=== PATIENT | female | born 1955 | race Caucasian/White ===

== ENCOUNTER 2016-09-25 10:40 | Inpatient (IN) | payer OTHER ==
[~2016-09-25] VITALS: Ht 170.2 cm; Wt 46.8 kg
[~2016-09-25 10:40] MED LIST: CNT PO; DLD2 PO; NUTR-1197 PO; OXYC5TAB PO; VTMB12100 PO; ZNT150 PO
[2016-09-25] MEDS ORDERED: ONDANSETRON INJ 2 MG/ML 2 ML VIAL IV STA (11:03)
[2016-09-25] MEDS ORDERED: SODIUM CHLORIDE 0.9% 1000ML 1,000 ML IV STA (11:08)
[2016-09-25] MEDS ORDERED: FENTANYL CITRATE INJ 50 MCG/1 ML 2 ML VIAL IV STA (11:08)
--- NOTE | 2016-09-25 11:14 | EMERGENCY ROOM VISIT NOTE ---
History Report prepared by Shila: Patti Rivera Under the Supervision of: Dr. Bob Garcia M.D. First contact with patient: 11:06 Chief Complaint: ABDOMINAL PAIN Stated Complaint: ABDOMINAL PAIN Nursing Triage Summary: Pt reports lower abdominal pain starting around 0500 this am. Also reports nausea, vomiting and diarrhea. 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 Procedure done at [facility] last Thursday and was discharged to home yesterday. Four laproscopic incisions noted on abdomen. BS X4 quadrants present. Pt had 10mg morphine IM en route. Hx chrons, abdominal lesions, abdominal pain. History of Present Illness The patient is a 60 year old female who presents to the Emergency Room with complaints of persistent lower abdominal pain that began around 0500 this morning. She currently rates her discomfort as a 10/10 in severity. The patient states that she had a Laparoscopic Strong's procedure to release the ligament of Treitz at [facility] last Thursday. She was discharged from [facility] yesterday. The patient states that she has had nausea, vomiting, and diarrhea. She states that she could not take her pain medications this morning due to the vomiting. Per EMS the patient received 10 mg of Morphine prior to arrival. The ROS is limited secondary to the patient being in significant pain and requesting pain medications. Source of History: patient Onset: 0500 this morning Position: abdomen Symptom Intensity: 10/10 Timing: other (persistent) Associated Symptoms: + diarrhea, + nausea, + vomiting Review of Systems The ROS is limited secondary to the patient being in significant pain and requesting pain medications. Past Medical & Surgical Medical Problems: (1) Abdominal pain (2) Adenomatous polyp of colon (3) Anxiety (4) B12 deficiency (5) Barretts esophagus (6) Chronic abdominal pain (7) Common bile duct (CBD) stricture (8) Dehydration (9) Depression (10) Dyslipidemia (11) Gastroparesis (12) GERD (gastroesophageal reflux disease) (13) IBS (irritable bowel syndrome) (14) Impaired fasting glucose (15) Intractable abdominal pain (16) Intractable nausea and vomiting (17) Malnutrition (18) Osteoporosis (19) Pernicious anemia (20) PUD (peptic ulcer disease) Surgical Problems: (1) H/O colonoscopy (2) H/O pyloroplasty (3) H/O vagotomy (4) History of carpal tunnel surgery (5) History of esophagogastroduodenoscopy (EGD) (6) History of Mary fundoplication (7) S/P cholecystectomy (8) S/P ERCP (9) S/p revision of esophagus and stomach (10) S/P thyroidectomy (11) Status post insertion of percutaneous endoscopic gastrostomy (PEG) tube Family History Unobtainable Social History Smoking Status: Current Every Day Smoker Marital Status: single, Occupation Status: disabled Current/Historical Medications Scheduled Acetaminophen (Tylenol Extra Strength), PO TID Cyanocobalamin (Vitamin B-12), 100 MCG PO QAM Enoxaparin (Lovenox), 40 MG SQ DAILY Multivitamins/Minerals (Certavite/Antioxidants), 1 TAB PO QAM Oxycodone/Acetaminophen 5MG/325MG (Percocet 5MG/325MG), 1 TAB PO QID Ranitidine HCl (Ranitidine HCl), 150 MG PO BID Scheduled PRN [marajaunia], 3.4 GM PO DAILY PRN for pain/nausea Allergies Coded Allergies: Benzodiazepines (Verified Allergy, Unknown, 06/10/16) Replaces CHLORDIAZEPOX Chlordiazepoxide (Verified Allergy, Unknown, 06/10/16) Replaces CHLORDIAZEPOX Clidinium (Verified Allergy, Unknown, 06/10/16) Replaces CHLORDIAZEPOX Metoclopramide (Verified Allergy, Unknown, 06/10/16) Pantoprazole (Verified Allergy, Unknown, ., 06/10/16) Prochlorperazine (Verified Allergy, Unknown, 06/10/16) Physical Exam Vital Signs Date Time Temp Pulse Resp B/P Pulse Ox O2 Delivery O2 Flow Rate FiO2 09/25/16 15:00 77 18 185/103 91 Room Air 09/25/16 14:13 73 16 132/83 95 Room Air 09/25/16 13:05 78 09/25/16 12:44 74 20 125/77 97 Room Air 09/25/16 11:40 76 14 162/105 97 Room Air 09/25/16 11:10 80 09/25/16 10:49 36.5 95 18 143/105 95 Room Air Physical Exam GENERAL: Patient is cachectic. Moderate distress. Crying. Dry heaving. Chronically unwell appearing. HEENT: No acute trauma, normocephalic atraumatic, mucous membranes moist, no nasal congestion, no scleral icterus. NECK: No stridor, no adenopathy, no meningismus, trachea is midline. LUNGS: No dyspnea. Clear to auscultation and equal bilaterally. No wheeze, no rhonchi. HEART: Regular rate and rhythm. No murmurs, rubs, gallops appreciated. ABDOMEN: Diffuse nonspecific tenderness to palpation of the abdomen. Hyperactive bowel sounds. BACK: No midline tenderness, no CVA tenderness EXTREMITIES: Normal motion all extremities, no cyanosis, no edema. NEUROLOGIC: Alert and oriented, no acute motor or sensory deficits, no focal weakness, cranial nerves grossly intact. SKIN: No rash, no jaundice, no diaphoresis. Medical Decision & Procedures ER Provider Diagnostic Interpretation: X ray results and stated below per my interpretation and radiologist interpretation. Other radiology results and stated below per my review and radiologist interpretation: CT OF THE ABDOMEN AND PELVIS WITH CONTRAST CLINICAL HISTORY: Severe abdominal pain. Status post release of the ligament of Treitz last Thursday. COMPARISON STUDY: CT of the abdomen and pelvis July 07, 2016. TECHNIQUE: Following IV administration of 93 mL of Optiray-320, axial images of the abdomen and pelvis were obtained from the lung bases to the proximal femurs. Images were reviewed in the axial, sagittal, and coronal planes. IV contrast was administered without complication. CT DOSE: 322.01 mGycm FINDINGS: Visualized portions of the lung bases are clear. There are postsurgical findings at the gastroesophageal junction. Note is made of a small amount of pneumoperitoneum. This may be postsurgical. Pneumobilia is unchanged since prior CT. The spleen, adrenal glands and kidneys are unremarkable with the exception of a few subcentimeter renal lesions which are too small to characterize. There is no hydronephrosis. There is no peripancreatic infiltration. The gallbladder is surgically absent. This exam is compromised by paucity of fat and lack of oral contrast. There is mild plaque of the abdominal aorta. Major abdominal vessels are patent. Duodenal dilatation has improved since prior CT. There is minimal infiltration within the operative bed. There is no fluid collection to suggest an abscess. There is no evidence for a bowel obstruction. Mild colonic wall thickening is probably due to underdistention. The appendix is normal. Mild pancreatic ductal dilatation is unchanged. IMPRESSION: 1. Small amount of pneumoperitoneum. While nonspecific, this is likely post surgical. No fluid collection to suggest abscess. Minimal infiltration within the operative bed is within normal limits in the early postoperative setting. 2. No bowel obstruction. Interval improvement in duodenal dilatation since prior exam. 3. Technically difficult study to interpret due to a paucity of fat and lack of oral contrast. 4. Mild colonic wall thickening. This is likely due to underdistention although a nonspecific colitis could appear similar. Normal appendix. Electronically signed by: Paddy Rodriguez M.D. 09/25/2016 12:23 PM Dictated Date/Time: 09/25/2016 12:13 PM Laboratory Results 09/25/16 10:50 Red Blood Count 4.48, Mean Corpuscular Volume 93.8, Mean Corpuscular Hemoglobin 33.9, Mean Corpuscular Hemoglobin Concent 36.2, Mean Platelet Volume 9.0, Neutrophils (%) (Auto) 79.6, Lymphocytes (%) (Auto) 10.9, Monocytes (%) (Auto) 7.6, Eosinophils (%) (Auto) 1.5, Basophils (%) (Auto) 0.2, Neutrophils # (Auto) 8.31, Lymphocytes # (Auto) 1.14, Monocytes # (Auto) 0.79, Eosinophils # (Auto) 0.16, Basophils # (Auto) 0.02 09/25/16 10:50 Test 09/25/16 10:50 09/25/16 11:14 09/25/16 11:20 White Blood Count 10.44 K/uL (4.8-10.8) Red Blood Count 4.48 M/uL (4.2-5.4) Hemoglobin 15.2 g/dL (12.0-16.0) Hematocrit 42.0 % (37-47) Mean Corpuscular Volume 93.8 fL (80-100) Mean Corpuscular Hemoglobin 33.9 pg (25-34) Mean Corpuscular Hemoglobin Concent 36.2 g/dl (32-36) Platelet Count 176 K/uL (130-400) Mean Platelet Volume 9.0 fL (7.4-10.4) Neutrophils (%) (Auto) 79.6 % Lymphocytes (%) (Auto) 10.9 % Monocytes (%) (Auto) 7.6 % Eosinophils (%) (Auto) 1.5 % Basophils (%) (Auto) 0.2 % Neutrophils # (Auto) 8.31 K/uL (1.4-6.5) Lymphocytes # (Auto) 1.14 K/uL (1.2-3.4) Monocytes # (Auto) 0.79 K/uL (0.11-0.59) Eosinophils # (Auto) 0.16 K/uL (0-0.5) Basophils # (Auto) 0.02 K/uL (0-0.2) RDW Standard Deviation 41.8 fL (36.4-46.3) RDW Coefficient of Variation 12.3 % (11.5-14.5) Immature Granulocyte % (Auto) 0.2 % Immature Granulocyte # (Auto) 0.02 K/uL (0.00-0.02) Est Creatinine Clear Calc Drug Dose 72.7 ml/min Estimated GFR () 114.0 Estimated GFR (Non- 98.4 BUN/Creatinine Ratio 13.2 (10-20) Calcium Level 10.3 mg/dl (8.5-10.1) Total Bilirubin 0.8 mg/dl (0.2-1) Aspartate Amino Transf (AST/SGOT) 16 U/L (15-37) Alanine Aminotransferase (ALT/SGPT) 21 U/L (12-78) Alkaline Phosphatase 117 U/L (45-117) Total Protein 7.1 gm/dl (6.4-8.2) Albumin 3.9 gm/dl (3.4-5.0) Globulin 3.2 gm/dl (2.5-4.0) Albumin/Globulin Ratio 1.2 (0.9-2) Lipase 93 U/L (73-393) Bedside Hemoglobin 15.3 g/dl (12.0-16.0) Bedside Hematocrit 45 % (37-47) Bedside Sodium 141 mEq/L (135-144) Bedside Potassium 3.4 mEq/L (3.3-5.0) Bedside Chloride 103 mEq/L (101-112) Bedside Total CO2 24 mEq/l (24-31) Anion Gap 18.0 mmol/L (16-25) Bedside Blood Urea Nitrogen 7 mg/dl (7-18) Bedside Creatinine 0.6 mg/dl (0.6-1.3) Bedside Glucose (other) 123 mg/dl (70-99) Bedside Ionized Calcium (Poppy) 1.26 mmol/l (1.12-1.32) Bedside Lactic Acid Venous 1.93 mmol/L (0.90-1.70) Laboratory results as reviewed by me. Medications Administered Medications (Trade) Dose Ordered Sig/Radha Route Start Time Stop Time Status Last Admin Dose Admin Ondansetron HCl (Zofran Inj) 4 mg NOW STAT IV 09/25/16 11:03 09/25/16 11:05 DC 09/25/16 11:06 4 MG Fentanyl Citrate 75 mcg 75 mcg NOW STAT IV 09/25/16 11:08 09/25/16 11:10 DC 09/25/16 11:19 75 MCG Sodium Chloride (Nss 1000ml) 1,000 ml @ 999 mls/hr Q1H1M STAT IV 09/25/16 11:08 09/25/16 12:08 DC 09/25/16 11:19 999 MLS/HR Miscellaneous Information (Nursing Verbal Med Order) 1 ea ONE ONCE N/A 09/25/16 11:45 09/25/16 11:46 DC 09/25/16 11:39 1 EA Hydromorphone HCl (Dilaudid Inj) 1 mg NOW STAT IV 09/25/16 12:36 09/25/16 12:37 DC 09/25/16 12:44 1 MG Ondansetron HCl (Zofran Inj) 4 mg STK-MED ONCE .ROUTE 09/25/16 15:02 09/25/16 15:05 DC 09/25/16 15:02 4 MG ED Course 1103: Ordered Zofran Inj 4 mg IV. 1107: The patient was evaluated in room A12B. A complete history and physical exam was performed. 1108: Ordered Sodium Chloride 1000 ml @ 999 mls/hr IV, Fentanyl Inj 75 mcg IV. 1139: Per nursing staff, the patient is experiencing increased pain. Verbally ordered 100 mcg of Fentanyl. 1236: Ordered Dilaudid Inj 1 mg IV. 1246: I reevaluated the patient and she is still experiencing pain. I discussed all the exam findings with her and I discussed the treatment plan. She verbalized complete understanding and agreement. She will be evaluated for further treatment. 1300: I discussed the patient's case with Dr. Sanders [facility] [place]. He is going to evaluate the patient for further treatment. Medical Decision Differential: Appendicitis, Diverticulitis, PUD/Gastritis, Biliary Pathology, UTI, Pyelonephritis, Renal Colic, Bowel Obstruction, Aortic Pathology, Acute Coronary Syndrome, amongst other pathologies entertained. 60 yr old female arrives for evaluation of epigastric/diffuse abdominal pain. Just had surgery to help relieve SMA syndrome and on fluids only diet. Already with Morphine [employer] though still in quite some distress. Fentanyl x 2 and dilaudid x 1 with eventual improvement in symptoms. CT consistent with her recent surgery. She really is vastly improved though with the amount of narcotics she has received, mild lactic acidosis and fact that she has gastroenteritis I feel that she will likely not do well as an outpatient. She is clearly cachectic and given inability to tolerate PO may require IV nutrition. Consults Time Called: 1255 Consulting Physician: BRAVO Davis Returned Call: 1300 I discussed the patient's case with BRAVO Davis. He is going to evaluate the patient for further treatment. Impression Primary Impression: Intractable abdominal pain Scribe Attestation The scribe's documentation has been prepared under my direction and personally reviewed by me in its entirety. I confirm that the note above accurately reflects all work, treatment, procedures, and medical decision making performed by me. Departure Information Dispostion Being Evaluated By Hospitalist Reji West PA-C (PCP)
[2016-09-25] MEDS ORDERED: OPTIRAY 320 IV PRN (11:15)
[2016-09-25 11:24] LABS: BASO % 0.2 %; BASO ABS # 0.02 K/uL (0-0.2); COMPLETE YES; EOS % 1.5 %; IG% 0.2 %; LYMPH % 10.9 %; LYMPH ABS # 1.14 K/uL (1.2-3.4); MEAN CELL VOLUME 93.8 fL (80-100); MEAN CORPUSCULAR HEMOGLOBIN 33.9 pg (25-34); MEAN CORPUSCULAR HGB CONC 36.2 g/dl (32-36); MONO % 7.6 %; NEUT % 79.6 %; PLATELET COUNT 176 K/uL (130-400); RED BLOOD COUNT 4.48 M/uL (4.2-5.4); WHITE BLOOD COUNT 10.44 K/uL (4.8-10.8)
[2016-09-25 11:31] LABS: ISTAT CREATININE 0.6 mg/dl (0.6-1.3); ISTAT HEMOGLOBIN 15.3 g/dl (12.0-16.0); ISTAT IONIZED CALCIUM 1.26 mmol/l (1.12-1.32)
[2016-09-25] MEDS ORDERED: [UNRECOGNIZED DRUG - OTHER] PO (11:34)
[2016-09-25] MEDS ORDERED: OXYC-57 PO ×2 (11:34)
[2016-09-25] MEDS ORDERED: ENOX40IN SQ ×2 (11:34)
[2016-09-25] MEDS ORDERED: ACET-1138 PO ×2 (11:34)
[2016-09-25 11:36] LABS: CREATININE 0.6 mg/dl (0.60-1.20)
[2016-09-25 11:37] LABS: BUN/CREATININE RATIO 13.2 (10-20); CALCIUM 10.3 mg/dl (8.5-10.1); POTASSIUM 3.5 mmol/L (3.5-5.1)
[2016-09-25 11:39] LABS: ALB/GLOB RATIO 1.2 (0.9-2)
[2016-09-25] MEDS ORDERED: NURSING VERBAL MED ORDER ONE (11:45)
--- NOTE | 2016-09-25 12:25 | DIAGNOSTIC IMAGING REPORT ---
CT OF THE ABDOMEN AND PELVIS WITH CONTRAST CLINICAL HISTORY: Severe abdominal pain. Status post release of the ligament of Treitz last Thursday. COMPARISON STUDY: CT of the abdomen and pelvis July 07, 2016. TECHNIQUE: Following IV administration of 93 mL of Optiray-320, axial images of the abdomen and pelvis were obtained from the lung bases to the proximal femurs. Images were reviewed in the axial, sagittal, and coronal planes. IV contrast was administered without complication. CT DOSE: 322.01 mGycm FINDINGS: Visualized portions of the lung bases are clear. There are postsurgical findings at the gastroesophageal junction. Note is made of a small amount of pneumoperitoneum. This may be postsurgical. Pneumobilia is unchanged since prior CT. The spleen, adrenal glands and kidneys are unremarkable with the exception of a few subcentimeter renal lesions which are too small to characterize. There is no hydronephrosis. There is no peripancreatic infiltration. The gallbladder is surgically absent. This exam is compromised by paucity of fat and lack of oral contrast. There is mild plaque of the abdominal aorta. Major abdominal vessels are patent. Duodenal dilatation has improved since prior CT. There is minimal infiltration within the operative bed. There is no fluid collection to suggest an abscess. There is no evidence for a bowel obstruction. Mild colonic wall thickening is probably due to underdistention. The appendix is normal. Mild pancreatic ductal dilatation is unchanged. IMPRESSION: 1. Small amount of pneumoperitoneum. While nonspecific, this is likely post surgical. No fluid collection to suggest abscess. Minimal infiltration within the operative bed is within normal limits in the early postoperative setting. 2. No bowel obstruction. Interval improvement in duodenal dilatation since prior exam. 3. Technically difficult study to interpret due to a paucity of fat and lack of oral contrast. 4. Mild colonic wall thickening. This is likely due to underdistention although a nonspecific colitis could appear similar. Normal appendix. Electronically signed by: Paddy Rodriguez M.D. 09/25/2016 12:23 PM Dictated Date/Time: 09/25/2016 12:13 PM
[2016-09-25] MEDS ORDERED: HYDROmorphone INJ 1 MG/ML SYR IV STA (12:36)
[2016-09-25] MEDS ORDERED: ACETAMINOPHEN 325 MG TAB PO PRN (13:30)
[2016-09-25] MEDS ORDERED: [UNRECOGNIZED DRUG - OTHER] PO PRN (13:30)
[2016-09-25] MEDS ORDERED: ZOLPIDEM TARTRATE 5 MG TAB PO PRN ×2 (13:30→13:45)
[2016-09-25] MEDS ORDERED: MoRPHine SULFATE 2 MG/ML CARP IV PRN (13:45)
[2016-09-25] MEDS ORDERED: BISACODYL 10 MG SUPP PR PRN (13:45)
[2016-09-25] MEDS ORDERED: DiphenhydrAMINE HCL 50 MG/ML VIAL IV PRN (13:45)
[2016-09-25] MEDS ORDERED: IV FLUIDS COMPLETED PRN (15:00)
[2016-09-25] MEDS ORDERED: ONDANSETRON INJ 2 MG/ML 2 ML VIAL ONE (15:02)
[2016-09-25] MEDS: TRIMETHOBENZAMIDE IM PRN (15:48)
[2016-09-25 16:02] VITALS: BP 181/103; PULSE 76; TEMP 37.2; O2SAT 98; Ht 170.2 cm; Wt 46.8 kg
[2016-09-25] MEDS: MoRPHine SULFATE 4 MG/ML 1 ML CARP\\VIAL IV PRN ×3 (16:22→21:44)
[2016-09-25] MEDS: ONDANSETRON INJ 2 MG/ML 2 ML VIAL IV PRN ×2 (16:23→22:46)
--- NOTE | 2016-09-25 16:42 | History and Physical ---
History & Physical Date & Time of Service: Sep 25, 2016 at 16:27 Chief Complaint: Dehydration, Intractable Nausea And Vomiting Primary Care Physician: Reji Weinstein PA-C History of Present Illness Source: patient The patient is a 60-year-old female who presents emergency department with complaint of abdominal pain, nausea and vomiting that began at 520 this morning. She was discharged from [facility] yesterday after having had a laparoscopic Strong's procedure performed to release the ligament of Treitz. She was told that she needed to stay with clear liquid diet plus Boost Breeze nutritional drink for the next 3 weeks. She was also unable to hold any meds down, including her pain meds, and thus presents for assessment. Past Medical/Surgical History Medical Problems: (1) Adenomatous polyp of colon Status: Chronic (2) Anxiety Status: Chronic (3) B12 deficiency Status: Chronic (4) Barretts esophagus Status: Chronic (5) Chronic abdominal pain Status: Chronic (6) Common bile duct (CBD) stricture Status: Chronic (7) Depression Status: Chronic (8) Dyslipidemia Status: Chronic (9) Gastroparesis Status: Chronic (10) GERD (gastroesophageal reflux disease) Status: Chronic (11) IBS (irritable bowel syndrome) Status: Chronic (12) Impaired fasting glucose Status: Chronic (13) Malnutrition Status: Chronic (14) Osteoporosis Status: Chronic (15) Pernicious anemia Status: Chronic (16) PUD (peptic ulcer disease) Status: Chronic Surgical Problems: (1) H/O colonoscopy Status: Chronic (2) H/O pyloroplasty Status: Chronic (3) H/O vagotomy Status: Chronic (4) History of carpal tunnel surgery Status: Chronic (5) History of esophagogastroduodenoscopy (EGD) Status: Chronic (6) History of Mary fundoplication Status: Chronic (7) S/P cholecystectomy Status: Chronic (8) S/P ERCP Permanent Comment: with stent insertion at [facility] in 03/2000; with CBD stones at [facility] in 07/2010; with CBD sludge at [facility] in 01/2011 Status: Chronic (9) S/p revision of esophagus and stomach Permanent Comment: Belsey-Иван IV surgery; 1991 Status: Chronic (10) S/P thyroidectomy Status: Chronic (11) Status post insertion of percutaneous endoscopic gastrostomy (PEG) tube Status: Chronic Family History Unobtainable Social History Smoking Status: Current Every Day Smoker Smokeless Tobacco Use: No Alcohol Use: none Drug Use: none, marijuana (medical marijuana) Marital Status: single, Housing status: lives with family Occupational Status: disabled Immunizations History of Influenza Vaccine: Yes Influenza Vaccine Date: Jun 27, 2010 History of Tetanus Vaccine?: Yes History of Pneumococcal: Yes Pneumococcal Date: Jul 27, 2009 History of Hepatitis B Vaccine: No Multi-Drug Resistant Organisms History of MDRO: No Allergies Coded Allergies: Benzodiazepines (Verified Allergy, Unknown, 06/10/16) Replaces CHLORDIAZEPOX Chlordiazepoxide (Verified Allergy, Unknown, 06/10/16) Replaces CHLORDIAZEPOX Clidinium (Verified Allergy, Unknown, 06/10/16) Replaces CHLORDIAZEPOX Metoclopramide (Verified Allergy, Unknown, 06/10/16) Pantoprazole (Verified Allergy, Unknown, ., 06/10/16) Prochlorperazine (Verified Allergy, Unknown, 06/10/16) Home Medications Scheduled Acetaminophen (Tylenol Extra Strength), PO TID Cyanocobalamin (Vitamin B-12), 100 MCG PO QAM Enoxaparin (Lovenox), 40 MG SQ DAILY Multivitamins/Minerals (Certavite/Antioxidants), 1 TAB PO QAM Oxycodone/Acetaminophen 5MG/325MG (Percocet 5MG/325MG), 1 TAB PO QID Ranitidine HCl (Ranitidine HCl), 150 MG PO BID Scheduled PRN [marajaunia], 3.4 GM PO DAILY PRN for pain/nausea Review of Systems The patient denies chest pain, palpitations, shortness of breath, cough, lower extremity swelling, vision change, hearing change, sore throat, fevers, chills, sweats, blood in urine or stool, dysuria, urinary frequency or urgency, rash, abnormal bruising or bleeding, imbalance, focal weakness, numbness or tingling in arms or legs, arthralgias or myalgias, back or neck pain, night sweats, or allergy symptoms. The review of systems is otherwise negative other than for that already noted above, and at least 10 systems have been reviewed. Physical Exam Vital Signs Date Time Temp Pulse Resp B/P Pulse Ox O2 Delivery O2 Flow Rate FiO2 09/25/16 16:02 37.2 76 20 181/103 98 Room Air 09/25/16 15:51 75 22 165/102 96 Room Air 09/25/16 15:00 77 18 185/103 91 Room Air 09/25/16 14:13 73 16 132/83 95 Room Air 09/25/16 13:05 78 09/25/16 12:44 74 20 125/77 97 Room Air 09/25/16 11:40 76 14 162/105 97 Room Air 09/25/16 11:10 80 09/25/16 10:49 36.5 95 18 143/105 95 Room Air The patient is awake, alert and oriented 3, normocephalic and atraumatic, lying in bed and in no acute distress. HEENT--PERRL, EOMI, mucous membranes and oropharynx dry. Neck--supple, no JVD or bruits, thyroid normal, trachea midline, no adenopathy. Heart--normal S1 and S2, no extra beats, no murmurs, rubs or gallops. Lungs--clear bilaterally with good air movement, no respiratory distress, no accessory muscle use. Abdomen--normal bowel sounds and soft, generalized tenderness, nondistended, no hernias or masses, no organomegaly. Extremities--no cyanosis, clubbing or edema. There are good distal pulses b/l. Dermatologic--normal skin turgor, normal color, warm and dry, no abnormal lymph nodes, no rash. Neurologic--cranial nerves II through XII grossly intact, motor and sensory examination normal. Rheumatologic--normal range of motion, nontender, muscles and joints. Psychiatric--normal affect. Diagnostics Laboratory Results Results Past 24 Hours Test 09/25/16 10:50 09/25/16 11:14 09/25/16 11:20 Range/Units White Blood Count 10.44 4.8-10.8 K/uL Red Blood Count 4.48 4.2-5.4 M/uL Hemoglobin 15.2 12.0-16.0 g/dL Hematocrit 42.0 37-47 % Mean Corpuscular Volume 93.8 80-100 fL Mean Corpuscular Hemoglobin 33.9 25-34 pg Mean Corpuscular Hemoglobin Concent 36.2 32-36 g/dl Platelet Count 176 130-400 K/uL Mean Platelet Volume 9.0 7.4-10.4 fL Neutrophils (%) (Auto) 79.6 % Lymphocytes (%) (Auto) 10.9 % Monocytes (%) (Auto) 7.6 % Eosinophils (%) (Auto) 1.5 % Basophils (%) (Auto) 0.2 % Neutrophils # (Auto) 8.31 1.4-6.5 K/uL Lymphocytes # (Auto) 1.14 1.2-3.4 K/uL Monocytes # (Auto) 0.79 0.11-0.59 K/uL Eosinophils # (Auto) 0.16 0-0.5 K/uL Basophils # (Auto) 0.02 0-0.2 K/uL RDW Standard Deviation 41.8 36.4-46.3 fL RDW Coefficient of Variation 12.3 11.5-14.5 % Immature Granulocyte % (Auto) 0.2 % Immature Granulocyte # (Auto) 0.02 0.00-0.02 K/uL Sodium Level 142 136-145 mmol/L Potassium Level 3.5 3.5-5.1 mmol/L Chloride Level 106 98-107 mmol/L Carbon Dioxide Level 24 21-32 mmol/L Anion Gap 12.0 18.0 16-25 mmol/L Blood Urea Nitrogen 8 7-18 mg/dl Creatinine 0.60 0.60-1.20 mg/dl Est Creatinine Clear Calc Drug Dose 72.7 ml/min Estimated GFR () 114.0 Estimated GFR (Non- 98.4 BUN/Creatinine Ratio 13.2 10-20 Random Glucose 115 70-99 mg/dl Calcium Level 10.3 8.5-10.1 mg/dl Total Bilirubin 0.8 0.2-1 mg/dl Aspartate Amino Transf (AST/SGOT) 16 15-37 U/L Alanine Aminotransferase (ALT/SGPT) 21 12-78 U/L Alkaline Phosphatase 117 45-117 U/L Total Protein 7.1 6.4-8.2 gm/dl Albumin 3.9 3.4-5.0 gm/dl Globulin 3.2 2.5-4.0 gm/dl Albumin/Globulin Ratio 1.2 0.9-2 Lipase 93 73-393 U/L Bedside Hemoglobin 15.3 12.0-16.0 g/dl Bedside Hematocrit 45 37-47 % Bedside Sodium 141 135-144 mEq/L Bedside Potassium 3.4 3.3-5.0 mEq/L Bedside Chloride 103 101-112 mEq/L Bedside Total CO2 24 24-31 mEq/l Bedside Blood Urea Nitrogen 7 7-18 mg/dl Bedside Creatinine 0.6 0.6-1.3 mg/dl Bedside Glucose (other) 123 70-99 mg/dl Bedside Ionized Calcium (Poppy) 1.26 1.12-1.32 mmol/l Bedside Lactic Acid Venous 1.93 0.90-1.70 mmol/L Diagnostic Radiology Patient Name: ROCKY JACQUES Unit Number: [id number] Dictated: 09/25/161212 Transcribed: 09/25/161212 JA Printed Date/Time: [~ rep prt dt]/[~ rep prt tm] [~ rep ct labl] - [~ rep ct ivnm] [facility] [place] [place] [address] Dictated: 09/25/161212 Transcribed: 09/25/161212 JA Printed Date/Time: [~ rep prt dt]/[~ rep prt tm] [~ rep ct labl] - [~ rep ct ivnm] CT OF THE ABDOMEN AND PELVIS WITH CONTRAST CLINICAL HISTORY: Severe abdominal pain. Status post release of the ligament of Treitz last Thursday. COMPARISON STUDY: CT of the abdomen and pelvis July 07, 2016. TECHNIQUE: Following IV administration of 93 mL of Optiray-320, axial images of the abdomen and pelvis were obtained from the lung bases to the proximal femurs. Images were reviewed in the axial, sagittal, and coronal planes. IV contrast was administered without complication. CT DOSE: 322.01 mGycm FINDINGS: Visualized portions of the lung bases are clear. There are postsurgical findings at the gastroesophageal junction. Note is made of a small amount of pneumoperitoneum. This may be postsurgical. Pneumobilia is unchanged since prior CT. The spleen, adrenal glands and kidneys are unremarkable with the exception of a few subcentimeter renal lesions which are too small to characterize. There is no hydronephrosis. There is no peripancreatic infiltration. The gallbladder is surgically absent. This exam is compromised by paucity of fat and lack of oral contrast. There is mild plaque of the abdominal aorta. Major abdominal vessels are patent. Duodenal dilatation has improved since prior CT. There is minimal infiltration within the operative bed. There is no fluid collection to suggest an abscess. There is no evidence for a bowel obstruction. Mild colonic wall thickening is probably due to underdistention. The appendix is normal. Mild pancreatic ductal dilatation is unchanged. IMPRESSION: 1. Small amount of pneumoperitoneum. While nonspecific, this is likely post surgical. No fluid collection to suggest abscess. Minimal infiltration within the operative bed is within normal limits in the early postoperative setting. 2. No bowel obstruction. Interval improvement in duodenal dilatation since prior exam. 3. Technically difficult study to interpret due to a paucity of fat and lack of oral contrast. 4. Mild colonic wall thickening. This is likely due to underdistention although a nonspecific colitis could appear similar. Normal appendix. Electronically signed by: Paddy Rodriguez M.D. 09/25/2016 12:23 PM Dictated Date/Time: 09/25/2016 12:13 PM The status of this report is Signed. Draft = Not yet reviewed or approved by Radiologist. Signed = Reviewed and approved by Radiologist. <AttendingPhy></AttendingPhy> <FamilyPhy>Reji Weinstein PA-C</FamilyPhy> < PrimaryPhy>Reji Weinstein PA-C</PrimaryPhy> <UnitNumber>[id number]</ UnitNumber> <VisitNumber>[id number]</VisitNumber> <PatientName>ROCKY JACQUES</ PatientName> <DateOfBirth>1955</DateOfBirth> <Location>[facility]</Location> < ServiceDate>09/25/16</ServiceDate> <MNE>ESIMARI</MNE> <OrderingPhy>Bob Garcia M.D.</OrderingPhy> <OrderingPhyMNE>f rep ord dr jean</OrderingPhyMNE> < DictatingPhyMNE>f rep dict dr jean</DictatingPhyMNE> <CCListMNE>f rep ct sorayae</ CCListMNE> <AdmittingPhyMNE>f pt admit dr jean</AdmittingPhyMNE> <AttendingPhyMNE >f pt attend dr jean</AttendingPhyMNE> <ConsultingPhyMNE>f pt consult dr jean</ConsultingPhyMNE> <FamilyPhyMNE>f pt fam dr jean</FamilyPhyMNE> <OtherPhyMNE>f pt other dr jean</OtherPhyMNE> < PrimaryPhyMNE>f pt prim care dr jean</PrimaryPhyMNE> <ReferringPhyMNE>f pt referring dr jean</ReferringPhyMNE> EKG EKG with too much noise at baseline for accurate interpretation. Impression Assessment and Plan Intractable abdominal pain, nausea and vomiting with dehydration/status post laparoscopic Strong's Procedure one week ago--the patient will be admitted to the medical surgical floor. We'll continue with her diet of clear liquids and boost breeze, and we will consult dietitian. My recommendation for this patient would be to have a PICC line placed and arrange for DICK in the outpatient setting until her diet is able to be advanced. She has a follow-up scheduled at [facility] in 2 weeks. She'll be continued on ranitidine 150 mg by mouth twice a day, placed on Zofran 4 mg IV every 6 hours when necessary with repeat in 30 minutes when necessary, and Tigan 200mg IM q 6 hours PRN, as she is allergic to metoclopramide, prochlorperazine and pantoprazole. Continue multivitamin with minerals daily, and vitamin B12 100 g by mouth daily. We will consult Drs. Arroyo, Clyde and Colton. DVT prophylaxis--continue Lovenox 40 mg subcutaneous daily. Pain management--continue oxycodone/acetaminophen 5/325 one by mouth 4 times a day when necessary, and morphine sulfate 2-4 mg IV every 2 hours when necessary. Tobacco use disorder--aware of need for cessation. Level of Care Med/Surg Advanced Directives Existing Advance Directive: No Existing Living Will: No Existing Power of Catering Truck Driver: No Resuscitation Status FULL RESUSCITATION VTE Prophylaxis VTE Risk Assessment Done? Y/N: Yes Risk Level: Moderate Given or contraindicated: Enoxaparin (Lovenox)SQ, SCD's
[2016-09-25 17:26] LABS: URINE APPEARANCE CLEAR (CLEAR); URINE BILIRUBIN NEG (NEG); URINE COLOR YELLOW; URINE NITRITE NEG (NEG); URINE SPECIFIC GRAVITY > 1.045 (1.000-1.030); UROBILINOGEN NEG (NEG); ZZUR CULT IF INDIC CLEAN CATCH NO
[2016-09-25 17:39] LABS: MANUAL MICROSCOPIC REQUIRED? NO; REVIEW REQ? NO
[2016-09-25] MEDS: BOOST BREEZE NUTRITION DRINK 1 BOX PO SCH ×2 (17:53→20:15)
[2016-09-25 18:14] VITALS: BP 180/91
[2016-09-25] MEDS: D5W AND 1/2NSS + 20MEQ KCL 1,000 ML IV SCH (18:58)
[2016-09-25] MEDS: RANITIDINE HCL 150 MG TAB PO SCH (20:15)
[2016-09-25] MEDS: ACETAMINOPHEN 500 MG TAB PO SCH (20:15)
[2016-09-26 00:15] VITALS: BP 111/68; PULSE 102; TEMP 36.9; O2SAT 95
[2016-09-26 00:16] VITALS: BP 117/76; PULSE 70; TEMP 36.7; O2SAT 100
[2016-09-26] MEDS: D5W AND 1/2NSS + 20MEQ KCL 1,000 ML IV SCH ×3 (01:50→16:49)
[2016-09-26] MEDS: MoRPHine SULFATE 4 MG/ML 1 ML CARP\\VIAL IV PRN ×5 (02:11→19:40)
[2016-09-26 07:44] VITALS: BP 131/80; PULSE 73; TEMP 36.9; O2SAT 99
[2016-09-26 07:59] LABS: BASO % 0.3 %; BASO ABS # 0.03 K/uL (0-0.2); COMPLETE YES; EOS % 7.3 %; HEMATOCRIT 40.9 % (37-47); IG% 0.2 %; LYMPH % 19.3 %; LYMPH ABS # 1.82 K/uL (1.2-3.4); MEAN CELL VOLUME 95.3 fL (80-100); MEAN CORPUSCULAR HEMOGLOBIN 33.8 pg (25-34); MEAN CORPUSCULAR HGB CONC 35.5 g/dl (32-36); MEAN PLATELET VOLUME 8.7 fL (7.4-10.4); MONO % 9.8 %; NEUT % 63.1 %; PLATELET COUNT 173 K/uL (130-400); RED BLOOD COUNT 4.29 M/uL (4.2-5.4); WHITE BLOOD COUNT 9.42 K/uL (4.8-10.8)
[2016-09-26 08:08] LABS: INR 1.1 (0.9-1.1); PROTHROMBIN TIME (PATIENT) 11.6 SECONDS (9.0-12.0)
[2016-09-26 08:28] LABS: CALCIUM 9.6 mg/dl (8.5-10.1); CREATININE 0.6 mg/dl (0.60-1.20); MAGNESIUM 1.8 mg/dl (1.8-2.4); POTASSIUM 3.7 mmol/L (3.5-5.1)
[2016-09-26] MEDS: ACETAMINOPHEN 500 MG TAB PO SCH ×3 (08:49→19:38)
[2016-09-26] MEDS: RANITIDINE HCL 150 MG TAB PO SCH ×2 (08:50→19:38)
[2016-09-26] MEDS: BOOST BREEZE NUTRITION DRINK 1 BOX PO SCH ×3 (08:50→19:38)
[2016-09-26] MEDS: CYANOCOBALAMIN 100 MCG TAB (VIT B-12) PO SCH (08:50)
[2016-09-26] MEDS: CEROVITE ADV FORMULA TAB PO SCH (08:51)
[2016-09-26] MEDS: ENOXAPARIN 40 MG/0.4 ML SYR SQ SCH (08:58)
[2016-09-26] MEDS: ONDANSETRON INJ 2 MG/ML 2 ML VIAL IV PRN (09:19)
--- NOTE | 2016-09-26 10:23 | Hospitalist Progress Note ---
Hospitalist Progress Note Date of Service Sep 26, 2016. (Terri Cervantes ., PA-C) Subjective Pt evaluation today including: conversation w/ patient, physical exam, chart review, lab review, review of studies, review of inpatient medication list Voiding: no voiding problems, no incontinence Patient states she is feeling better since admission. Last episode of emesis was last night. +nausea- controlled with current medications. Per patient, she has had recurrent episodes similar to this for the past 27+ years. Episodes start in the morning with a bowel movement, proceeded with "stomach acid vomiting." Patient gets epigastric pain that radiates to the chest. Episodes last for a couple of days. She denies seeking medically care, just managing on her own at home. She notes these episodes have worsened since having hiatal hernia 27 years ago, but remembers having mild episodes prior. +diarrhea- per patient, she notes having diarrhea when drinking large amounts of liquid. However, diarrhea has significantly worsened since procedure on 09/19. Patient had flavored ice this morning, which quickly resulted in an episode of diarrhea. Patient denies any fever, chills, sweats, lightheadedness, dizziness, vision changes, CP, palpitations, edema, SOB, wheezing, cough, urinary symptoms , melena, numbness/tingling, weakness, muscle/joint pain, anxiety/depression, active bleeding, or new skin discoloration/changes. (Terri Cervantes ., PA-C) Medications Current Inpatient Medications Medications (Trade) Dose Ordered Sig/Radha Route Start Time Stop Time Status Last Admin Dose Admin Ioversol (Optiray 320) 111 ml UD PRN IV 09/25/16 11:15 09/29/16 11:14 Acetaminophen (Tylenol Tab) 500 mg TID PO 09/25/16 20:00 10/25/16 19:59 09/26/16 08:49 500 MG Cyanocobalamin (Vitamin B-12 Tab) 100 mcg QAM PO 09/26/16 08:00 10/26/16 08:59 09/26/16 08:50 100 MCG Enoxaparin Sodium (Lovenox Inj) 40 mg DAILY SQ 09/26/16 08:00 10/26/16 08:59 09/26/16 08:58 40 MG Multivitamins/ Minerals (Multivitamin W/ Minerals Tab) 1 tab QAM PO 09/26/16 08:00 10/26/16 08:59 09/26/16 08:51 1 TAB Oxycodone/ Acetaminophen (Percocet 5-325mg Tab) 1 tab QID PRN PO 09/25/16 17:00 10/09/16 16:59 Ranitidine HCl (zANTac TAB) 150 mg BID PO 09/25/16 20:00 10/25/16 20:59 09/26/16 08:50 150 MG Bisacodyl (Dulcolax Supp) 10 mg DAILY PRN OK 09/25/16 13:45 10/25/16 13:44 Diphenhydramine HCl (Benadryl Inj) 25 mg Q4H PRN IV 09/25/16 13:45 10/25/16 13:44 09/25/16 16:22 25 MG Zolpidem Tartrate (Ambien Tab) 5 mg HSZ PRN PO 09/25/16 13:45 10/25/16 13:44 Ondansetron HCl (Zofran Inj) 4 mg Q6H PRN IV 09/25/16 13:45 10/25/16 13:44 09/26/16 09:19 4 MG Morphine Sulfate (MoRPHine SULFATE INJ) 2 mg Q2H PRN IV 09/25/16 13:45 10/09/16 13:44 Morphine Sulfate 4 mg 4 mg Q2H PRN IV 09/25/16 13:45 10/09/16 13:44 09/26/16 09:19 4 MG Potassium Chloride/Dextrose/ Sod Cl (D5W And 1/2nss + 20meq KCl) 1,000 ml @ 125 mls/hr Q8H IV 09/25/16 17:39 10/25/16 17:38 09/26/16 08:50 125 MLS/HR Enteral Nutritional Formula (Boost Breeze Nutritional Drink) 1 box TID PO 09/25/16 14:00 10/25/16 13:59 09/26/16 08:50 1 BOX Miscellaneous (Iv Fluids Completed) 1 ea PRN PRN N/A 09/25/16 15:00 09/25/17 14:59 Trimethobenzamide HCl (Tigan IM) 200 mg Q6H PRN IM 09/25/16 15:30 10/25/16 15:29 09/25/16 15:48 200 MG (Terri Cervantes ., PA-C) Objective Vital Signs Date Time Temp Pulse Resp B/P Pulse Ox O2 Delivery O2 Flow Rate FiO2 09/26/16 07:44 36.9 73 18 131/80 99 Room Air 09/26/16 00:16 36.7 70 16 117/76 100 Room Air 09/26/16 00:01 Room Air 09/25/16 20:00 Room Air 09/25/16 18:14 180/91 09/25/16 16:02 37.2 76 20 181/103 98 Room Air 09/25/16 15:51 75 22 165/102 96 Room Air 09/25/16 15:00 77 18 185/103 91 Room Air 09/25/16 14:13 73 16 132/83 95 Room Air 09/25/16 13:05 78 09/25/16 12:44 74 20 125/77 97 Room Air 09/25/16 11:40 76 14 162/105 97 Room Air 09/25/16 11:10 80 09/25/16 10:49 36.5 95 18 143/105 95 Room Air (Terri Cervantes ., PA-C) Physical Exam General Appearance: no apparent distress, + thin Eyes: normal inspection, PERRL ENT: hearing grossly normal Neck: supple Respiratory/Chest: lungs clear, no respiratory distress, no accessory muscle use Cardiovascular: regular rate, rhythm Abdomen: normal bowel sounds, soft, + tenderness (Mild tenderness around incision sites ), + pertinent finding (incision sites x4 without erythema or drainage ) Extremities: no pedal edema, no calf tenderness Neurologic/Psychiatric: alert, normal mood/affect, oriented x 3 Skin: normal color, warm/dry, no rash (Terri Cervantes ., PA-C) Laboratory Results Last 24 Hours Test 09/25/16 10:50 09/25/16 11:14 09/25/16 11:20 09/25/16 14:22 White Blood Count 10.44 K/uL Red Blood Count 4.48 M/uL Hemoglobin 15.2 g/dL Hematocrit 42.0 % Mean Corpuscular Volume 93.8 fL Mean Corpuscular Hemoglobin 33.9 pg Mean Corpuscular Hemoglobin Concent 36.2 g/dl Platelet Count 176 K/uL Mean Platelet Volume 9.0 fL Neutrophils (%) (Auto) 79.6 % Lymphocytes (%) (Auto) 10.9 % Monocytes (%) (Auto) 7.6 % Eosinophils (%) (Auto) 1.5 % Basophils (%) (Auto) 0.2 % Neutrophils # (Auto) 8.31 K/uL Lymphocytes # (Auto) 1.14 K/uL Monocytes # (Auto) 0.79 K/uL Eosinophils # (Auto) 0.16 K/uL Basophils # (Auto) 0.02 K/uL RDW Standard Deviation 41.8 fL RDW Coefficient of Variation 12.3 % Immature Granulocyte % (Auto) 0.2 % Immature Granulocyte # (Auto) 0.02 K/uL Sodium Level 142 mmol/L Potassium Level 3.5 mmol/L Chloride Level 106 mmol/L Carbon Dioxide Level 24 mmol/L Anion Gap 12.0 mmol/L 18.0 mmol/L Blood Urea Nitrogen 8 mg/dl Creatinine 0.60 mg/dl Est Creatinine Clear Calc Drug Dose 72.7 ml/min Estimated GFR () 114.0 Estimated GFR (Non- 98.4 BUN/Creatinine Ratio 13.2 Random Glucose 115 mg/dl Calcium Level 10.3 mg/dl Total Bilirubin 0.8 mg/dl Aspartate Amino Transf (AST/SGOT) 16 U/L Alanine Aminotransferase (ALT/SGPT) 21 U/L Alkaline Phosphatase 117 U/L Total Protein 7.1 gm/dl Albumin 3.9 gm/dl Globulin 3.2 gm/dl Albumin/Globulin Ratio 1.2 Lipase 93 U/L Bedside Hemoglobin 15.3 g/dl Bedside Hematocrit 45 % Bedside Sodium 141 mEq/L Bedside Potassium 3.4 mEq/L Bedside Chloride 103 mEq/L Bedside Total CO2 24 mEq/l Bedside Blood Urea Nitrogen 7 mg/dl Bedside Creatinine 0.6 mg/dl Bedside Glucose (other) 123 mg/dl Bedside Ionized Calcium (Poppy) 1.26 mmol/l Bedside Lactic Acid Venous 1.93 mmol/L Urine Color YELLOW Urine Appearance CLEAR Urine pH 5.0 Urine Specific [place] > 1.045 Urine Protein NEG Urine Glucose (UA) NEG Urine Ketones TRACE Urine Occult Blood NEG Urine Nitrite NEG Urine Bilirubin NEG Urine Urobilinogen NEG Urine Leukocyte Esterase NEG Test 09/25/16 17:17 09/26/16 07:32 Lactic Acid Level 2.0 mmol/L White Blood Count 9.42 K/uL Red Blood Count 4.29 M/uL Hemoglobin 14.5 g/dL Hematocrit 40.9 % Mean Corpuscular Volume 95.3 fL Mean Corpuscular Hemoglobin 33.8 pg Mean Corpuscular Hemoglobin Concent 35.5 g/dl Platelet Count 173 K/uL Mean Platelet Volume 8.7 fL Neutrophils (%) (Auto) 63.1 % Lymphocytes (%) (Auto) 19.3 % Monocytes (%) (Auto) 9.8 % Eosinophils (%) (Auto) 7.3 % Basophils (%) (Auto) 0.3 % Neutrophils # (Auto) 5.94 K/uL Lymphocytes # (Auto) 1.82 K/uL Monocytes # (Auto) 0.92 K/uL Eosinophils # (Auto) 0.69 K/uL Basophils # (Auto) 0.03 K/uL RDW Standard Deviation 43.2 fL RDW Coefficient of Variation 12.5 % Immature Granulocyte % (Auto) 0.2 % Immature Granulocyte # (Auto) 0.02 K/uL Prothrombin Time 11.6 SECONDS Prothromb Time International Ratio 1.1 Activated Partial Thromboplast Time 26.4 SECONDS Partial Thromboplastin Ratio 1.0 Sodium Level 140 mmol/L Potassium Level 3.7 mmol/L Chloride Level 106 mmol/L Carbon Dioxide Level 25 mmol/L Anion Gap 9.0 mmol/L Blood Urea Nitrogen 7 mg/dl Creatinine 0.60 mg/dl Est Creatinine Clear Calc Drug Dose 72.7 ml/min Estimated GFR () 114.0 Estimated GFR (Non- 98.4 BUN/Creatinine Ratio 12.0 Random Glucose 109 mg/dl Calcium Level 9.6 mg/dl Magnesium Level 1.8 mg/dl (Terri Cervantes, FARSHADC) Assessment and Plan The patient is a 60-year-old female who presents emergency department with complaint of abdominal pain, nausea and vomiting that began at 520 this morning. She was discharged from [facility] yesterday after having had a laparoscopic Strong's procedure performed to release the ligament of Treitz. She was told that she needed to stay with clear liquid diet plus Boost Breeze nutritional drink for the next 3 weeks. She was also unable to hold any meds down, including her pain meds, and thus presents for assessment. She has a follow-up scheduled at [place] in 2 weeks. Intractable abdominal pain, nausea and vomiting with dehydration/status post laparoscopic Strong's Procedure one week ago: - Admit to the medical surgical floor - Continue with her diet of clear liquids and boost breeze, and we will consult dietitian - Continue on Ranitidine 150 mg PO BID, placed on Zofran 4 mg IV q6 hrs PRN with repeat in 30 minutes PRN, and Tigan 200mg IM q 6 hours PRN -- Patient is allergic to metoclopramide, prochlorperazine and pantoprazole - Continue multivitamin with minerals daily, and vitamin B12 100 g by mouth daily - Consult GI, appreciate recommendations Diarrhea: - Check stool culture and c.diff Pain management: Continue oxycodone/acetaminophen 5/325 one by mouth QID PRN and morphine sulfate 2-4 mg IV q2 hrs PRN Tobacco use disorder: Smoking cessation counselling DVT prophylaxis: Continue Lovenox 40 mg subcutaneous daily (patient to continue injections until follow-up appt with [facility] in 2 weeks) Code Status: LEVEL I, FULL Dispo: Discharge to home once medically stable (Terri Cervantes, OMA) Reviewed: Pt Seen/Exam by , KHURRAM Notes, Labs, RAD (Amy Suarez MD) History Physician Skeet Operator Supervision Note: I interviewed and examined the patient. Discussed with INO Cervantes and agree with findings and plan as documented in the note. Any exceptions or clarifications are listed here: Pt with no further N/V, had 3 loose BMs today and stool +C. diff, started po Vanco. She reports she smokes marijuana daily for her chronic nausea and has gone for a few weeks at a time without it but last time she was abstinent from MJ was 4 months ago. She reports being on Elavil for 40 years for depression but not on it since she stopped all meds about 5 yrs ago. Tried Zoloft last year and caused +SI. Is willing to try anything to help with her diarrhea. 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 -advised abstinence from marijuana due to association with cyclical vomiting syndrome -willing to trial Elavil again -treat C. diff (second episode in last 3 months) with po Vanco x 14 days -appreciate GI consult -no TPN needed at this point but may need it if can't tolerate liquid diet -would need SNF if needs TPN due to insurance issues getting TPN at home Documented By: Amy Suarez (Amy Suarez MD)
[2016-09-26] MEDS: TRIMETHOBENZAMIDE IM PRN (13:12)
--- NOTE | 2016-09-26 14:17 | GASTROINTESTINAL CONSULTATION ---
DATE OF CONSULTATION: 09/26/2016 DATE OF CONSULTATION: 09/26/2016. Inpatient gastrointestinal consultation note. CHIEF COMPLAINT: Nausea, vomiting, status post Strong's procedure at and discharged Thursday. REQUESTING PROVIDER: Dr. Suarez. HISTORY OF PRESENT ILLNESS: Mrs. Freguson is a 60-year-old white female, known to me from prior hospitalizations. She recently underwent a Strong's procedure for her duodenal obstructive symptoms that had been recurrent and chronic for her. She was doing well overall. This was a laparoscopic surgery. She was doing well overall and discharged Thursday however upon discharge was unable to keep any foods from going through her quickly. She also has a history of dumping syndrome from prior surgeries 3 decades ago or so at [facility]. At home, she was unable to keep any foods down and had a quite transit which led to cramping and nausea. She denies any melena or bright red blood per rectum. She denies any fever or shaking chills while at home for the short period following discharge from [place]. PAST MEDICAL HISTORY: Extensive and includes colonic polyps, anxiety, Hardin's esophagus, chronic abdominal pain, gastroparesis, GERD, IBS, malnutrition, peptic ulcer disease and pernicious anemia. Surgically she has had pyloroplasty, vagotomy, carpal tunnel surgery, several upper endoscopies, fundoplication. She is status post cholecystectomy. SOCIAL HISTORY: The patient uses tobacco products. She denies alcohol use. She is single, was and is now . Lives with her family. ALLERGIES: INCLUDE BENZODIAZEPINES, CLIDINIUM, REGLAN, PANTOPRAZOLE, AND COMPAZINE. HOME MEDICATIONS: Include acetaminophen, Lovenox, B12 orally daily, multivitamins, Percocet and Zantac 150 mg twice daily. The patient also uses marijuana orally for pain and nausea. FAMILY HISTORY: Noncontributory. REVIEW OF SYSTEMS: Otherwise noncontributory based on 14-point exam. The patient denies any dysuria or hematuria, fevers, abdominal pain, melena, bright red blood per rectum, hematemesis or coffee ground emesis. There are no night sweats or shaking chills at home. LABORATORY STUDIES ON ADMISSION: Show white count of 10.4, hemoglobin 15.2, platelets 176,000. BUN and creatinine of 8 and 0.6, glucose 115, total bilirubin 0.8, AST 16, ALT 21, alkaline phosphatase 117, albumin 3.9, lipase 93, venous lactic acid 1.93, ionized calcium 1.26. VITAL SIGNS: The patient was afebrile on admission 36.5, pulse 95, respirations 18, 143/105. She is 95% on room air. GENERAL: The patient is currently resting in bed comfortably. She is awake, alert and oriented x3. HEAD, EYES, EARS, NOSE, AND THROAT: Sclerae are anicteric. Conjunctivae moist. Oral mucosa is moist. NECK: There is no cervical or supraclavicular adenopathy. I do not appreciate thyromegaly. LUNGS: Clear to auscultation. HEART: Normal S1, S2, without rubs, gallops or murmurs. ABDOMEN: Soft, flat, nontender, nondistended with good bowel sounds. There are several small bandages covering laparoscopic incision sites from her recent surgery. There is no draining from any of these small areas. EXTREMITIES: Without clubbing, cyanosis or edema. RECTAL EXAMINATION: Deferred at this time. CT scan on admission which was compared to June 2016 reveals a small amount of pneumoperitoneum from her recent surgery. There is no evidence of fluid collections or abscesses. The lumen of the bowel is unremarkable without dilation or transition points or stenosis. There was mild colonic wall thickening reported, but this may reflect under distention. The appendix is normal. There is no evidence of hydronephrosis, gallbladder is surgically absent. All major abdominal vessels are patent. The duodenal dilation has improved compared to prior CT scan in June. The pancreatic ductal dilation is unchanged. IMPRESSION: The patient is status post Strong's procedure for duodenal obstruction. There was no resection of bowel obtained. According to the patient, it was recommended that she maintain a liquid diet with Boost supplements, however these tend to produce cramping, nausea and loose stool pattern. This is chronic for the patient, she has a history of dumping syndrome and cannot tolerate many of these liquid materials. She does feel hungry although at the present time I would defer on advancing her diet and actually it may be best for her to have nutrition evaluation to see if there are some nonsugar-based approach that may minimize her dumping features but still provide adequate calories. If this is not achievable or does not meet her nutritional requirements she may need parenteral nutrition for a limited time until her diet can be advanced. I will contact Dr. Terrazas to see if we can move her oral intake up if possible. Would watch her electrolytes serially and antiemetics as needed. We will follow with you. If you have any questions, please contact the service. Thank you for allowing me to participate in this patient's care. NADEEM
[2016-09-26 15:37] VITALS: BP 125/79; PULSE 64; TEMP 36.9; O2SAT 98
[2016-09-26 16:00] VITALS: O2SAT 98
[2016-09-26] MEDS ORDERED: NURSING VERBAL MED ORDER ONE (16:00)
[2016-09-26] MEDS: RASPBERRY SYRUP 5 ML UDP PO SCH ×2 (16:36→22:34)
[2016-09-26] MEDS: VANCOMYCIN HCL 125 MG/2.5ML SOLN PO SCH ×2 (16:36→22:34)
[2016-09-26] MEDS: AMITRIPTYLINE HCL 25 MG TAB PO SCH (22:34)
[2016-09-27 00:17] VITALS: BP 138/77; PULSE 62; TEMP 36.7; O2SAT 98
[2016-09-27] MEDS: D5W AND 1/2NSS + 20MEQ KCL 1,000 ML IV SCH ×3 (01:27→17:13)
[2016-09-27] MEDS: MoRPHine SULFATE 4 MG/ML 1 ML CARP\\VIAL IV PRN ×5 (03:29→17:09)
[2016-09-27] MEDS: RASPBERRY SYRUP 5 ML UDP PO SCH ×4 (06:07→23:53)
[2016-09-27] MEDS: VANCOMYCIN HCL 125 MG/2.5ML SOLN PO SCH ×4 (06:07→23:53)
[2016-09-27] MEDS: ONDANSETRON INJ 2 MG/ML 2 ML VIAL IV PRN (06:10)
[2016-09-27 07:13] LABS: BASO % 0.7 %; BASO ABS # 0.05 K/uL (0-0.2); COMPLETE YES; EOS % 8.4 %; HEMATOCRIT 40.7 % (37-47); IG% 0.3 %; LYMPH % 19.5 %; LYMPH ABS # 1.43 K/uL (1.2-3.4); MEAN CELL VOLUME 98.5 fL (80-100); MEAN CORPUSCULAR HEMOGLOBIN 33.9 pg (25-34); MEAN CORPUSCULAR HGB CONC 34.4 g/dl (32-36); MONO % 10.2 %; NEUT % 60.9 %; PLATELET COUNT 157 K/uL (130-400); RED BLOOD COUNT 4.13 M/uL (4.2-5.4); WHITE BLOOD COUNT 7.35 K/uL (4.8-10.8)
[2016-09-27 07:21] VITALS: BP 155/88; PULSE 67; TEMP 37.1; O2SAT 99
[2016-09-27 07:46] LABS: BUN/CREATININE RATIO 5.6 (10-20); CALCIUM 9.5 mg/dl (8.5-10.1); CREATININE 0.6 mg/dl (0.60-1.20); MAGNESIUM 1.7 mg/dl (1.8-2.4); POTASSIUM 3.8 mmol/L (3.5-5.1)
[2016-09-27 08:07] LABS: CHOLESTEROL/HDL RATIO 3.1; PHOSPHORUS 2.4 mg/dl (2.5-4.9); PREALBUMIN 20.5 mg/dl (20-40)
[2016-09-27] MEDS: BOOST BREEZE NUTRITION DRINK 1 BOX PO SCH ×2 (08:27→13:13)
[2016-09-27] MEDS: CEROVITE ADV FORMULA TAB PO SCH (08:29)
[2016-09-27] MEDS ORDERED: MAGNESIUM SULFATE 1GM / D5W 1 GM in PREMIXED IN D5W 100 ML IV ONE (08:30)
[2016-09-27] MEDS: ACETAMINOPHEN 500 MG TAB PO SCH ×3 (08:37→20:40)
[2016-09-27] MEDS: RANITIDINE HCL 150 MG TAB PO SCH ×2 (08:37→20:39)
[2016-09-27] MEDS: CYANOCOBALAMIN 100 MCG TAB (VIT B-12) PO SCH (08:37)
[2016-09-27] MEDS: OXYCODONE/ACETAMINOPHEN 5-325 TAB PO PRN ×2 (08:38→20:39)
[2016-09-27] MEDS: ENOXAPARIN 40 MG/0.4 ML SYR SQ SCH (08:39)
--- NOTE | 2016-09-27 09:08 | Hospitalist Progress Note ---
Hospitalist Progress Note Date of Service Sep 27, 2016. (Terri Cervantes ., FARSHADC) Subjective Pt evaluation today including: conversation w/ patient, physical exam, chart review, lab review, review of inpatient medication list Voiding: no voiding problems, no incontinence Patient states she is feeling OK. +nausea after liquids this AM, controlled with Zofran. Denies any emesis. +mild epigastric discomfort. +diarrhea, +3 BMs per patient since 0300. Patient denies any fever, chills, sweats, lightheadedness, dizziness, vision changes, CP, palpitations, edema, SOB, wheezing, cough, vomiting, urinary symptoms, melena, numbness/tingling, weakness , muscle/joint pain, anxiety/depression, active bleeding, or new skin discoloration/changes. (Terri Cervantes ., FARSHADC) Medications Current Inpatient Medications Medications (Trade) Dose Ordered Sig/Radha Route Start Time Stop Time Status Last Admin Dose Admin Ioversol (Optiray 320) 111 ml UD PRN IV 09/25/16 11:15 09/29/16 11:14 Acetaminophen (Tylenol Tab) 500 mg TID PO 09/25/16 20:00 10/25/16 19:59 09/27/16 08:37 500 MG Cyanocobalamin (Vitamin B-12 Tab) 100 mcg QAM PO 09/26/16 08:00 10/26/16 08:59 09/27/16 08:37 100 MCG Enoxaparin Sodium (Lovenox Inj) 40 mg DAILY SQ 09/26/16 08:00 10/26/16 08:59 09/27/16 08:39 40 MG Multivitamins/ Minerals (Multivitamin W/ Minerals Tab) 1 tab QAM PO 09/26/16 08:00 10/26/16 08:59 09/27/16 08:29 1 TAB Oxycodone/ Acetaminophen (Percocet 5-325mg Tab) 1 tab QID PRN PO 09/25/16 17:00 10/09/16 16:59 09/27/16 08:38 1 TAB Ranitidine HCl (zANTac TAB) 150 mg BID PO 09/25/16 20:00 10/25/16 20:59 09/27/16 08:37 150 MG Bisacodyl (Dulcolax Supp) 10 mg DAILY PRN TX 09/25/16 13:45 10/25/16 13:44 Diphenhydramine HCl (Benadryl Inj) 25 mg Q4H PRN IV 09/25/16 13:45 10/25/16 13:44 09/25/16 16:22 25 MG Zolpidem Tartrate (Ambien Tab) 5 mg HSZ PRN PO 09/25/16 13:45 10/25/16 13:44 Ondansetron HCl (Zofran Inj) 4 mg Q6H PRN IV 09/25/16 13:45 10/25/16 13:44 09/27/16 06:10 4 MG Morphine Sulfate (MoRPHine SULFATE INJ) 2 mg Q2H PRN IV 09/25/16 13:45 10/09/16 13:44 Morphine Sulfate 4 mg 4 mg Q2H PRN IV 09/25/16 13:45 10/09/16 13:44 09/27/16 06:10 4 MG Potassium Chloride/Dextrose/ Sod Cl (D5W And 1/2nss + 20meq KCl) 1,000 ml @ 125 mls/hr Q8H IV 09/25/16 17:39 10/25/16 17:38 09/27/16 09:38 125 MLS/HR Enteral Nutritional Formula (Boost Breeze Nutritional Drink) 1 box TID PO 09/25/16 14:00 10/25/16 13:59 09/27/16 08:27 1 BOX Miscellaneous (Iv Fluids Completed) 1 ea PRN PRN N/A 09/25/16 15:00 09/25/17 14:59 Trimethobenzamide HCl (Tigan IM) 200 mg Q6H PRN IM 09/25/16 15:30 10/25/16 15:29 09/26/16 13:12 200 MG Vancomycin HCl (Vancomycin Oral Soln) 125 mg Q6H PO 09/26/16 17:00 10/10/16 16:59 09/27/16 06:07 125 MG Raspberry (Raspberry Syrup 5ml Cup) 5 ml Q6H PO 09/26/16 17:00 10/06/16 16:59 09/27/16 06:07 5 ML Amitriptyline HCl (Elavil Tab) 25 mg HS PO 09/26/16 22:00 10/26/16 21:59 09/26/16 22:34 25 MG (Terri Cervantes ., PA-C) Objective Vital Signs Date Time Temp Pulse Resp B/P Pulse Ox O2 Delivery O2 Flow Rate FiO2 09/27/16 07:21 37.1 67 18 155/88 99 Room Air 09/27/16 00:17 36.7 62 18 138/77 98 Room Air 09/27/16 00:00 Room Air 09/26/16 16:00 98 Room Air 09/26/16 15:37 36.9 64 18 125/79 98 Room Air (Terri Cervantes, PA-C) Physical Exam General Appearance: no apparent distress, + thin Eyes: normal inspection, PERRL ENT: hearing grossly normal Neck: supple Respiratory/Chest: lungs clear, no respiratory distress, no accessory muscle use Cardiovascular: regular rate, rhythm Abdomen: normal bowel sounds, soft, + tenderness (mild epigastric pain to palpation ), + pertinent finding (4 incision sites with Ster-Strips in place- no erythema or drainage ) Neurologic/Psychiatric: alert, normal mood/affect, oriented x 3 Skin: normal color, warm/dry, no rash (Terri Cervantes ., PA-C) Laboratory Results Last 24 Hours Test 09/27/16 06:50 White Blood Count 7.35 K/uL Red Blood Count 4.13 M/uL Hemoglobin 14.0 g/dL Hematocrit 40.7 % Mean Corpuscular Volume 98.5 fL Mean Corpuscular Hemoglobin 33.9 pg Mean Corpuscular Hemoglobin Concent 34.4 g/dl Platelet Count 157 K/uL Mean Platelet Volume 9.0 fL Neutrophils (%) (Auto) 60.9 % Lymphocytes (%) (Auto) 19.5 % Monocytes (%) (Auto) 10.2 % Eosinophils (%) (Auto) 8.4 % Basophils (%) (Auto) 0.7 % Neutrophils # (Auto) 4.48 K/uL Lymphocytes # (Auto) 1.43 K/uL Monocytes # (Auto) 0.75 K/uL Eosinophils # (Auto) 0.62 K/uL Basophils # (Auto) 0.05 K/uL RDW Standard Deviation 45.6 fL RDW Coefficient of Variation 12.6 % Immature Granulocyte % (Auto) 0.3 % Immature Granulocyte # (Auto) 0.02 K/uL Sodium Level 143 mmol/L Potassium Level 3.8 mmol/L Chloride Level 107 mmol/L Carbon Dioxide Level 28 mmol/L Anion Gap 8.0 mmol/L Blood Urea Nitrogen 3 mg/dl Creatinine 0.60 mg/dl Est Creatinine Clear Calc Drug Dose 72.7 ml/min Estimated GFR () 114.0 Estimated GFR (Non- 98.4 BUN/Creatinine Ratio 5.6 Random Glucose 93 mg/dl Calcium Level 9.5 mg/dl Phosphorus Level 2.4 mg/dl Magnesium Level 1.7 mg/dl Total Bilirubin 0.6 mg/dl Direct Bilirubin 0.1 mg/dl Aspartate Amino Transf (AST/SGOT) 23 U/L Alanine Aminotransferase (ALT/SGPT) 22 U/L Alkaline Phosphatase 90 U/L Total Protein 5.8 gm/dl Albumin 3.1 gm/dl Prealbumin 20.5 mg/dl Triglycerides Level 151 mg/dl Cholesterol Level 106 mg/dl HDL Cholesterol 34 mg/dl LDL Cholesterol, Calculated 42 mg/dl VLDL Cholesterol, Calculated 30 mg/dl Cholesterol/HDL Ratio 3.1 25-Hydroxy Vitamin D Total 27.4 ng/ml (Terri Cervantes, FARSHADC) Assessment and Plan The patient is a 60-year-old female who presents emergency department with complaint of abdominal pain, nausea and vomiting that began at 520 this morning. She was discharged from [facility] yesterday after having had a laparoscopic Strong's procedure performed to release the ligament of Treitz. She was told that she needed to stay with clear liquid diet plus Boost Breeze nutritional drink for the next 3 weeks. She was also unable to hold any meds down, including her pain meds, and thus presents for assessment. She has a follow-up scheduled at [place] in 2 weeks. Intractable abdominal pain, nausea and vomiting with dehydration/status post laparoscopic Strong's Procedure one week ago: - Admit to the medical surgical floor - Continue with her diet of clear liquids and boost breeze, and consult dietitian -- Nutrition recommendations- advance to low fiber diet if tolerated, if not tolerated- PICC for TPN - Continue on Ranitidine 150 mg PO BID, placed on Zofran 4 mg IV q6 hrs PRN with repeat in 30 minutes PRN, and Tigan 200mg IM q 6 hours PRN -- Patient is allergic to metoclopramide, prochlorperazine and pantoprazole - Continue multivitamin with minerals daily, and vitamin B12 100 g by mouth daily - Consult GI, appreciate recommendations--> spoke with Dr. Beatty, he was in contact with [facility]; may advance diet as tolerated, low in sugar, high in protein Diarrhea: - Check stool culture and c.diff--> +c.diff, start Vancomycin 125 mg PO QID x10 days (started on 09/26) - Started Elavil 25 mg PO HS for chronic diarrhea on 09/26 Hypomagnesemia: - 1.7 on 09/27, replete with IV Magnesium 1 gm - Follow mag level, replete PRN Pain management: Continue oxycodone/acetaminophen 5/325 one by mouth QID PRN and morphine sulfate 2-4 mg IV q2 hrs PRN Tobacco use disorder: Smoking cessation counselling DVT prophylaxis: Continue Lovenox 40 mg subcutaneous daily (patient to continue injections until follow-up appt with [facility] in 2 weeks) Code Status: LEVEL I, FULL Dispo: Advance diet- i not tolerated, ?PICC for TPN w/ SNF placement likely need. (Terri Cervantes, OMA) Reviewed: Pt Seen/Exam by Me, HO Notes, Labs (Amy Suarez MD) History Physician Recreation Engineer Supervision Note: I interviewed and examined the patient. Discussed with INO Cervantes and agree with findings and plan as documented in the note. Any exceptions or clarifications are listed here: Pt much improved today, feels great and was able to advance her diet to soft. 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 -advised abstinence from marijuana due to association with cyclical vomiting syndrome -continue Elavil which is helping -treat C. diff (second episode in last 3 months) with po Vanco x 14 days -appreciate GI consult -no TPN needed at this point -likely dc to home tomorrow Documented By: Amy Suarez (Amy Suarez MD)
[2016-09-27 15:31] VITALS: BP 124/76; PULSE 65; TEMP 36.7; O2SAT 100
[2016-09-27] MEDS: AMITRIPTYLINE HCL 25 MG TAB PO SCH (20:40)
[2016-09-27 22:39] VITALS: BP 111/66; PULSE 66; TEMP 37.1; O2SAT 99
[2016-09-28] MEDS: RASPBERRY SYRUP 5 ML UDP PO SCH ×2 (05:14→11:25)
[2016-09-28] MEDS: VANCOMYCIN HCL 125 MG/2.5ML SOLN PO SCH ×2 (05:14→11:28)
[2016-09-28] MEDS: OXYCODONE/ACETAMINOPHEN 5-325 TAB PO PRN ×2 (06:32→11:25)
[2016-09-28 07:07] LABS: BASO % 0.8 %; BASO ABS # 0.06 K/uL (0-0.2); COMPLETE YES; EOS % 8.7 %; HEMATOCRIT 41.6 % (37-47); IG% 0.3 %; LYMPH % 18.9 %; LYMPH ABS # 1.41 K/uL (1.2-3.4); MEAN CELL VOLUME 97.4 fL (80-100); MEAN CORPUSCULAR HEMOGLOBIN 33.3 pg (25-34); MEAN CORPUSCULAR HGB CONC 34.1 g/dl (32-36); MEAN PLATELET VOLUME 8.9 fL (7.4-10.4); MONO % 11.3 %; PLATELET COUNT 176 K/uL (130-400); RED BLOOD COUNT 4.27 M/uL (4.2-5.4); WHITE BLOOD COUNT 7.45 K/uL (4.8-10.8)
[2016-09-28 07:34] LABS: BUN/CREATININE RATIO 7.5 (10-20); CALCIUM 9.4 mg/dl (8.5-10.1); CREATININE 0.68 mg/dl (0.60-1.20); MAGNESIUM 2.1 mg/dl (1.8-2.4); POTASSIUM 4.2 mmol/L (3.5-5.1)
[2016-09-28 07:41] VITALS: BP 130/84; PULSE 64; TEMP 36.4; O2SAT 99
[2016-09-28 08:00] VITALS: O2SAT 99
[2016-09-28] MEDS: ACETAMINOPHEN 500 MG TAB PO SCH ×3 (08:58→14:44)
[2016-09-28] MEDS: ENOXAPARIN 40 MG/0.4 ML SYR SQ SCH (08:59)
[2016-09-28] MEDS: CEROVITE ADV FORMULA TAB PO SCH (08:59)
[2016-09-28] MEDS: CYANOCOBALAMIN 100 MCG TAB (VIT B-12) PO SCH (08:59)
[2016-09-28] MEDS: RANITIDINE HCL 150 MG TAB PO SCH (08:59)
[2016-09-28] MEDS ORDERED: AMT25 PO ×2 (10:45)
[2016-09-28] MEDS ORDERED: METR-163 PO ×2 (10:45)
--- NOTE | 2016-09-28 10:55 | Discharge Instructions ---
Discharge Instructions Admission Reason for Admission: Dehydration, Intractable Nausea And Vomiting (Terri Cervantes PA-C) Discharge Discharge Diagnosis / Problem: C.diff; nausea/vomiting (Terri Cervantes PA-C) Discharge Goals Goal(s): Decrease discomfort, Improve function, Improve disease control, Improve nutritional status, Learn about illness, Diagnostic testing, Therapeutic intervention, Prevent Disease Progression (Terri Cervantes PA-C) Activity Recommendations Activity Limitations: resume your previous activity . (Terri Cervantes PA-C) Instructions / Follow-Up Instructions / Follow-Up New/changed medications: 1. Amitriptyline 25 mg by mouth at bedtime 2. Flagyl 500 mg by mouth three times per day. Begin this medication tonight on 09/28. It is important you complete entire course of medication Prescriptions have been send to [facility] on [facility] Please discontinue the use of marijuana as this can cause cyclic nausea and vomiting Resume all other regular home medications as prescribed to you Diet: please continue to advance slowly and as tolerated. Recommend low fiber, high protein, and limit sugar intake Please follow-up with your PCP within 5-7 days Please follow-up with GI in 1-2 weeks Keep scheduled follow-up with [facility] Please follow-up/keep all of your subspecialty appointments (Terri Cervantes PA-C) Current Hospital Diet Patient's current hospital diet: Regular Diet, Low Fiber Diet, Low Lactose Diet (Terri Cervantes PA-C) Discharge Diet Recommended Diet: Regular Diet, Low Fiber Diet, Low Lactose Diet (Terri Cervantes PA-C) Procedures Procedures Performed: 1. Abdominal/pelvic CT (Terri Cervantes PA-C) Pending Studies Studies pending at discharge: no (Terri Cervantes PA-C) Laboratory Results Last 24 Hours Test 09/28/16 06:23 White Blood Count 7.45 K/uL Red Blood Count 4.27 M/uL Hemoglobin 14.2 g/dL Hematocrit 41.6 % Mean Corpuscular Volume 97.4 fL Mean Corpuscular Hemoglobin 33.3 pg Mean Corpuscular Hemoglobin Concent 34.1 g/dl Platelet Count 176 K/uL Mean Platelet Volume 8.9 fL Neutrophils (%) (Auto) 60.0 % Lymphocytes (%) (Auto) 18.9 % Monocytes (%) (Auto) 11.3 % Eosinophils (%) (Auto) 8.7 % Basophils (%) (Auto) 0.8 % Neutrophils # (Auto) 4.47 K/uL Lymphocytes # (Auto) 1.41 K/uL Monocytes # (Auto) 0.84 K/uL Eosinophils # (Auto) 0.65 K/uL Basophils # (Auto) 0.06 K/uL RDW Standard Deviation 44.6 fL RDW Coefficient of Variation 12.6 % Immature Granulocyte % (Auto) 0.3 % Immature Granulocyte # (Auto) 0.02 K/uL Sodium Level 143 mmol/L Potassium Level 4.2 mmol/L Chloride Level 106 mmol/L Carbon Dioxide Level 30 mmol/L Anion Gap 7.0 mmol/L Blood Urea Nitrogen 5 mg/dl Creatinine 0.68 mg/dl Est Creatinine Clear Calc Drug Dose 64.2 ml/min Estimated GFR () 109.4 Estimated GFR (Non- 94.4 BUN/Creatinine Ratio 7.5 Random Glucose 87 mg/dl Calcium Level 9.4 mg/dl Magnesium Level 2.1 mg/dl Lipid Panel Test 09/27/16 06:50 Range/Units Triglycerides Level 151 H 0-150 mg/dl Cholesterol Level 106 0-200 mg/dl HDL Cholesterol 34 mg/dl Cholesterol/HDL Ratio 3.1 LDL Cholesterol, Calculated 42 mg/dl (Terri Cervantes ., FARSHADC) Medical Emergencies . Who to Call and When: Medical Emergencies: If at any time you feel your situation is an emergency, please call 911 immediately. . (Terri Cervantes PA-C) Non-Emergent Contact Non-Emergency issues call your: Primary Care Provider Call Non-Emergent contact if: you have a fever, your pain is not controlled, your pain is worsening, your pain is unusual for you, your pain is concerning you, wound has increased drainage, wound has increased redness, wound has increased pain, you have any medication questions . (Terri Cervantes PA-C) . "Provider Documentation" section prepared by Terri Cervantes. (Terri Cervantes PA-C) VTE Core Measure Inpt VTE Proph given/why not?: Enoxaparin (Lovenox)SQ, SCD's (Terri Cervantes ., PA-C)
--- NOTE | 2016-09-28 11:04 | Discharge Summary ---
Discharge Summary Admission Date: Sep 26, 2016 at 19:10 Discharge Date: Sep 28, 2016 Discharge Disposition: Home Principal Diagnosis: C. diff Problems/Secondary Diagnoses: 1. Intractable abdominal pain, nausea and vomiting with dehydration/status post laparoscopic Strong's Procedure one week ago 2. Hypomagnesemia 3. Tobacco use disorder 4. Marijuana use Immunizations: Have You Had Influenza Vaccine: Yes Influenza Vaccine Date: Jun 27, 2010 History of Tetanus Vaccine?: Yes History of Pneumococcal: Yes Pneumococcal Date: Jul 27, 2009 History of Hepatitis B Vaccine: No Procedures: CT OF THE ABDOMEN AND PELVIS WITH CONTRAST CLINICAL HISTORY: Severe abdominal pain. Status post release of the ligament of Treitz last Thursday. COMPARISON STUDY: CT of the abdomen and pelvis July 07, 2016. TECHNIQUE: Following IV administration of 93 mL of Optiray-320, axial images of the abdomen and pelvis were obtained from the lung bases to the proximal femurs. Images were reviewed in the axial, sagittal, and coronal planes. IV contrast was administered without complication. CT DOSE: 322.01 mGycm FINDINGS: Visualized portions of the lung bases are clear. There are postsurgical findings at the gastroesophageal junction. Note is made of a small amount of pneumoperitoneum. This may be postsurgical. Pneumobilia is unchanged since prior CT. The spleen, adrenal glands and kidneys are unremarkable with the exception of a few subcentimeter renal lesions which are too small to characterize. There is no hydronephrosis. There is no peripancreatic infiltration. The gallbladder is surgically absent. This exam is compromised by paucity of fat and lack of oral contrast. There is mild plaque of the abdominal aorta. Major abdominal vessels are patent. Duodenal dilatation has improved since prior CT. There is minimal infiltration within the operative bed. There is no fluid collection to suggest an abscess. There is no evidence for a bowel obstruction. Mild colonic wall thickening is probably due to underdistention. The appendix is normal. Mild pancreatic ductal dilatation is unchanged. IMPRESSION: 1. Small amount of pneumoperitoneum. While nonspecific, this is likely post surgical. No fluid collection to suggest abscess. Minimal infiltration within the operative bed is within normal limits in the early postoperative setting. 2. No bowel obstruction. Interval improvement in duodenal dilatation since prior exam. 3. Technically difficult study to interpret due to a paucity of fat and lack of oral contrast. 4. Mild colonic wall thickening. This is likely due to underdistention although a nonspecific colitis could appear similar. Normal appendix. Electronically signed by: Paddy Rodriguez M.D. 09/25/2016 12:23 PM Dictated Date/Time: 09/25/2016 12:13 PM The status of this report is Signed. Draft = Not yet reviewed or approved by Radiologist. Signed = Reviewed and approved by Radiologist. Consultations: GI- Dr. Beatty (Terri Cervantes PA-C) Medication Reconciliation New Medications: Metronidazole (Flagyl) 500 Mg Tab 500 MG PO TID for 12 Days, #37 TAB Amitriptyline HCl (Amitriptyline HCl) 25 Mg Tab 25 MG PO HS for 90 Days, #90 TAB Continued Medications: Acetaminophen (Tylenol Extra Strength) 500 Mg Tab PO TID Cyanocobalamin (Vitamin B-12) 100 Mcg Tab 100 MCG PO QAM for 30 Days, #30 TAB 7 Refills Enoxaparin (Lovenox) 40 Mg/0.4 Ml Inj 40 MG SQ DAILY, SYR Multivitamins/Minerals (Certavite/Antioxidants) 1 Tab Tab 1 TAB PO QAM for 30 Days, #30 TAB 6 Refills Oxycodone/Acetaminophen 5MG/325MG (Percocet 5MG/325MG) Tab 1 TAB PO QID for 30 Days, #120 TAB PAIN Ranitidine HCl (Ranitidine HCl) 150 Mg Tab 150 MG PO BID for 30 Days, #60 TAB 5 Refills Discontinued Medications: [marajaunia] () 3.4 GM PO DAILY PRN for pain/nausea Referrals At Discharge Follow up Referrals: Family Practice Referral - Within 1 Week with Reji Weinstein PA-C [facility] Referral - Within 1-2 Weeks with Perico Segura M.D. Discharge Exam Review of Systems: Constitutional: No chills, No fatigue, No fever, No sweats, No weakness Respiratory: No cough, No hemoptysis, No shortness of breath Cardiovascular: No chest pain, No edema, No palpitations Abdomen: + diarrhea, No constipation, No nausea, No pain, No vomiting Genitourinary - Female: No dysuria, No hematuria Neurologic: No numbness/tingling, No weakness Psychiatric: No anxiety, No depression symptoms Hematologic / Lymphatic: No abnormal bleeding/bruising Integumentary: No itch, No new/changing skin lesions, No rash Physical Exam: General Appearance: no apparent distress, + thin Eyes: normal inspection, PERRL ENT: hearing grossly normal Neck: supple Respiratory/Chest: lungs clear, no respiratory distress, no accessory muscle use Cardiovascular: regular rate, rhythm Abdomen / GI: normal bowel sounds, non tender, soft, + pertinent finding (4 incision sites healing well without any erythema or drainage ) Extremities: no calf tenderness, no pedal edema Neurologic/Psychiatric: alert, normal mood/affect, oriented x 3 Skin: normal color, warm/dry, no rash (Terri Cervantes, PALeodanC) Hospital Course The patient is a 60-year-old female who presents emergency department with complaint of abdominal pain, nausea and vomiting that began at 520 this morning. She was discharged from [facility] yesterday after having had a laparoscopic Strong's procedure performed to release the ligament of Treitz. She was told that she needed to stay with clear liquid diet plus Boost Breeze nutritional drink for the next 3 weeks. She was also unable to hold any meds down, including her pain meds, and thus presents for assessment. She has a follow-up scheduled at [place] in 2 weeks. Intractable abdominal pain, nausea and vomiting with dehydration/status post laparoscopic Strong's Procedure one week ago: - Admit to the medical surgical floor - Continue with her diet of clear liquids and boost breeze, and consult dietitian -- Nutrition recommendations- advance to low fiber diet if tolerated, if not tolerated- PICC for TPN - Continue on Ranitidine 150 mg PO BID, placed on Zofran 4 mg IV q6 hrs PRN with repeat in 30 minutes PRN, and Tigan 200mg IM q 6 hours PRN -- Patient is allergic to metoclopramide, prochlorperazine and pantoprazole - Continue multivitamin with minerals daily, and vitamin B12 100 g by mouth daily - Consult GI, appreciate recommendations -- Spoke with Dr. Beatty, he was in contact with [place]; may advance diet as tolerated, low in sugar, high in protein, low fiber, low lactulose on 09/27 -- On 09/28 patient tolerating diet well Diarrhea: - Check stool culture and c.diff--> +c.diff, start Vancomycin 125 mg PO QID x14 days (started on 09/26) - Started Elavil 25 mg PO HS for chronic diarrhea on 09/26 Patient discharge with Flagyl 500 mg PO TID to complete a 14 day course (no insurance coverage for medication- Flagyl cheaper compared to Vancomycin) and Elavil 25 mg PO HS Hypomagnesemia: - 1.7 on 09/27, replete with IV Magnesium 1 gm - Follow mag level, replete PRN Pain management: Continue oxycodone/acetaminophen 5/325 one by mouth QID PRN and morphine sulfate 2-4 mg IV q2 hrs PRN Tobacco use disorder: Smoking cessation counselling Marijuana use: Patient encourage to stop as this could be contributing to cyclic nausea/vomiting DVT prophylaxis: Continue Lovenox 40 mg subcutaneous daily (patient to continue injections until follow-up appt with [facility] in 2 weeks) Code Status: LEVEL I, FULL Dispo: discharge to home Total Time Spent: Greater than 30 minutes This includes examination of the patient, discharge planning, medication reconciliation, and communication with other providers. (Terri Cervantes PA-C) Discharge Instructions Please refer to the electronic Patient Visit Report (Discharge Instructions) for additional information. (Terri Cervantes PA-C) Follow-Up Please follow-up with your PCP within 5-7 days Please follow up with GI in 1-2 weeks Keep follow-up with [facility] as scheduled Please follow-up/keep all of your subspecialty appointments (Terri Cervantes PA-C) Additional Copies To Reji Weinstein PA-C Reviewed: Pt Seen/Exam by Me, HO Notes, Labs (Amy Suarez MD) History Physician Bridge Attacher Supervision Note: I interviewed and examined the patient. Discussed with INO Cervantes and agree with findings and plan as documented in the note. Any exceptions or clarifications are listed here: Pt doing very well, slept all night without having diarrhea and only a couple soft stools this AM, no more post-prandial pain for the first time in a year. SHe is very pleased with the outcome of her surgery. Discussed quitting smoking cigarettes and smoking marijuana-she will try. Vitals reviewed and normal NAD, thin, AAOx3 RRR no mgr CTAB no wcr Abd soft min ttp at incision sites, no guarding or rebound Ext no edema or calf tenderness A/P: 60 yo female with intractable N/V/D acute on chronic. Recent Strong's procedure, now on low fiber soft diet and doing wonderfully, also started on Elavil and treating for C. diff diarrhea. Finish out Flagyl po x 14 days total, continue Elavil, quit smoking as above. F/u PCP, GI, and Surgery Documented By: Amy Suarez (Amy Suarez MD)
--- NOTE | 2016-09-28 11:22 | GASTROENTEROLOGY PROGRESS NOTE ---
DATE: 09/28/2016 DATE: 09/28/2016. SUBJECTIVE: The patient is doing well with solids meals. The patient reports that for the first time and that she can recall she ate solid food without abdominal discomfort following it. She has no pain, nausea or vomiting. LABORATORY STUDIES: Today hemoglobin 14.2. Her white count 7.45. Electrolytes -- potassium 4.2, magnesium is 2.1, BUN and creatinine 5 and 0.68. VITAL SIGNS: Today blood pressure is 130/84, 36.4 temperature, 64 heart rate, 20 respirations rate, 99% on room air. REVIEW OF SYSTEMS: Otherwise noncontributory. There are no reports of dysuria or hematuria. ALLERGIES: Allergy list was reviewed and unchanged. MEDICATIONS: Her medication list was reviewed and unchanged. She was changed to Flagyl for her C. diff infection and has been placed on amitriptyline in addition to her other medications. PHYSICAL EXAMINATION: GENERAL: Today, the patient is awake, alert and oriented x3. Sclerae are anicteric. HEAD, EYES, EARS, NOSE, AND THROAT: Oral mucosa moist. HEART: Normal S1, S2. LUNGS: Clear to auscultation. ABDOMEN: Soft, nontender, nondistended with normal bowel sounds. There is no rebound or guarding. EXTREMITIES: Without clubbing, cyanosis or edema. RECTAL EXAMINATION: Deferred at this time. IMPRESSION: The patient doing well following advancement of diet. Her nausea is resolved. She is currently being treated for a 14-day course of C. diff with Flagyl orally. Plans for discharge today. The patient should maintain small frequent meals and initially use foods that are low residue (scrambled eggs, chicken broth, rice, small pieces of meat that are cut into small pieces). The patient should follow with Dr. Johns as previously scheduled at [facility]. Thank you for allowing me to participate in this patient's care.
[2016-09-28 12:36] VITALS: BP 130/84; PULSE 64; TEMP 36.4; O2SAT 99
--- NOTE | 2016-09-29 07:15 | GASTROINTESTINAL CONSULTATION ---
DATE OF CONSULTATION: 09/27/2016 DATE OF CONSULTATION: 09/27/2016. HISTORY OF PRESENT ILLNESS: The patient doing perhaps slightly better. She is tolerating a combination of a clear Boost supplement with cranberry juice. If she takes her time with this she can get this down without significant cramping or abdominal distress. She was found to be C. diff positive and was started on oral vancomycin. She continues with some loose stools. PHYSICAL EXAMINATION: VITAL SIGNS: Today 155/88, respirations 18, pulse 67, temperature 37.1, room air 99%. MEDICATIONS: Include oral vancomycin, amitriptyline, B12, Lovenox, ranitidine, Percocet, Tigan, Ambien, Zofran and morphine IV. ALLERGIES: SHE IS ALLERGIC TO SEVERAL AGENTS INCLUDING BENZODIAZEPINES, REGLAN, PANTOPRAZOLE, PROCHLORPERAZINE. PHYSICAL EXAMINATION: GENERAL: The patient is awake, alert and oriented x3. Sclerae are anicteric. HEAD, EYES, EARS, NOSE, AND THROAT: Oral mucosa moist. HEART: Normal S1, S2. LUNGS: Clear to auscultation. ABDOMEN: Soft, flat, nontender, nondistended with good bowel sounds. EXTREMITIES: Without edema. RECTAL EXAMINATION: Deferred. LABORATORY STUDIES TODAY: White count 7.3, hemoglobin 14, platelets 157,000. Serum chemistries for today potassium 3.8, BUN and creatinine 3 and 0.6, phosphorus is low at 2.4, mag 1.7, alkaline phosphatase normal, total protein is down at 5.8. 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 Based on CT scan there has actually been a partial improvement in the duodenal dilation. Would continue vancomycin therapy for C. diff. Regarding nutrition appreciate nutrition input. I did have an opportunity to speak with Dr. Johns from [facility] a short time ago. From his respectively it is okay to slowly advance the patient's diet as tolerated including high protein scrambled eggs, etc. This may help minimize some of the sugar load associated with dumping that may be responsible for her dumping syndrome. The patient should ambulate as tolerated. Continue antiemetics as needed. Hopefully, if inadequate oral nutritional intake can be achieved without adverse GI symptoms, home or [facility] TPN can be avoided.
== END 2016-09-28 14:45 | disposition home health service (06) | DRG 372 ==
LOC: ENRESERVTM → ENRESERVDT → C.EDA 10:40 → EDBD 10:40 → C.MS4W 13:25 → OBSVTOIN 09-26 19:10
PROVIDERS: ADMIT Hospitalist; ATTEND Hospitalist
DX: A04.7 Enterocolitis due to Clostridium difficile (principal); K55.1 Chronic vascular disorders of intestine; R64 Cachexia; Z68.1 Body mass index [BMI] 19.9 or less, adult; E46 Unspecified protein-calorie malnutrition; G43.A0 Cyclical vomiting, in migraine, not intractable; K91.1 Postgastric surgery syndromes; Y83.9 Surgical procedure, unspecified as the cause of abnormal reaction of the patient, or of later complication, without mention of misadventure at the time of the procedure; E86.0 Dehydration; E83.42 Hypomagnesemia; G89.29 Other chronic pain; R10.9 Unspecified abdominal pain; K21.9 Gastro-esophageal reflux disease without esophagitis; F17.210 Nicotine dependence, cigarettes, uncomplicated; Z98.890 Other specified postprocedural states; Z93.1 Gastrostomy status; Z79.01 Long term (current) use of anticoagulants; Z79.891 Long term (current) use of opiate analgesic; Z79.899 Other long term (current) drug therapy; Z88.8 Allergy status to other drugs, medicaments and biological substances

== ENCOUNTER 2016-09-29 10:23 | Emergency (ER) | payer OTHER ==
[~2016-09-29] VITALS: Ht 170.2 cm; Wt 47.5 kg
[~2016-09-29 10:23] MED LIST changes: +ACET-1138 PO; +AMT25 PO; +ENOX40IN SQ; +METR-163 PO; +OXYC-57 PO; +[UNRECOGNIZED DRUG - OTHER] PO
[2016-09-29 10:27] VITALS: TEMP 37.5; Ht 170.2 cm; Wt 47.5 kg
[2016-09-29] MEDS ORDERED: ALUMINUM/MAGNESIUM/SIMETH (MAALOX MAX) 30 ML UDC PO STA (11:45)
--- NOTE | 2016-09-29 11:51 | EMERGENCY ROOM VISIT NOTE ---
History Report prepared by Shila: Forest Valentin Under the Supervision of: Dr. Jethro Sprague M.D. First contact with patient: 11:38 Chief Complaint: ABDOMINAL PAIN Stated Complaint: ABDOMINAL PAIN Nursing Triage Summary: pt to [facility] ED via EMS from home after having abd surgery sep 19 at [facility] and was d/c from this hospital yesterday. pt presents with c/o abd pain and "acid pain" pt states she has "dumping syndrome" and c diff but is starting to have more formed stool now pt recieved pain medications by EMS HAND STRIPPER total 100mcg fentyl 4mg zofran 500 cc fluid 5mg morphine IV History of Present Illness The patient is a 60 year old female who presents to the Emergency Room via ambulance with complaints of worsening abdominal pain that started prior to arrival today. The patient just had abdominal surgery September 19 at [place]. Her surgery consisted of snipping a ligament in her bowel. She then came back here after the surgery and ended up being admitted for C. difficile and was discharged yesterday. Now she is having abdominal pain that flares up into her chest with "acid pain". The patient tried chewing Tums, but she states that she cannot keep anything down. She also notes that she has "dumping syndrome", and occasionally has episodes of rapid diarrhea. The patient denies any fevers. She is currently taking Flagyl for the C. difficile and she took Vancomycin while in the hospital. Source of History: patient Onset: Prior to arrival today Position: abdomen Quality: other ("acid pain") Timing: worsening Associated Symptoms: No fevers Note: Associated symptoms: "Acid pain" flaring up into chest. Review of Systems All systems have been listed, reviewed, and are negative other than those previously mentioned. Please see Additional Medical History Sheet. No changes from recent discharge other than acid reflux. Past Medical & Surgical Medical Problems: (1) Abdominal pain (2) Adenomatous polyp of colon (3) Anxiety (4) B12 deficiency (5) Barretts esophagus (6) C. difficile colitis (7) Chronic abdominal pain (8) Common bile duct (CBD) stricture (9) Dehydration (10) Depression (11) Dyslipidemia (12) Gastroparesis (13) GERD (gastroesophageal reflux disease) (14) IBS (irritable bowel syndrome) (15) Impaired fasting glucose (16) Intractable abdominal pain (17) Intractable nausea and vomiting (18) Intractable nausea and vomiting (19) Malnutrition (20) Osteoporosis (21) Pernicious anemia (22) PUD (peptic ulcer disease) Surgical Problems: (1) H/O colonoscopy (2) H/O pyloroplasty (3) H/O vagotomy (4) History of carpal tunnel surgery (5) History of esophagogastroduodenoscopy (EGD) (6) History of Mary fundoplication (7) S/P cholecystectomy (8) S/P ERCP (9) S/p revision of esophagus and stomach (10) S/P thyroidectomy (11) Status post insertion of percutaneous endoscopic gastrostomy (PEG) tube Family History Unobtainable Social History Smoking Status: Current Every Day Smoker Drug Use: none, marijuana Marital Status: single, Occupation Status: disabled Current/Historical Medications Scheduled Acetaminophen (Tylenol Extra Strength), PO TID Amitriptyline HCl (Amitriptyline HCl), 25 MG PO HS Cyanocobalamin (Vitamin B-12), 100 MCG PO QAM Enoxaparin (Lovenox), 40 MG SQ DAILY Metronidazole (Flagyl), 500 MG PO TID Multivitamins/Minerals (Certavite/Antioxidants), 1 TAB PO QAM Oxycodone/Acetaminophen 5MG/325MG (Percocet 5MG/325MG), 1 TAB PO QID Ranitidine HCl (Ranitidine HCl), 150 MG PO BID Allergies Coded Allergies: Benzodiazepines (Verified Allergy, Unknown, 06/10/16) Replaces CHLORDIAZEPOX Chlordiazepoxide (Verified Allergy, Unknown, 09/29/16) Replaces CHLORDIAZEPOX Clidinium (Verified Allergy, Unknown, 06/10/16) Replaces CHLORDIAZEPOX Metoclopramide (Verified Allergy, Unknown, 09/29/16) Pantoprazole (Verified Allergy, Unknown, ., 06/10/16) Prochlorperazine (Verified Allergy, Unknown, 09/29/16) Physical Exam Vital Signs Date Time Temp Pulse Resp B/P Pulse Ox O2 Delivery O2 Flow Rate FiO2 09/29/16 14:39 76 16 122/89 96 09/29/16 13:16 58 16 123/75 96 Room Air 09/29/16 11:56 70 20 128/81 98 Room Air 09/29/16 10:27 81 09/29/16 10:27 37.5 83 18 130/78 97 Room Air Physical Exam GENERAL: Patient awake, alert, oriented x 3. Patient follows commands. Patient does not appear toxic. Patient is adequately hydrated and well- nourished. Patient appears frail but does not appear to be in extreme distress. SKIN: No erythema, pallor, cyanosis or rash HEENT: Normal head, pupils equal, reactive to light and accommodation. LUNGS: Clear to auscultation. No wheezes, no rales, no rhonchi. HEART: No murmurs. No gallops. No rubs ABDOMEN: No masses, no rebound, no hepatomegaly or splenomegaly. Vague tenderness throughout abdomen with healing scars. EXTREMITIES: No signs of trauma. No pedal or pretibial edema. No calf or thigh tenderness. NEUROLOGIC: Cranial nerves II-XII within normal limits. No gross motor sensory function deficits. Medical Decision & Procedures Laboratory Results 09/29/16 12:05 Red Blood Count 4.33, Mean Corpuscular Volume 96.8, Mean Corpuscular Hemoglobin 33.9, Mean Corpuscular Hemoglobin Concent 35.1, Mean Platelet Volume 9.0, Neutrophils (%) (Auto) 80.0, Lymphocytes (%) (Auto) 12.0, Monocytes (%) (Auto) 6.7, Eosinophils (%) (Auto) 0.8, Basophils (%) (Auto) 0.3, Neutrophils # (Auto) 9.50, Lymphocytes # (Auto) 1.42, Monocytes # (Auto) 0.79, Eosinophils # (Auto) 0.10, Basophils # (Auto) 0.03 09/29/16 12:05 Test 09/29/16 12:05 White Blood Count 11.86 K/uL (4.8-10.8) Red Blood Count 4.33 M/uL (4.2-5.4) Hemoglobin 14.7 g/dL (12.0-16.0) Hematocrit 41.9 % (37-47) Mean Corpuscular Volume 96.8 fL (80-100) Mean Corpuscular Hemoglobin 33.9 pg (25-34) Mean Corpuscular Hemoglobin Concent 35.1 g/dl (32-36) Platelet Count 219 K/uL (130-400) Mean Platelet Volume 9.0 fL (7.4-10.4) Neutrophils (%) (Auto) 80.0 % Lymphocytes (%) (Auto) 12.0 % Monocytes (%) (Auto) 6.7 % Eosinophils (%) (Auto) 0.8 % Basophils (%) (Auto) 0.3 % Neutrophils # (Auto) 9.50 K/uL (1.4-6.5) Lymphocytes # (Auto) 1.42 K/uL (1.2-3.4) Monocytes # (Auto) 0.79 K/uL (0.11-0.59) Eosinophils # (Auto) 0.10 K/uL (0-0.5) Basophils # (Auto) 0.03 K/uL (0-0.2) RDW Standard Deviation 43.5 fL (36.4-46.3) RDW Coefficient of Variation 12.3 % (11.5-14.5) Immature Granulocyte % (Auto) 0.2 % Immature Granulocyte # (Auto) 0.02 K/uL (0.00-0.02) Anion Gap 7.0 mmol/L (3-11) Est Creatinine Clear Calc Drug Dose 76.4 ml/min Estimated GFR () 115.3 Estimated GFR (Non- 99.5 BUN/Creatinine Ratio 9.6 (10-20) Calcium Level 10.4 mg/dl (8.5-10.1) Total Bilirubin 0.5 mg/dl (0.2-1) Aspartate Amino Transf (AST/SGOT) 18 U/L (15-37) Alanine Aminotransferase (ALT/SGPT) 24 U/L (12-78) Alkaline Phosphatase 107 U/L (45-117) Troponin I < 0.015 ng/ml (0-0.045) Total Protein 6.6 gm/dl (6.4-8.2) Albumin 3.9 gm/dl (3.4-5.0) Globulin 2.7 gm/dl (2.5-4.0) Albumin/Globulin Ratio 1.4 (0.9-2) Laboratory results as stated above per my review. Medications Administered Medications (Trade) Dose Ordered Sig/Radha Route Start Time Stop Time Status Last Admin Dose Admin Al Hydrox/Mg Hydrox/Simethicone (Maalox Max Susp) 15 ml NOW STAT PO 09/29/16 11:45 09/29/16 11:47 DC 09/29/16 11:57 15 ML ECG Indication: abdominal pain Rate (beats per minute): 57 Rhythm: sinus bradycardia Findings: no ectopy, other (rightward axis, nonspecific-ST abnormality) ED Course 1140: Past medical records reviewed. The patient was evaluated in room C9. A complete history and physical examination was performed. 1145: Ordered Maalox Max Susp 15 ml PO. 1411: Upon reevaluation, the patient appeared to have improvement of her symptoms. I discussed today's findings with her. She verbalized agreement of the treatment plan. She will be discharged home. Medical Decision Nurses notes reviewed. Medical history sheet reviewed. Differential diagnosis includes but is not limited to: esophagitis, GERD, peptic/gastric ulcer disease , status-post recent abdominal surgery. Patient is here with burning type indigestion pain. The patient was given Maalox which seemed to resolve the pain. Labs were evaluated. Please see above. I believe the patient is safe to return home. She believes that she didn't take her regular medications as prescribed. She is to follow-up with her family physician. Impression Primary Impression: GERD (gastroesophageal reflux disease) Additional Impression: C. difficile colitis Scribe Attestation The scribe's documentation has been prepared under my direction and personally reviewed by me in its entirety. I confirm that the note above accurately reflects all work, treatment, procedures, and medical decision making performed by me. Departure Information Dispostion Home / Self-Care Referrals Reji Weinstein PA-C (PCP) Patient Instructions My [facility] Additional Instructions 1 tablespoon of Maalox every 4 hours as needed for indigestion. Continue all of your current medications as prescribed but do not take them with Maalox. Follow-up with your family physician Problem Qualifiers
[2016-09-29 12:33] LABS: BASO % 0.3 %; BASO ABS # 0.03 K/uL (0-0.2); COMPLETE YES; EOS % 0.8 %; HEMATOCRIT 41.9 % (37-47); IG% 0.2 %; LYMPH ABS # 1.42 K/uL (1.2-3.4); MEAN CELL VOLUME 96.8 fL (80-100); MEAN CORPUSCULAR HEMOGLOBIN 33.9 pg (25-34); MEAN CORPUSCULAR HGB CONC 35.1 g/dl (32-36); MONO % 6.7 %; PLATELET COUNT 219 K/uL (130-400); RED BLOOD COUNT 4.33 M/uL (4.2-5.4); WHITE BLOOD COUNT 11.86 K/uL (4.8-10.8)
[2016-09-29 12:59] LABS: ALT/SGPT 24 U/L (12-78); AST/SGOT 18 U/L (15-37); BLOOD UREA NITROGEN 6 mg/dl (7-18); BUN/CREATININE RATIO 9.6 (10-20); CALCIUM 10.4 mg/dl (8.5-10.1); CARBON DIOXIDE 28 mmol/L (21-32); CHLORIDE 107 mmol/L (98-107); CREATININE 0.58 mg/dl (0.60-1.20); GLUCOSE 94 mg/dl (70-99); POTASSIUM 3.9 mmol/L (3.5-5.1); SODIUM 142 mmol/L (136-145)
[2016-09-29 13:03] LABS: ALB/GLOB RATIO 1.4 (0.9-2); ALKALINE PHOSPHATASE 107 U/L (45-117)
[2016-09-29 14:39] VITALS: BP 122/89; PULSE 76; O2SAT 96
== END 2016-09-29 14:40 | disposition home or self-care (01) ==
LOC: EDBD 10:23 → C.EDC 10:24
DX: K21.9 Gastro-esophageal reflux disease without esophagitis (principal); A04.7 Enterocolitis due to Clostridium difficile; F41.9 Anxiety disorder, unspecified; F32.9 Major depressive disorder, single episode, unspecified; K58.9 Irritable bowel syndrome, unspecified; M81.0 Age-related osteoporosis without current pathological fracture; E78.5 Hyperlipidemia, unspecified; Z90.49 Acquired absence of other specified parts of digestive tract; F17.200 Nicotine dependence, unspecified, uncomplicated

== ENCOUNTER 2016-10-06 09:39 | Inpatient (IN) | payer OTHER ==
[~2016-10-06] VITALS: Ht 165.1 cm; Wt 47.6 kg
[~2016-10-06 09:39] MED LIST changes: -DLD2 PO; -NUTR-1197 PO; -OXYC5TAB PO; -[UNRECOGNIZED DRUG - OTHER] PO
[2016-10-06] MEDS ORDERED: HYDROmorphone INJ 1 MG/ML SYR IV STA ×2 (09:47→10:25)
[2016-10-06] MEDS ORDERED: SODIUM CHLORIDE 0.9% 1000ML 1,000 ML IV STA (09:47)
[2016-10-06] MEDS ORDERED: LIDOCAINE HCL 2% VISC SOLN 20 ML UDC ONE (09:59)
[2016-10-06] MEDS ORDERED: LIDOCAINE HCL 2% VISC SOLN 20 ML UDC MT ONE (10:00)
[2016-10-06 10:12] LABS: BASO % 0.2 %; BASO ABS # 0.02 K/uL (0-0.2); COMPLETE YES; EOS % 1.1 %; HEMATOCRIT 48.9 % (37-47); IG% 0.3 %; LYMPH % 18.7 %; LYMPH ABS # 1.72 K/uL (1.2-3.4); MEAN CELL VOLUME 98.4 fL (80-100); MEAN CORPUSCULAR HEMOGLOBIN 33.6 pg (25-34); MEAN CORPUSCULAR HGB CONC 34.2 g/dl (32-36); MONO % 6.2 %; NEUT % 73.5 %; PLATELET COUNT 308 K/uL (130-400); RED BLOOD COUNT 4.97 M/uL (4.2-5.4)
--- NOTE | 2016-10-06 10:23 | DIAGNOSTIC IMAGING REPORT ---
CHEST ONE VIEW PORTABLE CLINICAL HISTORY: chest pain dyspnea COMPARISON STUDY: 06/10/2016 FINDINGS: The bones soft tissues and hemidiaphragms are normal. The cardiomediastinal silhouette is normal. The lungs are clear. The pulmonary vasculature is normal. IMPRESSION: Negative chest. Electronically signed by: Иван Ray M.D. 10/06/2016 10:22 AM Dictated Date/Time: 10/06/2016 10:21 AM
[2016-10-06 10:31] LABS: ALT/SGPT 35 U/L (12-78); AST/SGOT 17 U/L (15-37); BLOOD UREA NITROGEN 8 mg/dl (7-18); BUN/CREATININE RATIO 8.6 (10-20); CALCIUM 10.4 mg/dl (8.5-10.1); CARBON DIOXIDE 27 mmol/L (21-32); CHLORIDE 103 mmol/L (98-107); CREATININE 0.92 mg/dl (0.60-1.20); GLUCOSE 151 mg/dl (70-99); MAGNESIUM 2.1 mg/dl (1.8-2.4); POTASSIUM 3.4 mmol/L (3.5-5.1); SODIUM 139 mmol/L (136-145)
[2016-10-06 10:36] LABS: ALKALINE PHOSPHATASE 119 U/L (45-117)
[2016-10-06 12:54] VITALS: BP 146/79; PULSE 87; TEMP 36.9; O2SAT 96; Ht 165.1 cm; Wt 47.6 kg
[2016-10-06] MEDS ORDERED: ONDANSETRON INJ 2 MG/ML 2 ML VIAL IV PRN (13:15)
[2016-10-06] MEDS ORDERED: ACETAMINOPHEN 325 MG TAB PO PRN (13:15)
[2016-10-06] MEDS ORDERED: MAGNESIUM HYDROXIDE SUSP 30 ML UDC PO PRN (13:15)
[2016-10-06] MEDS ORDERED: ALUMINUM/MAGNESIUM/SIMETH (MAALOX MAX) 30 ML UDC PO PRN (13:15)
[2016-10-06] MEDS ORDERED: ENOXAPARIN 40 MG/0.4 ML SYR SQ SCH (13:15)
[2016-10-06] MEDS ORDERED: POLYETHYLENE (MIRALAX) 17 GM PACK PO PRN (13:45)
[2016-10-06] MEDS ORDERED: OPTIRAY 320 IV PRN (13:45)
[2016-10-06] MEDS: HYDROmorphone INJ 0.5 MG/0.5 ML SYR IV PRN ×3 (13:52→23:55)
--- NOTE | 2016-10-06 14:07 | History and Physical ---
History & Physical Date & Time of Service: Oct 06, 2016 at 13:38 Chief Complaint: Abd Pain Primary Care Physician: Reji Weinstein PA-C History of Present Illness Source: patient, hospital records This is a 60 y/o female with a history of SMA syndrome with corrective surgery at [facility] September 2016, current C. diff, IBS, GERD, HLD, and h/o CVA who presented to the ED on 10/06 with intractable abdominal pain, weakness and fatigue. The patient states that she had surgery for her SMA syndrome down at [facility] about 3 weeks ago. She had been doing well post operatively, but she developed abdominal pain on 10/02 that got progressively worse. She states that her pain was a 10/10 aching pain in the left lower quadrant upon arrival. After pain medication, the pain is now a 7/10. It does not radiate. She complains of being weak and fatigued and states she has not been eating well lately because she has been too tired to prepare food for herself. She also complains of heartburn and nausea, stating that the nausea is linked to her severe heartburn and she does not feel nauseous after eating. She denies any vomiting. She also complains of diarrhea and has an active C. diff infection, for which she is being treated with Flagyl. The patient denies fevers, chills, sweats, chest pain, palpitations, claudication, cough, wheezing, shortness of breath, vomiting, dysuria, hematuria, urinary retention, paralysis, weakness, numbness and tingling. Past Medical/Surgical History Medical Problems: (1) Adenomatous polyp of colon Status: Chronic (2) Anxiety Status: Chronic (3) B12 deficiency Status: Chronic (4) Barretts esophagus Status: Chronic (5) Chronic abdominal pain Status: Chronic (6) Common bile duct (CBD) stricture Status: Chronic (7) Depression Status: Chronic (8) Dyslipidemia Status: Chronic (9) Gastroparesis Status: Chronic (10) GERD (gastroesophageal reflux disease) Status: Chronic (11) IBS (irritable bowel syndrome) Status: Chronic (12) Impaired fasting glucose Status: Chronic (13) Malnutrition Status: Chronic (14) Osteoporosis Status: Chronic (15) Pernicious anemia Status: Chronic (16) PUD (peptic ulcer disease) Status: Chronic Surgical Problems: (1) H/O colonoscopy Status: Chronic (2) H/O pyloroplasty Status: Chronic (3) H/O vagotomy Status: Chronic (4) History of carpal tunnel surgery Status: Chronic (5) History of esophagogastroduodenoscopy (EGD) Status: Chronic (6) History of Mary fundoplication Status: Chronic (7) S/P cholecystectomy Status: Chronic (8) S/P ERCP Permanent Comment: with stent insertion at [facility] in 03/2000; [place] [facility]; [place] [facility] [place] Status: Chronic (9) S/p revision of esophagus and stomach Permanent Comment: Belsey-Иван IV surgery; 1991 Status: Chronic (10) S/P thyroidectomy Status: Chronic (11) Status post insertion of percutaneous endoscopic gastrostomy (PEG) tube Status: Chronic Family History Cancer (breast, uterine, liver, leukemia) Diabetes mellitus Hypertension Myocardial infarction Social History Smoking Status: Current Every Day Smoker (1 ppd) Smokeless Tobacco Use: No Alcohol Use: none Drug Use: none Marital Status: single, Housing status: lives with family (with aunt) Occupational Status: retired Immunizations History of Influenza Vaccine: Yes Influenza Vaccine Date: Jun 27, 2010 History of Tetanus Vaccine?: Yes History of Pneumococcal: Yes Pneumococcal Date: Jul 27, 2009 History of Hepatitis B Vaccine: No Multi-Drug Resistant Organisms History of MDRO: No Allergies Coded Allergies: Benzodiazepines (Verified Allergy, Unknown, 10/06/16) Replaces CHLORDIAZEPOX Chlordiazepoxide (Verified Allergy, Unknown, 10/06/16) Replaces CHLORDIAZEPOX Clidinium (Verified Allergy, Unknown, 10/06/16) Replaces CHLORDIAZEPOX Metoclopramide (Verified Allergy, Unknown, 10/06/16) Prochlorperazine (Verified Allergy, Unknown, 10/06/16) Uncoded Allergies: ANTI INFLAMITORIES (Allergy, Unknown, WATER BLISTERS ALONG JAW LINE , ) Home Medications Scheduled Acetaminophen (Tylenol Extra Strength), PO TID Amitriptyline HCl (Amitriptyline HCl), 25 MG PO HS Cyanocobalamin (Vitamin B-12), 100 MCG PO QAM Enoxaparin (Lovenox), 40 MG SQ DAILY Metronidazole (Flagyl), 500 MG PO TID Multivitamins/Minerals (Certavite/Antioxidants), 1 TAB PO QAM Ranitidine HCl (Ranitidine HCl), 150 MG PO BID Review of Systems Constitutional: + fatigue, + weakness, No chills, No fever, No sweats Eyes: No diplopia, No discharge, No worsening of vision ENT: No hearing loss, No sore throat, No trouble swallowing Respiratory: No cough, No shortness of breath, No wheezing Cardiovascular: No chest pain, No claudication, No palpitations Abdomen: + diarrhea (active C. diff), + nausea, + pain (7/10 aching pain in LLQ ), + problem reported (indigestion), No GI bleeding, No vomiting Musculoskeletal: No calf pain, No joint pain, No muscle pain Genitourinary - Female: No dysuria, No hematuria, No urinary retention Neurologic: No numbness/tingling, No paralysis, No weakness Physical Exam Vital Signs Date Time Temp Pulse Resp B/P Pulse Ox O2 Delivery O2 Flow Rate FiO2 10/06/16 13:07 87 10/06/16 12:54 36.9 87 18 146/79 96 Room Air 10/06/16 11:50 84 18 146/79 98 Room Air 10/06/16 09:51 107 10/06/16 09:51 36.9 102 18 145/105 97 Room Air General Appearance: + mild distress (anxious, slightly teary), + cachetic Head: normocephalic, atraumatic Eyes: normal inspection, PERRL, EOMI ENT: normal ENT inspection, hearing grossly normal, pharynx normal Neck: supple, no JVD, trachea midline Respiratory/Chest: lungs clear, normal breath sounds, no respiratory distress Cardiovascular: regular rate, rhythm, no gallop, no murmur Abdomen/GI: normal bowel sounds, soft, + tenderness (diffuse tenderness, marked tenderness in LLQ. no rebound tenderness) Extremities/Musculoskelatal: normal inspection, no calf tenderness, no pedal edema Neurologic/Psych: alert, normal mood/affect (anxious, somewhat teary due to pain), oriented x 3 Skin: normal color, warm/dry, no rash Diagnostics Laboratory Results Results Past 24 Hours Test 10/06/16 10:00 10/06/16 10:57 Range/Units White Blood Count 9.20 4.8-10.8 K/uL Red Blood Count 4.97 4.2-5.4 M/uL Hemoglobin 16.7 12.0-16.0 g/dL Hematocrit 48.9 37-47 % Mean Corpuscular Volume 98.4 80-100 fL Mean Corpuscular Hemoglobin 33.6 25-34 pg Mean Corpuscular Hemoglobin Concent 34.2 32-36 g/dl Platelet Count 308 130-400 K/uL Mean Platelet Volume 9.0 7.4-10.4 fL Neutrophils (%) (Auto) 73.5 % Lymphocytes (%) (Auto) 18.7 % Monocytes (%) (Auto) 6.2 % Eosinophils (%) (Auto) 1.1 % Basophils (%) (Auto) 0.2 % Neutrophils # (Auto) 6.76 1.4-6.5 K/uL Lymphocytes # (Auto) 1.72 1.2-3.4 K/uL Monocytes # (Auto) 0.57 0.11-0.59 K/uL Eosinophils # (Auto) 0.10 0-0.5 K/uL Basophils # (Auto) 0.02 0-0.2 K/uL RDW Standard Deviation 47.9 36.4-46.3 fL RDW Coefficient of Variation 13.4 11.5-14.5 % Immature Granulocyte % (Auto) 0.3 % Immature Granulocyte # (Auto) 0.03 0.00-0.02 K/uL Sodium Level 139 136-145 mmol/L Potassium Level 3.4 3.5-5.1 mmol/L Chloride Level 103 98-107 mmol/L Carbon Dioxide Level 27 21-32 mmol/L Anion Gap 9.0 3-11 mmol/L Blood Urea Nitrogen 8 7-18 mg/dl Creatinine 0.92 0.60-1.20 mg/dl Est Creatinine Clear Calc Drug Dose 48.3 ml/min Estimated GFR () 77.9 Estimated GFR (Non- 67.2 BUN/Creatinine Ratio 8.6 10-20 Random Glucose 151 70-99 mg/dl Calcium Level 10.4 8.5-10.1 mg/dl Magnesium Level 2.1 1.8-2.4 mg/dl Total Bilirubin 0.4 0.2-1 mg/dl Direct Bilirubin 0.1 0-0.2 mg/dl Aspartate Amino Transf (AST/SGOT) 17 15-37 U/L Alanine Aminotransferase (ALT/SGPT) 35 12-78 U/L Alkaline Phosphatase 119 45-117 U/L Troponin I < 0.015 0-0.045 ng/ml Total Protein 7.8 6.4-8.2 gm/dl Albumin 4.6 3.4-5.0 gm/dl Lipase 141 73-393 U/L Bedside Lactic Acid Venous 0.85 0.90-1.70 mmol/L Diagnostic Radiology Reviewed the following studies and agree with interpretation as follows: Patient Name: ROCKY JACQUES Unit Number: [id number] Dictated: 10/06/161020 Transcribed: 10/06/16 102 MS Printed Date/Time: [~ rep prt dt]/[~ rep prt tm] [~ rep ct labl] - [~ rep ct ivnm] [facility] [place] [address] Dictated: 10/06/16 102 Transcribed: 10/06/16 1021 MS Printed Date/Time: [~ rep prt dt]/[~ rep prt tm] [~ rep ct labl] - [~ rep ct ivnm] Patient: ROCKY JACQUES Address1: [address] Rec: [id number] Address2: [place] [address] Acct ID: [id number] [facility] Zip: [place] [address] Date: 1955 Sex: F Room/Bed: Ref Phy: Reji Weinstein PA-C SC: MARCELLA Att Phy: Report #: [id number] [facility] Phy: Reji Weinstein PA-C Test: [id number] Admit Phy: Pulping Machine Operator: MINA Interpreting Phy: Иван Ray M.D. Diagnosis: ABD PAIN Ordering Phy: Bob Garcia M.D. Service Date: 10/06/16 Admit Date: 10/06/16 MNE: [id number] CONF: DICTATED BY: Иван Ray M.D.]] CC: Reji Weinstein PA-C, Daniel F., M.D. Endcc: [~ rep ct add3]] CHEST ONE VIEW PORTABLE CLINICAL HISTORY: chest pain dyspnea COMPARISON STUDY: 06/10/2016 FINDINGS: The bones soft tissues and hemidiaphragms are normal. The cardiomediastinal silhouette is normal. The lungs are clear. The pulmonary vasculature is normal. IMPRESSION: Negative chest. Electronically signed by: Иван Ray M.D. 10/06/2016 10:22 AM Dictated Date/Time: 10/06/2016 10:21 AM The status of this report is Signed. Draft = Not yet reviewed or approved by Radiologist. Signed = Reviewed and approved by Radiologist. <AttendingPhy></AttendingPhy> <FamilyPhy>Reji Weinstein PA-C</FamilyPhy> < PrimaryPhy>Reji Weinstein PA-C</PrimaryPhy> <UnitNumber>[id number]</ UnitNumber> <VisitNumber>[id number]</VisitNumber> <PatientName>SAWYERROCKY</ PatientName> <DateOfBirth>1955</DateOfBirth> <Location>C.EDB</Location> < ServiceDate>10/06/16</ServiceDate> <MNE>ESINDI</MNE> <OrderingPhy>Bob Garcia M.D.</OrderingPhy> <OrderingPhyMNE>f rep ord dr jean</OrderingPhyMNE> < DictatingPhyMNE>f rep dict dr jean</DictatingPhyMNE> <CCListMNE>f rep ct miranda</ CCListMNE> <AdmittingPhyMNE>f pt admit dr jean</AdmittingPhyMNE> <AttendingPhyMNE >f pt attend dr jean</AttendingPhyMNE> <ConsultingPhyMNE>f pt consult dr jean</ConsultingPhyMNE> <FamilyPhyMNE>f pt fam dr jean</FamilyPhyMNE> <OtherPhyMNE>f pt other dr jean</OtherPhyMNE> < PrimaryPhyMNE>f pt prim care dr jean</PrimaryPhyMNE> <ReferringPhyMNE>f pt referring dr jean</ReferringPhyMNE> EKG Reviewed EKG and agree with interpretation as follows: Poor quality with a lot of artifact. 96 bpm, sinus rhythm with PVCs Impression Assessment and Plan 60 y/o female with a history of SMA syndrome with corrective surgery at [facility] September 2016, current C. diff, IBS, GERD, HLD, and h/o CVA who presented to the ED on 10/06 with intractable abdominal pain, weakness and fatigue. Pt now with 7/10 LLQ pain after receiving Dilaudid. CXR no acute disease. EKG no ischemic changes. No WBC, potassium slightly low at 3.4. Labs grossly unremarkable otherwise. Afebrile, VSS. Intractable abdominal pain--procedure for SMA syndrome at [facility] about 3 weeks ago. Will obtain records from [facility] -Admit to med/surg -Abdomen/pelvis CT w/PO and IV contrast -Keep NPO except meds for now -IVF hydration due to poor oral intake with NSS + 20 mEq KCl at 80 cc/hr -Consult GI, appreciate recs. Pt follows with Dr. Beatty -Pain control with Dilaudid 0.5 mg IV q2h prn pain -Zofran 4 mg IV q6h prn nausea GERD -Protonix 40 mg IV qd C. diff colitis--pt reports stools becoming more formed -Continue Flagyl 500 mg PO TID. 4 more days of treatment per hospital records Irritable bowel syndrome -Continue amitriptyline 25 mg PO qhs DVT prophylaxis -Enoxaparin 40 mg SC q24h -EDD Interianos Code Status -Level V, DO NOT RESUSCITATE Level of Care Med/Surg Advanced Directives Existing Living Will: No Existing Power of Public Health Assistant: No Resuscitation Status DO NOT RESUSCITATE VTE Prophylaxis VTE Risk Assessment Done? Y/N: Yes Risk Level: Moderate Given or contraindicated: Enoxaparin (Lovenox)SQ, T.E.D. Stockings, SCD's Reviewed: Pt Seen/Exam by Me, KHURRAM Notes, Labs, RAD History Physician Telecommunications Engineer Supervision Note: I interviewed and examined the patient. Discussed with INO Leyva and agree with findings and plan as documented in the note. Any exceptions or clarifications are listed here: Pt already feeling much better. CT abd/pel negative. Heartburn is improved, LLQ pain very mild. No loose stools all day since admission. Vitals reviewed Thin, appears well but slightly depressed affect RRR no mgr CTAB breathing unlabored Abd +BS, soft, ND, mild TTP in left inguinal region with no masses, no inguianl CARLOS palpable Ext no edema 60 yo female with numerous GI issues for decades, here with LLQ pain and heartburn that is severe. Both improving with IV PPI and pain meds. -increase Elavil to 50mg, continue PPI and switch to po upon discharge -adv diet to low residue now, add Boost -appreciate GI recommendations -if heartburn persists, consider EGD, could have Candidal esophagitis -does not need TPN, labs looks good -check prealbumin, TGs tomorrow Hypercalcemia-mild, Vit D level 27 last admit, albumin is normal, check iPTH Documented By: Amy Suarez
[2016-10-06 14:20] VITALS: O2SAT 98
--- NOTE | 2016-10-06 15:41 | EMERGENCY ROOM VISIT NOTE ---
History Report prepared by Shila: Keiry Anton Under the Supervision of: Dr. Bob Garcia M.D. First contact with patient: 09:40 Chief Complaint: ABDOMINAL PAIN Stated Complaint: ABD PAIN History of Present Illness The patient is a 60 year old female who presents to the Emergency Room with complaints of severe and persistent abdominal pain starting a few days ago. The patient reports diarrhea. She also complains chest pain which she describes to be "acid pain." She was evaluated at the Emergency Room about a week ago for similar symptoms. She had a procedure about 3 weeks ago to relieve pressure from SMA syndrome. She has lost about 70 pounds since the surgery. The patient denies any recent falls, vomiting, rash, or any other complaints. Source of History: patient Onset: a few days ago Position: abdomen Timing: other (persistent) Associated Symptoms: + chest pain, + diarrhea, No rash, No vomiting Review of Systems See HPI for pertinent positives & negatives. A total of 10 systems reviewed and were otherwise negative. Past Medical & Surgical Medical Problems: (1) Abdominal pain (2) Adenomatous polyp of colon (3) Anxiety (4) B12 deficiency (5) Barretts esophagus (6) C. difficile colitis (7) Chronic abdominal pain (8) Common bile duct (CBD) stricture (9) Dehydration (10) Depression (11) Dyslipidemia (12) Gastroparesis (13) GERD (gastroesophageal reflux disease) (14) IBS (irritable bowel syndrome) (15) Impaired fasting glucose (16) Intractable abdominal pain (17) Intractable nausea and vomiting (18) Intractable nausea and vomiting (19) Malnutrition (20) Osteoporosis (21) Pernicious anemia (22) PUD (peptic ulcer disease) Surgical Problems: (1) H/O colonoscopy (2) H/O pyloroplasty (3) H/O vagotomy (4) History of carpal tunnel surgery (5) History of esophagogastroduodenoscopy (EGD) (6) History of Mary fundoplication (7) S/P cholecystectomy (8) S/P ERCP (9) S/p revision of esophagus and stomach (10) S/P thyroidectomy (11) Status post insertion of percutaneous endoscopic gastrostomy (PEG) tube Family History Unobtainable Social History Smoking Status: Current Every Day Smoker Drug Use: none, marijuana Marital Status: single, Occupation Status: disabled Current/Historical Medications Scheduled Acetaminophen (Tylenol Extra Strength), PO TID Amitriptyline HCl (Amitriptyline HCl), 25 MG PO HS Cyanocobalamin (Vitamin B-12), 100 MCG PO QAM Enoxaparin (Lovenox), 40 MG SQ DAILY Metronidazole (Flagyl), 500 MG PO TID Multivitamins/Minerals (Certavite/Antioxidants), 1 TAB PO QAM Ranitidine HCl (Ranitidine HCl), 150 MG PO BID Allergies Coded Allergies: Benzodiazepines (Verified Allergy, Unknown, 10/06/16) Replaces CHLORDIAZEPOX Chlordiazepoxide (Verified Allergy, Unknown, 10/06/16) Replaces CHLORDIAZEPOX Clidinium (Verified Allergy, Unknown, 10/06/16) Replaces CHLORDIAZEPOX Metoclopramide (Verified Allergy, Unknown, 10/06/16) Prochlorperazine (Verified Allergy, Unknown, 10/06/16) Uncoded Allergies: ANTI INFLAMITORIES (Allergy, Unknown, WATER BLISTERS ALONG JAW LINE , ) Physical Exam Vital Signs Date Time Temp Pulse Resp B/P Pulse Ox O2 Delivery O2 Flow Rate FiO2 10/06/16 14:20 78 18 141/76 98 Room Air 10/06/16 13:07 87 10/06/16 12:54 36.9 87 18 146/79 96 Room Air 10/06/16 11:50 84 18 146/79 98 Room Air 10/06/16 09:51 107 10/06/16 09:51 36.9 102 18 145/105 97 Room Air Physical Exam GENERAL: Patient appears to be in severe distress. Patient is crying, shaking violently. Cachectic, malnourished. HEENT: No acute trauma, normocephalic atraumatic, mucous membranes moist, no nasal congestion, no scleral icterus. NECK: No stridor, no adenopathy, no meningismus, trachea is midline. LUNGS: No dyspnea. Clear to auscultation and equal bilaterally. No wheeze, no rhonchi. HEART: Regular rate and rhythm. No murmurs, rubs, gallops appreciated. ABDOMEN: Soft, diffuse tenderness of entire lower abdomen, bowel sounds positive , no masses appreciated, no peritonitis. Abdominal port site is well healing. BACK: No midline tenderness, no CVA tenderness EXTREMITIES: Normal motion all extremities, no cyanosis, no edema. NEUROLOGIC: Alert and oriented, no acute motor or sensory deficits, no focal weakness, cranial nerves grossly intact. SKIN: No rash, no jaundice, no diaphoresis. Medical Decision & Procedures ER Provider Diagnostic Interpretation: X ray results are stated below per my interpretation and the radiologist's interpretation. CHEST ONE VIEW PORTABLE CLINICAL HISTORY: chest pain dyspnea COMPARISON STUDY: 06/10/2016 FINDINGS: The bones soft tissues and hemidiaphragms are normal. The cardiomediastinal silhouette is normal. The lungs are clear. The pulmonary vasculature is normal. IMPRESSION: Negative chest. Electronically signed by: Иван Ray M.D. 10/06/2016 10:22 AM Dictated Date/Time: 10/06/2016 10:21 AM Laboratory Results 10/06/16 10:00 Red Blood Count 4.97, Mean Corpuscular Volume 98.4, Mean Corpuscular Hemoglobin 33.6, Mean Corpuscular Hemoglobin Concent 34.2, Mean Platelet Volume 9.0, Neutrophils (%) (Auto) 73.5, Lymphocytes (%) (Auto) 18.7, Monocytes (%) (Auto) 6.2, Eosinophils (%) (Auto) 1.1, Basophils (%) (Auto) 0.2, Neutrophils # (Auto) 6.76, Lymphocytes # (Auto) 1.72, Monocytes # (Auto) 0.57, Eosinophils # (Auto) 0.10, Basophils # (Auto) 0.02 10/06/16 10:00 Test 10/06/16 10:00 10/06/16 10:57 White Blood Count 9.20 K/uL (4.8-10.8) Red Blood Count 4.97 M/uL (4.2-5.4) Hemoglobin 16.7 g/dL (12.0-16.0) Hematocrit 48.9 % (37-47) Mean Corpuscular Volume 98.4 fL (80-100) Mean Corpuscular Hemoglobin 33.6 pg (25-34) Mean Corpuscular Hemoglobin Concent 34.2 g/dl (32-36) Platelet Count 308 K/uL (130-400) Mean Platelet Volume 9.0 fL (7.4-10.4) Neutrophils (%) (Auto) 73.5 % Lymphocytes (%) (Auto) 18.7 % Monocytes (%) (Auto) 6.2 % Eosinophils (%) (Auto) 1.1 % Basophils (%) (Auto) 0.2 % Neutrophils # (Auto) 6.76 K/uL (1.4-6.5) Lymphocytes # (Auto) 1.72 K/uL (1.2-3.4) Monocytes # (Auto) 0.57 K/uL (0.11-0.59) Eosinophils # (Auto) 0.10 K/uL (0-0.5) Basophils # (Auto) 0.02 K/uL (0-0.2) RDW Standard Deviation 47.9 fL (36.4-46.3) RDW Coefficient of Variation 13.4 % (11.5-14.5) Immature Granulocyte % (Auto) 0.3 % Immature Granulocyte # (Auto) 0.03 K/uL (0.00-0.02) Anion Gap 9.0 mmol/L (3-11) Est Creatinine Clear Calc Drug Dose 48.3 ml/min Estimated GFR () 77.9 Estimated GFR (Non- 67.2 BUN/Creatinine Ratio 8.6 (10-20) Calcium Level 10.4 mg/dl (8.5-10.1) Magnesium Level 2.1 mg/dl (1.8-2.4) Total Bilirubin 0.4 mg/dl (0.2-1) Direct Bilirubin 0.1 mg/dl (0-0.2) Aspartate Amino Transf (AST/SGOT) 17 U/L (15-37) Alanine Aminotransferase (ALT/SGPT) 35 U/L (12-78) Alkaline Phosphatase 119 U/L (45-117) Troponin I < 0.015 ng/ml (0-0.045) Total Protein 7.8 gm/dl (6.4-8.2) Albumin 4.6 gm/dl (3.4-5.0) Lipase 141 U/L (73-393) Bedside Lactic Acid Venous 0.85 mmol/L (0.90-1.70) Laboratory results as reviewed by me. Medications Administered Medications (Trade) Dose Ordered Sig/Radha Route Start Time Stop Time Status Last Admin Dose Admin Sodium Chloride (Nss 1000ml) 1,000 ml @ 999 mls/hr Q1H1M STAT IV 10/06/16 09:47 10/06/16 10:47 DC 10/06/16 10:05 999 MLS/HR Hydromorphone HCl (Dilaudid Inj) 1 mg NOW STAT IV 10/06/16 09:47 10/06/16 09:50 DC 10/06/16 10:06 1 MG Lidocaine HCl (Viscous Lidocaine 2% Soln) 20 ml STK-MED ONCE .ROUTE 10/06/16 09:59 10/06/16 10:02 DC 10/06/16 10:05 20 ML Hydromorphone HCl (Dilaudid Inj) 1 mg NOW STAT IV 10/06/16 10:25 10/06/16 10:26 DC 10/06/16 11:06 1 MG Hydromorphone HCl (Dilaudid Inj) 0.5 mg Q2H PRN IV 10/06/16 13:15 10/20/16 13:14 10/06/16 13:52 0.5 MG ECG Indication: abdominal pain Rate (beats per minute): 96 Rhythm: normal sinus Findings: no acute ischemic change, no ectopy, other (Poor baseline) ED Course 0940: The patient was evaluated in room B02. A complete history and physical exam was performed. 0947: Dilaudid Inj 1 mg IV, Sodium Chloride 1000 ml @ 999 mls/hr IV 1025: Dilaudid Inj 1 mg IV. The patient is still in significant distress. 1159: Upon reevaluation, the patient is resting comfortably. Discussed results and treatment plan with the patient. She verbalized understanding and agreement with the treatment plan. I spoke with Dr. Lindsey, from [facility]. The patient will be evaluated for further management. Medical Decision Differential: Post-op complication, Malnutrition, Hepatic Disfunction, Gastritis/PUD, Pancreatitis, ACS, Aortic Pathology, amongst other pathologies entertained. 60 yr old female well known to me from previous visit. Surgery last month for release of ligament to improve SMA syndrome. Since with rapid decline, inability to tolerate PA and constant pain. She is far worse than when I saw her just a week or so ago, clearly more cachectic and wasted. She is no longer tolerating outpatient care. She likely will need TPN at this point and possibly detention placement. No clear evidence of sepsis nor post op infection/complication at this time. She is just too ill to go home. Consults Time Called: 1155 Consulting Physician: Dr. Lindsey, from [facility] Returned Call: [phone] Lindsey, from [facility]. Impression Primary Impression: Intractable abdominal pain Additional Impression: Failure to thrive Scribe Attestation The scribe's documentation has been prepared under my direction and personally reviewed by me in its entirety. I confirm that the note above accurately reflects all work, treatment, procedures, and medical decision making performed by me. Departure Information Dispostion Being Evaluated By Hospitalist Referrals Reji Weinstein PA-C (PCP) Patient Instructions My [facility] Health Problem Qualifiers Additional Impression: Failure to thrive Failure to thrive age range: in adult Qualified Codes: R62.7 - Adult failure to thrive
[2016-10-06 16:00] VITALS: BP 159/95; PULSE 70; TEMP 36.8; O2SAT 98
--- NOTE | 2016-10-06 16:54 | DIAGNOSTIC IMAGING REPORT ---
CT ABD/PELVIS IV AND ORAL CONT CLINICAL HISTORY: Intractable abdominal pain, nausea, recent superior mesenteric artery surgery. COMPARISON STUDY: 09/25/2016 TECHNIQUE: Following the IV administration of 116 mL of Optiray-320, CT scan of the abdomen and pelvis was performed from the lung bases to the proximal femurs. Images are reviewed in the axial, sagittal, and coronal planes. IV contrast was administered without complication. CT DOSE: 253.81 mGy.cm FINDINGS: Lower chest: There is mild basilar atelectasis. No pleural effusions are visualized. There is mild elevation left hemidiaphragm. Liver: There is pneumobilia, likely postsurgical. There is dilatation of the common hepatic duct which measures 11 mm. Gallbladder: Surgically absent Spleen: Normal in size and attenuation. Pancreas: Unremarkable. Adrenal glands: Unremarkable. Kidneys: There is symmetric renal cortical enhancement. The kidneys are normal in size without hydronephrosis. Bowel: There are no transition zones indicate bowel obstruction. There are postsurgical changes at the esophagogastric junction. No acute inflammatory changes are visualized. There is slight decrease in the previously identified duodenal distention. Peritoneum: There is no intraperitoneal free air or abdominal ascites. Vasculature: The abdominal aorta is normal in course and caliber. Adenopathy: None. Pelvic viscera: The bladder, and pelvic viscera are unremarkable. Skeletal structures: No destructive osseous lesions are seen. IMPRESSION: 1. Interval resolution of the pneumoperitoneum 2. Stable pneumobilia likely postsurgical. Stable dilatation of the common hepatic duct which measures 11 mm. 3. No evidence of bowel obstruction. No evidence of free air 4. Decreasing duodenal distention 5. No acute inflammatory changes Electronically signed by: Morteza Campuzano M.D. 10/06/2016 4:53 PM Dictated Date/Time: 10/06/2016 4:45 PM
[2016-10-06] MEDS: PANTOprazole INJ 40 MG in SYRINGE 0 ML IV SCH (17:04)
[2016-10-06] MEDS: METRONIDAZOLE 500 MG TAB PO SCH ×2 (17:04→20:29)
[2016-10-06] MEDS: NSS + 20MEQ KCL 1000ML 1,000 ML IV SCH (17:05)
[2016-10-06 17:34] LABS: URINE APPEARANCE CLOUDY (CLEAR); URINE BILIRUBIN NEG (NEG); URINE COLOR YELLOW; URINE EPITHELIAL CELL AUTO 0-5 /lpf (0-5); URINE NITRITE NEG (NEG); URINE SPECIFIC GRAVITY 1.011 (1.000-1.030); UROBILINOGEN NEG (NEG); ZZUR CULT IF INDIC CLEAN CATCH NO
[2016-10-06 17:35] LABS: MANUAL MICROSCOPIC REQUIRED? NO; REVIEW REQ? NO
--- NOTE | 2016-10-06 19:11 | GASTROINTESTINAL CONSULTATION ---
DATE OF CONSULTATION: 10/06/2016 REQUESTING PROVIDER: Dr. Suarez. CHIEF COMPLAINT: Left lower quadrant abdominal pain, worsening heartburn, metallic taste in mouth. HISTORY OF PRESENT ILLNESS: Mrs. Ferguson is a 60-year-old white female known to me from multiple hospitalizations and is followed by Dr. Segura in our outpatient GI clinic. The patient had recently undergone a median arcuate ligament syndrome surgery (Strong's) procedure for this condition. This actually has improved and the patient does not experience upper abdominal pain as she had previously experienced since surgery. CT scan today actually revealed that the duodenal transition point and duodenal dilation proximal to the transverse duodenum as actually continues to resolve. The patient reports symptoms of left lower quadrant abdominal pain since along with worsening of her heartburn since . The patient was discharged on Flagyl for vancomycin. She also reports a metallic and bloody taste in her mouth, although she is not having any bleeding into her mouth. She presented to the Emergency Room today with these symptoms. She last took her opiate dosing around the same time that symptoms began in the left lower quadrant area, although it did take some pain medicines through the week, through Thursday. PAST MEDICAL HISTORY: Includes colonic polyps, anxiety, B12 deficiency, Hardin esophagus, abdominal pain, bile duct stricture, depression, dyslipidemia, gastroparesis, IBS, impaired fasting glucose, history of peptic ulcer disease, vagotomy, pyloroplasty, a recent Strong procedure, status post cholecystectomy and prior remote fundoplication. ALLERGIES: THE PATIENT HAS ALLERGIES TO BENZODIAZEPINES, CLIDINIUM, METOCLOPRAMIDE AND COMPAZINE. MEDICATIONS AT HOME: Include acetaminophen, amitriptyline, B12, enoxaparin for DVT prophylaxis, Flagyl 500 mg t.i.d. for recent C. diff infection, MVI and Ranitidine 150 mg twice daily. FAMILY HISTORY: Significant for breast, uterine, liver and cancer along with leukemia, diabetes, hypertension, and myocardial infarction. SOCIAL HISTORY: The patient smokes 1 pack a day. Denies alcohol use. Single, . Lives with her family. REVIEW OF SYSTEMS: Otherwise noncontributory except for mentioned above. The patient denies odynophagia, dysphagia, hematemesis, coffee-ground emesis, although she does have diarrhea which is foul smelling and somewhat different than her usual dumping syndrome, diarrhea. There is no blood reported in the stools. Although she is hungry, she has had trouble preparing food for herself because of fatigue. PHYSICAL EXAMINATION: VITAL SIGNS: Today on admission - afebrile at 36.9, heart rate 102, respirations 18, blood pressure 145/105, 97% on room air. GENERAL: The patient is awake, alert and oriented x3. HEENT: Sclerae are anicteric, conjunctiva moist. The oral mucosa moist. There are no plaques, ulcers or exudates. NECK: There is no cervical or supraclavicular adenopathy. I do not appreciate thyromegaly. HEART: Normal S1, S2. LUNGS: Clear to auscultation without rales, rhonchi or wheezes. ABDOMEN: Soft, flat, tender in the left lower quadrant area above the inguinal region and slightly towards the midline but not at the midline. There are no masses or induration in this area. This is not occurring over on incision site, to a lesser extent there was some discomfort on the right side of the lower abdomen. EXTREMITIES: There is no clubbing, cyanosis or edema. RECTAL: Deferred at this time. LABORATORY STUDIES: On admission - white count 9.2, hemoglobin 16.7, MCV is 98, platelets 308,000. BUN and creatinine are 8 and 0.9. Liver tests are normal with bilirubin 0.4, AST 17, ALT 35, alkaline phosphatase 119, lipase 141, and albumin 4.6. IMAGING DATA: CT imaging today revealed mild bibasilar atelectasis, pneumobilia which is chronic, common hepatic duct is 11 mm, gallbladder surgically absent, no transition zones to suggest bowel obstruction, postsurgical changes at the EG junction. No evidence of inflammatory changes, bowel obstruction, free air or masses. IMPRESSION AND PLAN: The patient with symptoms of left-sided abdominal pain greater than right side and worsening reflux for which she is currently only on Zantac 150 twice daily and a metallic bloody taste in her mouth. I suspect that the taste issue may represent the use of Flagyl and if she is near completion, would continue this course. However, if this is felt to be ineffective in the symptoms related then perhaps switching to vancomycin therapy may be necessary with a slow taper. Regarding the patient's left lower quadrant abdominal pain, on palpation, this appears fairly superficial and does not seem to be impacted by bowel movements. She actually does not report constipation and has been actually having loose stools. Would continue the amitriptyline and perhaps consider increasing the dose as this may in part be a functional bowel, this may represent functional bowel symptoms. Regarding the reflux, I would consider increasing the patient to omeprazole 40 mg daily in the morning before breakfast to see if this can help curb this reflux. If this is ineffective, then a trial of a bile salt sequestrant such as Questran (cholestyramine) or colestipol (Colestid) may be worthwhile to eliminate any potential bile reflux. This may also have an added effect in reducing some of the diarrhea that she is experiencing. I would advance her diet as she tolerates and could consider Boost supplements in addition to a low residue diet. Thank you for allowing me to participate in this patient's care.
[2016-10-06] MEDS ORDERED: ENOXAPARIN 30 MG/0.3 ML SYR SQ SCH (21:00)
[2016-10-06] MEDS ORDERED: AMITRIPTYLINE HCL 25 MG TAB PO SCH (22:00)
[2016-10-06] MEDS ORDERED: AMITRIPTYLINE HCL 25 MG TAB PO ONE (22:15)
[2016-10-07] VITALS: BP 129/89; PULSE 75; TEMP 36.5; O2SAT 97
[2016-10-07] MEDS: NSS + 20MEQ KCL 1000ML 1,000 ML IV SCH (04:49)
[2016-10-07 07:55] VITALS: BP 152/92; PULSE 82; TEMP 37.2; O2SAT 98
[2016-10-07] MEDS ORDERED: BOOST VANILLA PO SCH ×2 (08:00)
[2016-10-07] MEDS ORDERED: CYANOCOBALAMIN 100 MCG TAB (VIT B-12) PO SCH (08:00)
[2016-10-07] MEDS: METRONIDAZOLE 500 MG TAB PO SCH (08:32)
[2016-10-07] MEDS: HYDROmorphone INJ 0.5 MG/0.5 ML SYR IV PRN ×2 (08:33→12:47)
--- NOTE | 2016-10-07 09:04 | Clinical Documentation Query ---
CLINICAL DOCUMENTATION QUERY 60 year old female who presents to the Emergency Room with complaints of severe and persistent abdominal pain. Per ED assessment this patient has loss 70 lbs in last 3 weeks. She noted to be cachectic and malnourished. In your clinical opinion is this patient being managed for: ( ) Severe Malnutrition ( ) Other explanation of clinical findings (Please Explain) ( ) Unable to determine (Please Define) ( ) Need to Discuss ( x ) Not Agree. Pt lost 70 pounds in the last 12 months, not in the last 3 weeks. I will document to reflect this. Her labs suggest her nutrition is appropriate. The medical record reflects the following clinical findings, treatment, and risk factors. Clinical Indicators: As above. BMI 17.5. 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 Please clarify and document your clinical opinion in the progress notes and discharge summary. Terms such as "probable", "suspected", "likely", "questionable", "possible", or "still to be ruled out" are acceptable. IF IN AGREEMENT, YOU MUST DOCUMENT ABOVE DIAGNOSTIC STATEMENT IN DAILY PROGRESS NOTES AND DISCHARGE SUMMARY. This document is not part of the patient's record. Malnutrition Characteristics (2 of 6) in Acute Illness/Injury CHARACTERISTICS MODERATE MALNUTRITION SEVERE MALNUTRITION ENERGY INTAKE <75% of estimated energyrequirement for >7 days <50% of estimated energyrequirement for >5 days WEIGHT LOSS 1-2%/1 week 5%/1 month 7.5%/3 months >1-2%/1 week >5%/1 month >7.5%/3 months BODY FAT*loss of SQ fat from the orbits,triceps, or fat overlying the ribs MILD MODERATE MUSCLE MASS*muscle wasting at the temples,clavicles, shoulders, interosseousspaces,scapula, thigh, calf MILD MODERATE FLUID ACCUMULATION*localized or generalized edemaof the extremities, vulva, scrotumweight loss may be masked byedema MILD MODERATE-SEVERE POWER PLANT OPERATOR APPRENTICE STRENGTH N/A measurably decreased perthe device's standards Malnutrition Characteristics (2 of 6) in Chronic Illness CHARACTERISTICS MODERATE MALNUTRITION SEVERE MALNUTRITION ENERGY INTAKE <75% of estimated energyrequirement for >1 month <75% of estimated energyrequirement for >1 month WEIGHT LOSS 5%/1 month 7.5%/3 months 10%/6 months 20%/1 year > 5%/1 month >7.5%/3 months >10%/6 months >20%/1 year BODY FAT*loss of SQ fat from the orbits,triceps, or fat overlying the ribs MILD SEVERE MUSCLE MASS*muscle wasting at the temples,clavicles, shoulders, interosseousspaces,scapula, thigh, calf MILD SEVERE FLUID ACCUMULATION*localized or generalized edemaof the extremities, vulva, scrotumweight loss may be masked byedema MILD SEVERE POWER PLANT OPERATOR APPRENTICE STRENGTH N/A measurably decreased perthe device's standards Thank You, Tramaine Leyva, RN [phone]
--- NOTE | 2016-10-07 09:05 | Clinical Documentation Query ---
CLINICAL DOCUMENTATION QUERY 60 year old female who presents to the Emergency Room with complaints of severe and persistent abdominal pain. Per ED assessment this patient has loss 70 lbs in last 3 weeks. She noted to be cachectic and malnourished. In your clinical opinion is this patient being managed for: ( ) Severe Malnutrition ( ) Other explanation of clinical findings (Please Explain) ( ) Unable to determine (Please Define) ( ) Need to Discuss ( ) Not Agree The medical record reflects the following clinical findings, treatment, and risk factors. Clinical Indicators: As above. BMI 17.5. 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 Please clarify and document your clinical opinion in the progress notes and discharge summary. Terms such as "probable", "suspected", "likely", "questionable", "possible", or "still to be ruled out" are acceptable. IF IN AGREEMENT, YOU MUST DOCUMENT ABOVE DIAGNOSTIC STATEMENT IN DAILY PROGRESS NOTES AND DISCHARGE SUMMARY. This document is not part of the patient's record. Malnutrition; A Quick Reference ToolAs previously noted by SIL, albumin and pre-albumin are not considered reliable indicators of a patient's nutritional status; the patient's entire clinical presentation should be considered. As such, SIL proposes a review of the ASPEN 2012 Characteristics Recommended for the Identification and Documentation of Adult Malnutrition/Undernutrition. ASPEN recommends the identification and documentation of 2 of the following 6 characteristics of malnutrition: energy intake, weight loss, body fat, muscle mass, fluid accumulation, medical fee clerk strength. Further, ASPEN has recommended adjustments in the characteristics based on the context of the malnutrition, e.g., acute illness/injury, chronic illness, social/environmental circumstance. Malnutrition Characteristics (2 of 6) in Acute Illness/Injury CHARACTERISTICS MODERATE MALNUTRITION SEVERE MALNUTRITION ENERGY INTAKE <75% of estimated energyrequirement for >7 days <50% of estimated energyrequirement for >5 days WEIGHT LOSS 1-2%/1 week 5%/1 month 7.5%/3 months >1-2%/1 week >5%/1 month >7.5%/3 months BODY FAT*loss of SQ fat from the orbits,triceps, or fat overlying the ribs MILD MODERATE MUSCLE MASS*muscle wasting at the temples,clavicles, shoulders, interosseousspaces,scapula, thigh, calf MILD MODERATE FLUID ACCUMULATION*localized or generalized edemaof the extremities, vulva, scrotumweight loss may be masked byedema MILD MODERATE-SEVERE RETAIL ADVERTISING SALES MANAGER STRENGTH N/A measurably decreased perthe device's standards Malnutrition Characteristics (2 of 6) in Chronic Illness CHARACTERISTICS MODERATE MALNUTRITION SEVERE MALNUTRITION ENERGY INTAKE <75% of estimated energyrequirement for >1 month <75% of estimated energyrequirement for >1 month WEIGHT LOSS 5%/1 month 7.5%/3 months 10%/6 months 20%/1 year > 5%/1 month >7.5%/3 months >10%/6 months >20%/1 year BODY FAT*loss of SQ fat from the orbits,triceps, or fat overlying the ribs MILD SEVERE MUSCLE MASS*muscle wasting at the temples,clavicles, shoulders, interosseousspaces,scapula, thigh, calf MILD SEVERE FLUID ACCUMULATION*localized or generalized edemaof the extremities, vulva, scrotumweight loss may be masked byedema MILD SEVERE RETAIL ADVERTISING SALES MANAGER STRENGTH N/A measurably decreased perthe device's standards Thank You, Tramaine Leyva, RN [phone]
[2016-10-07 09:16] LABS: HEMATOCRIT 44.5 % (37-47); MEAN CELL VOLUME 98.5 fL (80-100); MEAN CORPUSCULAR HEMOGLOBIN 33.8 pg (25-34); MEAN CORPUSCULAR HGB CONC 34.4 g/dl (32-36); MEAN PLATELET VOLUME 8.9 fL (7.4-10.4); PLATELET COUNT 225 K/uL (130-400); RED BLOOD COUNT 4.52 M/uL (4.2-5.4); WHITE BLOOD COUNT 6.67 K/uL (4.8-10.8)
[2016-10-07 09:52] LABS: BUN/CREATININE RATIO 7.8 (10-20); CALCIUM 9.6 mg/dl (8.5-10.1); CREATININE 0.59 mg/dl (0.60-1.20)
[2016-10-07] MEDS ORDERED: METR-163 PO (09:55)
[2016-10-07] MEDS ORDERED: AMT50 PO (09:55)
[2016-10-07] MEDS ORDERED: OMEP40CA41 PO (09:55)
[2016-10-07 10:10] LABS: ALB/GLOB RATIO 1.3 (0.9-2); PREALBUMIN 33.7 mg/dl (20-40)
--- NOTE | 2016-10-07 10:11 | Discharge Instructions ---
Discharge Instructions Admission Reason for Admission: Intractable Abdominal Pain (Peggy Damon PA-C) Discharge Discharge Diagnosis / Problem: Abdominal pain, heartburn (Peggy Damon PA-C) Discharge Goals Goal(s): Decrease discomfort, Improve function, Diagnostic testing, Therapeutic intervention (Peggy Damon PA-C) Activity Recommendations Activity Limitations: resume your previous activity . (Peggy Damon PA-C) Instructions / Follow-Up Instructions / Follow-Up You were admitted to the hospital with abdominal pain, nausea, and heartburn. You were placed on a medication for your acid reflux that works differently than the Zantac that you had been taking before. This did seem to help provide relief. A CAT scan of your abdomen and pelvis did not show any new acute findings. Dr. Beatty was consulted, and he recommended that you stay on a proton pump inhibitor such as Prilosec for your acid reflux. Your amitriptyline dose was also increased due to your irritable bowel syndrome, which will also hopefully provide more relief. Medications: *Please finish your course of Flagyl for your previous Clostridium difficile infection. A new prescription with the amount of pills remaining was sent to your pharmacy. Please take metronidazole (Flagyl) 500 mg by mouth three times a day for the next 3 days. *You have been prescribed a higher dose of amitriptyline. Please take amitriptyline (Elavil) 50 mg by mouth at bedtime. *You have also been given a new medication to better control your acid reflux. Please take omeprazole (Prilosec) 40 mg by mouth 1 hour before breakfast daily. You may discontinue the ranitidine (Zantac). *Please take your other home medications as prescribed. Follow up: *Please keep your scheduled appointment with your primary care provider, Reji Weinstein PA-C, next week to follow up on your hospital stay and changes in medications. (Peggy Damon PA-C) Current Hospital Diet Patient's current hospital diet: Low Fiber Diet (Peggy Damon PA-C) Discharge Diet Recommended Diet: Low Fiber Diet (Peggy Damon PA-C) Pending Studies Studies pending at discharge: no (Peggy Damon PA-C) Laboratory Results Lipid Panel Test 09/27/16 06:50 10/07/16 08:20 Range/Units Triglycerides Level 151 H 205 H 0-150 mg/dl Cholesterol Level 106 0-200 mg/dl HDL Cholesterol 34 mg/dl Cholesterol/HDL Ratio 3.1 LDL Cholesterol, Calculated 42 mg/dl (Peggy Damon PA-C) Medical Emergencies . Who to Call and When: Medical Emergencies: If at any time you feel your situation is an emergency, please call 911 immediately. . (Peggy Damon PA-C) Non-Emergent Contact Non-Emergency issues call your: Primary Care Provider, Milk Handler Call Non-Emergent contact if: you have a fever, your pain is worsening, your pain is concerning you, you have any medication questions . (Peggy Damon PA-C) Past History Medical & Surgical History: (1) Abdominal pain (2) C. difficile colitis (3) GERD (gastroesophageal reflux disease) (4) IBS (irritable bowel syndrome) (Peggy Damon PA-C) . "Provider Documentation" section prepared by Peggy Damon. (Peggy Damon PA-C) VTE Core Measure Inpt VTE Proph given/why not?: Enoxaparin (Lovenox)SQ, T.E.D. Stockings, SCD's (Peggy Damon PA-C) [place] Drug Monitoring Program Search Results: patient reviewed within database, no issues identified (Peggy Damon PA-C)
[2016-10-07] MEDS: PANTOprazole INJ 40 MG in SYRINGE 0 ML IV SCH (11:22)
--- NOTE | 2016-10-07 12:23 | Discharge Summary ---
Discharge Summary Date of Service Oct 07, 2016. (Peggy Damon PA-C) Discharge Summary Admission Date: Oct 06, 2016 at 13:35 Discharge Date: Oct 07, 2016 Discharge Disposition: Home Principal Diagnosis: Abdominal pain, GERD Immunizations: Have You Had Influenza Vaccine: Yes Influenza Vaccine Date: Jun 27, 2010 History of Tetanus Vaccine?: Yes History of Pneumococcal: Yes Pneumococcal Date: Jul 27, 2009 History of Hepatitis B Vaccine: No (Peggy Damon PA-C) Medication Reconciliation New Medications: Omeprazole (Prilosec) 40 Mg Cap 1 CAP PO DAILYBB for 30 Days, #30 CAP 3 Refills Take 1 capsule by mouth 1 hour before breakfast. Amitriptyline Hcl (Elavil) 50 Mg Tab 50 MG PO HS for 30 Days, #30 TAB Take 1 tablet by mouth at bedtime. Changed Medications: Metronidazole (Flagyl) 500 Mg Tab 500 MG PO TID for 3 Days, #9 TAB (Changed from: 37; 12) Take 1 tablet by mouth three times a day for 3 days. Continued Medications: Acetaminophen (Tylenol Extra Strength) 500 Mg Tab PO TID Cyanocobalamin (Vitamin B-12) 100 Mcg Tab 100 MCG PO QAM for 30 Days, #30 TAB 7 Refills Multivitamins/Minerals (Certavite/Antioxidants) 1 Tab Tab 1 TAB PO QAM for 30 Days, #30 TAB 6 Refills Discontinued Medications: Amitriptyline HCl (Amitriptyline HCl) 25 Mg Tab 25 MG PO HS for 90 Days, #90 TAB Enoxaparin (Lovenox) 40 Mg/0.4 Ml Inj 40 MG SQ DAILY, SYR Ranitidine HCl (Ranitidine HCl) 150 Mg Tab 150 MG PO BID for 30 Days, #60 TAB 5 Refills Discharge Exam Patient reports feeling better. She complains of some abdominal pain but severity has decreased to 5/10 in the left inguinal/LLQ area. She denies the need for pain medication at home. Her indigestion has improved as well. She did have some nausea earlier this morning, but that is improving. She denies any vomiting. She states that she did have a few bowel movements earlier this morning, but the frequency of the diarrhea seems to be slowing down. The patient denies fevers, chills, sweats, chest pain, palpitations, claudication, cough, wheezing, shortness of breath, vomiting, dysuria, hematuria, urinary retention, paralysis, weakness, numbness and tingling. Review of Systems: Constitutional: No chills, No fever, No sweats Eyes: No diplopia, No eye pain, No worsening of vision ENT: No hearing loss, No sore throat, No trouble swallowing Respiratory: No cough, No shortness of breath, No wheezing Cardiovascular: No chest pain, No claudication, No palpitations Abdomen: + diarrhea (improving), + nausea, + pain (5/10 aching pain in LLQ and left inguinal area), No vomiting Musculoskeletal: No calf pain, No joint pain, No muscle pain Genitourinary - Female: No dysuria, No hematuria, No urinary retention Neurologic: No numbness/tingling, No paralysis, No weakness Integumentary: No color change, No itch, No rash Physical Exam: General Appearance: WD/WN, no apparent distress, + thin Eyes: normal inspection, PERRL, EOMI ENT: normal ENT inspection, hearing grossly normal, pharynx normal Neck: supple, no JVD, trachea midline Respiratory/Chest: lungs clear, normal breath sounds, no respiratory distress Cardiovascular: regular rate, rhythm, no gallop, no murmur Abdomen / GI: normal bowel sounds, soft, + tenderness (LLQ TTP) Extremities: normal inspection, no calf tenderness, no pedal edema Neurologic/Psychiatric: alert, normal mood/affect (appears less anxious today, not teary), oriented x 3 Skin: normal color, warm/dry, no rash (Peggy Damon ., PA-C) Hospital Course 60 y/o female with a history of SMA syndrome with corrective surgery at [facility] September 2016, current C. diff, IBS, GERD, HLD, and h/o CVA who presented to the ED on 10/06 with intractable abdominal pain, weakness and fatigue. Pt now with 7/10 LLQ pain after receiving Dilaudid. CXR no acute disease. EKG no ischemic changes. No WBC, potassium slightly low at 3.4. Labs grossly unremarkable otherwise. Afebrile, VSS. Intractable abdominal pain--procedure for SMA syndrome at [facility] about 3 weeks ago. Will obtain records from [facility]. Pt has history of GI issues for several years, with more acute issues in the last year. She reports a total of 70 pounds of weight loss in the last 12 months, with the most rapid weight loss occurring in December/January of 2016. Following SMA surgery a few weeks ago, she had been feeling much better until recurrence of abdominal pain. -Admit to med/surg -Abdomen/pelvis CT w/PO and IV contrast shows resolution of pneumoperitoneum compared to 09/25/16 study, stable pneumobilia, stable dilatation of common hepatic duct, decreasing duodenal distention. No bowel obstruction or free air , no acute inflammatory changes. -Tolerating low fiber diet -IVF hydration due to poor oral intake with NSS + 20 mEq KCl at 80 cc/hr, pt now tolerating PO diet -Consult GI, appreciate recs. Pt follows with Dr. Beatty. Recommends continuing PPI at discharge, omeprazole 40 mg PO qam. -Pain control with Dilaudid 0.5 mg IV q2h prn pain. Pt denies pain medication for home. -Zofran 4 mg IV q6h prn nausea -Albumin and prealbumin WNL, nutrition appears to be adequate GERD -Protonix 40 mg IV qd. Will switch to omeprazole 40 mg PO qam before breakfast C. diff colitis--pt reports stools becoming more formed -Continue Flagyl 500 mg PO TID. At time of discharge, 3 more days of treatment per hospital records Irritable bowel syndrome -Increase amitriptyline to 50 mg PO qhs for better control DVT prophylaxis -Enoxaparin 30 mg SC q24h -EDD flowers and [facility] [place] Code Status -Level V, DO NOT RESUSCITATE Dispo -Patient medically stable for discharge as CT scan stable and even improved from previous study and she is tolerating PO diet. Will switch to PPI for GERD as per GI recs. -Pt is to follow up with Dr. Beatty at her already scheduled appointment on 10/08. Will also keep PCP appointment already scheduled for 10/13 Total Time Spent: Greater than 30 minutes This includes examination of the patient, discharge planning, medication reconciliation, and communication with other providers. (Peggy Damon .OMA) Discharge Instructions Please refer to the electronic Patient Visit Report (Discharge Instructions) for additional information. (Peggy Damon .OMA) Additional Copies To Reji Weinstein PA-C Reviewed: Pt Seen/Exam by Me (Amy Suarez MD) History Physician Gift Consultant Supervision Note: I interviewed and examined the patient. Discussed with INO Damon and agree with findings and plan as documented in the note. Any exceptions or clarifications are listed here: Heartburn is improved, LLQ/inguinal pain present but improved. States she was up and moving around a lot last week after her surgery an feeling better, perhaps she strained her groin. No loose stools all day except 1 this AM that was not foul smelling and none since then. C. diff sample not collected. Vitals reviewed Thin, appears well but slightly depressed affect RRR no mgr CTAB breathing unlabored Abd +BS, soft, ND, mild TTP in left inguinal region with no masses, no inguinal CARLOS palpable Ext no edema 60 yo female with numerous GI issues for decades, here with LLQ pain and heartburn that is severe. Both improving with IV PPI and pain meds. Suspect left groin strain from increased activity in her post-op period. -increase Elavil to 50mg, continue PPI and switch to po upon discharge -adv diet to low residue now, add Boost -prealbumin improved from 20 to 33 this admission from last week -appreciate GI recommendations -if heartburn persists, consider EGD, could have Candidal esophagitis -heating pad and stretched to left groin Hypercalcemia-mild, Vit D level 27 last admit, albumin is normal, check iPTH--> normal at 50 and repeat Ca++ now normal Documented By: Amy Suarez (Amy Suarez MD)
[2016-10-07 12:38] VITALS: BP 152/92; PULSE 82; TEMP 37.2; O2SAT 98
[2016-10-07] MEDS ORDERED: AMITRIPTYLINE HCL 50 MG TAB PO SCH (22:00)
== END 2016-10-07 12:45 | disposition home health service (06) | DRG 391 ==
LOC: ENRESERVTM → ENRESERVDT → EDBD 09:39 → C.EDB 09:40 → UNDOADMIN 13:35 → C.MS4W 13:35
PROVIDERS: ADMIT Family Medicine; ATTEND Family Medicine
DX: K21.9 Gastro-esophageal reflux disease without esophagitis (principal); K83.1 Obstruction of bile duct; A04.7 Enterocolitis due to Clostridium difficile; E46 Unspecified protein-calorie malnutrition; Z68.1 Body mass index [BMI] 19.9 or less, adult; E83.52 Hypercalcemia; F17.210 Nicotine dependence, cigarettes, uncomplicated; E78.5 Hyperlipidemia, unspecified; Z86.73 Personal history of transient ischemic attack (TIA), and cerebral infarction without residual deficits; Z66 Do not resuscitate; G89.29 Other chronic pain; K58.9 Irritable bowel syndrome, unspecified; K27.7 Chronic peptic ulcer, site unspecified, without hemorrhage or perforation; K31.84 Gastroparesis; Z93.1 Gastrostomy status; M81.0 Age-related osteoporosis without current pathological fracture; E53.8 Deficiency of other specified B group vitamins; F32.9 Major depressive disorder, single episode, unspecified; Z83.3 Family history of diabetes mellitus; Z82.49 Family history of ischemic heart disease and other diseases of the circulatory system; Z80.3 Family history of malignant neoplasm of breast; Z80.59 Family history of malignant neoplasm of other urinary tract organ; Z80.6 Family history of leukemia; T37.3X5A Adverse effect of other antiprotozoal drugs, initial encounter; Y92.9 Unspecified place or not applicable

== ENCOUNTER → 2017-01-23 | Outpatient (CLI) | payer OTHER ==
[~2017-01-23] MED LIST changes: -AMT25 PO; +AMT50 PO; +DICY20TA35 PO; -ENOX40IN SQ; +LANS30CA12 PO; +OMEP40CA41 PO; -ZNT150 PO
--- NOTE | 2017-01-23 14:40 | DIAGNOSTIC IMAGING REPORT ---
LEFT LOWER QUADRANT ABDOMINAL WALL ULTRASOUND. CLINICAL HISTORY: Left lower quadrant abdominal pain. Suspected hernia COMPARISON STUDY: CT scan dated 10/06/2016 FINDINGS: There is no ultrasonographic evidence of a left lower quadrant abdominal wall hernia. IMPRESSION: No ultrasonographic evidence of a left lower quadrant abdominal wall hernia Electronically signed by: Morteza Campuzano M.D. 01/23/2017 2:39 PM Dictated Date/Time: 01/23/2017 2:37 PM
== END | disposition home or self-care (01) ==
LOC: C.ULTR 13:55
PROVIDERS: ATTEND Surgery
DX: R10.32 Left lower quadrant pain (principal)

== ENCOUNTER 2017-04-28 08:47 | Emergency (ER) | payer OTHER ==
[~2017-04-28] VITALS: Ht 167.6 cm; Wt 55.0 kg
[~2017-04-28 08:47] MED LIST changes: -DICY20TA35 PO; -LANS30CA12 PO; -OXYC-57 PO
[2017-04-28 09:00] VITALS: TEMP 36.9; Ht 167.6 cm; Wt 55.0 kg
[2017-04-28 09:04] VITALS: O2SAT 96
[2017-04-28] MEDS ORDERED: MoRPHine SULFATE 10 MG/ML CARP/VIAL IV PRN (09:15)
[2017-04-28] MEDS ORDERED: ONDANSETRON INJ 2 MG/ML 2 ML VIAL IV PRN (09:15)
--- NOTE | 2017-04-28 09:19 | EMERGENCY ROOM VISIT NOTE ---
History Report prepared by Shila: Patti Rivera Under the Supervision of: Dr. Jethro Sprague M.D. First contact with patient: 09:04 Chief Complaint: ABDOMINAL PAIN Stated Complaint: ABDOMINAL PAIN Nursing Triage Summary: pt presents to room b08 via als. pt reports hx of abd problems and that she had abd surgery at [facility] [place] in [place] and has not had any problems since that time. pt reports mid abd pain since approx 0200 today and also nausea. pt recieved 6mg im morphine en route to hospital. History of Present Illness The patient is a 61 year old female who presents to the Emergency Room with complaints of persistent abdominal pain that began this morning around 0200. She currently rates her discomfort as a 10/10 in severity. The patient states that she woke with the pain and states that she has noticed increased acid reflux. She describes the pain as a burning. The patient states that she has a history of abdominal problems, but states that she had surgery in September at [facility]. She states that she has had abdominal pain similar to this in the past. The patient denies eating any new foods that would cause her discomfort. She denies any alcohol use. Source of History: patient Onset: 0200 this morning Position: abdomen Symptom Intensity: 10/10 Quality: burning Timing: other (persistent) Associated Symptoms: + nausea Review of Systems See HPI for pertinent positives & negatives. A total of 10 systems reviewed and were otherwise negative. Past Medical & Surgical Medical Problems: (1) Abdominal pain (2) Adenomatous polyp of colon (3) Anxiety (4) B12 deficiency (5) Barretts esophagus (6) C. difficile colitis (7) Chronic abdominal pain (8) Common bile duct (CBD) stricture (9) Dehydration (10) Depression (11) Dyslipidemia (12) Gastroparesis (13) GERD (gastroesophageal reflux disease) (14) IBS (irritable bowel syndrome) (15) Impaired fasting glucose (16) Intractable abdominal pain (17) Intractable nausea and vomiting (18) Intractable nausea and vomiting (19) Malnutrition (20) Osteoporosis (21) Pernicious anemia (22) PUD (peptic ulcer disease) Surgical Problems: (1) H/O colonoscopy (2) H/O pyloroplasty (3) H/O vagotomy (4) History of carpal tunnel surgery (5) History of esophagogastroduodenoscopy (EGD) (6) History of Mary fundoplication (7) S/P cholecystectomy (8) S/P ERCP (9) S/p revision of esophagus and stomach (10) S/P thyroidectomy (11) Status post insertion of percutaneous endoscopic gastrostomy (PEG) tube Family History Cancer (breast, uterine, liver, leukemia) Diabetes mellitus Hypertension Myocardial infarction Social History Smoking Status: Current Every Day Smoker Drug Use: none, marijuana Marital Status: single, Occupation Status: disabled Current/Historical Medications Scheduled Acetaminophen (Tylenol Extra Strength), 1,000 MG PO TID Amitriptyline Hcl (Elavil), 50 MG PO HS Cyanocobalamin (Vitamin B-12), 100 MCG PO QAM Lansoprazole (Prevacid), 30 MG PO QAM Multivitamins/Minerals (Certavite/Antioxidants), 1 TAB PO QAM Scheduled PRN Oxycodone/Acetaminophen 5MG/325MG (Percocet 5MG/325MG), 1-2 TABLETS PO Q4H PRN for Pain Allergies Coded Allergies: Benzodiazepines (Verified Allergy, Unknown, 04/28/17) Replaces CHLORDIAZEPOX Chlordiazepoxide (Verified Allergy, Unknown, 04/28/17) Replaces CHLORDIAZEPOX Clidinium (Verified Allergy, Unknown, 04/28/17) Replaces CHLORDIAZEPOX Metoclopramide (Verified Allergy, Unknown, 04/28/17) Prochlorperazine (Verified Allergy, Unknown, 04/28/17) Uncoded Allergies: ANTI INFLAMITORIES (Allergy, Unknown, WATER BLISTERS ALONG JAW LINE , ) Physical Exam Vital Signs Date Time Temp Pulse Resp B/P (MAP) Pulse Ox O2 Delivery O2 Flow Rate FiO2 04/28/17 14:30 98 18 127/90 97 Room Air 04/28/17 12:54 80 18 119/78 97 Room Air 04/28/17 11:53 93 18 109/69 96 Room Air 04/28/17 10:25 100 18 96/70 97 Room Air 04/28/17 09:21 110 20 116/88 96 Room Air 04/28/17 09:04 96 Room Air 04/28/17 09:00 36.9 104 24 142/101 96 Room Air 04/28/17 08:57 102 Physical Exam GENERAL: Patient awake, alert, oriented x 3. Patient appears to be in marked distress. Patient follows commands. Patient does not appear toxic. Patient is adequately hydrated and well-nourished. SKIN: No erythema, pallor, cyanosis or rash HEENT: Normal head, pupils equal, reactive to light and accommodation. Ears normal. Oral cavity and posterior pharynx appear normal. Adentulous, but has upper dentures in place at this time. Neck: Without adenopathy, no neck vein distention. LUNGS: Clear to auscultation. No wheezes, no rales, no rhonchi. HEART: No murmurs. No gallops. No rubs ABDOMEN: Multiple well healed scars in upper abdomen, marked tenderness in epigastric area. No masses, no rebound, no hepatomegaly or splenomegaly. EXTREMITIES: No signs of trauma. No pedal or pretibial edema. No calf or thigh tenderness. NEUROLOGIC: Cranial nerves II-XII within normal limits. No gross motor sensory function deficits. Medical Decision & Procedures ER Provider Diagnostic Interpretation: Radiology results as stated below per my review and radiologist interpretation: CHEST ONE VIEW PORTABLE CLINICAL HISTORY: 61 years-old Female presenting with ABD PAIN. TECHNIQUE: Portable upright AP view of the chest was obtained. COMPARISON: 10/06/2016. FINDINGS: Cardiomediastinal silhouette normal. Hyperinflation. Lungs and pleural spaces clear. Elevation of the left hemidiaphragm. Surgical clips project over the lower mediastinum possibly related to a prior Mary procedure. Hiatal hernia. Osseous structures normal. Upper abdomen normal. IMPRESSION: 1. No acute cardiopulmonary disease. 2. Hilar hernia with suspected postsurgical changes of Mary procedure and left hemidiaphragm elevation. Electronically signed by: Leonel Chan M.D. 04/28/2017 9:51 AM Dictated Date/Time: 04/28/2017 9:49 AM ABD/PELVIS IV AND ORAL CONT CLINICAL HISTORY: 61 years-old Female presenting with MID ABD PAIN PRIOR CHOLECYSTECTOMY FUNDAL PLICATION. TECHNIQUE: Multidetector CT of the abdomen and pelvis was performed after the administration of oral and intravenous contrast. IV contrast: 94 mm of Optiray 320. A dose lowering technique was used consistent with the principles of ALARA (as low as reasonably achievable). COMPARISON: 10/06/2016. CT DOSE (mGy.cm): The estimated cumulative dose is 236.03 mGy.cm. FINDINGS: Management Nurse Rn topogram: Surgical clips project over the epigastrium. Elevation of the left hemidiaphragm. Lung bases: Left Bochdalek hernia containing left adrenal gland, portion of the left kidney, spleen, and bowel. Minimal linear opacities at the left lung base likely atelectasis or scarring. Normal heart size. No pericardial or pleural effusion. Liver: Normal morphology. No liver lesion. Patent hepatic vasculature. Biliary: Pneumobilia unchanged from prior. Mild intrahepatic biliary ductal dilatation. The common duct is significantly dilated at the liver hilum, where it measures 14 mm. More distally the duct tapers to a normal caliber with a smooth transition. This may in part be due to a reservoir effect in the post cholecystectomy state. Wall thickening of the common duct, unchanged likely indicating chronic cholangitis. Gallbladder surgically absent. Pancreas: Moderate parenchymal atrophy. Prominence of the pancreatic duct at the pancreatic head unchanged. Spleen: Normal. Adrenal glands: Normal. Kidneys and ureters: Hypodensity in the right kidney too small to characterize but likely cyst. No hydronephrosis. Ureters grossly normal. Bladder: Incompletely evaluated secondary to underdistention. Pelvic organs: Uterus and ovaries normal. Bowel: Normal appendix. No bowel obstruction. Postsurgical changes at the gastroesophageal junction, possibly from prior Mary procedure. The horizontal portion of the duodenum demonstrates mild distention proximal to the retro-SMA course. Peritoneal cavity: No free fluid or intraperitoneal gas. Vasculature: Atherosclerosis of the normal caliber abdominal aorta. IVC patent. Lymph nodes: No enlarged lymph nodes in the abdomen or pelvis. Abdominal wall: Normal. Musculoskeletal: Normal. IMPRESSION: 1. Mild dilatation of the horizontal portion of the duodenum proximal to the portion coursing posterior to the superior mesenteric artery. 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 2. Postsurgical changes of cholecystectomy. Biliary ductal dilatation is not significantly changed from prior and may relate to a reservoir effect in the post cholecystectomy state. 3. Pneumobilia possibly with chronic cholangitis. 4. Postsurgical changes of Mary procedure. Electronically signed by: Leonel Chan M.D. 04/28/2017 12:51 PM Dictated Date/Time: 04/28/2017 12:42 PM The status of this report is Signed. Draft = Not yet reviewed or approved by Radiologist. Signed = Reviewed and approved by Radiologist. Laboratory Results 04/28/17 08:59 Red Blood Count 4.82, Mean Corpuscular Volume 95.4, Mean Corpuscular Hemoglobin 33.8, Mean Corpuscular Hemoglobin Concent 35.4, Mean Platelet Volume 8.8, Neutrophils (%) (Auto) 91.6, Lymphocytes (%) (Auto) 5.5, Monocytes (%) (Auto) 2.3, Eosinophils (%) (Auto) 0.0, Basophils (%) (Auto) 0.1, Neutrophils # (Auto) 15.36, Lymphocytes # (Auto) 0.92, Monocytes # (Auto) 0.38, Eosinophils # (Auto) 0.00, Basophils # (Auto) 0.02 04/28/17 08:59 Test 04/28/17 08:59 04/28/17 11:20 White Blood Count 16.76 K/uL (4.8-10.8) Red Blood Count 4.82 M/uL (4.2-5.4) Hemoglobin 16.3 g/dL (12.0-16.0) Hematocrit 46.0 % (37-47) Mean Corpuscular Volume 95.4 fL (80-100) Mean Corpuscular Hemoglobin 33.8 pg (25-34) Mean Corpuscular Hemoglobin Concent 35.4 g/dl (32-36) Platelet Count 226 K/uL (130-400) Mean Platelet Volume 8.8 fL (7.4-10.4) Neutrophils (%) (Auto) 91.6 % Lymphocytes (%) (Auto) 5.5 % Monocytes (%) (Auto) 2.3 % Eosinophils (%) (Auto) 0.0 % Basophils (%) (Auto) 0.1 % Neutrophils # (Auto) 15.36 K/uL (1.4-6.5) Lymphocytes # (Auto) 0.92 K/uL (1.2-3.4) Monocytes # (Auto) 0.38 K/uL (0.11-0.59) Eosinophils # (Auto) 0.00 K/uL (0-0.5) Basophils # (Auto) 0.02 K/uL (0-0.2) RDW Standard Deviation 44.8 fL (36.4-46.3) RDW Coefficient of Variation 12.8 % (11.5-14.5) Immature Granulocyte % (Auto) 0.5 % Immature Granulocyte # (Auto) 0.08 K/uL (0.00-0.02) Anion Gap 5.0 mmol/L (3-11) Est Creatinine Clear Calc Drug Dose 64.9 ml/min Estimated GFR () 94.4 Estimated GFR (Non- 81.5 BUN/Creatinine Ratio 13.2 (10-20) Calcium Level 10.3 mg/dl (8.5-10.1) Total Bilirubin 0.4 mg/dl (0.2-1) Aspartate Amino Transf (AST/SGOT) 13 U/L (15-37) Alanine Aminotransferase (ALT/SGPT) 16 U/L (12-78) Alkaline Phosphatase 140 U/L (45-117) Total Protein 7.9 gm/dl (6.4-8.2) Albumin 4.5 gm/dl (3.4-5.0) Globulin 3.4 gm/dl (2.5-4.0) Albumin/Globulin Ratio 1.3 (0.9-2) Lipase 57 U/L (73-393) Urine Color YELLOW Urine Appearance CLEAR (CLEAR) Urine pH 7.0 (4.5-7.5) Urine Specific [place] 1.024 (1.000-1.030) Urine Protein NEG (NEG) Urine Glucose (UA) TRACE (NEG) Urine Ketones 1+ (NEG) Urine Occult Blood NEG (NEG) Urine Nitrite NEG (NEG) Urine Bilirubin NEG (NEG) Urine Urobilinogen NEG (NEG) Urine Leukocyte Esterase NEG (NEG) Laboratory results as stated above per my review. Medications Administered Medications (Trade) Dose Ordered Sig/Radha Route Start Time Stop Time Status Last Admin Dose Admin Morphine Sulfate (MoRPHine SULFATE INJ) 6 mg Q1H PRN IV 04/28/17 09:15 04/28/17 15:11 DC 04/28/17 09:20 6 MG Ondansetron HCl (Zofran Inj) 4 mg Q1HWA PRN IV 04/28/17 09:15 04/28/17 15:11 DC 04/28/17 09:20 4 MG Sodium Chloride 1,000 ml @ 1,000 mls/hr Q1H ONCE IV 04/28/17 12:45 04/28/17 13:44 DC 04/28/17 12:54 1,000 MLS/HR ECG Indication: abdominal pain Rate (beats per minute): 93 Rhythm: sinus with SA Findings: no acute ischemic change, no ectopy ED Course 09: Past medical records reviewed. The patient was evaluated in room B8. A complete history and physical examination was performed. 0915: Ordered Zofran Inj 4 mg IV, Morphine Sulfate 6 mg IV. 1245: Ordered Sodium Chloride 1000 ml @ 1000 mls/hr IV. 1311: I reevaluated the patient and she is completely pain free. I discussed the exam findings with her and I discussed the treatment plan. She verbalized complete understanding and agreement. She is ready to go home shortly. Medical Decision Nurses notes reviewed. Medical history sheet reviewed. Differential diagnosis includes but is not limited to: Pancreatitis, bowel obstruction, GERD, peptic/ gastric ulcer disease, SMA syndrome. The patient is here with severe upper abdominal pain. This is similar to what she has experienced in the past with dumping syndrome. Multiple labs, EKG and imaging were performed. Please see above. CT is consistent with possible SMA syndrome. The patient's white count is elevated to 16,000. Patient otherwise looks well. Patient was reexamined prior to discharge and was pain-free. The patient does not appear to be infected nor does she have pancreatitis/ peritonitis. The patient will be allowed to return home but was encouraged to return here if pain returns. [place] Drug Monitoring Program Search Results: patient reviewed within database, no issues identified Medication Reconcilliation Current Medication List: was personally reviewed by me Blood Pressure Screening Patient's blood pressure: Normal blood pressure Blood pressure disposition: Did not require urgent referral Impression Primary Impression: Acute duodenitis Scribe Attestation The scribe's documentation has been prepared under my direction and personally reviewed by me in its entirety. I confirm that the note above accurately reflects all work, treatment, procedures, and medical decision making performed by me. Departure Information Dispostion Home / Self-Care Prescriptions Oxycodone/Acetaminophen 5MG/325MG (PERCOCET 5MG/325MG) Tab 1-2 TABLETS PO Q4H Y for Pain, #10 TAB Prov: Jethro Sprague M.D. 04/28/17 Referrals Reji Weinstein PA-C Forms HOME CARE DOCUMENTATION FORM, IMPORTANT VISIT INFORMATION Patient Instructions [facility] Additional Instructions 1-2 Percocet every 4 hours as needed for moderate to severe pain. Return here if pain returns. Follow-up with your family physician within the next 10 days. Drink extra fluids.
[2017-04-28] MEDS ORDERED: LANS30CA12 PO (09:31)
--- NOTE | 2017-04-28 09:53 | DIAGNOSTIC IMAGING REPORT ---
CHEST ONE VIEW PORTABLE CLINICAL HISTORY: 61 years-old Female presenting with ABD PAIN. TECHNIQUE: Portable upright AP view of the chest was obtained. COMPARISON: 10/06/2016. FINDINGS: Cardiomediastinal silhouette normal. Hyperinflation. Lungs and pleural spaces clear. Elevation of the left hemidiaphragm. Surgical clips project over the lower mediastinum possibly related to a prior Mary procedure. Hiatal hernia. Osseous structures normal. Upper abdomen normal. IMPRESSION: 1. No acute cardiopulmonary disease. 2. Hilar hernia with suspected postsurgical changes of Mary procedure and left hemidiaphragm elevation. Electronically signed by: Leonel Chan M.D. 04/28/2017 9:51 AM Dictated Date/Time: 04/28/2017 9:49 AM
[2017-04-28 10:02] LABS: BASO % 0.1 %; BASO ABS # 0.02 K/uL (0-0.2); COMPLETE YES; IG% 0.5 %; LYMPH % 5.5 %; LYMPH ABS # 0.92 K/uL (1.2-3.4); MEAN CELL VOLUME 95.4 fL (80-100); MEAN CORPUSCULAR HEMOGLOBIN 33.8 pg (25-34); MEAN CORPUSCULAR HGB CONC 35.4 g/dl (32-36); MEAN PLATELET VOLUME 8.8 fL (7.4-10.4); MONO % 2.3 %; NEUT % 91.6 %; PLATELET COUNT 226 K/uL (130-400); RED BLOOD COUNT 4.82 M/uL (4.2-5.4); WHITE BLOOD COUNT 16.76 K/uL (4.8-10.8)
[2017-04-28 10:04] LABS: BUN/CREATININE RATIO 13.2 (10-20); CALCIUM 10.3 mg/dl (8.5-10.1); CREATININE 0.78 mg/dl (0.60-1.20); POTASSIUM 4.3 mmol/L (3.5-5.1)
[2017-04-28 10:07] LABS: ALB/GLOB RATIO 1.3 (0.9-2)
[2017-04-28 11:39] LABS: URINE APPEARANCE CLEAR (CLEAR); URINE BILIRUBIN NEG (NEG); URINE COLOR YELLOW; URINE NITRITE NEG (NEG); URINE SPECIFIC GRAVITY 1.024 (1.000-1.030); UROBILINOGEN NEG (NEG); ZZUR CULT IF INDIC CLEAN CATCH NO
[2017-04-28 11:43] LABS: MANUAL MICROSCOPIC REQUIRED? NO; REVIEW REQ? NO
[2017-04-28] MEDS ORDERED: OPTIRAY 320 IV PRN (12:45)
[2017-04-28] MEDS ORDERED: SODIUM CHLORIDE 0.9% 1000ML 1,000 ML IV ONE (12:45)
--- NOTE | 2017-04-28 12:52 | DIAGNOSTIC IMAGING REPORT ---
ABD/PELVIS IV AND ORAL CONT CLINICAL HISTORY: 61 years-old Female presenting with MID ABD PAIN PRIOR CHOLECYSTECTOMY FUNDAL PLICATION. TECHNIQUE: Multidetector CT of the abdomen and pelvis was performed after the administration of oral and intravenous contrast. IV contrast: 94 mm of Optiray 320. A dose lowering technique was used consistent with the principles of ALARA (as low as reasonably achievable). COMPARISON: 10/06/2016. CT DOSE (mGy.cm): The estimated cumulative dose is 236.03 mGy.cm. 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 Elevation of the left hemidiaphragm. Lung bases: Left Bochdalek hernia containing left adrenal gland, portion of the left kidney, spleen, and bowel. Minimal linear opacities at the left lung base likely atelectasis or scarring. Normal heart size. No pericardial or pleural effusion. Liver: Normal morphology. No liver lesion. Patent hepatic vasculature. Biliary: Pneumobilia unchanged from prior. Mild intrahepatic biliary ductal dilatation. The common duct is significantly dilated at the liver hilum, where it measures 14 mm. More distally the duct tapers to a normal caliber with a smooth transition. This may in part be due to a reservoir effect in the post cholecystectomy state. Wall thickening of the common duct, unchanged likely indicating chronic cholangitis. Gallbladder surgically absent. Pancreas: Moderate parenchymal atrophy. Prominence of the pancreatic duct at the pancreatic head unchanged. Spleen: Normal. Adrenal glands: Normal. Kidneys and ureters: Hypodensity in the right kidney too small to characterize but likely cyst. No hydronephrosis. Ureters grossly normal. Bladder: Incompletely evaluated secondary to underdistention. Pelvic organs: Uterus and ovaries normal. Bowel: Normal appendix. No bowel obstruction. Postsurgical changes at the gastroesophageal junction, possibly from prior Mary procedure. The horizontal portion of the duodenum demonstrates mild distention proximal to the retro-SMA course. Peritoneal cavity: No free fluid or intraperitoneal gas. Vasculature: Atherosclerosis of the normal caliber abdominal aorta. IVC patent. Lymph nodes: No enlarged lymph nodes in the abdomen or pelvis. Abdominal wall: Normal. Musculoskeletal: Normal. IMPRESSION: 1. Mild dilatation of the horizontal portion of the duodenum proximal to the portion coursing posterior to the superior mesenteric artery. 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 2. Postsurgical changes of cholecystectomy. Biliary ductal dilatation is not significantly changed from prior and may relate to a reservoir effect in the post cholecystectomy state. 3. Pneumobilia possibly with chronic cholangitis. 4. Postsurgical changes of Mary procedure. Electronically signed by: Leonel Chan M.D. 04/28/2017 12:51 PM Dictated Date/Time: 04/28/2017 12:42 PM
[2017-04-28] MEDS ORDERED: OXYC-57 PO (13:20)
[2017-04-28 14:30] VITALS: BP 127/90; PULSE 98; O2SAT 97
[2017-04-29] MEDS ORDERED: DICY20TA35 PO (10:44)
== END 2017-04-28 14:40 | disposition home or self-care (01) ==
LOC: EDBD 08:47 → C.EDB 08:49
DX: K29.80 Duodenitis without bleeding (principal); N81.0 Urethrocele; E89.0 Postprocedural hypothyroidism; F32.9 Major depressive disorder, single episode, unspecified; K21.9 Gastro-esophageal reflux disease without esophagitis; F17.200 Nicotine dependence, unspecified, uncomplicated; Z87.11 Personal history of peptic ulcer disease; Z97.2 Presence of dental prosthetic device (complete) (partial); Z93.1 Gastrostomy status; Z90.49 Acquired absence of other specified parts of digestive tract; Z98.890 Other specified postprocedural states; Z80.6 Family history of leukemia; Z80.3 Family history of malignant neoplasm of breast; Z80.49 Family history of malignant neoplasm of other genital organs; Z80.0 Family history of malignant neoplasm of digestive organs; Z83.3 Family history of diabetes mellitus; Z82.49 Family history of ischemic heart disease and other diseases of the circulatory system; Z79.899 Other long term (current) drug therapy

== ENCOUNTER 2017-04-29 06:43 | Emergency (ER) | payer OTHER ==
[~2017-04-29] VITALS: Ht 170.2 cm; Wt 57.0 kg
[~2017-04-29 06:43] MED LIST changes: +LANS30CA12 PO; +OXYC-57 PO
[2017-04-29 06:52] VITALS: TEMP 36.8; Ht 170.2 cm; Wt 57.0 kg
[2017-04-29] MEDS ORDERED: SODIUM CHLORIDE 0.9% 1000ML 1,000 ML IV ONE (07:15)
[2017-04-29 07:26] LABS: BASO % 0.2 %; BASO ABS # 0.02 K/uL (0-0.2); COMPLETE YES; EOS % 0.2 %; HEMATOCRIT 46.1 % (37-47); IG% 0.3 %; LYMPH % 11.4 %; LYMPH ABS # 1.49 K/uL (1.2-3.4); MEAN CELL VOLUME 95.8 fL (80-100); MEAN CORPUSCULAR HEMOGLOBIN 33.5 pg (25-34); MEAN CORPUSCULAR HGB CONC 34.9 g/dl (32-36); MEAN PLATELET VOLUME 8.6 fL (7.4-10.4); MONO % 4.8 %; NEUT % 83.1 %; PLATELET COUNT 207 K/uL (130-400); RED BLOOD COUNT 4.81 M/uL (4.2-5.4); WHITE BLOOD COUNT 13.04 K/uL (4.8-10.8)
--- NOTE | 2017-04-29 07:30 | EMERGENCY ROOM VISIT NOTE ---
History Report prepared by Shila: Luciana Mixon Under the Supervision of: Dr. Jethro Sprague M.D. First contact with patient: 07:03 Chief Complaint: ABDOMINAL PAIN Stated Complaint: ABDOMINAL PAIN Nursing Triage Summary: pt brought to main ED from home by ALS services. pt was woken from sleep by abd pain with associated n/v. pt was seen for similar symptoms in ED yesterday, was to be admitted but "felt better" so pt was discharged home. pt states "there was something with my small bowel, not an obstruction, i don't know." upon arrival, pt rates abd pain 8/10. denies diarrhea, denies urinary symptoms. states she has pain "right around my belly button." pt alert and oriented x4. breathing WNL. 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 The patient was evaluated for similar pain yesterday morning in the ED. She was diagnosed with acute duodenitis. She was feeling better and was discharged home. The patient states that she felt well yesterday when she got home. She went to bed and was feeling well, but was awoken early this morning with the same pain. She states it is not quite as severe as it was yesterday. The patient was brought to the ED by ambulance. She received morphine and Zofran en route which she states has helped her symptoms. She denies nausea, vomiting, diarrhea, and urinary symptoms. She rates her current pain as an 8/10 in severity. 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 Please see Additional Medical History Sheet. Past Medical & Surgical Medical Problems: (1) Abdominal pain (2) Adenomatous polyp of colon (3) Anxiety (4) B12 deficiency (5) Barretts esophagus (6) C. difficile colitis (7) Chronic abdominal pain (8) Common bile duct (CBD) stricture (9) Dehydration (10) Depression (11) Dyslipidemia (12) Gastroparesis (13) GERD (gastroesophageal reflux disease) (14) IBS (irritable bowel syndrome) (15) Impaired fasting glucose (16) Intractable abdominal pain (17) Intractable nausea and vomiting (18) Intractable nausea and vomiting (19) Malnutrition (20) Osteoporosis (21) Pernicious anemia (22) PUD (peptic ulcer disease) Surgical Problems: (1) H/O colonoscopy (2) H/O pyloroplasty (3) H/O vagotomy (4) History of carpal tunnel surgery (5) History of esophagogastroduodenoscopy (EGD) (6) History of Mary fundoplication (7) S/P cholecystectomy (8) S/P ERCP (9) S/p revision of esophagus and stomach (10) S/P thyroidectomy (11) Status post insertion of percutaneous endoscopic gastrostomy (PEG) tube Family History Cancer (breast, uterine, liver, leukemia) Diabetes mellitus Hypertension Myocardial infarction Social History Smoking Status: Current Every Day Smoker Drug Use: none, marijuana Marital Status: single, Occupation Status: disabled Current/Historical Medications Scheduled Acetaminophen (Tylenol Extra Strength), 1,000 MG PO TID Amitriptyline Hcl (Elavil), 50 MG PO HS Cyanocobalamin (Vitamin B-12), 100 MCG PO QAM Dicyclomine Hcl (Bentyl), 20 MG PO Q6H Lansoprazole (Prevacid), 30 MG PO QAM Multivitamins/Minerals (Certavite/Antioxidants), 1 TAB PO QAM Scheduled PRN Oxycodone/Acetaminophen 5MG/325MG (Percocet 5MG/325MG), 1-2 TABLETS PO Q4H PRN for Pain Allergies Coded Allergies: Benzodiazepines (Verified Allergy, Unknown, 04/29/17) Replaces CHLORDIAZEPOX Chlordiazepoxide (Verified Allergy, Unknown, 04/29/17) Replaces CHLORDIAZEPOX Clidinium (Verified Allergy, Unknown, 04/29/17) Replaces CHLORDIAZEPOX Metoclopramide (Verified Allergy, Unknown, 04/29/17) Prochlorperazine (Verified Allergy, Unknown, 04/29/17) Uncoded Allergies: ANTI INFLAMITORIES (Allergy, Unknown, WATER BLISTERS ALONG JAW LINE , ) Physical Exam Vital Signs Date Time Temp Pulse Resp B/P (MAP) Pulse Ox O2 Delivery O2 Flow Rate FiO2 04/29/17 11:50 89 20 129/91 96 04/29/17 10:57 77 04/29/17 10:01 111/76 04/29/17 09:58 72 16 96 04/29/17 09:53 73 19 97 04/29/17 09:31 125/84 04/29/17 09:23 76 17 96 04/29/17 09:01 125/85 04/29/17 08:53 77 17 96 04/29/17 08:48 72 17 96 04/29/17 08:31 134/94 04/29/17 07:48 72 20 98 04/29/17 07:43 82 13 04/29/17 07:31 130/88 04/29/17 07:13 86 11 96 Room Air 04/29/17 07:01 118/86 04/29/17 06:54 89 04/29/17 06:52 36.8 92 18 147/89 97 Room Air 04/29/17 06:47 147/89 Physical Exam GENERAL: Patient awake, alert, oriented x 3. Patient follows commands. Patient does not appear toxic. Patient is adequately hydrated and well- nourished. SKIN: No erythema, pallor, cyanosis or rash HEENT: Normal head, pupils equal, reactive to light and accommodation. LUNGS: Clear to auscultation. No wheezes, no rales, no rhonchi. HEART: No murmurs. No gallops. No rubs ABDOMEN: Multiple well-healed scars over the mid upper abdomen, epigastric tenderness. Bowel sounds present. No rebound or guarding. EXTREMITIES: No signs of trauma or infection. NEUROLOGIC: Cranial nerves II-XII within normal limits. No gross motor sensory function deficits. Medical Decision & Procedures ER Provider Diagnostic Interpretation: Radiology results as stated below per my review and radiologist interpretation: PA CHEST WITH ABDOMINAL SERIES CLINICAL HISTORY: Generalized abdominal pain. FINDINGS: A PA chest radiograph is compared to study dated 04/28/2017. The cardiomediastinal silhouette is unremarkable. Emphysema and chronic interstitial thickening are similar to previous. Chronic elevation of left hemidiaphragm is unchanged. There is no airspace consolidation or large pleural effusion. No pneumothorax is seen. The skeletal structures are osteopenic. The bony thorax is grossly intact. Supine and erect abdominal radiographs are correlated with abdominal CT dated 04/28/2017. Surgical clips project over the esophageal hiatus. Additional surgical clips are scattered throughout the upper abdomen. There is a nonobstructed abdominal bowel gas pattern. Residual enteric contrast is present in the colon from yesterday's CT scan. No evidence of intraperitoneal free air is seen. There are no abnormal abdominal calcifications. Pelvic phleboliths are noted. The lumbosacral spine and bony pelvis appear intact. IMPRESSION: 1. Emphysema and chronic parenchymal changes as above. There is no acute cardiopulmonary abnormality. 2. Nonobstructed abdominal bowel gas pattern. Electronically signed by: Feliz Modi M.D. 04/29/2017 8:13 AM Dictated Date/Time: 04/29/2017 8:07 AM Laboratory Results 04/29/17 06:19 Red Blood Count 4.81, Mean Corpuscular Volume 95.8, Mean Corpuscular Hemoglobin 33.5, Mean Corpuscular Hemoglobin Concent 34.9, Mean Platelet Volume 8.6, Neutrophils (%) (Auto) 83.1, Lymphocytes (%) (Auto) 11.4, Monocytes (%) (Auto) 4.8, Eosinophils (%) (Auto) 0.2, Basophils (%) (Auto) 0.2, Neutrophils # (Auto) 10.84, Lymphocytes # (Auto) 1.49, Monocytes # (Auto) 0.62, Eosinophils # (Auto) 0.03, Basophils # (Auto) 0.02 04/29/17 06:19 Test 04/29/17 06:19 04/29/17 10:30 White Blood Count 13.04 K/uL (4.8-10.8) Red Blood Count 4.81 M/uL (4.2-5.4) Hemoglobin 16.1 g/dL (12.0-16.0) Hematocrit 46.1 % (37-47) Mean Corpuscular Volume 95.8 fL (80-100) Mean Corpuscular Hemoglobin 33.5 pg (25-34) Mean Corpuscular Hemoglobin Concent 34.9 g/dl (32-36) Platelet Count 207 K/uL (130-400) Mean Platelet Volume 8.6 fL (7.4-10.4) Neutrophils (%) (Auto) 83.1 % Lymphocytes (%) (Auto) 11.4 % Monocytes (%) (Auto) 4.8 % Eosinophils (%) (Auto) 0.2 % Basophils (%) (Auto) 0.2 % Neutrophils # (Auto) 10.84 K/uL (1.4-6.5) Lymphocytes # (Auto) 1.49 K/uL (1.2-3.4) Monocytes # (Auto) 0.62 K/uL (0.11-0.59) Eosinophils # (Auto) 0.03 K/uL (0-0.5) Basophils # (Auto) 0.02 K/uL (0-0.2) RDW Standard Deviation 45.7 fL (36.4-46.3) RDW Coefficient of Variation 13.0 % (11.5-14.5) Immature Granulocyte % (Auto) 0.3 % Immature Granulocyte # (Auto) 0.04 K/uL (0.00-0.02) Anion Gap 8.0 mmol/L (3-11) Est Creatinine Clear Calc Drug Dose 78.3 ml/min Estimated GFR () 109.2 Estimated GFR (Non- 94.2 BUN/Creatinine Ratio 14.3 (10-20) Calcium Level 10.2 mg/dl (8.5-10.1) Total Bilirubin 0.5 mg/dl (0.2-1) Aspartate Amino Transf (AST/SGOT) 21 U/L (15-37) Alanine Aminotransferase (ALT/SGPT) 16 U/L (12-78) Alkaline Phosphatase 127 U/L (45-117) Total Protein 7.4 gm/dl (6.4-8.2) Albumin 4.2 gm/dl (3.4-5.0) Globulin 3.2 gm/dl (2.5-4.0) Albumin/Globulin Ratio 1.3 (0.9-2) Lipase 131 U/L (73-393) Urine Color YELLOW Urine Appearance CLOUDY (CLEAR) Urine pH 5.0 (4.5-7.5) Urine Specific [place] 1.021 (1.000-1.030) Urine Protein NEG (NEG) Urine Glucose (UA) NEG (NEG) Urine Ketones 1+ (NEG) Urine Occult Blood NEG (NEG) Urine Nitrite NEG (NEG) Urine Bilirubin NEG (NEG) Urine Urobilinogen NEG (NEG) Urine Leukocyte Esterase NEG (NEG) Urine WBC (Auto) 1-5 /hpf (0-5) Urine RBC (Auto) 0-4 /hpf (0-4) Urine Hyaline Casts (Auto) 1-5 /lpf (0-5) Urine Epithelial Cells (Auto) 10-20 /lpf (0-5) Urine Bacteria (Auto) NEG (NEG) Urine Crystals CALCIUM OXALATE (NONE Laboratory results as stated above per my review. Medications Administered Medications (Trade) Dose Ordered Sig/Radha Route Start Time Stop Time Status Last Admin Dose Admin Morphine Sulfate (MoRPHine SULFATE INJ) 4 mg Q1H PRN IV 04/29/17 07:15 04/29/17 12:29 DC 04/29/17 08:29 4 MG Sodium Chloride 1,000 ml @ 1,000 mls/hr Q1H ONCE IV 04/29/17 07:15 04/29/17 08:14 DC 04/29/17 07:44 1,000 MLS/HR ED Course 0703: Past medical records reviewed. The patient was evaluated in room B9. A complete history and physical examination was performed. 0715: NSS 1000 ml @ 1000 mls/hr IV, Morphine sulfate 4 mg IV - PRN 0910: The patient was asleep at this time. 1008: Upon reevaluation the patient is no longer having any pain. 1015: I discussed the patient's case with Dr. Arroyo of GI. He felt that the patient could be discharged on Bentyl and follow-up with GI as an outpatient. 1141: I reassessed the patient at this time. She is pain-free and resting comfortably. I discussed the results and treatment plan with the patient. I answered all pertaining questions that she had. She expressed understanding and verbalized agreement. The patient will be discharged home. She will follow-up with GI as an outpatient. Medical Decision Differential diagnoses includes bowel obstruction, SMA syndrome, pancreatitis, cholelithiasis, cholecystitis. Patient returns with abdominal pain similar to what she experienced yesterday. The patient was given a small dose of morphine in the field and small additional amount here. Imaging and lab work were performed. Her white count is down slightly from what it was yesterday. Abdominal x-rays do not reveal a bowel obstruction. Patient's pain resolved completely. The patient was observed in the ED for over 4 hours. I discussed care with over the phone. The patient will be placed on Bentyl and was encouraged to have close follow-up with Dr. Beatty. Medication Reconcilliation Current Medication List: was personally reviewed by me Blood Pressure Screening Patient's blood pressure: Normal blood pressure Consults Time Called: 101 Consulting Physician: Dr. Arroyo Returned Call: [phone] I discussed the patient's case with Dr. Arroyo of GI. He felt that the patient could be discharged on Bentyl and follow-up with GI as an outpatient. Impression Primary Impression: Recurrent epigastric abdominal pain Scribe Attestation The scribe's documentation has been prepared under my direction and personally reviewed by me in its entirety. I confirm that the note above accurately reflects all work, treatment, procedures, and medical decision making performed by me. Departure Information Dispostion Home / Self-Care Prescriptions Dicyclomine Hcl (BENTYL) 20 Mg Tab 20 MG PO Q6H, #30 TAB Prov: Jethro Sprague M.D. 04/29/17 Referrals Reji Weinstein PA-C (PCP) Forms HOME CARE DOCUMENTATION FORM, IMPORTANT VISIT INFORMATION Patient Instructions My [facility] Additional Instructions Call Dr. Beatty's office today for an appointment as soon as possible. One Bentyl every 6 hours as needed for pain. Return here if the pain is not controlled with Bentyl. Continue all of your other current medications as prescribed.
[2017-04-29 07:34] LABS: BUN/CREATININE RATIO 14.3 (10-20); CALCIUM 10.2 mg/dl (8.5-10.1); CREATININE 0.67 mg/dl (0.60-1.20); POTASSIUM 3.8 mmol/L (3.5-5.1)
[2017-04-29 07:37] LABS: ALB/GLOB RATIO 1.3 (0.9-2)
[2017-04-29] MEDS: MoRPHine SULFATE 4 MG/ML 1 ML CARP\\VIAL IV PRN ×2 (07:44→08:29)
--- NOTE | 2017-04-29 08:15 | DIAGNOSTIC IMAGING REPORT ---
PA CHEST WITH ABDOMINAL SERIES CLINICAL HISTORY: Generalized abdominal pain. FINDINGS: A PA chest radiograph is compared to study dated 04/28/2017. The cardiomediastinal silhouette is unremarkable. Emphysema and chronic interstitial thickening are similar to previous. Chronic elevation of left hemidiaphragm is unchanged. There is no airspace consolidation or large pleural effusion. No pneumothorax is seen. The skeletal structures are osteopenic. The bony thorax is grossly intact. Supine and erect abdominal radiographs are correlated with abdominal CT dated 04/28/2017. Surgical clips project over the esophageal hiatus. Additional surgical clips are scattered throughout the upper abdomen. There is a nonobstructed abdominal bowel gas pattern. Residual enteric contrast is present in the colon from yesterday's CT scan. No evidence of intraperitoneal free air is seen. There are no abnormal abdominal calcifications. Pelvic phleboliths are noted. The lumbosacral spine and bony pelvis appear intact. IMPRESSION: 1. Emphysema and chronic parenchymal changes as above. There is no acute cardiopulmonary abnormality. 2. Nonobstructed abdominal bowel gas pattern. Electronically signed by: Feliz Modi M.D. 04/29/2017 8:13 AM Dictated Date/Time: 04/29/2017 8:07 AM
[2017-04-29] MEDS ORDERED: DICY20TA35 PO (10:44)
[2017-04-29 10:54] LABS: URINE APPEARANCE CLOUDY (CLEAR); URINE BILIRUBIN NEG (NEG); URINE COLOR YELLOW; URINE NITRITE NEG (NEG); URINE SPECIFIC GRAVITY 1.021 (1.000-1.030); UROBILINOGEN NEG (NEG); ZZUR CULT IF INDIC CLEAN CATCH NO
[2017-04-29 10:56] LABS: MANUAL MICROSCOPIC REQUIRED? NO; REVIEW REQ? YES
[2017-04-29 11:50] VITALS: BP 129/91; PULSE 89; O2SAT 96
== END 2017-04-29 11:50 | disposition home or self-care (01) ==
LOC: EDBD 06:43 → C.EDB 06:44
DX: R10.13 Epigastric pain (principal); E78.5 Hyperlipidemia, unspecified; K21.9 Gastro-esophageal reflux disease without esophagitis; F41.9 Anxiety disorder, unspecified; K31.84 Gastroparesis; K58.9 Irritable bowel syndrome, unspecified; M81.0 Age-related osteoporosis without current pathological fracture; G89.29 Other chronic pain; K22.70 Barrett's esophagus without dysplasia; F17.200 Nicotine dependence, unspecified, uncomplicated; Z87.11 Personal history of peptic ulcer disease; Z90.49 Acquired absence of other specified parts of digestive tract; Z98.890 Other specified postprocedural states; Z79.899 Other long term (current) drug therapy; Z88.8 Allergy status to other drugs, medicaments and biological substances; Z80.9 Family history of malignant neoplasm, unspecified; Z83.3 Family history of diabetes mellitus; Z82.49 Family history of ischemic heart disease and other diseases of the circulatory system

== ENCOUNTER 2019-03-22 14:22 | Inpatient (IN) ==
[2019-03-22] MEDS ORDERED: ONDANSETRON INJ 2 MG/ML 2 ML VIAL IV STA (14:29)
[2019-03-22] MEDS ORDERED: SODIUM CHLORIDE 0.9% 500 ML IV SCH (14:30)
[2019-03-22 14:53] LABS: Appearance Urine Clear (Clear); Bacteria Urine Automated Negative (Negative); Bilirubin Urine Negative (Negative); Blood Urine 1+ (Negative); Cast Urine Automated 0 /lpf (0-5); Color Urine Yellow; Glucose Urine UA Negative (Negative); Ketones Urine 1+ (Negative); Leukocyte Esterase Urine Negative (Negative); Nitrite Urine Negative (Negative); Protein Urine Negative (Negative); RBC Urine Automated 0-4 /hpf (0-4); Specific Gravity Urine 1.021 (1.000-1.030); Urobilinogen Urine Negative (Negative); pH Urine 5.5 (4.5-7.5)
[2019-03-22] MEDS: HYDROmorphone INJ 0.5 MG/0.5 ML SYR IV PRN ×2 (14:54→17:37)
[2019-03-22 15:07] LABS: Basophils # (auto) 0.04 K/uL (0-0.2); Basophils % (auto) 0.5 %; Eosinophils # (auto) 0.11 K/uL (0-0.5); Eosinophils % (auto) 1.4 %; Hematocrit (blood only) 43.6 % (37-47); Hemoglobin 14.8 g/dL (12.0-16.0); Immature Granulocytes # (auto) 0.03 K/uL (0.00-0.02); Immature Granulocytes % (auto) 0.4 %; Lymphocytes % (auto) 15.5 %; Mean Corpuscular Hgb Conc 33.9 g/dL (32-36); Mean Corpuscular Volume 96.2 fL (80-100); Monocytes # (auto) 0.63 K/uL (0.11-0.59); Monocytes % (auto) 8.1 %; Neutrophils # (auto) 5.73 K/uL (1.4-6.5); Neutrophils % (auto) 74.1 %; Platelet Count 162 K/uL (130-400); RDW Coefficient of Variation 13.2 % (11.5-14.5); RDW Standard Deviation 46.5 fL (36.4-46.3); Red Blood Count 4.53 M/uL (4.2-5.4); White Blood Count 7.74 K/uL (4.8-10.8)
--- NOTE | 2019-03-22 15:18 | CT Scan Report ---
CT abd pelvis wo con CLINICAL HISTORY: 63 years-old Female presenting with upper abd and right abd pain, h/o maribell, Brant . TECHNIQUE: Multidetector CT of the abdomen and pelvis was performed without the use of intravenous co ntrast. IV contrast: None. One or more dose lowering techniques were used consistent with the princip les of ALARA (as low as reasonably achievable), including automatic exposure control, mA or kV adjust ment to individual patient size, and/or use of iterative reconstruction. COMPARISON: 12/18/2018. CT DOSE (mGy.cm): The estimated cumulative dose is 567.41 mGycm. 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 Lung bases: Normal heart size. No pericardial or pleural effusion. Elevation of the left hemidiaphrag m. Bandlike opacities at the left lower lobe likely atelectasis or scarring. Liver: Normal morphology. Normal density. Biliary: Pneumobilia as on prior exam. Allowing for noncontrast technique, persistent extrahepatic bi liary ductal prominence. This likely represents a reservoir effect in the post cholecystectomy state. Gallbladder surgically absent. Pancreas: Moderate parenchymal atrophy. Persistent pancreatic ductal prominence as on prior exam. Spleen: Normal noncontrast appearance. Adrenal glands: Normal noncontrast appearance. Kidneys and ureters: Scarring at the interpolar region posteriorly in the left kidney. Otherwise norm al noncontrast appearance. No nephrolithiasis or hydronephrosis. Ureters nondistended. Bladder: Incompletely evaluated secondary to underdistention. Pelvic organs: Normal noncontrast appearance. Bowel: The colon is decompressed. The appendix is normal. No bowel obstruction. Numerous surgical cli ps in the gastroesophageal junction likely from prior Mary procedure. No evidence of a hiatal herni a allowing for the degree of elevation of the left hemidiaphragm. Peritoneal cavity: No free fluid or intraperitoneal gas. Lymph nodes: No gross lymphadenopathy allowing for noncontrast technique. Vasculature: Atherosclerosis of the normal caliber abdominal aorta. Abdominal wall: Normal. Musculoskeletal: Degenerative changes of the spine. IMPRESSION: 1. Allowing for noncontrast technique, no acute intra-abdominal pathology. 2. 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 Correlate clinically to exclud e cholangitis. 3. Postsurgical changes of cholecystectomy and Mary procedure. Electronically signed by: Leonel Chan M.D. 03/22/2019 3:17 PM
[2019-03-22 15:24] LABS: Alanine Aminotransferase 18 U/L (12-78); Aspartate Aminotransferase 12 U/L (15-37); BUN Creatinine Ratio 8.4 (10-20); Blood Urea Nitrogen 7 mg/dl (7-18); Calcium 9.6 mg/dl (8.5-10.1); Carbon Dioxide 24 mmol/L (21-32); Chloride 110 mmol/L (98-107); Est GFR (African American) 80.5; Est GFR (Non-African American) 69.4; Glucose 99 mg/dl (70-99); Potassium 3.8 mmol/L (3.5-5.1); Sodium 141 mmol/L (136-145)
[2019-03-22 15:29] LABS: Albumin Globulin Ratio 1.3 (0.9-2); Alkaline Phosphatase 126 U/L (45-117); Bilirubin,Total 0.6 mg/dl (0.2-1); Globulin 3.1 gm/dl (2.5-4.0); Total Protein 7.1 gm/dl (6.4-8.2); Troponin I < 0.015 ng/ml (0-0.045)
[2019-03-22] MEDS ORDERED: PROMETHAZINE 12.5 MG/50.5 ML BAG IV STA (17:20)
--- NOTE | 2019-03-22 18:22 | History & Physical Report ---
Date of Service March 22, 2019 Assessment & Plan (1) Epigastric abdominal pain: Admit to medicine on telemetry Vital signs every 4 hours Start IV fluid normal saline at 125 cc/h Pain management with Dilaudid 1 mg every 3 hours IV as needed, hold if respiratory rate less than 12 Zofran 4 mg every 4 hours IV as needed Keep n.p.o. Famotidine 20 mg IV every 12 hours GI consult MRCP, if MRCP inconclusive Dr. Arroyo recommended to do HIDA scan DVT prophylaxis with Lovenox 40 mg subcu daily Full code Present on Admission?: Yes (2) Nausea: As the above Present on Admission?: Yes (3) Depression: Continue home medicines stable now: Bupropion 150 mg p.o. every morning, gabapentin 500 mg p.o. every 8 chest, amitriptyline 50 mg p.o. nightly Present on Admission?: Yes (4) Impaired fasting glucose: Will check A1c Present on Admission?: Yes History of Present Illness Chief Complaint: Abdominal pain Primary Care Provider: Reji Weinstein Patient is a 63 years old female with past medical history of of Niesen fundoplication, chronic abdominal pain, pyloroplasty, vagotomy presents to the emergency room with a complaint of recurrent abdominal pain that started this morning after she had a sip of coffee. Patient said the pain is located mostly in the right upper quadrant and is 9 of 10. Patient denies fever chills chest pain shortness of breath hematemesis hematochezia or melena. Patient says she had one bowel movement this morning and it was more like diarrhea by looking. In the ER patient received 1 L of fluid, Dilaudid, Zofran and promethazine. That improved her pain little bit. Patient said she is anorexic and lost appetite since this episode is ongoing. Labs were reviewed: Lateral cell 7.74 hemoglobin 14.8, hematocrit 43.6 platelets 162, PT/INR pending patient is not on any kind of anticoagulation. Sodium 141, potassium 3.8, chloride 110, BUN 7 creatinine 0.888, GFR 58 BUN/creatinine ratio 8.4 AST 12 ALT 18 alkaline phosphatase 126, troponin 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 Cholangitis could not be excluded. Postsurgical changes of cholecystectomy and Mary procedure. The case was discussed with Dr. Teo Arroyo, air quality specialist from [facility] who was patient gastral from before and he recommended MRCP and if MRCP negative or nonconclusive to do HIDA . He also recommended to continue IV fluids, keep n.p.o., continue antinausea and pain management. He will see the patient in a.m. Allergies Allergy/AdvReac Type Severity Reaction Status Date / Time Benzodiazepines Allergy Unknown . Verified 03/22/19 15:55 chlordiazepoxide Allergy Unknown . Verified 03/22/19 15:55 clidinium Allergy Unknown . Verified 03/22/19 15:55 metoclopramide Allergy Unknown . Verified 03/22/19 15:55 prochlorperazine Allergy Unknown . Verified 03/22/19 15:55 Anti Inflammatories Allergy Unknown Water Uncoded 03/22/19 15:55 Blisters Home Medications Home Medications Medication Instructions Recorded Confirmed Type acetaminophen [Tylenol Extra 1,000 mg PO Q6H PRN 12/15/18 03/22/19 History Strength] amitriptyline 50 mg PO HS 12/15/18 03/22/19 History bupropion HCl 150 mg PO QAM 12/15/18 03/22/19 History gabapentin 300 mg PO TID 12/15/18 03/22/19 History lansoprazole [Prevacid] 30 mg PO DIRECTED PRN 12/15/18 03/22/19 History cannabidiol (CBD) extract 0 mg PO DIRECTED PRN 03/22/19 03/22/19 History methocarbamol 500 mg PO HS 03/22/19 03/22/19 History Past Med/Surg History Medical History Intractable abdominal pain GERD (gastroesophageal reflux disease) (Chronic) IBS (irritable bowel syndrome) (Chronic) Dyslipidemia (Chronic) Osteoporosis (Chronic) Gastroparesis (Chronic) Adenomatous polyp of colon (Chronic) Barretts esophagus (Chronic) Pernicious anemia (Chronic) Anxiety (Chronic) Depression (Chronic) Malnutrition (Chronic) Impaired fasting glucose (Chronic) B12 deficiency (Chronic) PUD (peptic ulcer disease) (Chronic) Common bile duct (CBD) stricture (Chronic) C. difficile colitis Dehydration Intractable nausea and vomiting SMAS (superior mesenteric artery syndrome) Surgical History S/P thyroidectomy (Chronic) H/O pyloroplasty (Chronic) H/O vagotomy (Chronic) S/P cholecystectomy (Chronic) History of Mary fundoplication (Chronic) S/P ERCP (Chronic) "with [place] [facility] [place]; with CBD stones at [facility] [place] in 07/2010; with CBD sludge at [facility] [place] in 01/2011" On 06/11/16 11:54 Ann Swanson wrote "" Status post insertion of percutaneous endoscopic gastrostomy (PEG) tube (Chronic) History of carpal tunnel surgery (Chronic) H/O colonoscopy (Chronic) History of esophagogastroduodenoscopy (EGD) (Chronic) Family History Other No significant family history Social History Preferred Language: B[place] marital status: Current Living Situation: [facility] current occupational status: retired Feels Safe at Home: Yes Smoking Status: Current every day smoker Review of Systems Review of Systems: All systems reviewed & are unremarkable except as noted in HPI & below Physical Exam Constitutional: WD/WN, vitals as above well developed, + ill appearing, + frail appearing and cooperative Eyes: PERRL, conjunctivae normal, anicteric sclerae ENMT: external ear and nose normal, oropharynx normal Neck: trachea midline, no thyromegaly Respiratory: normal respiratory effort, lungs clear to auscultation Cardiovascular: RRR, no murmur, no edema Chest (Breasts): normal inspection/palpation of breasts Gastrointestinal (Abdomen): Inspection/Auscultation: abdomen normal to inspection Percussion/Palpation: + abdomen tender and + guarding Multiple scars located in the epigastric area Musculoskeletal: no cyanosis or clubbing, extremities motor strength 5/5 Skin: + dry skin Neurologic: patellar DTR's 2+ bilat, sensation intact Psychiatric: A+Ox3, euthymic affect Genitourinary: no vaginal lesions, no adnexal mass Lymphatic: no cervical or axillary lymphadenopathy Results & Data Vital Signs (Past 12 Hours) Vital Signs Temp Pulse Pulse Resp BP BP Pulse Ox 03/22/19 16:00 68 16 122/80 03/22/19 15:30 67 13 130/88 03/22/19 15:24 69 12 03/22/19 15:00 63 15 138/85 03/22/19 14:50 68 20 137/88 95 03/22/19 14:49 95 03/22/19 14:27 36.7 C 83 20 185/108 H 95 Code Status & VTE Plan Code Status Full code VTE Prophylaxis Plan VTE Prophylaxis will be ordered: Yes PG Care Time/CCT Total # of Minutes Spent Total Time Spent with Patient: Total time spent is greater than 50% in coordination of care (as documented) at patient's floor/unit and/or counseling patient:
[2019-03-22] MEDS ORDERED: DiphenhydrAMINE HCL 50 MG/ML VIAL IV PRN (19:57)
[2019-03-22] MEDS ORDERED: ACETAMINOPHEN 325 MG TAB PO PRN (19:57)
[2019-03-22] MEDS ORDERED: PANTOprazole 40 MG TAB PO PRN (20:15)
[2019-03-22 20:34] LABS: Partial Thromboplastin Ratio 1.1; Partial Thromboplastin Time 29.1 Seconds (21.0-31.0); Prothrombin Time 10.6 Seconds (9.0-12.0)
[2019-03-22] MEDS: AMITRIPTYLINE HCL 50 MG TAB PO SCH (20:40)
[2019-03-22] MEDS: FAMOTIDINE 20 MG in SYRINGE 3 ML IV SCH (20:40)
[2019-03-22] MEDS: METHOCARBAMOL 500 MG TABLET PO SCH (20:41)
[2019-03-22] MEDS: GABAPENTIN 300 MG CAP PO SCH (20:41)
--- NOTE | 2019-03-22 20:41 | Magnetic Resonance Report ---
MRCP CLINICAL HISTORY: Generalized abdominal pain. Nausea. COMPARISON STUDY: Abdominal CT dated 03/22/2019 and 12/18/2018. TECHNIQUE: Abdominal MRCP is performed utilizing various T2-weighted sequences in the axial and coron al planes. IV contrast was not administered report for this examination. 3-D reformats are created an d assessed. The examination is modestly degraded by motion artifact and the presence of pneumobilia w ithin the bile ducts. FINDINGS: The gallbladder is surgically absent. The common bile duct measures up to 7 mm in diameter. There are no filling defects identified to suggest choledocholithiasis. The common hepatic duct is markedly di lated near the hepatic hilum, measuring up to 1.8 cm. There is mild intrahepatic biliary ductal dilat ation. The intrahepatic bile ducts demonstrate a somewhat beaded appearance. A small cystic duct remn ant is noted and measures up to 11 mm. Pneumobilia is noted in the left lobe bile ducts. There is smo oth dilatation of the pancreatic duct which measures up to 6 mm. There is focal tortuosity of the villegas creatic duct in the region of the pancreatic neck. The hepatic parenchyma is grossly unremarkable. The unenhanced spleen, kidneys, and adrenal glands ar e grossly normal. There is no abdominal ascites. The pancreas is atrophic. The abdominal aorta is nor mal in caliber. There is no evidence of bowel obstruction. No pleural effusion is identified. There i s no evidence of destructive bony lesion. IMPRESSION: 1. The gallbladder is surgically absent. 2. The common bile duct measures up to 7 mm. There is no evidence of choledocholithiasis. 3. There is significant dilatation of the common hepatic duct at the hepatic hilum. This may simply b e related to previous cholecystectomy. A type I choledochal cyst could also have this appearance. 4. There is mild intrahepatic biliary ductal dilatation and pneumobilia. 5. The intrahepatic bile ducts demonstrate a somewhat beaded appearance. This is nonspecific but can be seen in the setting of sclerosing cholangitis or chronic hepatocellular disease. Clinical correlat ion will be essential. 6. There is smooth dilatation of the pancreatic duct which measures up to 6 mm in diameter. This is n onspecific and may be related to glandular atrophy. Dictated: 03/22/2019 7:54 PM Transcribed: 03/22/2019 8:09 PM Shahrzad [id number] [email or web address] Electronically signed by: Feliz Modi M.D. 03/22/2019 8:39 PM
[2019-03-22] MEDS: HYDROmorphone INJ 1 MG/ML SYRINGE IV PRN (20:45)
[2019-03-22] MEDS: SODIUM CHLORIDE 0.9% 1000ML 1,000 ML IV SCH (20:46)
[2019-03-22] MEDS ORDERED: FAMOTIDINE 20 MG in SYRINGE 3 ML IV SCH (21:00)
[2019-03-22] MEDS: ENOXAPARIN INJ 40 MG/0.4 ML SYR SQ SCH (22:15)
--- NOTE | 2019-03-22 23:46 | Emergency Department Note ---
Entered by Raffaele Killian acting as a scribe for ED Provider Note CHIEF COMPLAINT: Abdominal pain HISTORY OF PRESENT ILLNESS: The patient is a 63 year old female who presents to the Emergency Room with co mplaints of constant epigastric abdominal pain that started this morning around 08:00, 6.5 hours ago. The patient rates the pain as over a 10/10 before receiving medication from EMS but it is now a 9/10. En route the patient received 4mg of Zofran and 4mg of Morphine. The patient has a history of a stent procedure 9 years ago to clear a blocked common bile duct and notes this pain feels similar especially since the pain radiates to her right flank. The patient states she is nauseous and has been dry heaving all morning. She notes she also has had diarrhea all morning. The patient states she has a history of abdominal surgeries including a cholecystectomy, fundoplication, and hiatal hernia hair rgery. Pt denies LOC, headache, fevers, chills, diaphoresis, visual changes, neck pain, chest pain, breathing difficulties, vomiting, melena, hematochezia, urinary symptoms, numbness, weakness, lymphadenopathy, rash, or other complaints. REVIEW OF SYSTEMS: See HPI for pertinent positives and negatives. A total of ten systems were reviewed and were otherwise negative. PMHx/PSHx: GERD, IBS, HLD, Gastroparesis, Common bile duct structure, Pyloroplasty, C.Diff SOCIAL HISTORY: Patient lives at home. PHYSICAL EXAM: GENERAL: Awake, alert, well-appearing, in no distress HENT: Normocephalic, atraumatic. Oropharynx unremarkable. EYES: Normal conjunctiva. Sclera non-icteric. NECK: Inspection normal. Non-tender. Supple. No nuchal rigidity. FROM. No masses. RESPIRATORY: Clear to auscultation. No wheezes. No rales. Normal respiratory effort. CARDIAC: Normal rate. Normal rhythm. No murmurs. No rubs. Extremities warm and well perfused. Pulses equal. No JVD. GI: Soft, non-distended. Epigastric tenderness. No rebound or guarding. No masses. RECTAL: Deferred. MUSCULOSKELETAL: Atraumatic. Chest examination reveals no tenderness. The back is symmetrical on inspection without obvious abnormality. Right CVA tenderness. No joint edema. LOWER EXTREMITIES: Calves are equal size bilaterally and non-tender. No edema. No discoloration. NEURO: Normal sensorium. No sensory or motor deficits noted. SKIN: No rash or jaundice noted. EMERGENCY DEPARTMENT COURSE: 1428: Past medical records reviewed. The patient was evaluated in room B06, and a complete history and physical examination were performed. 1630: I reevaluated and updated the patient on all results obtained thus far. 1650: I spoke to Dr. Darryn Cason [facility] GI who recommended that the patient f ollow up in his office since she is feeling better and her diagnostic testing is unremarkable. He also stated if there is any problems tolerating PO or with pain control then she can stay in the hospital and GI will consult her there. 1728: I reevaluated the patient and she is still nauseous and not feeling well. 1730: I spoke to Dr. Batista - [facility] Hospitalist about the patient's case. She will be accepting the patient for further evaluation. 1735: I updated the patient on the treatment plan. She fully understands and is agreeable with the plan. MEDICAL DECISION MAKING: B6 Prior records/ancillary studies reviewed. Triage Nursing notes reviewed and agree them. The patient's history was concerning for abdominal pain. Differential diagnosis: Etiologies such as biliary pathology, UTI, pancreatitis, obstruction, appendicitis, diverticulitis, PUD, mesenteric ischemia, aortic pathology, infections, inflammatory bowel disease, renal colic, as well as others were entertained. Physical examination findings: As above. Epigastric tenderness. ER treatment provided: Normal saline hydration IV Zofran IV Dilaudid On reassessment the patient felt better but then developed recurrent pain and nausea. IV Phenergan IV Dilaudid Diagnostics interpreted by me: ECG: Normal sinus rhythm without ischemia. The labs revealed an unremarkable CBC and chemistry panel. LFTs and lipase negative. Imaging studies: CT imaging revealed pneumobilia but no significant change from prior. Consultation: A consultation was placed with the GI doctor on-call, Dr. Arroyo the case was discussed and diagnostics were reviewed. He recommended symptomatic treatment. Since the patient is still having nausea and pain., I did discuss case with the [facility] hospitalist. The patient was evaluated in the ER for further treatment. IMPRESSION: Epigastric abdominal pain Intractable nausea PLAN: Being evaluated by hospitalist The scribe's documentation has been prepared under my direction and personally reviewed by me in its entirety. I confirm that the note above accurately reflects all work, treatment, procedures, and medical decision making performed by me. Impression & Plan Epigastric abdominal pain, Nausea Past Med/Surg History Medical History Intractable abdominal pain GERD (gastroesophageal reflux disease) (Chronic) IBS (irritable bowel syndrome) (Chronic) Dyslipidemia (Chronic) Osteoporosis (Chronic) Gastroparesis (Chronic) Adenomatous polyp of colon (Chronic) Barretts esophagus (Chronic) Pernicious anemia (Chronic) Anxiety (Chronic) Depression (Chronic) Malnutrition (Chronic) Impaired fasting glucose (Chronic) B12 deficiency (Chronic) PUD (peptic ulcer disease) (Chronic) Common bile duct (CBD) stricture (Chronic) C. difficile colitis Dehydration Intractable nausea and vomiting SMAS (superior mesenteric artery syndrome) Surgical History S/P thyroidectomy (Chronic) H/O pyloroplasty (Chronic) H/O vagotomy (Chronic) S/P cholecystectomy (Chronic) History of Mary fundoplication (Chronic) S/P ERCP (Chronic) "with stent insertion at [facility] in 03/2000; with CBD stones at [facility] in 07/2010; with CBD sludge at [facility] [place] in 01/2011" On 06/11/16 11:54 Ann Swanson wrote "" Status post insertion of percutaneous endoscopic gastrostomy (PEG) tube (Chronic) History of carpal tunnel surgery (Chronic) H/O colonoscopy (Chronic) History of esophagogastroduodenoscopy (EGD) (Chronic) Family History Other No significant family history Social History Preferred Language: Armenian Communication Ability: Effective Pool Nurse Required: No Beliefs That Will Affect Care: None marital status: Current Living Situation: Family Current Living Situation Comment: lives with her aunt current occupational status: retired Other Information That Helps Us Care for You: No Feels Safe at Home: Yes Safety Concerns: Feels Safe At This Time Smoking Status: Current every day smoker Tobacco Type: cigarettes ; Cigarettes Per Day: 1 pack per day ; Do You Dip or Chew Tobacco: No ; Second Hand Exposure: No ; Hx Alcohol Use: No Hx Substance Use: Yes (Patient uses medical marijuana) substance use type: marijuana and prescription drug Results & Data Vital Signs Vital Signs - 24 hr 03/22/19 14:27 03/22/19 14:49 03/22/19 14:50 Temperature 36.7 C Temperature Source Oral Sepsis Recent Fever Within 48 Hours No Sepsis New/Unexplained Change in Mental Status No Sepsis Action Taken by Nursing No Action Required Pulse Rate 83 Pulse Rate [Apical] 68 Respiratory Rate 20 20 Blood Pressure 185/108 H Blood Pressure [Right Arm] 137/88 Blood Pressure Mean 133 Blood Pressure Mean [Right Arm] 104 Pulse Oximetry 95 95 95 Oxygen Delivery Method Room Air Room Air Room Air 03/22/19 15:00 03/22/19 15:24 03/22/19 15:30 Temperature Temperature Source Sepsis Recent Fever Within 48 Hours Sepsis New/Unexplained Change in Mental Status Sepsis Action Taken by Nursing Pulse Rate 63 69 67 Pulse Rate [Apical] Respiratory Rate 15 12 13 Blood Pressure 138/85 130/88 Blood Pressure [Right Arm] Blood Pressure Mean 102 102 Blood Pressure Mean [Right Arm] Pulse Oximetry Oxygen Delivery Method 03/22/19 16:00 Temperature Temperature Source Sepsis Recent Fever Within 48 Hours Sepsis New/Unexplained Change in Mental Status Sepsis Action Taken by Nursing Pulse Rate 68 Pulse Rate [Apical] Respiratory Rate 16 Blood Pressure 122/80 Blood Pressure [Right Arm] Blood Pressure Mean 94 Blood Pressure Mean [Right Arm] Pulse Oximetry Oxygen Delivery Method Home Medications Current Medication List: was personally reviewed by me Laboratory Data Attestation: I reviewed the patient's lab results. Result diagrams: 03/22/19 14:46 03/22/19 14:46 Lab Results 03/22/19 03/22/19 03/22/19 Range/Units 14:33 14:45 14:46 WBC 7.74 (4.8-10.8) K/uL RBC 4.53 (4.2-5.4) M/uL Hgb 14.8 (12.0-16.0) g/dL Hct 43.6 (37-47) % MCV 96.2 (80-100) fL MCH 32.7 (25-34) pg MCHC 33.9 (32-36) g/dL RDW Std Deviation 46.5 H (36.4-46.3) fL RDW Coeff of Marcell 13.2 (11.5-14.5) % Plt Count 162 (130-400) K/uL MPV 9.0 (7.4-10.4) fL Immature Gran % (Auto) 0.4 % Neut % (Auto) 74.1 % Lymph % (Auto) 15.5 % Traill % (Auto) 8.1 % Eos % (Auto) 1.4 % Baso % (Auto) 0.5 % Immature Gran # (Auto) 0.03 H (0.00-0.02) K/uL Neut # (Auto) 5.73 (1.4-6.5) K/uL Lymph # (Auto) 1.20 (1.2-3.4) K/uL Traill # (Auto) 0.63 H (0.11-0.59) K/uL Eos # (Auto) 0.11 (0-0.5) K/uL Baso # (Auto) 0.04 (0-0.2) K/uL PT 10.6 (9.0-12.0) Seconds INR 1.0 (0.9-1.1) APTT 29.1 (21.0-31.0) Seconds PTT Ratio 1.1 Sodium (136-145) mmol/L Potassium (3.5-5.1) mmol/L Chloride (98-107) mmol/L Carbon Dioxide (21-32) mmol/L Anion Gap (3-11) BUN (7-18) mg/dl Creatinine (0.6-1.2) mg/dl Est Cr Clr Drug Dosing ml/min Est GFR ( Amer) Est GFR (Non-Af Amer) BUN/Creatinine Ratio (10-20) Glucose (70-99) mg/dl Calcium (8.5-10.1) mg/dl Total Bilirubin (0.2-1) mg/dl AST (15-37) U/L ALT (12-78) U/L Alkaline Phosphatase (45-117) U/L Troponin I (0-0.045) ng/ml Total Protein (6.4-8.2) gm/dl Albumin (3.4-5.0) gm/dl Globulin (2.5-4.0) gm/dl Albumin/Globulin Ratio (0.9-2) Lipase (73-393) U/L Urine Color Yellow Urine Appearance Clear (Clear) Urine pH 5.5 (4.5-7.5) Ur Specific Selby 1.021 (1.000-1.030) Urine Protein Negative (Negative) Urine Glucose (UA) Negative (Negative) Urine Ketones 1+ H (Negative) Urine Blood 1+ H (Negative) Urine Nitrite Negative (Negative) Urine Bilirubin Negative (Negative) Urine Urobilinogen Negative (Negative) Ur Leukocyte Esterase Negative (Negative) Urine WBC (Auto) 1-5 (0-5) /hpf Urine RBC (Auto) 0-4 (0-4) /hpf U Hyaline Cast (Auto) 0 (0-5) /lpf U Epithel Cells (Auto) 10-20 H (0-5) /lpf Urine Bacteria (Auto) Negative (Negative) 03/22/19 Range/Units 14:46 WBC (4.8-10.8) K/uL RBC (4.2-5.4) M/uL Hgb (12.0-16.0) g/dL Hct (37-47) % MCV (80-100) fL MCH (25-34) pg MCHC (32-36) g/dL RDW Std Deviation (36.4-46.3) fL RDW Coeff of Marcell (11.5-14.5) % Plt Count (130-400) K/uL MPV (7.4-10.4) fL Immature Gran % (Auto) % Neut % (Auto) % Lymph % (Auto) % Traill % (Auto) % Eos % (Auto) % Baso % (Auto) % Immature Gran # (Auto) (0.00-0.02) K/uL Neut # (Auto) (1.4-6.5) K/uL Lymph # (Auto) (1.2-3.4) K/uL Traill # (Auto) (0.11-0.59) K/uL Eos # (Auto) (0-0.5) K/uL Baso # (Auto) (0-0.2) K/uL PT (9.0-12.0) Seconds INR (0.9-1.1) APTT (21.0-31.0) Seconds PTT Ratio Sodium 141 (136-145) mmol/L Potassium 3.8 (3.5-5.1) mmol/L Chloride 110 H (98-107) mmol/L Carbon Dioxide 24 (21-32) mmol/L Anion Gap 7.0 (3-11) BUN 7 (7-18) mg/dl Creatinine 0.88 (0.6-1.2) mg/dl Est Cr Clr Drug Dosing 58.0 ml/min Est GFR ( Amer) 80.5 Est GFR (Non-Af Amer) 69.4 BUN/Creatinine Ratio 8.4 L (10-20) Glucose 99 (70-99) mg/dl Calcium 9.6 (8.5-10.1) mg/dl Total Bilirubin 0.6 (0.2-1) mg/dl AST 12 L (15-37) U/L ALT 18 (12-78) U/L Alkaline Phosphatase 126 H (45-117) U/L Troponin I < 0.015 (0-0.045) ng/ml Total Protein 7.1 (6.4-8.2) gm/dl Albumin 4.0 (3.4-5.0) gm/dl Globulin 3.1 (2.5-4.0) gm/dl Albumin/Globulin Ratio 1.3 (0.9-2) Lipase 60 L (73-393) U/L Urine Color Urine Appearance (Clear) Urine pH (4.5-7.5) Ur Specific Selby (1.000-1.030) Urine Protein (Negative) Urine Glucose (UA) (Negative) Urine Ketones (Negative) Urine Blood (Negative) Urine Nitrite (Negative) Urine Bilirubin (Negative) Urine Urobilinogen (Negative) Ur Leukocyte Esterase (Negative) Urine WBC (Auto) (0-5) /hpf Urine RBC (Auto) (0-4) /hpf U Hyaline Cast (Auto) (0-5) /lpf U Epithel Cells (Auto) (0-5) /lpf Urine Bacteria (Auto) (Negative) Administered Medications Amitriptyline HCl (Elavil) 50 mg PO HS BRANNON Stop: 04/21/19 20:59 Last Admin: 03/22/19 20:40 Dose: 50 mg Documented by: [id number] Enoxaparin Sodium (Lovenox) 40 mg SQ HS BRANNON Stop: 04/21/19 20:59 Last Admin: 03/22/19 22:15 Dose: 40 mg Documented by: [id number] Gabapentin (Neurontin) 300 mg PO TID BRANNON Stop: 04/21/19 20:59 Last Admin: 03/22/19 20:41 Dose: 300 mg Documented by: [id number] Hydromorphone HCl (Dilaudid) 1 mg IV Q3H PRN PRN Reason: Severe Pain Stop: 04/05/19 19:56 Last Admin: 03/22/19 20:45 Dose: 1 mg Documented by: [id number] Sodium Chloride (Nss 1000ml) 1,000 mls @ 125 mls/hr IV .Q8H BRANNON Stop: 04/21/19 19:56 Last Admin: 03/22/19 20:46 Dose: 125 mls/hr Documented by: [id number] Famotidine 20 mg/ Syringe 5 mls @ 2.5 mls/min IV Q12H BRANNON Stop: 04/21/19 20:59 Last Admin: 03/22/19 20:40 Dose: 2.5 mls/min Documented by: [id number] Methocarbamol (Robaxin) 500 mg PO HS BRANNON Stop: 04/21/19 20:59 Last Admin: 03/22/19 20:41 Dose: 500 mg Documented by: [id number] Discontinued Medications Hydromorphone HCl (Dilaudid) 0.5 mg IV Q15M PRN PRN Reason: Pain Stop: 04/05/19 14:28 Last Admin: 03/22/19 17:37 Dose: 0.5 mg Documented by: [id number] Admin: 03/22/19 14:54 Dose: 0.5 mg Documented by: [id number] Sodium Chloride (Nss) 500 mls @ 999 mls/hr IV .Q31M BRANNON Stop: 03/22/19 15:00 Last Infusion: 03/22/19 17:38 Dose: 0 mls/hr Documented by: [id number] Admin: 03/22/19 14:55 Dose: 999 mls/hr Documented by: [id number] Promethazine HCl (Phenergan) 12.5 mg in 50.5 mls @ 202 mls/hr IV NOW STA Stop: 03/22/19 17:34 Last Infusion: 03/22/19 18:00 Dose: 0 mls/hr Documented by: [id number] Admin: 03/22/19 17:37 Dose: 202 mls/hr Documented by: [id number] Ondansetron HCl (Zofran) 4 mg IV NOW STA Stop: 03/22/19 14:30 Last Admin: 03/22/19 14:54 Dose: 4 mg Documented by: [id number] Imaging Data Radiologist's Impression: Radiology results as stated below per my review and the radiologist's interpretation: CT abd pelvis wo con CLINICAL HISTORY: 63 years-old Female presenting with upper abd and right abd pain, h/o maribell, Brant. TECHNIQUE: Multidetector CT of the abdomen and pelvis was performed without the use of intravenous contrast. IV contrast: None. One or more dose lowering techniques were used consistent with the principles of ALARA (as low as reasonably achievable), including automatic exposure control, mA or kV adjustment to individual patient size, and/or use of iterative reconstruction. COMPARISON: 12/18/2018. CT DOSE (mGy.cm): The estimated cumulative dose is 567.41 mGycm. FINDINGS: Metal Mover topogram: Surgical clips project over the epigastrium likely from prior Mary procedure. Lung bases: Normal heart size. No pericardial or pleural effusion. Elevation of the left hemidiaphragm. Bandlike opacities at the left lower lobe likely atelectasis or scarring. Liver: Normal morphology. Normal density. Biliary: Pneumobilia as on prior exam. Allowing for noncontrast technique, persistent extrahepatic biliary ductal prominence. This likely represents a reservoir effect in the post cholecystectomy state. Gallbladder surgically absent. Pancreas: Moderate parenchymal atrophy. Persistent pancreatic ductal prominence as on prior exam. Spleen: Normal noncontrast appearance. Adrenal glands: Normal noncontrast appearance. Kidneys and ureters: Scarring at the interpolar region posteriorly in the left kidney. Otherwise normal noncontrast appearance. No nephrolithiasis or hydronephrosis. Ureters nondistended. Bladder: Incompletely evaluated secondary to underdistention. Pelvic organs: Normal noncontrast appearance. Bowel: The colon is decompressed. The appendix is normal. No bowel obstruction. Numerous surgical clips in the gastroesophageal junction likely from prior Mary procedure. No evidence of a hiatal hernia allowing for the degree of elevation of the left hemidiaphragm. Peritoneal cavity: No free fluid or intraperitoneal gas. Lymph nodes: No gross lymphadenopathy allowing for noncontrast technique. Vasculature: Atherosclerosis of the normal caliber abdominal aorta. Abdominal wall: Normal. Musculoskeletal: Degenerative changes of the spine. IMPRESSION: 1. Allowing for noncontrast technique, no acute intra-abdominal pathology. 2. 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 Correlate clinically to exclude cholangitis. 3. Postsurgical changes of cholecystectomy and Mary procedure. Electronically signed by: Leonel Chan M.D. 03/22/2019 3:17 PM ECG Data Attestation: I personally reviewed and interpreted this ECG as follows: Indication: abdominal pain Rate (beats per minute): 80 Rhythm: normal sinus Findings: + nonspecific-ST abn and + Q waves (Septal); no ST depression and no ST elevation Blood Pressure Blood Pressure Findings: Normal blood pressure Discharge Plan Visit Data *Final* Discharge Date/Time: 03/22/19 19:44 Chief Complaint: Abdominal Pain Stated Complaint: abd pain ED Provider: Dru Carey Discharge Problem: Epigastric abdominal pain, Nausea Patient Disposition: Admitted As Inpatient Discharge Instructions Interventions: ED Discharge Assessment Last Done: 03/22/19 19:44 The scribe's documentation has been prepared under my direction and personally reviewed by me in its entirety. I confirm that the note above accurately reflects all work, treatment, procedures, and medical decision making performed by me.
[2019-03-23] MEDS: HYDROmorphone INJ 1 MG/ML SYRINGE IV PRN ×5 (00:11→14:43)
[2019-03-23] MEDS: ONDANSETRON INJ 2 MG/ML 2 ML VIAL IV PRN ×3 (00:11→14:44)
[2019-03-23] MEDS: SODIUM CHLORIDE 0.9% 1000ML 1,000 ML IV SCH ×3 (05:01→20:19)
[2019-03-23] MEDS: PROMETHAZINE HCL 12.5 MG in SODIUM CHLORIDE 0.9% 50 ML IV PRN ×2 (06:25→12:53)
[2019-03-23] MEDS: BuPROPion XL 150 MG TABCR PO SCH (08:12)
[2019-03-23] MEDS: FAMOTIDINE 20 MG in SYRINGE 3 ML IV SCH ×2 (08:12→20:21)
[2019-03-23] MEDS: GABAPENTIN 300 MG CAP PO SCH ×3 (08:12→20:23)
[2019-03-23 08:13] LABS: Albumin Level 3.6 gm/dl (3.4-5.0); BUN Creatinine Ratio 11.3 (10-20); Calcium 9.4 mg/dl (8.5-10.1); Est GFR (African American) 102.6; Est GFR (Non-African American) 88.5; Potassium 4.2 mmol/L (3.5-5.1)
[2019-03-23 08:16] LABS: Albumin Globulin Ratio 1.2 (0.9-2); Bilirubin,Total 0.6 mg/dl (0.2-1); Globulin 2.9 gm/dl (2.5-4.0); Total Protein 6.6 gm/dl (6.4-8.2)
[2019-03-23] MEDS ORDERED: ONDANSETRON INJ 2 MG/ML 2 ML VIAL IV STA (16:22)
[2019-03-23] MEDS: KETOROLAC 30 MG/ML VIAL IV PRN (16:52)
--- NOTE | 2019-03-23 18:37 | Consultation Report ---
DATE OF CONSULTATION: 03/23/2019 REASON FOR EVALUATION: Abdominal pain, nausea and vomiting. HISTORY OF PRESENT ILLNESS: The patient is a 63-year-old with multiple GI problems in the past, who presented to the Emergency Room yesterday with epigastric pain, nausea and vomiting. The patient underwent a CT scan that showed chronic pneumobilia, but no other significant abnormalities. Her labs including liver profile and CBC were within normal limits, but she was unable to be discharged because of persistent nausea, vomiting and epigastric pain. Since being hospitalized, she had a MRCP today which confirmed the presence of some dilation and air in the biliary tree from a prior sphincterotomy. There is an absent gallbladder and smooth dilation of the pancreatic duct. 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 She also has a history of irritable bowel, acid reflux, osteoporosis, Hardin's esophagus, pernicious anemia, anxiety, depression, malnutrition, common bile duct stricture, history of C. difficile colitis. PAST SURGICAL HISTORY: Surgically, she has had a cholecystectomy. She has had a gastrostomy tube in the past for gastroparesis. She has had a pyloroplasty, vagotomy, cholecystectomy, Mary fundoplication, thyroidectomy, carpal tunnel syndrome surgery. She has had EGD and colonoscopy within the last year. MEDICATIONS: Per list. ALLERGIES: Per list. She is not on any aspirin or nonsteroidals. FAMILY HISTORY: Noncontributory. SOCIAL HISTORY: The patient is . She lives in a custodial. She is retired, smokes daily. PHYSICAL EXAMINATION: GENERAL: The patient appears uncomfortable. VITAL SIGNS: Normal. She is afebrile. ABDOMEN: Shows previous gastrostomy tube scar, epigastric scar and a right upper quadrant scar. There are no masses or hepatosplenomegaly. There is mild tenderness in the epigastric area to palpation. CHEST: Shows a left thoracotomy scar from a previous Mary fundoplication. IMPRESSION AND PLAN: The patient is having abdominal pain, nausea and vomiting with no obvious etiology. Her scans and labs do not point any specific etiology. She has had this problem in the past multiple times and I suspect that this may be an infection. For now, I would not pursue any further testing as I think it is probably not going to be productive. She should be supported with antiemetics and IV fluids and hopefully she will improve in the next 24-48 hours. MTDD
[2019-03-23] MEDS: METHOCARBAMOL 500 MG TABLET PO SCH (20:22)
[2019-03-23] MEDS: AMITRIPTYLINE HCL 50 MG TAB PO SCH (20:22)
[2019-03-23] MEDS: ENOXAPARIN INJ 40 MG/0.4 ML SYR SQ SCH (20:22)
--- NOTE | 2019-03-23 23:26 | Hospitalist Progress Note ---
Date of Service March 23, 2019 Assessment & Plan (1) Epigastric abdominal pain: Admit to medicine on telemetry Vital signs every 4 hours This appears to be a difficltu case. No signs of acute abdomen noted. Imaging has also been negative. Would like to titrate patient off of dilaudid. Patient will remain on famotidine There is question that patient may have neuropathic pain. May benefit from cymbalta. Awaiting input from GI. MRCP, if MRCP inconclusive Dr. Arroyo recommended to do HIDA scan DVT prophylaxis with Lovenox 40 mg subcu daily Full code (2) Nausea: As the above (3) Depression: Continue home medicines stable now: Bupropion 150 mg p.o. every morning, gabapentin 500 mg p.o. every 8 chest, amitriptyline 50 mg p.o. nightly (4) Impaired fasting glucose: Will check A1c, may defer to PCP. Spent 35 minutes in management of patient. Subjective 63 yo female reports she still continues to have abdominal pain. She also continues to have nausea. Review of Systems Review of Systems: All systems reviewed & are unremarkable except as noted in HPI & below Physical Exam Physical Exam: Constitutional: WD/WN, vitals as above well developed, + ill appearing, + frail appearing and cooperative Eyes: PERRL, conjunctivae normal, anicteric sclerae ENMT: external ear and nose normal, oropharynx normal Neck: trachea midline, no thyromegaly Respiratory: normal respiratory effort, lungs clear to auscultation Cardiovascular: RRR, no murmur, no edema Gastrointestinal (Abdomen): Inspection/Auscultation: abdomen normal to inspection Percussion/Palpation: soft, non tender to palapation Musculoskeletal: no cyanosis or clubbing, extremities motor strength 5/5 Skin: + dry skin Neurologic: patellar DTR's 2+ bilat, sensation intact Psychiatric: A+Ox3, euthymic affect Genitourinary: no vaginal lesions, no adnexal mass Lymphatic: no cervical or axillary lymphadenopathy Results & Data Vital Signs (Past 12 Hours) Vital Signs Temp Pulse Pulse Resp BP BP Pulse Ox 03/23/19 22:53 83 152/86 H 03/23/19 17:00 82 03/23/19 15:02 37.0 C 88 16 159/100 H 99 03/23/19 11:29 36.5 C 80 16 150/88 H 96 PG Care Time/CCT Total # of Minutes Spent Total Time Spent with Patient: Total time spent is greater than 50% in coordination of care (as documented) at patient's floor/unit and/or counseling patient:
[2019-03-24] MEDS: SODIUM CHLORIDE 0.9% 1000ML 1,000 ML IV SCH ×3 (04:13→20:57)
[2019-03-24 07:25] LABS: Albumin Level 3.3 gm/dl (3.4-5.0); BUN Creatinine Ratio 15.1 (10-20); Calcium 8.7 mg/dl (8.5-10.1); Creatinine Clr Calc Pharmacy 81.6 ml/min; Est GFR (African American) 108.2; Est GFR (Non-African American) 93.4; Potassium 3.6 mmol/L (3.5-5.1)
[2019-03-24 07:28] LABS: Albumin Globulin Ratio 1.2 (0.9-2); Bilirubin,Total 0.7 mg/dl (0.2-1); Globulin 2.8 gm/dl (2.5-4.0); Total Protein 6.1 gm/dl (6.4-8.2)
--- NOTE | 2019-03-24 09:30 | Nuclear Medicine Report ---
NUCLEAR MEDICINE HEPATOBILIARY SCAN HISTORY: right upper quadrant abd. pain COMPARISON: None. TECHNIQUE: Immediately following the intravenous administration of 5 mCi Tc-99m Choletec, dynamic ant erior abdominal imaging was performed. FINDINGS: Uniform hepatic tracer accumulation is shown. Prompt intrahepatic biliary excretion is seen. The gall bladder is surgically absent. The common bile duct and small bowel are all visualized by 15 minutes. This appearance represents the normal sequence of biliary excretion. IMPRESSION: 1. Prior cholecystectomy. 2. No evidence for common bile duct obstruction. Electronically signed by: David Putnam M.D. 03/24/2019 9:28 AM
[2019-03-24] MEDS: ONDANSETRON INJ 2 MG/ML 2 ML VIAL IV PRN (09:35)
[2019-03-24] MEDS: HYDROmorphone INJ 1 MG/ML SYRINGE IV PRN (09:35)
[2019-03-24] MEDS: GABAPENTIN 300 MG CAP PO SCH ×3 (09:35→20:59)
[2019-03-24] MEDS: BuPROPion XL 150 MG TABCR PO SCH (09:35)
[2019-03-24] MEDS: FAMOTIDINE 20 MG in SYRINGE 3 ML IV SCH ×2 (09:37→20:58)
[2019-03-24] MEDS: KETOROLAC 30 MG/ML VIAL IV PRN ×2 (12:10→19:16)
[2019-03-24] MEDS: PROMETHAZINE HCL 12.5 MG in SODIUM CHLORIDE 0.9% 50 ML IV PRN (12:19)
--- NOTE | 2019-03-24 14:19 | Hospitalist Progress Note ---
Date of Service March 24, 2019 Assessment & Plan (1) Epigastric abdominal pain: Pain has been consistently improving Patient does have a history of GERD and irritable bowel syndrome Continue famotidine Decrease Dilaudid from 1 mg IV every 3 hours to 0.25 mg IV every 3 hours She has been consulted -appreciate Dr. Arroyo's input HIDA scan, MRCP, CT abdomen pelvis nondiagnostic Patient is tolerating clear liquids Will advance to full liquids tonight and advance diet as tolerated tomorrow Question of neuropathic pain as etiology No nausea or vomiting. No diarrhea. No melena, hematochezia, bright red blood per rectum, hematemesis. No clear indication of infection Continue to manage supportively (2) Impaired fasting glucose: No history of hemoglobin A1c Patient was hypoglycemic this afternoon Highest documented glucose 102 Outpatient management (3) Depression: Outpatient meds include amitriptyline 50 mg p.o. at bedtime, and CBD oil. Patient reports that mood seems to be more stable Continue current medications (4) DVT prophylaxis: Enoxaparin Ambulate as tolerated Encourage out of bed Please refer to Dr. Alexander's addendum for any further recommendations. Supervising Physician Co-Signing Physician Notes I reviewed above note and agree with it. Subjective Attending: Dr. Alexander This is a 63-year-old female that was admitted for abdominal pain. She had no elevation white count. Imaging included a HIDA scan as well as MRCP and CT of the abdomen pelvis which were all unremarkable. Patient had no leukocytosis on admission and was not started on any empiric antibiotics. Patient reports her abdominal pain is improved overnight into this morning. She had a small bowel movement this morning which was soft. She has no melena hematochezia or bright red blood per rectum. She is beginning to feel hungry. She denies any fever, chills, sweats, rigors. She did sleep well overnight. On my arrival for interview and examination she was sleeping soundly but easily arousable. She appears in no acute distress and is pleasant and talkative at the time of my exam. Review of Systems Review of Systems: All systems reviewed & are unremarkable except as noted in HPI & below Abdominal pain is improved. No nausea, vomiting, diarrhea. Soft bowel movement this morning. Feels ready for advance diet. Physical Exam Physical Exam: GENERAL : No acute distress. Pleasant. Talkative EYES: No icterus, gaze conjugate NOSE: No evidence of epistaxis. MOUTH: No lesions or candidiasis. Upper dentures in place. No lower teeth or dentures. Tongue midline. NECK: Supple. Trachea appears midline LUNGS: CTA B/L, no wheezes, rales or rhonchi. Breath sounds equal to the bases. HEART: Regular, rate controlled. No appreciation of ectopy ABDOMEN: Soft, ND, BS Present in all 4 quadrants. Some tenderness in the right upper quadrant to deep palpation. EXTREMITIES: No LE edema, pedal pulses intact. Tenderness and some weakness in left upper extremity secondary to recent surgery of the left wrist and hand. No signs of infection or cellulitis on the left wrist or hand. NEURO: A&OX3. Results & Data Vital Signs (Past 12 Hours) Vital Signs Temp Pulse Pulse Resp BP BP Pulse Ox 03/24/19 12:29 89 03/24/19 07:34 89 03/24/19 07:22 36.8 C 85 18 160/83 H 97 03/24/19 03:10 36.7 C 84 18 138/81 95 Laboratory Results 03/22/19 14:46 03/24/19 06:41 Diagnostic Findings NUCLEAR MEDICINE HEPATOBILIARY SCAN HISTORY: right upper quadrant abd. pain COMPARISON: None. TECHNIQUE: Immediately following the intravenous administration of 5 mCi Tc-99m Choletec, dynamic anterior abdominal imaging was performed. FINDINGS: Uniform hepatic tracer accumulation is shown. Prompt intrahepatic biliary excretion is seen. The gallbladder is surgically absent. The common bile duct and small bowel are all visualized by 15 minutes. This appearance represents the normal sequence of biliary excretion. IMPRESSION: 1. Prior cholecystectomy. 2. No evidence for common bile duct obstruction. Electronically signed by: David Putnam M.D. 03/24/2019 9:28 AM PG Care Time/CCT Total # of Minutes Spent Total Time Spent with Patient: Total time spent is greater than 50% in coordination of care (as documented) at patient's floor/unit and/or counseling patient: 30
--- NOTE | 2019-03-24 17:51 | Progress Note ---
DATE: 03/24/2019 SUBJECTIVE: The patient reports her abdominal pain and vomiting have subsided. She is tolerating clear liquids and is hungry for more solid food. All of her scans including a CT scan of the abdomen and pelvis, MRCP and biliary scan all showed no major abnormalities. OBJECTIVE: VITAL SIGNS: Show blood pressure 146/89, pulse 81, temperature 37. IMPRESSION AND PLAN: The patient's symptoms are improving. Plan on advancing her to a heart healthy diet and if she tolerates that, she can be discharged soon.
[2019-03-24] MEDS: ENOXAPARIN INJ 40 MG/0.4 ML SYR SQ SCH (20:59)
[2019-03-24] MEDS: AMITRIPTYLINE HCL 50 MG TAB PO SCH (20:59)
[2019-03-24] MEDS: METHOCARBAMOL 500 MG TABLET PO SCH (21:00)
[2019-03-25] MEDS: SODIUM CHLORIDE 0.9% 1000ML 1,000 ML IV SCH ×2 (03:39→11:33)
[2019-03-25] MEDS: KETOROLAC 30 MG/ML VIAL IV PRN (03:39)
[2019-03-25] MEDS: HYDROmorphone INJ 1 MG/ML SYRINGE IV PRN ×3 (07:55→19:44)
[2019-03-25] MEDS: GABAPENTIN 300 MG CAP PO SCH ×3 (07:56→20:48)
[2019-03-25] MEDS: BuPROPion XL 150 MG TABCR PO SCH (07:56)
[2019-03-25] MEDS: FAMOTIDINE 20 MG in SYRINGE 3 ML IV SCH ×2 (07:57→20:48)
[2019-03-25 08:00] LABS: Hemoglobin 13.6 g/dL (12.0-16.0); Mean Corpuscular Hgb Conc 34.9 g/dL (32-36); Mean Corpuscular Volume 93.3 fL (80-100); Mean Platelet Volume 8.4 fL (7.4-10.4); Platelet Count 132 K/uL (130-400); RDW Coefficient of Variation 12.5 % (11.5-14.5); RDW Standard Deviation 42.4 fL (36.4-46.3); Red Blood Count 4.18 M/uL (4.2-5.4); White Blood Count 7.27 K/uL (4.8-10.8)
[2019-03-25 08:33] LABS: Albumin Level 3.1 gm/dl (3.4-5.0); BUN Creatinine Ratio 10.5 (10-20); Calcium 8.7 mg/dl (8.5-10.1); Creatinine Clr Calc Pharmacy 90.4 ml/min; Est GFR (African American) 113.5; Potassium 3.5 mmol/L (3.5-5.1)
[2019-03-25 08:36] LABS: Albumin Globulin Ratio 1.1 (0.9-2); Bilirubin,Total 0.8 mg/dl (0.2-1); Globulin 2.8 gm/dl (2.5-4.0); Total Protein 5.9 gm/dl (6.4-8.2)
--- NOTE | 2019-03-25 15:56 | Progress Note ---
DATE: 03/25/2019 SUBJECTIVE: The patient reports most of her abdominal pain has resolved. She has a little bit of right flank pain residual but no nausea and vomiting and she is tolerating a diet. She continues to be on IV fluids. PHYSICAL EXAMINATION: GENERAL: The patient appears in no acute distress. VITAL SIGNS: Normal. ABDOMEN: Shows previous abdominal scars but no mass, tenderness, or hepatosplenomegaly. IMPRESSION: The patient's abdominal symptoms are resolved. Her scans are negative. The plan is for discharge tomorrow morning.
--- NOTE | 2019-03-25 16:48 | Hospitalist Progress Note ---
Date of Service March 25, 2019 Assessment & Plan (1) Epigastric abdominal pain: Admit to medicine on telemetry Vital signs every 4 hours No signs of acute abdomen noted. Imaging has also been negative. Pt reports no pain anymore Continue famotidine Pt able to tolerate PO will discontinue fluids DVT prophylaxis with Lovenox 40 mg subcu daily Full code (2) Impaired fasting glucose: Will check A1c, may defer to PCP. (3) Depression: Continue home medicines stable now: Bupropion 150 mg p.o. every morning, gabapentin 500 mg p.o. every 8 chest, amitriptyline 50 mg p.o. nightly (4) DVT prophylaxis: Subjective Pt seen and examined at the bed side. No acute event overnight. Pt is hemodynamically stable and her abdominal pain is improved.Will advance diet as tolerated. Pt is afebrile, hoping to be discharged home tomorrow.Pt denies fever, chills, chest pain, SOB, abdominal pain, frequency and urgency. Review of Systems Review of Systems: All systems reviewed & are unremarkable except as noted in HPI & below Physical Exam Constitutional: WD/WN, vitals as above well developed and cooperative Eyes: PERRL, conjunctivae normal, anicteric sclerae ENMT: external ear and nose normal, oropharynx normal Neck: trachea midline, no thyromegaly Respiratory: normal respiratory effort, lungs clear to auscultation Cardiovascular: RRR, no murmur, no edema Chest (Breasts): normal inspection/palpation of breasts Gastrointestinal (Abdomen): normal bowel sounds, soft, nontender, no hepatosplenomegaly Musculoskeletal: no cyanosis or clubbing, extremities motor strength 5/5 Skin: no rashes, warm and dry Neurologic: patellar DTR's 2+ bilat, sensation intact Psychiatric: A+Ox3, euthymic affect Genitourinary: no vaginal lesions, no adnexal mass Lymphatic: no cervical or axillary lymphadenopathy Results & Data Vital Signs (Past 12 Hours) Vital Signs Temp Pulse Pulse Pulse Resp BP Pulse Ox 03/25/19 15:21 37.2 C 74 20 138/84 95 03/25/19 15:17 71 03/25/19 12:23 37.2 C 75 18 142/85 H 94 03/25/19 07:04 37.1 C 78 18 128/79 94 PG Care Time/CCT Total # of Minutes Spent Total Time Spent with Patient: Total time spent is greater than 50% in coordination of care (as documented) at patient's floor/unit and/or counseling patient:
[2019-03-25] MEDS: ENOXAPARIN INJ 40 MG/0.4 ML SYR SQ SCH (20:47)
[2019-03-25] MEDS: AMITRIPTYLINE HCL 50 MG TAB PO SCH (20:47)
[2019-03-25] MEDS: METHOCARBAMOL 500 MG TABLET PO SCH (20:48)
[2019-03-26 07:16] LABS: Albumin Level 3.1 gm/dl (3.4-5.0); BUN Creatinine Ratio 12.3 (10-20); Creatinine Clr Calc Pharmacy 87.6 ml/min; Est GFR (African American) 112.9; Est GFR (Non-African American) 97.4; Potassium 3.2 mmol/L (3.5-5.1)
[2019-03-26 07:19] LABS: Albumin Globulin Ratio 1.3 (0.9-2); Bilirubin,Total 0.7 mg/dl (0.2-1); Globulin 2.5 gm/dl (2.5-4.0); Total Protein 5.6 gm/dl (6.4-8.2)
[2019-03-26] MEDS: BuPROPion XL 150 MG TABCR PO SCH (07:54)
[2019-03-26] MEDS: HYDROmorphone INJ 1 MG/ML SYRINGE IV PRN (07:54)
[2019-03-26] MEDS: GABAPENTIN 300 MG CAP PO SCH (07:54)
[2019-03-26] MEDS: FAMOTIDINE 20 MG in SYRINGE 3 ML IV SCH (08:54)
--- NOTE | 2019-03-26 10:35 | Hospitalist Progress Note ---
Date of Service March 26, 2019 Assessment & Plan (1) Epigastric abdominal pain: Admit to medicine on telemetry Vital signs every 4 hours No signs of acute abdomen noted. Imaging has also been negative. Pt reports no pain anymore Continue famotidine Pt able to tolerate PO will discontinue fluids DVT prophylaxis with Lovenox 40 mg subcu daily Full code (2) Impaired fasting glucose: Will check A1c, may defer to PCP. (3) Depression: Continue home medicines stable now: Bupropion 150 mg p.o. every morning, gabapentin 500 mg p.o. every 8 chest, amitriptyline 50 mg p.o. nightly (4) DVT prophylaxis: Subjective Pt seen and examined at the bed side. No acute event overnight. Pt is hemodynamically stable and her abdominal pain resolved. Tolerates well PO.Pt requested to go home.Afebrile.Pt denies fever, chills, chest pain, SOB, abdominal pain, frequency and urgency. Physical Exam Constitutional: WD/WN, vitals as above well developed and cooperative Eyes: PERRL, conjunctivae normal, anicteric sclerae ENMT: external ear and nose normal, oropharynx normal Neck: trachea midline, no thyromegaly Respiratory: normal respiratory effort, lungs clear to auscultation Cardiovascular: RRR, no murmur, no edema Chest (Breasts): normal inspection/palpation of breasts Gastrointestinal (Abdomen): normal bowel sounds, soft, nontender, no hepatosplenomegaly Inspection/Auscultation: abdomen normal to inspection Percussion/Palpation: + abdomen tender and + guarding Musculoskeletal: no cyanosis or clubbing, extremities motor strength 5/5 Skin: no rashes, warm and dry + dry skin Neurologic: patellar DTR's 2+ bilat, sensation intact Psychiatric: A+Ox3, euthymic affect Genitourinary: no vaginal lesions, no adnexal mass Lymphatic: no cervical or axillary lymphadenopathy Results & Data Vital Signs (Past 12 Hours) Vital Signs Temp Pulse Pulse Pulse Resp BP BP 03/26/19 07:35 36.9 C 72 20 144/89 H 151/89 H 03/26/19 03:35 36.5 C 66 20 145/88 H 03/25/19 23:40 72 03/25/19 23:00 36.7 C 73 20 149/94 H Pulse Ox 03/26/19 07:35 96 03/26/19 03:35 96 03/25/19 23:40 03/25/19 23:00 96 PG Care Time/CCT Total # of Minutes Spent Total Time Spent with Patient: Total time spent is greater than 50% in coordination of care (as documented) at patient's floor/unit and/or counseling patient:
--- NOTE | 2019-03-26 10:40 | Discharge Summary ---
Date of Service March 26, 2019 Admission HPI Per Admitting Provider Patient is a 63 years old female with past medical history of of Niesen fundoplication, chronic abdominal pain, pyloroplasty, vagotomy presents to the emergency room with a complaint of recurrent abdominal pain that started this morning after she had a sip of coffee. Patient said the pain is located mostly in the right upper quadrant and is 9 of 10. Patient denies fever chills chest pain shortness of breath hematemesis hematochezia or melena. Patient says she had one bowel movement this morning and it was more like diarrhea by looking. In the ER patient received 1 L of fluid, Dilaudid, Zofran and promethazine. That improved her pain little bit. Patient said she is anorexic and lost appetite since this episode is ongoing. Labs were reviewed: Lateral cell 7.74 hemoglobin 14.8, hematocrit 43.6 platelets 162, PT/INR pending patient is not on any kind of anticoagulation. Sodium 141, potassium 3.8, chloride 110, BUN 7 creatinine 0.888, GFR 58 BUN/creatinine ratio 8.4 AST 12 ALT 18 alkaline phosphatase 126, troponin 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 Cholangitis could not be excluded. Postsurgical changes of cholecystectomy and Mary procedure. The case was discussed with Dr. Teo Arroyo, electronics mechanic apprentice from [facility] who was patient gastral from before and he recommended MRCP and if MRCP negative or nonconclusive to do HIDA . He also recommended to continue IV fluids, keep n.p.o., continue antinausea and pain management. MRCP negative. Pt condition improved and she is now tolerating PO very well. Recommended low fat diet. Pt did not request any additional pain medication and stated that her abdominal pain is resolved. Principal Diagnosis none Discharge Exam Constitutional WD/WN, vitals as above well developed and cooperative Eyes PERRL, conjunctivae normal, anicteric sclerae ENMT external ear and nose normal, oropharynx normal Neck trachea midline, no thyromegaly Respiratory normal respiratory effort, lungs clear to auscultation Cardiovascular RRR, no murmur, no edema Chest (Breasts) normal inspection/palpation of breasts Gastrointestinal (Abdomen) normal bowel sounds, soft, nontender, no hepatosplenomegaly Musculoskeletal no cyanosis or clubbing, extremities motor strength 5/5 Skin no rashes, warm and dry Neurologic patellar DTR's 2+ bilat, sensation intact Psychiatric A+Ox3, euthymic affect Genitourinary no vaginal lesions, no adnexal mass Lymphatic no cervical or axillary lymphadenopathy Discharge Data Allergies Allergy/AdvReac Type Severity Reaction Status Date / Time Benzodiazepines Allergy Unknown . Verified 03/22/19 15:55 chlordiazepoxide Allergy Unknown . Verified 03/22/19 15:55 clidinium Allergy Unknown . Verified 03/22/19 15:55 metoclopramide Allergy Unknown . Verified 03/22/19 15:55 prochlorperazine Allergy Unknown . Verified 03/22/19 15:55 NSAIDS (Non-Steroidal Allergy WATER Verified 03/22/19 20:06 Anti-Inflamma BLISTER ALONG JAW LINE Consultations 03/22/19 17:46 ED Decision to Admit Stat 03/22/19 19:57 Consult Gastroenterology Routine Ordered Studies 03/22/19 14:29 CT abd pelvis wo con Stat 03/22/19 17:39 MR MRCP Stat Hospital Course (1) Epigastric abdominal pain: Admit to medicine on telemetry, Vital signs every 4 hours No signs of acute abdomen noted. Imaging has also been negative. Pt reports no pain anymore Continue famotidine Tolerates now food DVT prophylaxis with Lovenox 40 mg subcu daily Full code (2) Depression: Continue home medicines stable now: Bupropion 150 mg p.o. every morning, gabapentin 500 mg p.o. every 8 chest, amitriptyline 50 mg p.o. nightly (3) DVT prophylaxis: Total Time Total Time Spent Total Time Spent (In Minutes): >30 min Discharge Plan Discharge Items Patient Disposition: Home - Self-Care Reason For Visit: ABDOMINAL PAIN Discharge Diagnosis: abdominal pain Discharge Goals: Decrease discomfort, Diagnostic testing and Improve disease control Activity: Resume your previous activity Non-emergency contact: Primary Care Provider Call non-emergency contact if: you have any medication questions, your pain is concerning for you, you have a fever and your temperature is above 100.5 Follow-up/Referrals: Reji Weinstein [Primary Care Provider] - Diet: Heart Healthy and Low Fat Addtl Provider Instructions: Please follow up with your PCP within 7 days. Prescriptions: Continued amitriptyline 50 mg tablet 50 mg PO HS RF: 0 acetaminophen [Tylenol Extra Strength] 500 mg Tablet 1,000 mg PO Q6H PRN (Reason: Pain) RF: 0 lansoprazole [Prevacid] 30 mg Capsule,Delayed Release(Dr/Ec) 30 mg PO DIRECTED PRN (Reason: Acid Reflux) RF: 0 gabapentin 300 mg capsule 300 mg PO TID RF: 0 bupropion HCl 150 mg tablet extended release 24 hr 150 mg PO QAM RF: 0 methocarbamol 500 mg tablet 500 mg PO HS RF: 0 Discontinued cannabidiol (CBD) extract 100 mg/mL Solution PO DIRECTED PRN (Reason: Pain) RF: 0 Stand-Alone Forms: Call Back Authorization, [facility] Discharge Orders: Discharge Order (Routine); Ordered 03/26/19 Ordered By: Allison Batista Admission Data Admit Date/Time: 03/22/19 18:13 Attending Provider: Allison Batista Admit Provider: Allison Batista Primary Care Provider: Reji Weinstein Other Providers: Allison Batista ; Teo Arroyo Service: Telemetry Medical
== END 2019-03-26 11:40 | disposition home or self-care (01) | DRG 392 ==
LOC: ED 14:22 → 2N 18:13 → SUATTDRO 18:13 → 2N 19:44

== ENCOUNTER 2019-04-26 09:21 | Inpatient (IN) ==
[2019-04-26] MEDS ORDERED: SODIUM CHLORIDE 0.9% 1000ML 1,000 ML IV SCH (09:30)
[2019-04-26] MEDS ORDERED: FAMOTIDINE 20MG/5ML IV PUSH IV STA (09:39)
[2019-04-26] MEDS ORDERED: ONDANSETRON INJ 2 MG/ML 2 ML VIAL IV STA (09:40)
[2019-04-26] MEDS ORDERED: DiphenhydrAMINE HCL 50 MG/ML VIAL IV STA (09:40)
[2019-04-26] MEDS ORDERED: MoRPHine SULFATE 4 MG/ML 1 ML CARP\\VIAL IV STA (09:40)
[2019-04-26 09:47] LABS: Basophils # (auto) 0.02 K/uL (0-0.2); Basophils % (auto) 0.2 %; Eosinophils # (auto) 0.11 K/uL (0-0.5); Eosinophils % (auto) 0.9 %; Hematocrit (blood only) 44.6 % (37-47); Hemoglobin 14.7 g/dL (12.0-16.0); Immature Granulocytes # (auto) 0.04 K/uL (0.00-0.02); Immature Granulocytes % (auto) 0.3 %; Lymphocytes # (auto) 1.36 K/uL (1.2-3.4); Lymphocytes % (auto) 11.5 %; Mean Corpuscular Hemoglobin 32.5 pg (25-34); Mean Corpuscular Volume 98.5 fL (80-100); Mean Platelet Volume 9.1 fL (7.4-10.4); Monocytes # (auto) 0.64 K/uL (0.11-0.59); Monocytes % (auto) 5.4 %; Neutrophils # (auto) 9.66 K/uL (1.4-6.5); Neutrophils % (auto) 81.7 %; Platelet Count 210 K/uL (130-400); RDW Coefficient of Variation 14.1 % (11.5-14.5); RDW Standard Deviation 50.5 fL (36.4-46.3); Red Blood Count 4.53 M/uL (4.2-5.4); White Blood Count 11.83 K/uL (4.8-10.8)
--- NOTE | 2019-04-26 10:00 | XRay Report ---
XR chest 1V portable CLINICAL HISTORY: Chest pain. COMPARISON STUDY: Chest radiograph April 29, 2017. FINDINGS: Mild elevation of the left hemidiaphragm is unchanged. Surgical clips projecting over the g astroesophageal junction are noted. Cardiac size is normal. Mediastinal contours are normal. Blunting of the left costophrenic angle is unchanged. No evidence for pulmonary edema. The appearance of the chest is unchanged. IMPRESSION: No acute cardiopulmonary findings. No change in appearance of the chest. Electronically signed by: Paddy Rodriguez M.D. 04/26/2019 9:59 AM
[2019-04-26 10:06] LABS: Albumin Level 4.2 gm/dl (3.4-5.0); BUN Creatinine Ratio 11.2 (10-20); Blood Urea Nitrogen 10 mg/dl (7-18); Calcium 9.5 mg/dl (8.5-10.1); Carbon Dioxide 26 mmol/L (21-32); Chloride 109 mmol/L (98-107); Creatinine Clr Calc Pharmacy 61.9 ml/min; Est GFR (African American) 82.7; Est GFR (Non-African American) 71.4; Glucose 98 mg/dl (70-99); Lipase 74 U/L (73-393); Sodium 142 mmol/L (136-145)
[2019-04-26 10:14] LABS: Alanine Aminotransferase 16 U/L (12-78); Albumin Globulin Ratio 1.3 (0.9-2); Alkaline Phosphatase 125 U/L (45-117); Aspartate Aminotransferase 15 U/L (15-37); Bilirubin,Total 0.5 mg/dl (0.2-1); Globulin 3.3 gm/dl (2.5-4.0); Total Protein 7.5 gm/dl (6.4-8.2); Troponin I < 0.015 ng/ml (0-0.045)
[2019-04-26 10:15] LABS: Appearance Urine Clear (Clear); Bilirubin Urine Negative (Negative); Blood Urine Negative (Negative); Color Urine Yellow; Glucose Urine UA Negative (Negative); Ketones Urine Trace (Negative); Leukocyte Esterase Urine Negative (Negative); Nitrite Urine Negative (Negative); Protein Urine Negative (Negative); Specific Gravity Urine 1.025 (1.000-1.030); Urobilinogen Urine Negative (Negative)
[2019-04-26] MEDS ORDERED: IOVERSOL 100ml IV PRN (10:23)
--- NOTE | 2019-04-26 10:46 | CT Scan Report ---
CT OF THE ABDOMEN AND PELVIS WITH CONTRAST CLINICAL HISTORY: Right lower quadrant abdominal pain. COMPARISON STUDY: CT of the abdomen and pelvis and MRCP March 22, 2019. TECHNIQUE: Following IV administration of 94 mL of Optiray-320, axial images of the abdomen and pelvi s were obtained from the lung bases to the proximal femurs. Images were reviewed in the axial, sagitt al, and coronal planes. IV contrast was administered without complication. Automated exposure contro l was utilized for the study. A dose lowering technique was utilized adhering to the principles of A ROSANNE. CT DOSE: 272.05 mGy.cm FINDINGS: Elevation of the left hemidiaphragm is noted. Postoperative findings at the gastroesophagea l junction are noted. The stomach is not distended. The first and second portions of the duodenum are distended and fluid-filled. Third portion of the duodenum is narrowed. The angle between the aorta a nd superior mesenteric is slightly diminished. However, these findings do not strongly suggest SMA sy ndrome. Pneumobilia is again noted. Dilatation of the common hepatic duct is unchanged status post ch olecystectomy. No pneumatosis, free air or portal venous gas is present. There is colonic diverticulo sis without evidence for acute diverticulitis. The appendix is normal. The spleen, adrenal glands and kidneys are normal. Mild pancreatic ductal dilatation is unchanged. Is no peripancreatic infiltratio n. There are no suspicious osseous lesions. The appearance of the abdomen and pelvis is unchanged. IMPRESSION: 1. No acute process within the abdomen or pelvis. Normal appendix. 2. Dilatation of the first and second portions of the duodenum with decompressed third portion. Howev er, the findings do not strongly suggest SMA syndrome as the stomach is not distended. 3. No significant change in appearance of the abdomen or pelvis. Electronically signed by: Paddy Rodriguez M.D. 04/26/2019 10:45 AM
[2019-04-26] MEDS ORDERED: ACETAMINOPHEN 325 MG TAB PO PRN (13:14)
[2019-04-26] MEDS ORDERED: ALUMINUM/MAGNESIUM SUSP 30 ML UDC PO PRN (13:14)
[2019-04-26] MEDS ORDERED: ZOLPIDEM TARTRATE 5 MG TAB PO PRN (13:14)
[2019-04-26] MEDS ORDERED: POLYETHYLENE (MIRALAX) 17 GM PACK PO PRN (13:14)
[2019-04-26] MEDS ORDERED: MAGNESIUM HYDROXIDE SUSP 30 ML UDC PO PRN (13:14)
[2019-04-26] MEDS ORDERED: NON-FORMULARY MEDICATION (Lansoprazole [Prevacid] 30 MG) PO PRN (13:17)
[2019-04-26] MEDS ORDERED: ACETAMINOPHEN 500 MG TAB PO PRN (13:17)
[2019-04-26] MEDS ORDERED: METHOCARBAMOL 500 MG TABLET PO PRN (13:17)
[2019-04-26] MEDS ORDERED: FAMOTIDINE 20MG/5ML IV PUSH IV SCH (13:30)
--- NOTE | 2019-04-26 14:17 | History & Physical Report ---
Date of Service April 26, 2019 Assessment & Plan (1) Intractable nausea and vomiting: As mentioned below (2) Intractable abdominal pain: Admit to [facility] Check vitals per protocol Zofran 4 mg IV every 6 hours Pepcid 20 mg IV daily Continue IV fluid hydration GI consult Since patient has negative HIDA scan last admission Also had negative cholangio-branch pancreatography MRI except for beaded biliary tree which does not fit the picture of biliary sclerosis based on her labs, We will not repeat any of the above wWrk-up We will order gastric emptying study Hold of narcotics at midnight (3) Nausea: Zofran as mentioned above (4) GERD (gastroesophageal reflux disease): Continue Pepcid and PPI (5) Dyslipidemia: Currently not on any medications for it will defer to her primary care physician any further plan (6) B12 deficiency: Will check B12 levels History of Present Illness 63-year-old female with past medical history of niesen fundoplication, pyloroplasty, vagotomy and chronic recurrent abdominal pains presented to the ED with severe abdominal pain that started this morning at about 8 AM when she woke up. Abdominal pain was 10 out of 10 crampy in nature associated with dry heaves. She also had 6 episodes of diarrhea denies any blood in stool, denies any vomiting aside from dry heaves and nausea. Presented to the ED for further evaluation and had a CT scan done that showed dilation of first and second portion of duodenum and decompressed third portion, stomach was not distended which goes against SMA syndrome but still a possibility. Patient had an extensive work-up last admission on March for similar pain, she had a HIDA scan on 03/22/2019 that revealed prior cholecystectomy, no evidence of common bile duct obstruction, She also had a cholangiopancreatography MRI that showed surgically absent gallbladder, common bile duct measured up to 7 mm with no evidence of cholelithiasis, there was a significant dilatation of common hepatic duct that might be related to her previous cholecystectomy and there was mild intrahepatic biliary ductal dilation and pneumobilia, intrahepatic duct somewhat demonstrated beaded appearance which was nonspecific but could be suspicious for sclerosing cholangitis or chronic hepatocellular disease. Patient denies any fever or chills today She had an appointment with Dr. Arroyo tomorrow, at GI clinic Primary Care Provider: Reji Weinstein Allergies Allergy/AdvReac Type Severity Reaction Status Date / Time Benzodiazepines Allergy Unknown . Verified 04/26/19 10:19 chlordiazepoxide Allergy Unknown . Verified 04/26/19 10:19 clidinium Allergy Unknown . Verified 04/26/19 10:19 metoclopramide Allergy Unknown . Verified 04/26/19 10:19 prochlorperazine Allergy Unknown . Verified 04/26/19 10:19 NSAIDS (Non-Steroidal Allergy WATER Verified 04/26/19 10:19 Anti-Inflamma BLISTER [place] Home Medications Home Medications Medication Instructions Recorded Confirmed Type acetaminophen [Tylenol Extra 1,000 mg PO Q6H PRN 12/15/18 04/26/19 History Strength] amitriptyline 50 mg PO HS 12/15/18 04/26/19 History bupropion HCl 150 mg PO QAM 12/15/18 04/26/19 History gabapentin 300 mg PO TID 12/15/18 04/26/19 History lansoprazole [Prevacid] 30 mg PO DIRECTED PRN 12/15/18 04/26/19 History methocarbamol 500 mg PO HS PRN 03/22/19 04/26/19 History Past Med/Surg History Medical History Intractable abdominal pain GERD (gastroesophageal reflux disease) (Chronic) IBS (irritable bowel syndrome) (Chronic) Dyslipidemia (Chronic) Osteoporosis (Chronic) Gastroparesis (Chronic) Adenomatous polyp of colon (Chronic) Barretts esophagus (Chronic) Pernicious anemia (Chronic) Anxiety (Chronic) Depression (Chronic) Malnutrition (Chronic) Impaired fasting glucose (Chronic) B12 deficiency (Chronic) PUD (peptic ulcer disease) (Chronic) Common bile duct (CBD) stricture (Chronic) C. difficile colitis Dehydration Intractable nausea and vomiting SMAS (superior mesenteric artery syndrome) Surgical History S/P thyroidectomy (Chronic) H/O pyloroplasty (Chronic) H/O vagotomy (Chronic) S/P cholecystectomy (Chronic) History of Mary fundoplication (Chronic) S/P ERCP (Chronic) "with stent insertion at [facility] [place]; [place] [facility] [place]; with CBD [place] [facility] [place]" On 06/11/16 11:54 Ann Swanson wrote "" Status post insertion of percutaneous endoscopic gastrostomy (PEG) tube (Chronic) History of carpal tunnel surgery (Chronic) H/O colonoscopy (Chronic) History of esophagogastroduodenoscopy (EGD) (Chronic) Family History Other No significant family history Social History Preferred Language: Mosotho Communication 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 Beliefs That Will Affect Care: None marital status: Current Living Situation: Family Current Living Situation Comment: lives with her aunt current occupational status: retired Other Information That Helps Us Care for You: No Feels Safe at Home: Yes Safety Concerns: Feels Safe At This Time Smoking Status: Current every day smoker Tobacco Type: cigarettes ; Cigarettes Per Day: 20 ; Second Hand Exposure: No ; Hx Alcohol Use: No Hx Substance Use: Yes (Patient uses medical marijuana) substance use type: marijuana and prescription drug Last Used Substance: Hours (ago) Review of Systems Review of Systems: Review of system Constitutional: No fever / no chills /generalized weakness and fatigue Eyes: no blurring of vision / no eye pain / no discharge / no redness ENT: no hearing loss / no epistaxis /no swallowing problems Respiratory: no cough / no wheezing / no SOB / no hemoptysis Cardiovascular: no Chest pain / no lower extremity edema / no palpitation Abdomen: Generalized abdominal pain, diarrhea, dry heaves Musculoskeletal: no joint pain / no muscle pain / no joint swelling Genitourinary: no dysuria / no incontinence / no urinary retention Neurologic: no focal weakness / no numbness/tingling / no ataxia Psychiatric: no depression symptoms / no anxiety / no insomnia Endocrine: no excessive thirst / no excessive urination Hematologic: no abnormal bleeding / no bruising / no LN swelling Skin: No rash / no pallor Physical Exam Physical Exam: Physical examination General elderly female, appears to be in moderate acute distress HEENT: Atraumatic , normocephalic /no jaundice /no pallor /anicteric /no dry mucous membrane /normal external ear inspection Neck: Supple /no swelling /central trach Heart: S1/S2 normal/regular rate and rhythm/no gallop /no rub /no murmur Lungs: Clear to auscultation bilaterally/normal chest with expansion/no rhonchi/no rales/no wheezing/no use of accessory muscles of respiration Abdomen: Although generally tender but was soft no guarding/no rebound/no organomegaly/no pulsatile mass Musculoskeletal: No swelling/no edema/no tenderness/normal range of motion Neuro exam: Awake alert oriented 3/cranial nerves II through XII appear to be intact/sensation intact/moves all extremities/no abnormal movements Psychiatric evaluation: No depressed mood/normal affect Skin: No rash on exposed skin area/no erythema Extremity: Normal pulse/no pitting edema/no clubbing or cyanosis Results & Data Vital Signs (Past 12 Hours) Vital Signs Temp Pulse Pulse Resp BP BP Pulse Ox 04/26/19 14:01 66 18 146/89 H 04/26/19 14:00 69 22 04/26/19 13:30 76 14 159/94 H 04/26/19 13:00 65 20 142/86 H 04/26/19 12:30 89 25 H 170/98 H 04/26/19 12:00 86 16 165/118 H 04/26/19 11:30 73 15 148/93 H 04/26/19 11:00 84 17 144/92 H 144/92 H 96 04/26/19 10:32 99 H 17 04/26/19 10:31 93 H 18 160/106 H 04/26/19 10:02 85 13 95 04/26/19 09:55 75 16 139/98 95 04/26/19 09:36 94 04/26/19 09:26 36.5 C 85 16 152/99 H 94 PG Care Time/CCT Total # of Minutes Spent Total Time Spent with Patient: 35 minutes total time spent is greater than 50% in coordination of care (as documented) at patient's floor/unit and/or counseling patient/family discussion of care with nursing staff
[2019-04-26] MEDS ORDERED: PANTOprazole 40 MG TAB PO PRN (14:30)
[2019-04-26] MEDS ORDERED: FAMOTIDINE 20MG/5ML IV PUSH IV ONE (15:03)
--- NOTE | 2019-04-26 15:56 | Emergency Department Note ---
Entered by Sugey Troncoso acting as a scribe for Maximiliano Barron DO History of Present Illness General Chief complaint: Abdominal Pain Time Seen by Provider: 04/26/19 09:22 Source: patient Mode of arrival: ambulatory Limitations: no limitations History of Present Illness Onset (ago): day(s) 5 Location: abdomen Radiation: other (chest) Pain Consistency: + constant Maximum Pain Intensity: 10 Current Pain Intensity: 10 Quality: + other (Cramping) Relieved By: + none Exacerbated By: + none Associated symptoms: + nausea/vomiting (+nausea, -vomiting) and + other (+diarrhea) Treatments prior to arrival: none The patient is a 63 year old female with a PMHX of GERD, IBS, Gastroparesis, chronic abdominal pain and PUD who presents to the ED with complaints of abdominal pain that began 5 days ago. She states she saw her PCP yesterday. She rates her discomfort as a 10/10 in severity and describes it as feeling like "cr amping". The pain does radiate into her chest. She states she also developed diarrhea approximately 5 days ago and is afraid she has C-Diff, which she has had before. She thinks she last had C-Diff 3 years ago. She denies any recent antibiotics or sick contacts. She also complains of chest pain, stating it started this morning. She admits to nausea but has not vomited. The patient has previously undergone a MARY procedure and her most recent MRCP was negative. Home Medications Home Medications Medication Instructions Recorded Confirmed Type acetaminophen [Tylenol Extra 1,000 mg PO Q6H PRN 12/15/18 04/26/19 History Strength] amitriptyline 50 mg PO HS 12/15/18 04/26/19 History bupropion HCl 150 mg PO QAM 12/15/18 04/26/19 History gabapentin 300 mg PO TID 12/15/18 04/26/19 History lansoprazole [Prevacid] 30 mg PO DIRECTED PRN 12/15/18 04/26/19 History methocarbamol 500 mg PO HS PRN 03/22/19 04/26/19 History Allergies Allergy/AdvReac Type Severity Reaction Status Date / Time Benzodiazepines Allergy Unknown . Verified 04/26/19 10:19 chlordiazepoxide Allergy Unknown . Verified 04/26/19 10:19 clidinium Allergy Unknown . Verified 04/26/19 10:19 metoclopramide Allergy Unknown . Verified 04/26/19 10:19 prochlorperazine Allergy Unknown . Verified 04/26/19 10:19 NSAIDS (Non-Steroidal Allergy WATER Verified 04/26/19 10:19 Anti-Inflamma BL[place] Past Med/Surg History Medical History Intractable abdominal pain GERD (gastroesophageal reflux disease) (Chronic) IBS (irritable bowel syndrome) (Chronic) Dyslipidemia (Chronic) Osteoporosis (Chronic) Gastroparesis (Chronic) Adenomatous polyp of colon (Chronic) Barretts esophagus (Chronic) Pernicious anemia (Chronic) Anxiety (Chronic) Depression (Chronic) Malnutrition (Chronic) Impaired fasting glucose (Chronic) B12 deficiency (Chronic) PUD (peptic ulcer disease) (Chronic) Common bile duct (CBD) stricture (Chronic) C. difficile colitis Dehydration Intractable nausea and vomiting SMAS (superior mesenteric artery syndrome) Surgical History S/P thyroidectomy (Chronic) H/O pyloroplasty (Chronic) H/O vagotomy (Chronic) S/P cholecystectomy (Chronic) History of Mary fundoplication (Chronic) S/P ERCP (Chronic) "with stent insertion at [facility] in 03/2000; with CBD stones at [facility] [place] [place] in 07/2010; with CBD sludge at [facility] [place] in 01/2011" On 06/11/16 11:54 Ann Swanson wrote "" Status post insertion of percutaneous endoscopic gastrostomy (PEG) tube (Chronic) History of carpal tunnel surgery (Chronic) H/O colonoscopy (Chronic) History of esophagogastroduodenoscopy (EGD) (Chronic) Family History Other No significant family history Social History Preferred Language: Tristanian Communication Ability: Effective Mat Sewer Required: No Beliefs That Will Affect Care: None marital status: Current Living Situation: Family Current Living Situation Comment: lives with her aunt current occupational status: retired Other Information That Helps Us Care for You: No Feels Safe at Home: Yes Safety Concerns: Feels Safe At This Time Smoking Status: Current every day smoker Tobacco Type: cigarettes ; Cigarettes Per Day: 20 ; Second Hand Exposure: No ; Hx Alcohol Use: No Hx Substance Use: Yes (Patient uses medical marijuana) substance use type: marijuana and prescription drug Last Used Substance: Hours (ago) Review of Systems See HPI for pertinent positives & negatives. and A total of 10 systems reviewed and were otherwise negative Physical Exam Vital Signs Vital Signs - 24 hr 04/26/19 09:26 04/26/19 09:36 04/26/19 09:55 Temperature 36.5 C Temperature Source Oral Sepsis Recent Fever Within 48 Hours No Sepsis New/Unexplained Change in Mental Status No Sepsis Action Taken by Nursing No Action Required Pulse Rate 85 Pulse Rate [Finger] 75 Pulse Rate from SpO2 Sensor Respiratory Rate 16 16 Respiratory Effort / Characteristics Non-Labored Non-Labored Respiratory Depth Normal Normal Blood Pressure 152/99 H Blood Pressure [Left Arm] 139/98 Blood Pressure Mean 116 Blood Pressure Mean [Left Arm] 111 Pulse Oximetry 94 94 95 Oxygen Delivery Method Room Air Room Air Room Air 04/26/19 10:02 04/26/19 10:31 04/26/19 10:32 Temperature Temperature Source Sepsis Recent Fever Within 48 Hours Sepsis New/Unexplained Change in Mental Status Sepsis Action Taken by Nursing Pulse Rate 85 93 H 99 H Pulse Rate [Finger] Pulse Rate from SpO2 Sensor 83 Respiratory Rate 13 18 17 Respiratory Effort / Characteristics Respiratory Depth Blood Pressure 160/106 H Blood Pressure [Left Arm] Blood Pressure Mean 124 Blood Pressure Mean [Left Arm] Pulse Oximetry 95 Oxygen Delivery Method 04/26/19 11:00 04/26/19 11:30 04/26/19 11:51 Temperature Temperature Source Sepsis Recent Fever Within 48 Hours Sepsis New/Unexplained Change in Mental Status Sepsis Action Taken by Nursing Pulse Rate 73 Pulse Rate [Finger] 84 Pulse Rate from SpO2 Sensor Respiratory Rate 17 15 Respiratory Effort / Characteristics Respiratory Depth Blood Pressure 144/92 H 148/93 H Blood Pressure [Left Arm] 144/92 H Blood Pressure Mean 109 111 Blood Pressure Mean [Left Arm] 109 Pulse Oximetry 96 Oxygen Delivery Method Room Air Room Air 04/26/19 12:00 04/26/19 12:30 04/26/19 13:00 Temperature Temperature Source Sepsis Recent Fever Within 48 Hours Sepsis New/Unexplained Change in Mental Status Sepsis Action Taken by Nursing Pulse Rate 86 89 65 Pulse Rate [Finger] Pulse Rate from SpO2 Sensor Respiratory Rate 16 25 H 20 Respiratory Effort / Characteristics Respiratory Depth Blood Pressure 165/118 H 170/98 H 142/86 H Blood Pressure [Left Arm] Blood Pressure Mean 133 122 104 Blood Pressure Mean [Left Arm] Pulse Oximetry Oxygen Delivery Method 04/26/19 13:30 04/26/19 14:00 04/26/19 14:01 Temperature Temperature Source Sepsis Recent Fever Within 48 Hours Sepsis New/Unexplained Change in Mental Status Sepsis Action Taken by Nursing Pulse Rate 76 69 66 Pulse Rate [Finger] Pulse Rate from SpO2 Sensor Respiratory Rate 14 22 18 Respiratory Effort / Characteristics Respiratory Depth Blood Pressure 159/94 H 146/89 H Blood Pressure [Left Arm] Blood Pressure Mean 115 108 Blood Pressure Mean [Left Arm] Pulse Oximetry Oxygen Delivery Method GENERAL: Patient is alert, tearful, sitting up in bed, holding abdomen, rolling around in the bed EYE EXAM: conjunctiva injected, PERRL and EOM's grossly intact OROPHARYNX: no exudate, no erythema, lips, buccal mucosa, and tongue normal and mucous membranes are moist NECK: supple, no nuchal rigidity, no adenopathy, non-tender LUNGS: Clear to auscultation. Normal chest wall mechanics HEART: no murmurs, S1 normal and S2 normal ABDOMEN: abdomen soft, minimal tenderness in RLQ, normo-active bowel sounds, no masses, no rebound or guarding. BACK: Back is symmetrical on inspection and there is no deformity, no midline tenderness, no CVA tenderness. SKIN: no rashes and no bruising UPPER EXTREMITIES: upper extremities are grossly normal. LOWER EXTREMITIES: No pitting edema. NEURO EXAM: Normal sensorium, cranial nerves II-XII grossly intact, normal speech, no gross weakness of arms, no gross weakness of legs. Gross sensation intact. Course ED COURSE: Vital signs were reviewed and showed the patient is hypertensive. The patients medical record was reviewed The above diagnostic studies were performed and reviewed. ED treatments and interventions as stated above. 0931: The patient was evaluated in room C3. A complete history and physical examination was performed. 1133: I discussed the patients case with Aric Obando PA-C, [facility]. He recommends the patient be evaluated by the hospital medicine team. 1149: I discussed the patients case [facility] Mel[facility] The patient will be further evaluated. 1200: Upon reevaluation, the patient is resting comfortably. I discussed my findings with the patient and she understands and agrees with the treatment plan. Based on the patients age, coexisting illnesses, exam and lab findings the decision to treat as an inpatient was made. The patient remained stable while under my care. The patient will be evaluated for further management. Administered Medications Ioversol (Optiray 320 100ml) 94 ml IV ONCE PRN PRN Reason: Interaction Checking Stop: 04/30/19 10:22 Last Admin: 04/26/19 10:24 Dose: 94 ml Documented by: [id number] Discontinued Medications Diphenhydramine HCl (Benadryl) 50 mg IV NOW STA Stop: 04/26/19 09:41 Last Admin: 04/26/19 09:57 Dose: 50 mg Documented by: [id number] Famotidine (Pepcid 20mg Iv Push) 20 mg IV ONE STA Stop: 04/26/19 09:40 Last Admin: 04/26/19 09:57 Dose: 20 mg Documented by: [id number] Famotidine (Pepcid 20mg Iv Push) Confirm Administered Dose 20 mg IV .STK-MED ONE Stop: 04/26/19 15:04 Last Admin: 04/26/19 13:30 Dose: 20 mg Documented by: [id number] Sodium Chloride (Nss 1000ml) 1,000 mls @ 999 mls/hr IV .Q1H1M BRANNON Stop: 04/26/19 10:30 Last Infusion: 04/26/19 11:06 Dose: 0 mls/hr Documented by: [id number] Admin: 04/26/19 09:57 Dose: 999 mls/hr Documented by: [id number] Morphine Sulfate (Morphine Sulfate) 4 mg IV NOW STA Stop: 04/26/19 09:41 Last Admin: 04/26/19 09:57 Dose: 4 mg Documented by: [id number] Ondansetron HCl (Zofran) 4 mg IV NOW STA Stop: 04/26/19 09:41 Last Admin: 04/26/19 09:57 Dose: 4 mg Documented by: [id number] Medical Decision Making Differential Diagnosis Differential diagnoses includes but is not limited to gastritis, peptic ulcer disease, GERD, gallbladder disease, pancreatitis, small bowel obstruction, acute coronary syndrome, pericarditis, ischemic bowel, irritable bowel disease, irritable bowel syndrome, appendicitis, diverticulitis, malignancy, hernia, urinary tract infection, torsion, /ectopic , perforation, trauma, infectious. Medical Records Attestation: I reviewed the patient's medical records. Home Medications Current Medication List: was personally reviewed by me Laboratory Data Attestation: I reviewed the patient's lab results. Result diagrams: 04/26/19 09:35 04/26/19 09:35 Lab Results 04/26/19 04/26/19 04/26/19 Range/Units 09:35 09:35 10:00 WBC 11.83 H (4.8-10.8) K/uL RBC 4.53 (4.2-5.4) M/uL Hgb 14.7 (12.0-16.0) g/dL Hct 44.6 (37-47) % MCV 98.5 (80-100) fL MCH 32.5 (25-34) pg MCHC 33.0 (32-36) g/dL RDW Std Deviation 50.5 H (36.4-46.3) fL RDW Coeff of Marcell 14.1 (11.5-14.5) % Plt Count 210 (130-400) K/uL MPV 9.1 (7.4-10.4) fL Immature Gran % (Auto) 0.3 % Neut % (Auto) 81.7 % Lymph % (Auto) 11.5 % Edwards % (Auto) 5.4 % Eos % (Auto) 0.9 % Baso % (Auto) 0.2 % Immature Gran # (Auto) 0.04 H (0.00-0.02) K/uL Neut # (Auto) 9.66 H (1.4-6.5) K/uL Lymph # (Auto) 1.36 (1.2-3.4) K/uL Edwards # (Auto) 0.64 H (0.11-0.59) K/uL Eos # (Auto) 0.11 (0-0.5) K/uL Baso # (Auto) 0.02 (0-0.2) K/uL Sodium 142 (136-145) mmol/L Potassium 4.0 (3.5-5.1) mmol/L Chloride 109 H (98-107) mmol/L Carbon Dioxide 26 (21-32) mmol/L Anion Gap 7.0 (3-11) BUN 10 (7-18) mg/dl Creatinine 0.86 (0.6-1.2) mg/dl Est Cr Clr Drug Dosing 61.9 ml/min Est GFR ( Amer) 82.7 Est GFR (Non-Af Amer) 71.4 BUN/Creatinine Ratio 11.2 (10-20) Glucose 98 (70-99) mg/dl Calcium 9.5 (8.5-10.1) mg/dl Total Bilirubin 0.5 (0.2-1) mg/dl AST 15 (15-37) U/L ALT 16 (12-78) U/L Alkaline Phosphatase 125 H (45-117) U/L Troponin I < 0.015 (0-0.045) ng/ml Total Protein 7.5 (6.4-8.2) gm/dl Albumin 4.2 (3.4-5.0) gm/dl Globulin 3.3 (2.5-4.0) gm/dl Albumin/Globulin Ratio 1.3 (0.9-2) Lipase 74 (73-393) U/L Urine Color Yellow Urine Appearance Clear (Clear) Urine pH 5.0 (4.5-7.5) Ur Specific [place] 1.025 (1.000-1.030) Urine Protein Negative (Negative) Urine Glucose (UA) Negative (Negative) Urine Ketones Trace H (Negative) Urine Blood Negative (Negative) Urine Nitrite Negative (Negative) Urine Bilirubin Negative (Negative) Urine Urobilinogen Negative (Negative) Ur Leukocyte Esterase Negative (Negative) Imaging Data Radiologist's Impression: Radiology results as stated below per my review and the radiologist's interpretation: XR chest 1V portable CLINICAL HISTORY: Chest pain. COMPARISON STUDY: Chest radiograph April 29, 2017. FINDINGS: Mild elevation of the left hemidiaphragm is unchanged. Surgical clips projecting over the gastroesophageal junction are noted. Cardiac size is normal. Mediastinal contours are normal. Blunting of the left costophrenic angle is unchanged. No evidence for pulmonary edema. The appearance of the chest is unchanged. IMPRESSION: No acute cardiopulmonary findings. No change in appearance of the chest. Electronically signed by: Paddy Rodriguez M.D. 04/26/2019 9:[address] OF THE ABDOMEN AND PELVIS WITH CONTRAST CLINICAL HISTORY: Right lower quadrant abdominal pain. COMPARISON STUDY: CT of the abdomen and pelvis and MRCP March 22, 2019. TECHNIQUE: Following IV administration of 94 mL of Optiray-320, axial images of the abdomen and pelvis were obtained from the lung bases to the proximal femurs. Images were reviewed in the axial, sagittal, and coronal planes. IV contrast was administered without complication. Automated exposure control was utilized for the study. A dose lowering technique was utilized adhering to the principles of ALARA. CT DOSE: 272.05 mGy.cm FINDINGS: Elevation of the left hemidiaphragm is noted. Postoperative findings at the gastroesophageal junction are noted. The stomach is not distended. The first and second portions of the duodenum are distended and fluid-filled. Third portion of the duodenum is narrowed. The angle between the aorta and superior mesenteric is slightly diminished. However, these findings do not strongly suggest SMA syndrome. Pneumobilia is again noted. Dilatation of the common hep atic duct is unchanged status post cholecystectomy. No pneumatosis, free air or portal venous gas is present. There is colonic diverticulosis without evidence for acute diverticulitis. The appendix is normal. The spleen, adrenal glands and kidneys are normal. Mild pancreatic ductal dilatation is unchanged. Is no peripancreatic infiltration. There are no suspicious osseous lesions. The appearance of the abdomen and pelvis is unchanged. IMPRESSION: 1. No acute process within the abdomen or pelvis. Normal appendix. 2. Dilatation of the first and second portions of the duodenum with decompressed third portion. However, the findings do not strongly suggest SMA syndrome as the stomach is not distended. 3. No significant change in appearance of the abdomen or pelvis. Electronically signed by: Paddy Rodriguez M.D. 04/26/2019 10:45 AM ECG Data Attestation: I personally reviewed and interpreted this ECG as follows: Indication: abdominal pain Rate (beats per minute): 72 Rhythm: sinus rhythm Findings: + other (Normal axis); no PVC Blood Pressure Blood Pressure Findings: Elevated blood pressure Blood Pressure Disposition: further management by hospitalist WILVER Hernandez Patient is a 63-year-old female who presents the ER for severe abdominal pain associated with diarrhea and dry heaving. Describes pain as an 8 out of 10. IV was established blood work was obtained. Labs show a mild leukocytosis of 11.8 thousand. BMP was unremarkable. Troponin was negative. Lipase is unremarkable. UA was unremarkable. CT of the abdomen and pelvis showed distended first and second portions of the duodenum with no distention of the stomach questioning SMA syndrome. Patient was given IV fluids IV Zofran and Benadryl along with IV morphine. Significant improvement of her symptoms. Does have an extensive history of gastroparesis. Discussed with general surgery. Discussed with the hospitalist for the request for observation. Patient was updated bedside per Impression & Plan Abdominal pain, Diarrhea, SMAS (superior mesenteric artery syndrome) Discharge Plan Visit Data Chief Complaint: Abdominal Pain ED Provider: Maximiliano Barron Discharge Problem: Abdominal pain, Diarrhea, SMAS (superior mesenteric artery syndrome) Patient Disposition: Being Evaluated by Hospitalist Discharge Instructions Interventions: ED Discharge Assessment Last Done: 04/26/19 15:39 Forms Stand Alone Forms: Call Back Authorization, [facility] Prescriptions Prescriptions: No Action amitriptyline 50 mg tablet 50 mg PO HS RF: 0 acetaminophen [Tylenol Extra Strength] 500 mg Tablet 1,000 mg PO Q6H PRN (Reason: Pain) RF: 0 lansoprazole [Prevacid] 30 mg Capsule,Delayed Release(Dr/Ec) 30 mg PO DIRECTED PRN (Reason: Acid Reflux) RF: 0 gabapentin 300 mg capsule 300 mg PO TID RF: 0 bupropion HCl 150 mg tablet extended release 24 hr 150 mg PO QAM RF: 0 methocarbamol 500 mg tablet 500 mg PO HS PRN (Reason: neck discomfort) RF: 0 Referrals Referrals: Reji Weinstein [Primary Care Provider] - The scribe's documentation has been prepared under my direction and personally reviewed by me in its entirety. I confirm that the note above accurately reflects all work, treatment, procedures, and medical decision making performed by me.
[2019-04-26] MEDS: MoRPHine SULFATE 2 MG/ML CARP IV PRN ×2 (16:15→20:16)
[2019-04-26] MEDS: ONDANSETRON INJ 2 MG/ML 2 ML VIAL IV PRN ×2 (16:16→22:43)
--- NOTE | 2019-04-26 16:36 | Consultation Report ---
DATE OF CONSULTATION: 04/26/2019 REASON FOR EVALUATION: Diarrhea, nausea, vomiting, and abdominal pain. HISTORY OF PRESENT ILLNESS: The patient is a 63-year-old well known to me from previous evaluations. The patient has a history of SMA syndrome and had it surgically modified in [place] with release at the ligament of Treitz in the past. She has had multiple episodes of nausea, vomiting, abdominal pain of unclear etiology. She has undergone multiple tests. She has had her gallbladder out. She has had a previous ERCP with sphincterotomy. She had a MRCP which was negative. She has had a gastrostomy tube in the past for gastroparesis, has had a pyloroplasty, vagotomy, Mary fundoplication, thyroidectomy, and carpal tunnel syndrome. An EGD and colonoscopy were all within the last year. She presents with a 1-month history of worsening diarrhea up to 6 times a day. She presented to the Emergency Room with abdominal pain which is 10/10 and was admitted for further evaluation. CT scan performed in the ER did not show any acute new findings following her previous operations. A stool for C. diff and enteric pathogens has been ordered, but not collected at this time. I also will be ordering additional stool tests. PAST MEDICAL HISTORY: As described above. MEDICATIONS: Per list. ALLERGIES: Per list. FAMILY HISTORY: Noncontributory. SOCIAL HISTORY: The patient is , lives in a fdc. She is retired, and smokes daily. PHYSICAL EXAMINATION: GENERAL: The patient appears in no acute distress. ABDOMEN: Soft. There is no tenderness. She has an epigastric scar, right upper quadrant scar and an old gastrostomy tube scar. CHEST: Shows a left thoracotomy scar from a previous Mary fundoplication. IMPRESSION: The patient is having diarrhea. I suspect that this could be C. diff and stool for this and bacterial pathogens have been ordered. I plan on also adding fecal leukocytes and Giardia antigen. For now, I would treat her symptomatically with bowel rest, IV fluids and antidiarrhea medication until we have more information from her stool studies.
[2019-04-26] MEDS: GABAPENTIN 300 MG CAP PO SCH ×2 (18:27→22:51)
[2019-04-26] MEDS: AMITRIPTYLINE HCL 50 MG TAB PO SCH (22:51)
[2019-04-27] MEDS: ONDANSETRON INJ 2 MG/ML 2 ML VIAL IV PRN ×3 (06:46→21:24)
[2019-04-27] MEDS: BuPROPion XL 150 MG TABCR PO SCH (08:11)
[2019-04-27] MEDS: GABAPENTIN 300 MG CAP PO SCH ×3 (08:11→21:25)
[2019-04-27] MEDS: FAMOTIDINE 20 MG in SYRINGE 3 ML IV SCH (08:20)
[2019-04-27] MEDS ORDERED: HYDROmorphone INJ 0.5 MG/0.5 ML SYR IV STA (10:54)
[2019-04-27] MEDS ORDERED: DICYCLOMINE HCL 10 MG CAP PO PRN (11:03)
[2019-04-27] MEDS ORDERED: DICYCLOMINE HCL 10 MG/ML 2 ML AMP/VIAL IM STA (11:03)
[2019-04-27] MEDS: PANTOprazole 40 MG TAB PO SCH (11:08)
--- NOTE | 2019-04-27 11:20 | Hospitalist Progress Note ---
Date of Service April 27, 2019 Assessment & Plan (1) Intractable abdominal pain: Pepcid 20 mg IV daily Pantoprazole PO 40mg daily Will continue low dose narcotics only but offer patient Bentyl preferentially as will only slow peristalsis. CT with dilated 1st/2nd duodenal portions but no stomach dilatation therefore not strongly suggestive of SMA syndrome. Rx - bowel rest, Mg/PO ordered for morning labs and will replace electrolytes as necessary Extensive prior workup - will be guided by gastroenterology to determine if further workup required. TSH, free T4, cortisol pending for AM. (2) Diarrhea: No formal diagnosis of IBS-D but given prior negative workups will treat as such. Start loperamide prior to each meal now C. diff negative. Will defer more chronic medications to GI such as Alosetron. Giardia pending. (3) Intractable nausea and vomiting: Zofran 4 mg IV every 6 hours PRN Prior dyskinesia adverse effect to metoclopramide Recommend NG tube if unable to control with zofran. (4) GERD (gastroesophageal reflux disease): Continue Pepcid and PPI, will add carafate since given acidic taste in her mouth (5) Dyslipidemia: Currently not on any medications for it will defer to her primary care physician any further plan (6) B12 deficiency: Will check B12 levels Subjective Patient complaining of 10/10 abdominal pain this morning. She has had ongoing abdominal pain, intermittent nausea, acid taste in her mouth and occasional diarrhea for 30 years - started after complications from Mary Fundoplication. This was relieved somewhat after surgery for SMA syndrome when she had her longest period without pain for a few years but has subsequently come back over the last year. She reports the pain is around umbilicus, progressively worse over last month, comes on after eating, associated with diarrhea (again after eating), mucus stool. Multiple workups previously best described in GI notes. Review of Systems Review of Systems: All systems reviewed & are unremarkable except as noted in HPI & below Physical Exam Constitutional: + thin, + frail appearing and + in distress (abdominal pain) Eyes: normal visual perla by confrontation and + anicteric sclerae ENMT: external ear and nose normal, oropharynx normal Neck: trachea midline Thyroid: normal thyroid Respiratory: normal respiratory effort, lungs clear to auscultation Cardiovascular: RRR, no murmur, no edema Gastrointestinal (Abdomen): Inspection/Auscultation: + hyperactive bowel sounds; abdomen not distended, no abdominal wall ecchymosis and no abdominal edema Percussion/Palpation: + abdomen tender (generalized), + guarding and abdomen soft; abdomen not rigid, no hepatomegaly and no splenomegaly Musculoskeletal: no cyanosis or clubbing, extremities motor strength 5/5 Skin: no rashes, warm and dry Neurologic: CN's II-XI intact bilaterally; no focal motor deficits Psychiatric: Orientation: alert and oriented x 3 Affect: + tearful affect Mood: + anxious mood Thought Process: linear/logical thought process Results & Data Vital Signs (Past 12 Hours) Vital Signs Temp Pulse Resp BP Pulse Ox 04/27/19 07:19 98.1 F 86 18 153/95 H 96 PG Care Time/CCT Total # of Minutes Spent Total Time Spent with Patient: Total time spent is greater than 50% in coordination of care (as documented) at patient's floor/unit and/or counseling patient: (1) Diarrhea Diarrhea type: unspecified type Qualified Code(s): R19.7 - Diarrhea, unspecified
[2019-04-27] MEDS: SUCRALFATE 1 GM TAB PO SCH ×3 (13:51→21:25)
[2019-04-27] MEDS: LOPERAMIDE HCL 2 MG CAP PO SCH ×2 (13:54→17:30)
--- NOTE | 2019-04-27 14:03 | Gastroenterology Progress Note ---
Date of Service April 27, 2019 Assessment & Plan (1) Diarrhea: Cdiff neg, stool cx and giardia pending, WBC neg n/v--extensive workup in the past. Do not see TSH, FT4 or cortisol in chart so check these to look for metabolic reasons for this abd pain--bentyl helps some per patient--continue that. Subjective cc abd pain HPI Pt with ongoing mid to lower abd pain, dry heaves. One small stool and a smear this am per nursing greenish/black color. Review of Systems Respiratory: no dyspnea Cardiovascular: no chest pain Physical Exam Constitutional: WD/WN, vitals as above Respiratory: normal respiratory effort, lungs clear to auscultation Cardiovascular: RRR, no murmur, no edema Gastrointestinal (Abdomen): normal bowel sounds, soft, nontender, no hepatosplenomegaly Results & Data Vital Signs (Past 12 Hours) Vital Signs Temp Pulse Resp BP Pulse Ox 04/27/19 07:19 36.7 C 86 18 153/95 H 96 (1) Diarrhea Diarrhea type: unspecified type Qualified Code(s): R19.7 - Diarrhea, unspecified
[2019-04-27] MEDS: HYDROmorphone INJ 0.5 MG/0.5 ML SYR IV PRN ×2 (18:12→22:36)
[2019-04-27] MEDS: ACETAMINOPHEN 1000 MG/100 ML IV IV PRN (21:24)
[2019-04-27] MEDS: AMITRIPTYLINE HCL 50 MG TAB PO SCH (21:25)
[2019-04-28] MEDS: ONDANSETRON INJ 2 MG/ML 2 ML VIAL IV PRN ×4 (01:31→23:11)
[2019-04-28] MEDS: HYDROmorphone INJ 0.5 MG/0.5 ML SYR IV PRN ×5 (01:32→23:07)
[2019-04-28] MEDS: ACETAMINOPHEN 1000 MG/100 ML IV IV PRN ×2 (05:04→23:12)
[2019-04-28] MEDS ORDERED: LORazepam 0.5 MG/1 ML VIAL IV STA (06:51)
[2019-04-28] MEDS: PANTOprazole 40 MG TAB PO SCH (07:35)
[2019-04-28] MEDS: SUCRALFATE 1 GM TAB PO SCH ×4 (07:35→21:19)
[2019-04-28] MEDS: BuPROPion XL 150 MG TABCR PO SCH (07:36)
[2019-04-28] MEDS: GABAPENTIN 300 MG CAP PO SCH ×3 (07:36→21:19)
[2019-04-28] MEDS: LOPERAMIDE HCL 2 MG CAP PO SCH ×3 (07:38→18:05)
[2019-04-28] MEDS: FAMOTIDINE 20 MG in SYRINGE 3 ML IV SCH (07:38)
[2019-04-28 07:39] LABS: Basophils # (auto) 0.02 K/uL (0-0.2); Basophils % (auto) 0.1 %; Hemoglobin 16.3 g/dL (12.0-16.0); Immature Granulocytes # (auto) 0.04 K/uL (0.00-0.02); Immature Granulocytes % (auto) 0.3 %; Lymphocytes # (auto) 0.95 K/uL (1.2-3.4); Lymphocytes % (auto) 6.7 %; Mean Corpuscular Hemoglobin 33.1 pg (25-34); Mean Corpuscular Volume 97.6 fL (80-100); Mean Platelet Volume 9.6 fL (7.4-10.4); Monocytes # (auto) 1.03 K/uL (0.11-0.59); Monocytes % (auto) 7.2 %; Neutrophils # (auto) 12.24 K/uL (1.4-6.5); Neutrophils % (auto) 85.7 %; Platelet Count 190 K/uL (130-400); RDW Coefficient of Variation 13.4 % (11.5-14.5); RDW Standard Deviation 47.9 fL (36.4-46.3); Red Blood Count 4.92 M/uL (4.2-5.4); White Blood Count 14.28 K/uL (4.8-10.8)
[2019-04-28 08:08] LABS: Albumin Level 4.5 gm/dl (3.4-5.0); BUN Creatinine Ratio 15.1 (10-20); Calcium 10.2 mg/dl (8.5-10.1); Creatinine Clr Calc Pharmacy 68.2 ml/min; Est GFR (African American) 93.1; Est GFR (Non-African American) 80.3; Magnesium 2.1 mg/dl (1.8-2.4)
[2019-04-28 08:24] LABS: Albumin Globulin Ratio 1.4 (0.9-2); Bilirubin,Total 1.1 mg/dl (0.2-1); Globulin 3.3 gm/dl (2.5-4.0); Phosphorus 3.7 mg/dl (2.5-4.9); T4 Free Thyroxine 1.21 ng/dl (0.8-1.6); Thyroid Stimulating Hormone 1.13 uIu/ml (0.300-4.500); Total Protein 7.8 gm/dl (6.4-8.2)
[2019-04-28] MEDS: LACTATED RINGER'S 1,000 ML IV SCH ×2 (09:03→16:44)
--- NOTE | 2019-04-28 10:17 | XRay Report ---
XR KUB/Abdomen 1 view CLINICAL HISTORY: 63 years-old Female presenting with increasing abdo pain, CHECK NGT PLACEMENT. TECHNIQUE: Single supine view of the abdomen was obtained. COMPARISON: 04/29/[address] of the abdomen and pelvis from 04/26/2019. FINDINGS: Nasogastric tube terminates in the distal stomach with the sidehole contained within the gastric lume n. Surgical clips project over the epigastrium. Elevation of the left hemidiaphragm. Additional surgi smiley clips project over the central abdomen. Nonobstructive bowel gas pattern. No gross pneumoperitoneum allowing for supine technique. Allowing for bowel gas and stool, no calcifications to suggest nephrolithiasis. Mild degenerative changes of the lumbar spine. Blunting of the left costophrenic angle could relate t o atelectasis in the presence of the elevated left diaphragm. IMPRESSION: 1. Appropriately positioned nasogastric tube. Electronically signed by: Leonel Chan M.D. 04/28/2019 10:15 AM
--- NOTE | 2019-04-28 14:55 | Progress Note ---
DATE: 04/28/2019 SUBJECTIVE: The patient had a lot of nausea and vomiting earlier today and had a nasogastric tube placed. This has caused some decompression in her abdomen and she is feeling better. She has had no further vomiting. Her belly film this morning showed no excessive amount of gas present and her pain has diminished. Her C. diff and fecal leukocytes are negative. Thyroid studies are normal. Cortisol is actually a little bit elevated, so she is not hypoadrenal. PHYSICAL EXAMINATION: GENERAL: The patient appears in no acute distress. VITAL SIGNS: Blood pressure is 135/93, pulse 100, temperature is 37.1, O2 sat on room air 96%. LABORATORY DATA: White count is a little bit high at 14.28, hemoglobin 16.3, platelets are 190,000. Calcium is 10.2, albumin is 4.5, bilirubin 1.1, alkaline phosphatase 140, AST 19, ALT 15. TSH 1.13, free T4 is 1.21. Cortisol 33.54. Abdomen is soft, has minimal tenderness. There is some bilious drainage in her NG tube, which is well positioned on plain film. IMPRESSION: The patient has abdominal pain, nausea, vomiting. Her diarrhea seems to have been subsiding and her stool cultures and parasites are pending. NG decompression has helped relieve some of her symptoms today and will leave it in place overnight and see how she does tomorrow. I suspect she has underlying irritable bowel given her extensive workup in the past and currently without any objective abnormalities and possibly exacerbated by a viral infection that could have provoked worsening of her symptoms and the diarrhea which is improving. Will continue to follow the patient.
--- NOTE | 2019-04-28 19:03 | Hospitalist Progress Note ---
Date of Service April 28, 2019 Assessment & Plan (1) Intractable abdominal pain: Pepcid 20 mg IV daily Pantoprazole PO 40mg daily Continue low dose dilaudid only but offer patient Bentyl preferentially as opiates likely to prolong recovery. CT with dilated 1st/2nd duodenal portions but no stomach dilatation therefore not strongly suggestive of SMA syndrome. Rx - bowel rest, magnesium and phosphorus within normal limits. Given significant improvement with NG tube decompression suspect significant impact of dilated duodenum proximal to previous surgical site for SMA syndrome although no signs of bowel obstruction on imaging and she continues to have diarrhea BM. Extensive prior workup - will be guided by gastroenterology regarding further workup. TSH, free T4. Cortisol elevated. Stool culture negative for Shigella, Salmonella, Campylobacter. No E. coli Shiga toxin 102 detected. (2) Diarrhea: No formal diagnosis of IBS-D but given prior negative workups will treat as such. Loperamide prior to each meal now C. diff negative. Will defer more chronic medications to GI such as Alosetron. Giardia pending. (3) Intractable nausea and vomiting: Zofran 4 mg IV every 6 hours PRN Prior dyskinesia adverse effect to metoclopramide Large improvement with NG tube placement this morning after significant vomiting overnight. (4) Protein-calorie malnutrition: MG, PO levels every 2-3 days. Nutrition consult. (5) GERD (gastroesophageal reflux disease): Continue Pepcid and PPI, carafate (6) Dyslipidemia: Currently not on any medications for it will defer to her primary care physician any further plan (7) B12 deficiency: B12 367. Will start supplementation once back on more regular diet. (8) DVT prophylaxis: SCDs Code - full Dispo - continue on med/surg as unable to tolerate diet at present Subjective Patient feeling much improved after NG tube placed in the morning. Bilious fluid coming through NG tube on intermittent suction. She does not feel she has much of an appetite to eat. Discussed opiate such as Dilaudid likely to prolong recovery and recommend she any loss of this for severe pain. Review of Systems Review of Systems: All systems reviewed & are unremarkable except as noted in HPI & below Physical Exam Constitutional: + thin and + frail appearing; not in distress (abdominal pain) Eyes: normal visual perla by confrontation and + anicteric sclerae ENMT: Mouth: + dry oral mucous membranes NG tube in place Neck: normal visual inspection and trachea midline Respiratory: normal respiratory effort, lungs clear to auscultation Cardiovascular: RRR, no murmur, no edema Gastrointestinal (Abdomen): Inspection/Auscultation: abdomen normal to inspection (Well-healed surgical scars) and normal bowel sounds Percussion/Palpation: + abdomen tender (mild (improved) generalized tenderness) and abdomen soft Musculoskeletal: no cyanosis or clubbing, extremities motor strength 5/5 Skin: no rashes, warm and dry Neurologic: CN's II-XI intact bilaterally; no focal motor deficits Psychiatric: Orientation: alert and oriented x 3 Eye Contact: good eye contact Affect: euthymic affect Thought Process: linear/logical thought process Results & Data Vital Signs (Past 12 Hours) Vital Signs Temp Pulse Resp BP Pulse Ox 04/28/19 15:45 174/108 H 04/28/19 15:27 98.6 F 100 H 16 174/113 H 98 04/28/19 08:20 98.8 F 100 H 135/93 04/28/19 08:12 98.8 F 100 H 135/93 PG Care Time/CCT Total # of Minutes Spent Total Time Spent with Patient: Total time spent is greater than 50% in coordination of care (as documented) at patient's floor/unit and/or counseling patient: (1) Diarrhea Diarrhea type: unspecified type Qualified Code(s): R19.7 - Diarrhea, unspecified
[2019-04-28] MEDS ORDERED: ENOXAPARIN INJ 40 MG/0.4 ML SYR SQ ONE (19:07)
[2019-04-28] MEDS: AMITRIPTYLINE HCL 50 MG TAB PO SCH (21:19)
[2019-04-29] MEDS: LACTATED RINGER'S 1,000 ML IV SCH ×3 (00:50→17:24)
[2019-04-29] MEDS: ONDANSETRON INJ 2 MG/ML 2 ML VIAL IV PRN (03:49)
[2019-04-29] MEDS: HYDROmorphone INJ 0.5 MG/0.5 ML SYR IV PRN ×4 (03:49→19:54)
[2019-04-29 05:49] LABS: Basophils # (auto) 0.02 K/uL (0-0.2); Basophils % (auto) 0.2 %; Eosinophils # (auto) 0.15 K/uL (0-0.5); Eosinophils % (auto) 1.7 %; Hematocrit (blood only) 43.2 % (37-47); Hemoglobin 14.7 g/dL (12.0-16.0); Immature Granulocytes # (auto) 0.02 K/uL (0.00-0.02); Immature Granulocytes % (auto) 0.2 %; Lymphocytes # (auto) 1.36 K/uL (1.2-3.4); Lymphocytes % (auto) 15.5 %; Mean Corpuscular Hemoglobin 33.1 pg (25-34); Mean Corpuscular Volume 97.3 fL (80-100); Mean Platelet Volume 9.1 fL (7.4-10.4); Monocytes # (auto) 0.77 K/uL (0.11-0.59); Monocytes % (auto) 8.8 %; Neutrophils # (auto) 6.43 K/uL (1.4-6.5); Neutrophils % (auto) 73.6 %; Platelet Count 177 K/uL (130-400); RDW Coefficient of Variation 13.2 % (11.5-14.5); RDW Standard Deviation 47.3 fL (36.4-46.3); Red Blood Count 4.44 M/uL (4.2-5.4); White Blood Count 8.75 K/uL (4.8-10.8)
[2019-04-29 06:21] LABS: Albumin Level 3.6 gm/dl (3.4-5.0); BUN Creatinine Ratio 14.2 (10-20); Calcium 9.3 mg/dl (8.5-10.1); Creatinine Clr Calc Pharmacy 78.2 ml/min; Est GFR (African American) 107.1; Est GFR (Non-African American) 92.4; Potassium 3.6 mmol/L (3.5-5.1)
[2019-04-29 06:23] LABS: Albumin Globulin Ratio 1.2 (0.9-2); Bilirubin,Total 0.9 mg/dl (0.2-1); Globulin 2.9 gm/dl (2.5-4.0); Total Protein 6.6 gm/dl (6.4-8.2)
[2019-04-29] MEDS: PANTOprazole 40 MG TAB PO SCH (08:56)
[2019-04-29] MEDS: FAMOTIDINE 20 MG in SYRINGE 3 ML IV SCH (08:56)
[2019-04-29] MEDS: BuPROPion XL 150 MG TABCR PO SCH (08:56)
[2019-04-29] MEDS: LOPERAMIDE HCL 2 MG CAP PO SCH ×2 (08:57→12:34)
[2019-04-29] MEDS: SUCRALFATE 1 GM TAB PO SCH ×4 (08:57→20:46)
[2019-04-29] MEDS: GABAPENTIN 300 MG CAP PO SCH ×3 (08:57→20:46)
--- NOTE | 2019-04-29 13:56 | Gastroenterology Progress Note ---
Date of Service April 29, 2019 Assessment & Plan (1) Diarrhea: none at present but not eating-----Cdiff neg, stool cx neg so far, giardia neg, WBC neg. Stopped Imodium for now until we see if N/V has resolved then can resume. n/v--extensive workup in the past. TSH, and FT4 normal. Cortisol elevated so not hypoadrenal. ? Cyclic vomiting syndrome---she is on amitryptiline. Clamp NG for 4 hours and if tolerates that then DC NG abd pain--bentyl helps some per patient--continue that. Dr Tay Chase covering the weekend starting at 5 pm today Subjective cc abd pain HPI Pt has not further n/v since NG placed. No stools last 24 hours. Per nursing has had about 100 ml out since shift started and tolerated clamping NG for 1 hour after meds given. Has abd pain off and on. Review of Systems Respiratory: no dyspnea Cardiovascular: no chest pain Physical Exam Constitutional: WD/WN, vitals as above Respiratory: normal respiratory effort, lungs clear to auscultation Cardiovascular: RRR, no murmur, no edema Gastrointestinal (Abdomen): pos bs, soft, no guarding nor rebound Results & Data Vital Signs (Past 12 Hours) Vital Signs Temp Pulse Resp BP Pulse Ox 04/29/19 07:13 36.8 C 88 18 148/93 H 97 (1) Diarrhea Diarrhea type: unspecified type Qualified Code(s): R19.7 - Diarrhea, unspecified
[2019-04-29] MEDS: ENOXAPARIN INJ 40 MG/0.4 ML SYR SQ SCH (20:47)
[2019-04-29] MEDS: AMITRIPTYLINE HCL 50 MG TAB PO SCH (20:47)
--- NOTE | 2019-04-29 22:23 | Hospitalist Progress Note ---
Date of Service April 29, 2019 Assessment & Plan (1) Intractable abdominal pain: Suspected IBS-D as per gastroenterology. Will switch to Bentyl from PRN to BRANNON as using dilaudid instead of Bentyl despite advice to patient that this would prolong her recovery Given significant improvement with NG tube decompression suspect significant impact of dilated duodenum proximal to previous surgical site for SMA syndrome although no signs of bowel obstruction on imaging. Extensive prior workup - ?IBS-D, adhesions, viral gastroenteritis (2) Diarrhea: Appears improved. Viral gastroenteritis vs. IBS-D. d/c Loperamide. Will defer chronic medications for IBS-D to GI such as Alosetron. Stool workup negative for infection. (3) Intractable nausea and vomiting: Zofran 4 mg IV every 6 hours PRN Prior dyskinesia adverse effect to metoclopramide Large improvement with NG tube, now clamped. Remove in 4 hours as per GI recommendations if N&V do not reoccur. ?cyclic vomiting syndrome. She does have chronic marijuana use concerning for cannabis hyperemesis syndrome although she reports although she reports her nausea issues pre-date her cannabis use and she uses the cannabis to help with pain and nausea. Never noticed improvement with hot-water showers. (4) Protein-calorie malnutrition: MG, PO levels every 2-3 days. Nutrition consult. (5) GERD (gastroesophageal reflux disease): Continue Pepcid and PPI, carafate (6) Dyslipidemia: Currently not on any medications for it will defer to her primary care physician any further plan (7) B12 deficiency: B12 367. Will start supplementation once back on more regular diet. (8) Hypertension: Defer starting treatment given acute illness. Continue to monitor (9) DVT prophylaxis: SCDs, lovenox 40mg SQ daily Code - full Dispo - continue on med/surg as unable to tolerate diet at present Subjective Patient seen just when NG tube clamped. Green bilious fluid from NG tube. She reports abdominal pain is worse since yesterday however her nausea and vomiting have resolved. She reports not having much of an appetite but has been tolerating small amounts of clear liquids. Diarrhea has resolved. Review of Systems Review of Systems: All systems reviewed & are unremarkable except as noted in HPI & below Physical Exam Constitutional: + thin and + frail appearing; not in distress (abdominal pain) Eyes: normal visual perla by confrontation and + anicteric sclerae ENMT: external ear and nose normal, oropharynx normal Mouth: + dry oral mucous membranes Neck: normal visual inspection and trachea midline Respiratory: normal respiratory effort, lungs clear to auscultation Cardiovascular: RRR, no murmur, no edema Gastrointestinal (Abdomen): Inspection/Auscultation: abdomen normal to inspection (Well-healed surgical scars) and normal bowel sounds Percussion/Palpation: + abdomen tender (mild generalized tenderness similar to previous day) and abdomen soft; no guarding Musculoskeletal: no cyanosis or clubbing, extremities motor strength 5/5 Skin: no rashes, warm and dry Neurologic: moves all extremities and awake; no focal motor deficits Motor/Sensory: no sensory deficit Psychiatric: Orientation: alert and oriented x 3 Eye Contact: good eye contact Affect: euthymic affect Thought Process: linear/logical thought process Results & Data Vital Signs (Past 12 Hours) Vital Signs Temp Pulse Resp BP Pulse Ox 04/29/19 15:19 97.7 F 81 16 164/95 H 97 PG Care Time/CCT Total # of Minutes Spent Total Time Spent with Patient: Total time spent is greater than 50% in coordination of care (as documented) at patient's floor/unit and/or counseling patient: (1) Diarrhea Diarrhea type: unspecified type Qualified Code(s): R19.7 - Diarrhea, unspecified
[2019-04-30] MEDS: LACTATED RINGER'S 1,000 ML IV SCH ×3 (02:40→18:06)
[2019-04-30] MEDS: HYDROmorphone INJ 0.5 MG/0.5 ML SYR IV PRN ×3 (04:11→16:30)
[2019-04-30 05:52] LABS: Basophils # (auto) 0.02 K/uL (0-0.2); Basophils % (auto) 0.3 %; Eosinophils # (auto) 0.26 K/uL (0-0.5); Eosinophils % (auto) 3.5 %; Hematocrit (blood only) 41.7 % (37-47); Hemoglobin 13.9 g/dL (12.0-16.0); Immature Granulocytes # (auto) 0.02 K/uL (0.00-0.02); Immature Granulocytes % (auto) 0.3 %; Lymphocytes % (auto) 14.6 %; Mean Corpuscular Hemoglobin 32.3 pg (25-34); Mean Corpuscular Hgb Conc 33.3 g/dL (32-36); Mean Platelet Volume 8.7 fL (7.4-10.4); Monocytes # (auto) 0.94 K/uL (0.11-0.59); Monocytes % (auto) 12.5 %; Neutrophils # (auto) 5.18 K/uL (1.4-6.5); Neutrophils % (auto) 68.8 %; Platelet Count 124 K/uL (130-400); RDW Coefficient of Variation 12.9 % (11.5-14.5); RDW Standard Deviation 45.2 fL (36.4-46.3); White Blood Count 7.52 K/uL (4.8-10.8)
[2019-04-30 06:21] LABS: Albumin Level 3.3 gm/dl (3.4-5.0); BUN Creatinine Ratio 10.4 (10-20); Calcium 9.1 mg/dl (8.5-10.1); Creatinine Clr Calc Pharmacy 91.7 ml/min; Est GFR (African American) 112.9; Est GFR (Non-African American) 97.4; Magnesium 1.8 mg/dl (1.8-2.4); Potassium 3.3 mmol/L (3.5-5.1)
[2019-04-30 06:24] LABS: Albumin Globulin Ratio 1.2 (0.9-2); Bilirubin,Total 1.2 mg/dl (0.2-1); Globulin 2.8 gm/dl (2.5-4.0); Phosphorus 2.3 mg/dl (2.5-4.9); Total Protein 6.1 gm/dl (6.4-8.2)
[2019-04-30] MEDS ORDERED: POTASSIUM PHOS 3 MMOL/1 ML INFUSION IV STA (07:35)
[2019-04-30] MEDS ORDERED: POTASSIUM PHOSPHATE 15 MMOL in SODIUM CHLORIDE 0.9% 250 ML IV ONE (07:45)
[2019-04-30] MEDS: PANTOprazole 40 MG TAB PO SCH (08:17)
[2019-04-30] MEDS: cloNIDine HCL 0.1 MG TAB PO SCH ×2 (08:17→20:40)
[2019-04-30] MEDS: DICYCLOMINE HCL 10 MG CAP PO SCH ×4 (08:17→20:40)
[2019-04-30] MEDS: SUCRALFATE 1 GM TAB PO SCH ×2 (08:17→20:40)
[2019-04-30] MEDS: GABAPENTIN 300 MG CAP PO SCH ×3 (08:17→20:40)
[2019-04-30] MEDS: BuPROPion XL 150 MG TABCR PO SCH (08:18)
[2019-04-30] MEDS: FAMOTIDINE 20 MG in SYRINGE 3 ML IV SCH (08:50)
[2019-04-30] MEDS: ONDANSETRON INJ 2 MG/ML 2 ML VIAL IV PRN (08:50)
[2019-04-30] MEDS: POTASSIUM CHLORIDE / WTR 10 MEQ/100 ML PLCT IV SCH ×2 (11:11→12:33)
--- NOTE | 2019-04-30 13:24 | Gastroenterology Progress Note ---
Date of Service April 30, 2019 Assessment & Plan (1) Diarrhea: none at present but not eating-----Cdiff neg, stool cx neg so far, giardia neg, WBC neg. Stopped Imodium for now until we see if N/V has resolved then can resume. n/v-- Clamp NG for 4 hours and if tolerates that then DC NG abd pain--bentyl helps some per patient--continue that. Subjective Patient seen just when NG tube clamped. Green bilious fluid from NG tube. She reports abdominal pain is worse since yesterday however her nausea and vomiting have resolved. She reports not having much of an appetite but has been tolerating small amounts of clear liquids. Diarrhea has resolved. Results & Data Vital Signs (Past 12 Hours) Vital Signs Temp Pulse Resp BP Pulse Ox 04/30/19 06:53 36.6 C 76 18 130/84 95 (1) Diarrhea Diarrhea type: unspecified type Qualified Code(s): R19.7 - Diarrhea, unspecified
--- NOTE | 2019-04-30 13:30 | Gastroenterology Progress Note ---
Date of Service April 30, 2019 Assessment & Plan (1) SMAS (superior mesenteric artery syndrome): CT show dilation before the SMA. Wonder if the surgically moved D#3 has moved back into old position. Consider re-eval by surgery. Check a UGI follow through next time when she is symptomatic. Suggested to lie on left side or prone after eating, recc small meals. Alternatively site with body forward on a table. This is to change the angle of the SMA and allow better forward flow. Present on Admission?: Yes (2) Abdominal pain: Resolved. Ok to advance diet. She need to quit smoking. Subjective Doing well. No pain or nausea. Has an appetite. Physical Exam Gastrointestinal (Abdomen): Inspection/Auscultation: abdomen normal to inspection and + scaphoid Percussion/Palpation: + abdomen tender (mild epigatric) and abdomen soft Results & Data Vital Signs (Past 12 Hours) Vital Signs Temp Pulse Resp BP Pulse Ox 04/30/19 06:53 36.6 C 76 18 130/84 95 (1) Abdominal pain Abdominal location: unspecified location Qualified Code(s): R10.9 - Unspecified abdominal pain
[2019-04-30] MEDS: AMITRIPTYLINE HCL 50 MG TAB PO SCH (20:39)
[2019-04-30] MEDS: ENOXAPARIN INJ 40 MG/0.4 ML SYR SQ SCH (20:40)
--- NOTE | 2019-04-30 23:31 | Hospitalist Progress Note ---
Date of Service April 30, 2019 Assessment & Plan (1) Intractable abdominal pain: Suspected IBS-D vs. SMA syndrome as per gastroenterology. Continue BRANNON Bentyl. Will continue to reduce frequency of dilaudid if she takes it regularly. Given significant improvement with NG tube decompression suspect significant impact of dilated duodenum proximal to previous surgical site for SMA syndrome although no signs of bowel obstruction on imaging. Appreciate GI recommendations - consider small bowel follow through on next occurrence (2) Diarrhea: Stool workup negative for infection. ?IBS-D (3) Intractable nausea and vomiting: Zofran 4 mg IV every 6 hours PRN Prior dyskinesia adverse effect to metoclopramide No re-occurrence with removal of NG tube SMA syndrome vs. cannabis hyperemesis syndrome vs. cyclic vomiting syndrome. (4) Protein-calorie malnutrition: MG, PO levels every 2-3 days. Bita golden today Nutrition consult. (5) GERD (gastroesophageal reflux disease): Continue Pepcid and PPI, carafate (6) Dyslipidemia: Currently not on any medications for it will defer to her primary care physician any further plan (7) B12 deficiency: B12 367. Start cyanocobalamin 500 mcg daily (8) Hypertension: Improved with clonidine use (mainly using for abdominal pain), continue to monitor. (9) DVT prophylaxis: SCDs, lovenox 40mg SQ daily Code - full Dispo - continue on med/surg as unable to tolerate diet at present Subjective Patient reports slowly improving. Diarrhea started again. Wishes to be ad vanced to low fiber diets as her appetite has increased. Continues to have abdominal pain requiring Dilaudid but she is okay with the reduced frequency and dosing. Unsure whether the scheduled Bentyl or clonidine helping with the pain. Review of Systems Review of Systems: All systems reviewed & are unremarkable except as noted in HPI & below Physical Exam Constitutional: + thin and + frail appearing; not in distress Eyes: normal visual perla by confrontation and + anicteric sclerae ENMT: external ear and nose normal, oropharynx normal Neck: normal visual inspection and trachea midline Respiratory: normal respiratory effort, lungs clear to auscultation Cardiovascular: RRR, no murmur, no edema Gastrointestinal (Abdomen): Inspection/Auscultation: abdomen normal to inspection (Well-healed surgical scars) and normal bowel sounds Percussion/Palpation: + abdomen tender (mild generalized tenderness) and abdomen soft; no guarding Musculoskeletal: no cyanosis or clubbing, extremities motor strength 5/5 Skin: no rashes, warm and dry Neurologic: moves all extremities and awake; no focal motor deficits Motor/Sensory: no sensory deficit Psychiatric: Orientation: alert and oriented x 3 Eye Contact: good eye contact Affect: euthymic affect Mood: + anxious mood Thought Process: linear/logical thought process Results & Data Vital Signs (Past 12 Hours) Vital Signs Temp Pulse Resp BP Pulse Ox 04/30/19 23:14 98.4 F 66 18 132/83 97 04/30/19 20:40 73 124/80 04/30/19 15:01 99.1 F 68 16 151/96 H 95 PG Care Time/CCT Total # of Minutes Spent Total Time Spent with Patient: Total time spent is greater than 50% in coordination of care (as documented) at patient's floor/unit and/or counseling patient: (1) Diarrhea Diarrhea type: unspecified type Qualified Code(s): R19.7 - Diarrhea, unspecified
[2019-05-01] MEDS: HYDROmorphone INJ 0.5 MG/0.5 ML SYR IV PRN ×2 (04:41→12:13)
[2019-05-01 04:44] LABS: Basophils # (auto) 0.03 K/uL (0-0.2); Basophils % (auto) 0.4 %; Eosinophils # (auto) 0.38 K/uL (0-0.5); Eosinophils % (auto) 4.8 %; Hematocrit (blood only) 38.7 % (37-47); Hemoglobin 12.7 g/dL (12.0-16.0); Immature Granulocytes # (auto) 0.01 K/uL (0.00-0.02); Immature Granulocytes % (auto) 0.1 %; Lymphocytes # (auto) 1.28 K/uL (1.2-3.4); Lymphocytes % (auto) 16.3 %; Mean Corpuscular Hemoglobin 31.8 pg (25-34); Mean Corpuscular Hgb Conc 32.8 g/dL (32-36); Mean Platelet Volume 8.9 fL (7.4-10.4); Monocytes # (auto) 0.87 K/uL (0.11-0.59); Monocytes % (auto) 11.1 %; Neutrophils # (auto) 5.27 K/uL (1.4-6.5); Neutrophils % (auto) 67.3 %; Platelet Count 142 K/uL (130-400); RDW Standard Deviation 45.3 fL (36.4-46.3); Red Blood Count 3.99 M/uL (4.2-5.4); White Blood Count 7.84 K/uL (4.8-10.8)
[2019-05-01 05:13] LABS: Albumin Level 3.1 gm/dl (3.4-5.0); BUN Creatinine Ratio 11.7 (10-20); Calcium 9.2 mg/dl (8.5-10.1); Est GFR (African American) 106.1; Est GFR (Non-African American) 91.6; Magnesium 1.9 mg/dl (1.8-2.4); Potassium 3.6 mmol/L (3.5-5.1)
[2019-05-01 05:29] LABS: Albumin Globulin Ratio 1.1 (0.9-2); Bilirubin,Total 0.6 mg/dl (0.2-1); Globulin 2.7 gm/dl (2.5-4.0); Total Protein 5.8 gm/dl (6.4-8.2)
[2019-05-01] MEDS: GABAPENTIN 300 MG CAP PO SCH ×3 (08:00→21:00)
[2019-05-01] MEDS: BuPROPion XL 150 MG TABCR PO SCH (08:00)
[2019-05-01] MEDS: cloNIDine HCL 0.1 MG TAB PO SCH ×2 (08:01→21:01)
[2019-05-01] MEDS: SUCRALFATE 1 GM TAB PO SCH ×2 (08:01→21:00)
[2019-05-01] MEDS: DICYCLOMINE HCL 10 MG CAP PO SCH ×4 (08:01→21:00)
[2019-05-01] MEDS: CYANOCOBALAMIN 500 MCG TABLET (VITAMIN B-12) PO SCH (08:50)
[2019-05-01] MEDS: FAMOTIDINE 20 MG in SYRINGE 3 ML IV SCH (08:50)
[2019-05-01] MEDS: PANTOprazole 40 MG TAB PO SCH (08:51)
[2019-05-01] MEDS: OXYCODONE HCL IR 5 MG TAB (IMMEDIATE RELEASE) PO PRN ×2 (16:19→20:59)
[2019-05-01] MEDS: AMITRIPTYLINE HCL 50 MG TAB PO SCH (21:01)
[2019-05-01] MEDS: ENOXAPARIN INJ 40 MG/0.4 ML SYR SQ SCH (21:01)
--- NOTE | 2019-05-01 21:49 | Hospitalist Progress Note ---
Date of Service May 01, 2019 Assessment & Plan (1) Intractable abdominal pain: Suspected IBS-D, adhesions, repeat SMA syndrome. Some RLQ pain today which clearly isn't her SMA syndrome. Dr. Garg mentioned surgical opinion to the patient versus small bowel follow- through if her symptoms return. I discussed both options with the patient. Given improvement I do not feel she warrants inpatient transfer but recommend she discusses this with her silverware etcher tomorrow. I'd be concerned of increasing her pain with a small bowel follow through at this stage as may make it worse but again recommend she discusses with her usual silverware etcher tomorrow. I do not feel as a local surgical opinion would be of benefit as there is nothing urgent and her surgery was in [place]. Continue BRANNON Bentyl. Switch Dilaudid to oxycodone - advised to reduce use as likely prolonging recovery. No real improvement with clonidine therefore will d/c. Significant improvement with NG tube decompression therefore suspect a large portion of her pain was from dilated duodenum proximal to previous surgical site for SMA syndrome. (2) Diarrhea: Stool workup negative for infection. ?IBS-D (3) Intractable nausea and vomiting: Resolved with NG tube insertion and bowel rest, now removed. Zofran 4 mg IV every 6 hours PRN Prior dyskinesia adverse effect to metoclopramide DDx SMA syndrome, cannabis hyperemesis syndrome, cyclic vomiting syndrome, viral gastroenteritis (4) Protein-calorie malnutrition: MG, PO levels every 2-3 days. Nutrition consult. (5) GERD (gastroesophageal reflux disease): Continue Pepcid and PPI, carafate (6) Dyslipidemia: Currently not on any medications for it will defer to her primary care physician any further plan (7) B12 deficiency: B12 367. Start cyanocobalamin 500 mcg daily (8) Hypertension: Improved with clonidine use (mainly using for abdominal pain), now discontinuing clonidine will continue to monitor. (9) DVT prophylaxis: SCDs, lovenox 40mg SQ daily Code - full Dispo - continue on med/surg, switch to oral pain meds. Aim for d/c home tomorrow after GI assessment. Subjective Patient reports ongoing pain with any relief using opiates. She wishes to switch to oral medication with the aim of trying to get home. Her nausea, vomiting and diarrhea have much improved. 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 Abdominal pain remains but more on right side today. Severity 3/10 at best today after having dilaudid, 9/10 after food. Aching. Bronwyn erating small amounts of low fiber, lactose intolerance diet at this time. Review of Systems Review of Systems: All systems reviewed & are unremarkable except as noted in HPI & below Physical Exam Constitutional: + thin and + frail appearing; not in distress Eyes: + anicteric sclerae ENMT: external ear and nose normal, oropharynx normal Neck: normal visual inspection and trachea midline Respiratory: normal respiratory effort, lungs clear to auscultation Cardiovascular: RRR, no murmur, no edema Gastrointestinal (Abdomen): Inspection/Auscultation: abdomen normal to inspection (Well-healed surgical scars) and normal bowel sounds Percussion/Palpation: + abdomen tender (RUQ, RLQ tenderness) and abdomen soft; no guarding, abdomen not rigid and no hepatosplenomegaly Musculoskeletal: no cyanosis or clubbing, extremities motor strength 5/5 Skin: no rashes, warm and dry Neurologic: moves all extremities and awake; no focal motor deficits Motor/Sensory: no sensory deficit Psychiatric: Orientation: alert and oriented x 3 Eye Contact: good eye contact Affect: euthymic affect Thought Process: linear/logical thought process Results & Data Vital Signs (Past 12 Hours) Vital Signs Temp Pulse Resp BP Pulse Ox 05/01/19 15:25 98.4 F 73 16 128/85 96 PG Care Time/CCT Total # of Minutes Spent Total Time Spent with Patient: Total time spent is greater than 50% in coordination of care (as documented) at patient's floor/unit and/or counseling patient: (1) Diarrhea Diarrhea type: unspecified type Qualified Code(s): R19.7 - Diarrhea, unspecified
[2019-05-02] MEDS: OXYCODONE HCL IR 5 MG TAB (IMMEDIATE RELEASE) PO PRN ×4 (06:42→21:36)
[2019-05-02 07:20] LABS: Albumin Level 3.2 gm/dl (3.4-5.0); BUN Creatinine Ratio 15.8 (10-20); Calcium 9.9 mg/dl (8.5-10.1); Creatinine Clr Calc Pharmacy 63.3 ml/min; Est GFR (African American) 85.1; Est GFR (Non-African American) 73.4
[2019-05-02 07:23] LABS: Albumin Globulin Ratio 1.1 (0.9-2); Bilirubin,Total 0.6 mg/dl (0.2-1); Globulin 2.8 gm/dl (2.5-4.0)
[2019-05-02] MEDS: CYANOCOBALAMIN 500 MCG TABLET (VITAMIN B-12) PO SCH (07:50)
[2019-05-02] MEDS: PANTOprazole 40 MG TAB PO SCH (07:50)
[2019-05-02] MEDS: BuPROPion XL 150 MG TABCR PO SCH (07:51)
[2019-05-02] MEDS: SUCRALFATE 1 GM TAB PO SCH ×2 (07:51→20:20)
[2019-05-02] MEDS: GABAPENTIN 300 MG CAP PO SCH ×3 (07:51→20:20)
[2019-05-02] MEDS: DICYCLOMINE HCL 10 MG CAP PO SCH ×4 (07:52→20:20)
[2019-05-02] MEDS: FAMOTIDINE 20 MG in SYRINGE 3 ML IV SCH (10:07)
--- NOTE | 2019-05-02 16:57 | Progress Note ---
DATE: 05/02/2019 The patient has had her nasogastric tube removed and she is no longer vomiting. She tried some beef and noodles today and was able to keep it down, but she gets significant abdominal pain every time she tries to eat. Her CAT scan continues to show some distention of her stomach and proximal duodenum. She was seen over the weekend by Dr. Tay Chase who is covering from [place] and he feels that her operation for SMA syndrome may have regressed as her symptoms seem to be the same as when she had her operation 3 years ago and the x-ray findings suggest continued proximal bowel dilation. It was his opinion that she may benefit from reassessment by Dr. Johns who operated on her before. IMPRESSION: The patient continues to have abdominal pain after eating with distended stomach and proximal duodenum. At this point, I would recommend that we consider hospital transfer to [place] for evaluation by Dr. Johns concerning recurrent superior mesenteric artery syndrome. MTDD
[2019-05-02] MEDS: ENOXAPARIN INJ 40 MG/0.4 ML SYR SQ SCH (20:20)
[2019-05-02] MEDS: AMITRIPTYLINE HCL 50 MG TAB PO SCH (20:20)
--- NOTE | 2019-05-02 22:04 | Hospitalist Progress Note ---
Date of Service May 02, 2019 Assessment & Plan (1) Intractable abdominal pain: Suspected IBS-D, adhesions, repeat SMA syndrome. Some RLQ pain today which clearly isn't her SMA syndrome. Dr. Garg mentioned surgical opinion to the patient versus small bowel follow- through if her symptoms return. Dr. Arroyo though evaluated patient and believes patient needs to be transferred to [place]. Main issue is that patient conitnues to require large amounts of opiates. Significant improvement with NG tube decompression therefore suspect a large portion of her pain was from dilated duodenum proximal to previous surgical site for SMA syndrome. (2) Diarrhea: Stool workup negative for infection. ?IBS-D (3) Intractable nausea and vomiting: Resolved with NG tube insertion and bowel rest, now removed. Zofran 4 mg IV every 6 hours PRN Prior dyskinesia adverse effect to metoclopramide DDx SMA syndrome, cannabis hyperemesis syndrome, cyclic vomiting syndrome, viral gastroenteritis (4) Protein-calorie malnutrition: MG, PO levels every 2-3 days. Nutrition consult. (5) GERD (gastroesophageal reflux disease): Continue Pepcid and PPI, carafate (6) Dyslipidemia: Currently not on any medications for it will defer to her primary care physician any further plan (7) B12 deficiency: B12 367. Start cyanocobalamin 500 mcg daily (8) Hypertension: Improved with clonidine use (mainly using for abdominal pain), now discontinuing clonidine will continue to monitor. (9) DVT prophylaxis: SCDs, lovenox 40mg SQ daily Code - full Subjective Patient continues to have ongoing pain especialy when she eats. She states pain occurs after eating. She is asking to be transferred to [place]. Review of Systems Review of Systems: Review of system Constitutional: No fever / no chills /generalized weakness and fatigue Eyes: no blurring of vision / no eye pain / no discharge / no redness ENT: no hearing loss / no epistaxis /no swallowing problems Respiratory: no cough / no wheezing / no SOB / no hemoptysis Cardiovascular: no Chest pain / no lower extremity edema / no palpitation Abdomen: Generalized abdominal pain, diarrhea, dry heaves Musculoskeletal: no joint pain / no muscle pain / no joint swelling Genitourinary: no dysuria / no incontinence / no urinary retention Neurologic: no focal weakness / no numbness/tingling / no ataxia Psychiatric: no depression symptoms / no anxiety / no insomnia Endocrine: no excessive thirst / no excessive urination Hematologic: no abnormal bleeding / no bruising / no LN swelling Skin: No rash / no pallor Physical Exam Physical Exam: Constitutional: + thin and + frail appearing; not in distress Eyes: + anicteric sclerae ENMT: external ear and nose normal, oropharynx normal Neck: normal visual inspection and trachea midline Respiratory: normal respiratory effort, lungs clear to auscultation Cardiovascular: RRR, no murmur, no edema Gastrointestinal (Abdomen): Inspection/Auscultation: abdomen normal to inspection (Well-healed surgical scars) and normal bowel sounds Percussion/Palpation: + abdomen tender (RUQ, RLQ tenderness) and abdomen soft; no guarding, abdomen not rigid and no hepatosplenomegaly Musculoskeletal: no cyanosis or clubbing, extremities motor strength 5/5 Skin: no rashes, warm and dry Neurologic: moves all extremities and awake; no focal motor deficits Janneth r/Sensory: no sensory deficit Psychiatric: Orientation: alert and oriented x 3 Eye Contact: good eye contact Affect: euthymic affect Thought Process: linear/logical thought process Results & Data Vital Signs (Past 12 Hours) Vital Signs Temp Pulse Resp BP Pulse Ox 05/02/19 16:11 36.9 C 88 18 120/80 96 PG Care Time/CCT Total # of Minutes Spent Total Time Spent with Patient: Total time spent is greater than 50% in coordination of care (as documented) at patient's floor/unit and/or counseling patient: (1) Diarrhea Diarrhea type: unspecified type Qualified Code(s): R19.7 - Diarrhea, unspecified
[2019-05-03] MEDS: OXYCODONE HCL IR 5 MG TAB (IMMEDIATE RELEASE) PO PRN ×3 (06:50→17:51)
[2019-05-03] MEDS: PANTOprazole 40 MG TAB PO SCH (09:22)
[2019-05-03] MEDS: DICYCLOMINE HCL 10 MG CAP PO SCH ×4 (09:22→20:45)
[2019-05-03] MEDS: GABAPENTIN 300 MG CAP PO SCH ×3 (09:22→20:45)
[2019-05-03] MEDS: SUCRALFATE 1 GM TAB PO SCH ×2 (09:22→20:45)
[2019-05-03] MEDS: CYANOCOBALAMIN 500 MCG TABLET (VITAMIN B-12) PO SCH (09:23)
[2019-05-03] MEDS: BuPROPion XL 150 MG TABCR PO SCH (09:23)
[2019-05-03] MEDS: FAMOTIDINE 20 MG in SYRINGE 3 ML IV SCH (09:26)
[2019-05-03] MEDS ORDERED: OPTIRAY 320 125ml IV PRN (13:09)
--- NOTE | 2019-05-03 13:50 | CT Scan Report ---
CT ANGIOGRAPHY OF THE ABDOMEN CLINICAL HISTORY: Evaluate for SMA: aortomesenteric angle, distance. COMPARISON STUDY: CT of the abdomen and pelvis May 26, 2019. CTA of the abdomen and pelvis Novem 2015. TECHNIQUE: Helical axial images of the abdomen were obtained during arterial phase following intraven ous injection of 120 cc Optiray 320 IV. Sagittal and coronal reconstructions were viewed as well as m aximal intensity projections on an independent 3-D workstation. Automated exposure control was utiliz ed for the study. A dose lowering technique was utilized adhering to the principles of ALARA. FINDINGS: Elevation of the left hemidiaphragm is unchanged. Pneumobilia is again noted. No pneumatosi s, free air or portal venous gas is present. Postsurgical findings at the gastroesophageal junction a re noted. There is moderate cardiomegaly. Arterial phase images of the spleen, adrenal glands and kid neys are unremarkable. There is no abdominal adenopathy or ascites. The superior mesenteric artery, c eliac axis and bilateral renal arteries are patent as is the inferior mesenteric artery. There is mil d plaque. An accessory right renal artery is noted. The aortomesenteric distance is 7 mm. Aortomesent silvia angle is 17 degrees. There is no gastric distention. There is moderate dilatation of the second portion of the duodenum. There are, caliber change of the duodenum does not appear to the level of th e superior mesenteric artery. IMPRESSION: Aortomesenteric distance of 7 mm and aorta mesenteric angle is 17 degrees. Moderate dila tation of the duodenum without gastric distention. Caliber change of the duodenum does not appear to be at the level of the superior mesenteric artery. Although the measurements are borderline for SMA s yndrome, the overall appearance is not strongly suggestive of SMA syndrome. Electronically signed by: Paddy Rodriguez M.D. 05/03/2019 1:49 PM
--- NOTE | 2019-05-03 14:03 | Fluoroscopy Report ---
SINGLE CONTRAST UPPER GI SERIES CLINICAL HISTORY: Nausea. Reported history of SMA syndrome. COMPARISON STUDY: Abdominal CT performed the same day 05/03/2019. TECHNIQUE: A single contrast upper GI series was performed to assess transit time contrast through th e duodenum. Spot images of the esophagus and stomach were obtained in multiple obliquities both uprig ht and prone. FINDINGS: The patient swallowed barium without difficulty. The esophagus is structurally normal without evidenc e of intrinsic or extrinsic mass. There is mild/moderate dysmotility in the distal esophagus. No jass roesophageal reflux was observed during the examination. The gastroesophageal junction distends joseph lly. Postoperative changes consistent with previous fundoplication. There is no evidence of gastric mass o r ulceration. Enteric contrast across the duodenal midline/SMA at 5.1 minutes. There is mild focal na rrowing of the duodenum in the midline with proximal duodenal dilatation. No high-grade stenosis is i dentified. The proximal small bowel loops are normal as imaged. Fluoroscopy time: 1.6 minutes Fluoroscopic images: 16 IMPRESSION: 1. Enteric contrast crosses the duodenal midline at 5.1 minutes. 2. There is narrowing of the duodenum in the midline with mild dilatation of the proximal duodenum. T his is nonspecific but could be seen in setting of SMA syndrome as clinically suspected. 3. Esophageal dysmotility and post-fundoplication change as above. Electronically signed by: Feliz Modi M.D. 05/03/2019 2:01 PM
[2019-05-03] MEDS: ACETAMINOPHEN 1000 MG/100 ML IV IV PRN (14:36)
--- NOTE | 2019-05-03 18:03 | Progress Note ---
DATE: 05/03/2019 SUBJECTIVE: The patient underwent upper GI and CT angiogram today to try to further define whether or not the SMA syndrome is impacting her clinical symptoms. The upper GI showed that there is not a significant compression of her transverse duodenum and the stomach is not dilated and the CT angiogram confirmed that the angle of 70 degrees is not compressing the duodenum following the surgery that she has had to help relieve her condition previously. The patient states that she continues to periodically have these episodes of abdominal pain and vomiting that she had prior to her SMA syndrome operation. Following the operation, she had complete relief of these symptoms for over 2 years, now they seem to be coming back for unclear reasons. 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 At this point, I recommend that we consider a second opinion at a medical center to review her case and see if anything has been overlooked or if there are any other options to be considered. She is leaning towards having this done at [facility] as an outpatient and hopefully, we can get this arranged tomorrow so she is willing to be discharged tomorrow and pursue this as an outpatient.
[2019-05-03] MEDS: ENOXAPARIN INJ 40 MG/0.4 ML SYR SQ SCH (20:45)
[2019-05-03] MEDS: AMITRIPTYLINE HCL 50 MG TAB PO SCH (20:45)
--- NOTE | 2019-05-03 22:52 | Hospitalist Progress Note ---
Date of Service May 03, 2019 Assessment & Plan (1) Intractable abdominal pain: Suspected IBS-D, adhesions, concerned over possible SMA syndrome. D/W with [facility] [place], not accepting patient fro transfer, but willing to see patient as an outpatient. Patient states she is unable to travel to [place]. D/W [facility] [place] surgical team, and patient will require a cta scan of abd/pelvis; and patient will require a GI follow through upper series This will help confirm if patient has SMA syndrome or not Dr. Arroyo though evaluated patient and believes patient needs to be transferred to [place]. Main issue is that patient conitnue to require large amounts of opiates. Significant improvement with NG tube decompression therefore suspect a large portion of her pain was from dilated duodenum proximal to previous surgical site for SMA syndrome. Update: Workup appears to rule out SMA syndrome. Patient would like to followup with [facility] as an outpatient. (2) Diarrhea: Stool workup negative for infection. ?IBS-D Appears to have resolved. (3) Intractable nausea and vomiting: Resolved with NG tube insertion and bowel rest, now removed. Zofran 4 mg IV every 6 hours PRN Prior dyskinesia adverse effect to metoclopramide DDx SMA syndrome, cannabis hyperemesis syndrome, cyclic vomiting syndrome, viral gastroenteritis (4) Protein-calorie malnutrition: MG, PO levels every 2-3 days. Nutrition consult. (5) GERD (gastroesophageal reflux disease): Continue Pepcid and PPI, carafate (6) Dyslipidemia: Currently not on any medications for it will defer to her primary care physician any further plan (7) B12 deficiency: B12 367. Start cyanocobalamin 500 mcg daily (8) Hypertension: Improved with clonidine use (mainly using for abdominal pain), now discontinuing clonidine will continue to monitor. (9) DVT prophylaxis: SCDs, lovenox 40mg SQ daily Code - full Subjective 63 yo female is tearful that she was not accepted to [facility] for [facility]. Patient reports she continues to have abdominal pain. It improves to a 7/10, when taking pain medicine. Patient denies any nausea, vomiting, diarrhea. Review of Systems Review of Systems: Review of system Constitutional: No fever / no chills /generalized weakness and fatigue Eyes: no blurring of vision / no eye pain / no discharge / no redness ENT: no hearing loss / no epistaxis /no swallowing problems Respiratory: no cough / no wheezing / no SOB / no hemoptysis Cardiovascular: no Chest pain / no lower extremity edema / no palpitation Abdomen: Generalized abdominal pain, diarrhea, dry heaves Musculoskeletal: no joint pain / no muscle pain / no joint swelling Genitourinary: no dysuria / no incontinence / no urinary retention Neurologic: no focal weakness / no numbness/tingling / no ataxia Psychiatric: no depression symptoms / no anxiety / no insomnia Endocrine: no excessive thirst / no excessive urination Hematologic: no abnormal bleeding / no bruising / no LN swelling Skin: No rash / no pallor Physical Exam Physical Exam: Constitutional: + thin and + frail appearing; not in distress Eyes: + anicteric sclerae ENMT: external ear and nose normal, oropharynx normal Neck: normal visual inspection and trachea midline Respiratory: normal respiratory effort, lungs clear to auscultation Cardiovascular: RRR, no murmur, no edema Gastrointestinal (Abdomen): Inspection/Auscultation: abdomen normal to inspection (Well-healed surgical scars) and normal bowel sounds abdomen soft; no guarding, abdomen not rigid and no hepatosplenomegaly Musculoskeletal: no cyanosis or clubbing, extremities motor strength 5/5 Skin: no rashes, warm and dry Neurologic: moves all extremities and awake; no focal motor deficits Motor/Sensory: no sensory deficit Psychiatric: Orientation: alert and oriented x 3 Eye Contact: good eye contact Affect: euthymic affect Thought Process: linear/logical thought process Results & Data Vital Signs (Past 12 Hours) Vital Signs Temp Pulse Resp BP Pulse Ox 05/03/19 15:42 37.2 C 74 18 146/91 H 93 PG Care Time/CCT Total # of Minutes Spent Total Time Spent with Patient: Total time spent is greater than 50% in coordinat ion of care (as documented) at patient's floor/unit and/or counseling patient: Prolonged Care Time Prolonged Care Time: Yes Total Prolonged Care Time: 70 8:00 to 8:20 10:00 to 10:35 12:00 to 12:10 18:15 to 18:20 (1) Diarrhea Diarrhea type: unspecified type Qualified Code(s): R19.7 - Diarrhea, unspecified
[2019-05-04] MEDS: OXYCODONE HCL IR 5 MG TAB (IMMEDIATE RELEASE) PO PRN ×2 (00:50→08:37)
[2019-05-04 06:17] LABS: Creatinine Clr Calc Pharmacy 57.8 ml/min; Est GFR (African American) 76.3; Est GFR (Non-African American) 65.8
[2019-05-04] MEDS: FAMOTIDINE 20 MG in SYRINGE 3 ML IV SCH (08:33)
[2019-05-04] MEDS: GABAPENTIN 300 MG CAP PO SCH (08:34)
[2019-05-04] MEDS: SUCRALFATE 1 GM TAB PO SCH (08:34)
[2019-05-04] MEDS: CYANOCOBALAMIN 500 MCG TABLET (VITAMIN B-12) PO SCH (08:34)
[2019-05-04] MEDS: BuPROPion XL 150 MG TABCR PO SCH (08:34)
[2019-05-04] MEDS: PANTOprazole 40 MG TAB PO SCH (08:34)
[2019-05-04] MEDS: DICYCLOMINE HCL 10 MG CAP PO SCH (08:34)
--- NOTE | 2019-05-15 22:42 | Discharge Summary ---
Date of Service May 04, 2019 Principal Diagnosis abdominal pain. Discharge Exam Constitutional: + thin and + frail appearing; not in distress Eyes: + anicteric sclerae ENMT: external ear and nose normal, oropharynx normal Neck: normal visual inspection and trachea midline Respiratory: normal respiratory effort, lungs clear to auscultation Cardiovascular: RRR, no murmur, no edema Gastrointestinal (Abdomen): Inspection/Auscultation: abdomen normal to inspection (Well-healed surgical scars) and normal bowel sounds abdomen soft; no guarding, abdomen not rigid and no hepatosplenomegaly Musculoskeletal: no cyanosis or clubbing, extremities motor strength 5/5 Skin: no rashes, warm and dry Neurologic: moves all extremities and awake; no focal motor deficits Motor/Sensory: no sensory deficit Psychiatric: Orientation: alert and oriented x 3 Eye Contact: good eye contact Affect: euthymic affect Thought Process: linear/logical thought process Discharge Data Allergies Allergy/AdvReac Type Severity Reaction Status Date / Time Benzodiazepines Allergy Unknown . Verified 04/26/19 10:19 chlordiazepoxide Allergy Unknown . Verified 04/26/19 10:19 clidinium Allergy Unknown . Verified 04/26/19 10:19 metoclopramide Allergy Unknown . Verified 04/26/19 10:19 prochlorperazine Allergy Unknown . Verified 04/26/19 10:19 NSAIDS (Non-Steroidal Allergy WATER Verified 04/26/19 10:19 Anti-Inflamma BLISTER ALONG JAW LINE Consultations 04/26/19 11:38 ED Decision to Admit Stat 04/26/19 13:59 Consult Gastroenterology Stat 04/27/19 18:57 Consult Nutrition Routine Ordered Studies 04/26/19 09:39 CT abd pelvis IV con only Stat 05/03/19 11:55 [place] upper GI series wo air Routine 05/03/19 12:23 CT angio abdomen w con Routine Hospital Course (1) Intractable abdominal pain: Suspected IBS-D, adhesions, concerned over possible SMA syndrome. D/W with [facility], not accepting patient fro transfer, but willing to see patient as an outpatient. Patient states she is unable to travel to [place]. D/W [facility] surgical team, and patient will require a cta scan of abd/pelvis; and patient will require a GI follow through upper series This will help confirm if patient has SMA syndrome or not Dr. Cruz though evaluated patient and believes patient needs to be transferred to [place]. Main issue is that patient conitnue to require large amounts of opiates. Significant improvement with NG tube decompression therefore suspect a large portion of her pain was from dilated duodenum proximal to previous surgical site for SMA syndrome. Update: Workup appears to rule out SMA syndrome. Patient would like to followup with [facility] as an outpatient. Patient will be discharged, (2) Diarrhea: Stool workup negative for infection. ?IBS-D Appears to have resolved. (3) Intractable nausea and vomiting: Resolved with NG tube insertion and bowel rest, now removed. Zofran 4 mg IV every 6 hours PRN Prior dyskinesia adverse effect to metoclopramide DDx SMA syndrome, cannabis hyperemesis syndrome, cyclic vomiting syndrome, viral gastroenteritis (4) Protein-calorie malnutrition: MG, PO levels every 2-3 days. Nutrition consult. (5) GERD (gastroesophageal reflux disease): Continue Pepcid and PPI, carafate (6) Dyslipidemia: Currently not on any medications for it will defer to her primary care physician any further plan (7) B12 deficiency: B12 367. Start cyanocobalamin 500 mcg daily (8) Hypertension: Improved with clonidine use (mainly using for abdominal pain), now discontinuing clonidine will continue to monitor. (9) DVT prophylaxis: SCDs, lovenox 40mg SQ daily Code - full Total Time Total Time Spent Total Time Spent (In Minutes): 32 Total Time Includes: Examination of the Patient, Discharge Planning and Medication Reconciliation Discharge Plan Discharge Items Patient Disposition: Home - Self-Care Reason For Visit: INTRACTABLE ABDOMINAL PAIN Discharge Diagnosis: Intractable abdominal pain Activity: Resume your previous activity Non-emergency contact: Primary Care Provider Call non-emergency contact if: you have any medication questions Follow-up/Referrals: Reji Weinstein [Primary Care Provider] - 05/09/19 9:20 am (Please, follow up with Reji Weinstein PA-C on ThursdayMay 09 at 9:20 am. *If you need to change this appointment, call the office at [phone].) Raulito Johns M.D. [Staff Physician] - 06/08/19 2:15 pm (Please, follow up with Dr. Johns on ThursdayJune 08 at 2:15 pm. THIS APPOINTMENT WILL BE AT THE [facility] LOCATION: [address] [place], [place]. If you have any questions, call his office at [phone] option # 5 .) Diet: Regular Addtl Attending Provider Instructions: Do not take more than 3 grams of tylenol a day. This should include any percocet as this would have 325 of acetaminophen which is tylenol. Diet recommendations: regular meal pattern; avoidance of large meals; reduced intake of fat, insoluble fibers, caffeine, and gas-producing foods such as beans, cabbage. Avoid the following: Oligosaccharides: Wheat, barley, rye, onion, young, white part of spring onion, garlic, shallots, artichokes, beetroot, fennel, peas, chicory, pistachio, cashews, legumes, lentils, and chickpeas Disaccharides Lactose Milk, custard, ice cream, and yogurt Monosaccharides "Free fructose" (fructose in excess of glucose) Apples, pears, mangoes, cherries, watermelon, asparagus, sugar snap peas, honey, high-fructose corn syrup Polyols (Sorbitol, mannitol, maltitol, and xylitol) Apples, pears, apricots, cherries, nectarines, peaches, plums, watermelon, mushrooms, cauliflower, artificially sweetened chewing gum and confectionery Pending Studies at Discharge: No Stand-Alone Forms: Call Back Authorization, [facility] Medications and DC Order Prescriptions: New sucralfate 1 gram Tablet 1 g PO BID Qty: 60 RF: 0 cyanocobalamin (vitamin B-12) 500 mcg Tablet 500 mcg PO QAM Qty: 30 RF: 0 oxycodone 5 mg Tablet 5 mg PO Q4H PRN (Reason: Abdominal Pain) Qty: 30 RF: 0 dicyclomine 10 mg Capsule 10 mg PO QID Qty: 120 RF: 0 Continued amitriptyline 50 mg tablet 50 mg PO HS RF: 0 acetaminophen [Tylenol Extra Strength] 500 mg Tablet 1,000 mg PO Q6H PRN (Reason: Pain) RF: 0 lansoprazole [Prevacid] 30 mg Capsule,Delayed Release(Dr/Ec) 30 mg PO DIRECTED PRN (Reason: Acid Reflux) RF: 0 gabapentin 300 mg capsule 300 mg PO TID RF: 0 bupropion HCl 150 mg tablet extended release 24 hr 150 mg PO QAM RF: 0 methocarbamol 500 mg tablet 500 mg PO HS PRN (Reason: neck discomfort) RF: 0 Discharge Orders: Discharge Order (Routine); Ordered 05/04/19 Ordered By: Rachid Alexander Admission Data Admit Date/Time: 04/26/19 13:14 Attending Provider: Rachid Alexander Admit Provider: Rosa Tristan Primary Care Provider: Reji Weinstein Other Providers: Teo Arroyo Other Interventions: Discharge Summary Assessment (RN) Last Done: 05/04/19 11:42 DC Date/Time DO NOT enter until pt leaves facility: 05/04/19 12:00
== END 2019-05-04 12:00 | disposition home or self-care (01) | DRG 392 ==
LOC: ED 09:21 → 4W 13:14 → SUATTDRO 13:14 → 4W 15:39

== ENCOUNTER 2021-08-07 18:00 | Inpatient (IN) ==
[2021-08-07] MEDS ORDERED: oxyCODONE HCL IR 5 MG TAB (IMMEDIATE RELEASE) PO STA (18:04)
[2021-08-07] MEDS ORDERED: ONDANSETRON INJ 2 MG/ML 2 ML VIAL IV STA (18:16)
[2021-08-07] MEDS ORDERED: SODIUM CHLORIDE 0.9% 500 ML IV STA (18:16)
--- NOTE | 2021-08-07 18:16 | Emergency Department Note ---
Impression & Plan Subcapital fracture of right hip, Contusion of elbow, right, Abnormal EKG ED Provider Note NAME: ROCKY JACQUES AGE: 65 SEX: F : 1955 ARRIVES VIA: Ambulance INFORMANT: Patient, EMS ED PROVIDER(S): Enrique Quiroz DO CHIEF COMPLAINT: Hip pain HPI: The patient is a 65-year-old female who presented to the emergency department for an evaluation of right-sided hip pain. The patient was on her dryer on her knees when she fell onto her right side. The patient states she was unable to stand and called 911. The patient arrives via BLS transfer. Patient also injured her right elbow. The patient denies having any headache. She did not strike her head. She has no chest pain or difficulty breathing. The patient states that she has no numbness in her right leg. She has very severe pain with any standing. She can rotate her right leg with only minimal pain. She denies having any back pain. The patient states that she is never injured this hip before. She states pain is moderate to severe with any attempted ambulation. ROS: See above HPI for pertinent positives & negatives. A total of 10 systems reviewed and were otherwise negative. PAST MEDICAL HISTORY: See Below PAST SURGICAL HISTORY: See Below FAMILY HISTORY: See Below SOCIAL HISTORY: See Below HOME MEDICATIONS: See Below ALLERGIES: See Below VITALS: See Below PHYSICAL EXAMINATION: GENERAL: The patient is awake and alert. She is very anxious appearing. EYES: The conjunctivae are clear. The pupils are round and reactive. EARS, NOSE, MOUTH AND THROAT: The nose is without any evidence of any deformity. NECK: The neck is nontender and supple. RESPIRATORY: Normal respiratory effort is noted there is no evidence of wheezing rhonchi or rales CARDIOVASCULAR: Regular rate and rhythm noted there no murmurs rubs or gallops normal S1 normal S2. GASTROINTESTINAL: The abdomen is soft. Abdomen is nontender. BACK: No midline tenderness or or step-off noted range of motion in flexion extension as well as rotation no signs of muscle spasm noted MUSCULOSKELETAL/EXTREMITIES: There is no deformity or shortening of either lower extremity. There is some pain with palpation over the right lateral hip as well as internal and external rotation. Pulses are palpable in both feet. There is also ecchymosis over the right elbow. Range of motion is intact and not painful. SKIN: There is no obvious evidence of any rash. There are no petechiae, pallor or cyanosis noted. NEUROLOGIC: Patient is awake alert and oriented x3 MEDICAL DECISION MAKING: The patient is a 65-year-old female who presented to emergency department for an evaluation after fall. The patient fell onto her right side striking her right hip. She was unable to bear weight. X-rays revealed a right subcapital hip fracture. I discussed the patient's laboratory and radiographic studies with her. The patient was treated with IV pain medication in the emergency department. She was found to have no other bony injury. The patient was feeling much better on subsequent reevaluation. I discussed her case with the on-call orthopedic physician as well as the on-call [facility] hospitalist. They have agreed to evaluate the patient in the emergency department for further management and disposition. Triage Nursing notes reviewed. Prior medical records reviewed Vital Signs: reviewed and remarkable for tachycardia. Differential diagnosis: Fracture, subluxation, dislocation, contusion, ligamentous injury, neur ovascular, compartment syndrome, rhabdomyolysis, as well as other pathologies. ER treatment provided: See below Diagnostics interpreted by me: ECG: EKG was obtained in the emergency department. My interpretation is normal sinus rhythm at 98 bpm. PVCs were noted. LVH was noted by voltage criteria. Inferior lateral ST depressions were noted. Diffuse T wave inversions were noted. This was compared to a tracing from March 022020. A similar tracing was noted however there were some subtle changes with the T wave abnormalities. Cardiac Monitoring: An order was placed for continuous cardiac monitoring. The monitor shows a rate of 103 bpm with sinus tachycardia. Laboratory studies: As stated above and show below. Imaging studies: See below Consultation(s): I discussed this case with Dr. Orlando who is on-call for orthopedics. They will evaluate the patient in the hospital for further management. I discussed this case with Dr[facility] Apodaca [facility] Past Med/Surg History Medical History Anxiety Barretts esophagus Common bile duct (CBD) stricture Dehydration Depression Dyslipidemia Gastroparesis GERD (gastroesophageal reflux disease) IBS (irritable bowel syndrome) Impaired fasting glucose Kidney stones Malnutrition Medical marijuana use Osteoporosis Pernicious anemia PUD (peptic ulcer disease) Sinus tachycardia Chronic issue s/p unremarkable cardiac workup including holter monitor/echo/stress test SMAS (superior mesenteric artery syndrome) Surgical History H/O colonoscopy H/O pyloroplasty H/O vagotomy History of carpal tunnel surgery History of esophagogastroduodenoscopy (EGD) History of Mary fundoplication S/P cholecystectomy S/[place] [place] with CBD stones at ([facility] [place] 2009); with CBD sludge ([facility] [place]; 2010) S/P thyroidectomy Right side Status post insertion of percutaneous endoscopic gastrostomy (PEG) tube Family History Father Hypertension Grandmother (Maternal) Family history of diabetes mellitus Aunt Family history of diabetes mellitus Other No significant family history Social History Smoking Status: Current every day smoker Tobacco Type: Cigarettes Cigarettes Per Day: 10 cigs/day; Second Hand Exposure: No; Hx Alcohol Use: No Hx Substance Use: Yes Prescribed Medications: Marijuana Substance Use Type Other:: Medical marijuana card (inhalation several times/day) Preferred Language: Danish Communication Ability: Effective [place] Torch Operator Required: No Beliefs That Will Affect Care: None marital status: Current Living Situation: Family Current Living Situation Comment: lives with her aunt current occupational status: retired Feels Safe at Home: Yes Assistive Devices: Glasses Allergies Allergies Allergy/AdvReac Type Severity Reaction Status Date / Time Benzodiazepines Allergy Unknown Unknown Verified 08/07/21 18:07 chlordiazepoxide Allergy Unknown Unknown Verified 08/07/21 18:07 clidinium Allergy Unknown Unknown Verified 08/07/21 18:07 metoclopramide Allergy Unknown "Lock Verified 08/07/21 18:07 jaw"/muscle spasms prochlorperazine Allergy Unknown Unknown Verified 08/07/21 18:07 NSAIDS (Non-Steroidal Allergy Water Verified 08/07/21 18:07 Anti-Inflamma blister along hair line Home Meds Home Medications Medication Instructions Recorded Confirmed amitriptyline 50 mg tablet 50 mg PO HS 12/15/18 08/07/21 lansoprazole 30 mg capsule,delayed 30 mg PO QAM 12/15/18 08/07/21 release (Prevacid) tramadol 50 mg tablet 100 mg PO Q6H PRN 07/06/19 08/07/21 Medical Marijuana Products 1 dose NOT APPLICABLE UD PRN 02/18/20 08/07/21 cholecalciferol (vitamin D3) 25 25 mcg PO QAM 02/18/20 08/07/21 mcg (1,000 unit) tablet (Vitamin D3) lorazepam 0.5 mg tablet 0.5 mg PO BID PRN 02/18/20 08/07/21 bupropion HCl 300 mg 24 hr tablet, 300 mg PO DAILY 02/28/21 08/07/21 extended release Previous Rx's Medication Instructions Recorded ondansetron 4 mg disintegrating 4 mg PO Q8H PRN #10 tab 03/02/21 tablet Results & Data (ED) Vital Signs Vital Signs - 24 hr 08/07/21 18:36 08/07/21 18:39 08/07/21 18:40 Temperature 37.3 C 37.3 C Temperature Source Oral Oral Pulse Rate 103 H 103 H Pulse Rate [Apical] 103 H Pulse Rhythm Regular Regular Pulse Rhythm [Apical] Regular Pulse Strength Normal Pulse Strength [Apical] Normal Respiratory Rate 18 18 18 Respiratory Effort / Characteristics Non-Labored Spontaneous Non-Labored Spontaneous Respiratory Depth Normal Normal Respiratory Pattern Regular Regular Blood Pressure 137/95 Blood Pressure [Right Arm] 137/95 Blood Pressure Mean 109 Blood Pressure Mean [Right Arm] 109 Blood Pressure Position Lying Blood Pressure Position [Right Arm] Lying Pulse Oximetry 98 98 98 Oxygen Delivery Method Room Air Room Air Room Air Oxygen Flow Rate 0 Sepsis Recent Fever Within 48 Hours No Sepsis New/Unexplained Change in Mental Status No Sepsis Action Taken by Nursing No Action Required Home Medications Current Medication List: was personally reviewed by me Laboratory Data Attestation: I reviewed the patient's lab results. Result diagrams: 08/07/21 18:57 08/07/21 18:57 Lab Results 08/07/21 08/07/21 08/07/21 Range/Units 18:57 18:57 18:57 WBC 15.89 H (4.8-10.8) K/uL RBC 4.81 (4.2-5.4) M/uL Hgb 16.1 H (12.0-16.0) g/dL Hct 46.9 (37-47) % MCV 97.5 (80-100) fL MCH 33.5 (25-34) pg MCHC 34.3 (32-36) g/dL RDW Std Deviation 46.3 (36.4-46.3) fL RDW Coeff of Marcell 12.9 (11.5-14.5) % Plt Count 219 (130-400) K/uL MPV 8.8 (7.4-10.4) fL Immature Gran % (Auto) 0.4 % Neut % (Auto) 80.0 % Lymph % (Auto) 10.1 % [place] % (Auto) 8.6 % Eos % (Auto) 0.8 % Baso % (Auto) 0.1 % Neut # (Auto) 12.73 H (1.4-6.5) K/uL Lymph # (Auto) 1.60 (1.2-3.4) K/uL [place] # (Auto) 1.36 H (0.11-0.59) K/uL Eos # (Auto) 0.12 (0-0.5) K/uL Baso # (Auto) 0.02 (0-0.2) K/uL Immature Gran # (Auto) 0.06 H (0.00-0.02) K/uL PT 10.5 (9.0-12.0) Seconds INR 1.0 (0.9-1.1) APTT 25.0 (21.0-31.0) Seconds PTT Ratio 1.0 Sodium 135 L (136-145) mmol/L Potassium 3.3 L (3.5-5.1) mmol/L Chloride 101 (98-107) mmol/L Carbon Dioxide 29 (21-32) mmol/L Anion Gap 5.0 (3-11) BUN 19 H (7-18) mg/dl Creatinine 1.07 (0.6-1.2) mg/dl Est Cr Clr Drug Dosing 38.8 ml/min Est GFR ( Amer) 62.7 ml/min Est GFR (Non-Af Amer) 54.1 ml/min BUN/Creatinine Ratio 17.7 (10-20) Glucose 104 H (70-99) mg/dl Calcium 10.7 H (8.5-10.1) mg/dl Total Bilirubin 0.9 (0.2-1) mg/dl AST 15 (15-37) U/L ALT 26 (12-78) Alkaline Phosphatase 117 (45-117) U/L Troponin I < 0.015 (0-0.045) ng/ml Total Protein 7.2 (6.4-8.2) gm/dl Albumin 4.0 (3.4-5.0) gm/dl Globulin 3.2 (2.5-4.0) gm/dl Albumin/Globulin Ratio 1.3 (0.9-2) Lipase 89 (73-393) U/L Administered Medications Morphine Sulfate (Morphine Sulfate 4 Mg/Ml 1 Ml Carp\\Vial) 4 mg IV Q30M PRN PRN Reason: Pain Stop: 08/21/21 18:15 Last Admin: 08/07/21 19:21 Dose: 4 mg Documented by: [id number] Discontinued Medications Sodium Chloride (Nss) 500 mls @ 999 mls/hr IV .Q31M STA Stop: 08/07/21 18:46 Last Admin: 08/07/21 19:24 Dose: 999 mls/hr Documented by: [id number] Ondansetron HCl (Ondansetron Inj 2 Mg/Ml 2 Ml Vial) 4 mg IV NOW STA Stop: 08/07/21 18:17 Last Admin: 08/07/21 19:20 Dose: 4 mg Documented by: [id number] Imaging Data Radiologist's Impression: Elbow X-Ray 08/07/21 18:04 XR elbow RT min 3V routine CLINICAL HISTORY: Status post fall with right elbow pain. COMPARISON STUDY: No previous studies for comparison. TECHNIQUE: 3 right elbow views FINDINGS: Bones: There is no evidence for an acute fracture or dislocation. There is no lytic or blastic lesion. Joints: The joint spaces are maintained. There is no evidence for an intra- articular effusion or elevation of the fat pads. The bones are in anatomic alignment. Soft tissues: There is no focal soft tissue abnormality. There is no radiopaque foreign body. IMPRESSION: No acute osseous pathology. ACT 112: Negative or not required by law. Electronically signed by: Vitaliy Beverly M.D. 08/07/2021 6:50 PM Hip/Pelvis X-Ray 08/07/21 18:04 XR hip RT 2V w pelvis CLINICAL HISTORY: Status post fall with right hip pain. COMPARISON STUDY: No previous studies for comparison. TECHNIQUE: AP pelvis and 2 right hip views FINDINGS: Bones: There is a laterally impacted, subcapital fracture of the right femoral neck. The medial margin of the right femoral neck is intact. No other evidence for fracture is seen. The remaining visualized bones of the pelvis are intact. There is no lytic or blastic lesion. Joints: The joint spaces are otherwise maintained bilaterally. SI joints are intact. The bones are in anatomic alignment. Soft tissues: There is no focal soft tissue abnormality. There is no radiopaque foreign body. IMPRESSION: Laterally impacted, subcapital fracture of the right femoral neck. ACT 112: Negative or not required by law. Electronically signed by: Vitaliy Beverly M.D. 08/07/2021 6:49 PM Chest X-Ray 08/07/21 18:16 XR chest 1V portable CLINICAL HISTORY: Chest Pain. COMPARISON STUDY: 03/03/2021 TECHNIQUE: 1 view of the chest FINDINGS: Single frontal view of the chest demonstrates the cardiomediastinal silhouette to be within normal limits. However, there is now an alveolar opacity present behind the heart which is homogeneous in density sharp contour and margins. This suggests an interval hiatal hernia or diaphragmatic hernia rather than a pneumonic infiltrate. The remainder of the lungs are clear of alveolar opacities. There is no evidence for pleural effusion. There is no evidence for vascular congestion. There is no acute osseous pathology. IMPRESSION: Interval development of alveolar opacity behind the heart with homogeneous density and smooth margins suggesting either a hiatal hernia or diaphragmatic hernia. A lateral radiograph would be helpful for further evaluation. The remainder of the lungs are clear. ACT 112: Negative or not required by law. Electronically signed by: Vitaliy Beverly M.D. 08/07/2021 6:52 PM Discharge Plan Visit Data Chief Complaint: Hip Pain Stated Complaint: HIP PAIN ED Provider: Enrique Quiroz Discharge Problem: Subcapital fracture of right hip, Contusion of elbow, right, Abnormal EKG Patient Disposition: Being Evaluated by Hospitalist Forms Stand Alone Forms: [facility] LOOKSIMA Prescriptions Prescriptions: No Action amitriptyline 50 mg tablet 50 mg PO HS RF: 0 lansoprazole [Prevacid] 30 mg Capsule,Delayed Release(Dr/Ec) 30 mg PO QAM RF: 0 tramadol 50 mg tablet 100 mg PO Q6H PRN (Reason: Pain) RF: 0 lorazepam 0.5 mg tablet 0.5 mg PO BID PRN (Reason: Anxiety) RF: 0 cholecalciferol (vitamin D3) [Vitamin D3] 25 mcg (1,000 unit) Tablet 25 mcg PO QAM RF: 0 Medical Marijuana Products 1 dose Not Applicable UD PRN (Reason: Pain) RF: 0 bupropion HCl 300 mg tablet extended release 24 hr 300 mg PO DAILY RF: 0 ondansetron 4 mg tablet,disintegrating 4 mg PO Q8H PRN (Reason: nausea and vomiting) Qty: 10 RF: 0 Referrals Referrals: Reji Weinstein [Primary Care Provider] -
--- NOTE | 2021-08-07 18:51 | XRay Report ---
XR elbow RT min 3V routine CLINICAL HISTORY: Status post fall with right elbow pain. COMPARISON STUDY: No previous studies for comparison. TECHNIQUE: 3 right elbow views FINDINGS: Bones: There is no evidence for an acute fracture or dislocation. There is no lytic or blastic lesion . Joints: The joint spaces are maintained. There is no evidence for an intra-articular effusion or elev ation of the fat pads. The bones are in anatomic alignment. Soft tissues: There is no focal soft tissue abnormality. There is no radiopaque foreign body. IMPRESSION: No acute osseous pathology. ACT 112: Negative or not required by law. Electronically signed by: Vitaliy Beverly M.D. 08/07/2021 6:50 PM
--- NOTE | 2021-08-07 18:51 | XRay Report ---
XR hip RT 2V w pelvis CLINICAL HISTORY: Status post fall with right hip pain. COMPARISON STUDY: No previous studies for comparison. TECHNIQUE: AP pelvis and 2 right hip views FINDINGS: Bones: There is a laterally impacted, subcapital fracture of the right femoral neck. The medial rishabh n of the right femoral neck is intact. No other evidence for fracture is seen. The remaining visualiz ed bones of the pelvis are intact. There is no lytic or blastic lesion. Joints: The joint spaces are otherwise maintained bilaterally. SI joints are intact. The bones are in anatomic alignment. Soft tissues: There is no focal soft tissue abnormality. There is no radiopaque foreign body. IMPRESSION: Laterally impacted, subcapital fracture of the right femoral neck. ACT 112: Negative or not required by law. Electronically signed by: Vitaliy Beverly M.D. 08/07/2021 6:49 PM
--- NOTE | 2021-08-07 18:54 | XRay Report ---
XR chest 1V portable CLINICAL HISTORY: Chest Pain. COMPARISON STUDY: 03/03/2021 TECHNIQUE: 1 view of the chest FINDINGS: Single frontal view of the chest demonstrates the cardiomediastinal silhouette to be within normal li mits. However, there is now an alveolar opacity present behind the heart which is homogeneous in dens ity sharp contour and margins. This suggests an interval hiatal hernia or diaphragmatic hernia rather than a pneumonic infiltrate. The remainder of the lungs are clear of alveolar opacities. There is no evidence for pleural effusion. There is no evidence for vascular congestion. There is no acute osseo us pathology. IMPRESSION: Interval development of alveolar opacity behind the heart with homogeneous density and sm ooth margins suggesting either a hiatal hernia or diaphragmatic hernia. A lateral radiograph would be helpful for further evaluation. The remainder of the lungs are clear. ACT 112: Negative or not required by law. Electronically signed by: Vitaliy Beverly M.D. 08/07/2021 6:52 PM
[2021-08-07] MEDS: MoRPHine SULFATE 4 MG/ML 1 ML CARP\\VIAL IV PRN ×4 (19:21→23:43)
[2021-08-07 19:22] LABS: Basophils # (auto) 0.02 K/uL (0-0.2); Basophils % (auto) 0.1 %; Eosinophils # (auto) 0.12 K/uL (0-0.5); Eosinophils % (auto) 0.8 %; Hematocrit (blood only) 46.9 % (37-47); Hemoglobin 16.1 g/dL (12.0-16.0); Immature Granulocytes # (auto) 0.06 K/uL (0.00-0.02); Immature Granulocytes % (auto) 0.4 %; Lymphocytes % (auto) 10.1 %; Mean Corpuscular Hemoglobin 33.5 pg (25-34); Mean Corpuscular Hgb Conc 34.3 g/dL (32-36); Mean Corpuscular Volume 97.5 fL (80-100); Mean Platelet Volume 8.8 fL (7.4-10.4); Monocytes # (auto) 1.36 K/uL (0.11-0.59); Monocytes % (auto) 8.6 %; Neutrophils # (auto) 12.73 K/uL (1.4-6.5); Platelet Count 219 K/uL (130-400); RDW Coefficient of Variation 12.9 % (11.5-14.5); RDW Standard Deviation 46.3 fL (36.4-46.3); Red Blood Count 4.81 M/uL (4.2-5.4); White Blood Count 15.89 K/uL (4.8-10.8)
[2021-08-07 19:38] LABS: Prothrombin Time 10.5 Seconds (9.0-12.0)
[2021-08-07 19:39] LABS: BUN Creatinine Ratio 17.7 (10-20); Blood Urea Nitrogen 19 mg/dl (7-18); Calcium 10.7 mg/dl (8.5-10.1); Carbon Dioxide 29 mmol/L (21-32); Chloride 101 mmol/L (98-107); Creatinine Clr Calc Pharmacy 38.8 ml/min; Est GFR (African American) 62.7 ml/min; Est GFR (Non-African American) 54.1 ml/min; Glucose 104 mg/dl (70-99); Lipase 89 U/L (73-393); Potassium 3.3 mmol/L (3.5-5.1); Sodium 135 mmol/L (136-145)
[2021-08-07 19:44] LABS: Alanine Aminotransferase 26 (12-78); Albumin Globulin Ratio 1.3 (0.9-2); Alkaline Phosphatase 117 U/L (45-117); Aspartate Aminotransferase 15 U/L (15-37); Bilirubin,Total 0.9 mg/dl (0.2-1); Globulin 3.2 gm/dl (2.5-4.0); Total Protein 7.2 gm/dl (6.4-8.2); Troponin I < 0.015 ng/ml (0-0.045)
--- NOTE | 2021-08-07 20:22 | History & Physical Report ---
Date of Service August 07, 2021 Assessment & Plan (1) Subcapital fracture of right hip: Plan: Right hip fracture 2/2 mechanical fall -CXR: Alveolar opacity suspicious for hiatal versus diaphragmatic hernia, no pleural effusion or vascular congestion. -XRright hip: Laterally impacted subcapital fracture of right femoral neck -XRright elbow: No acute fracture dislocation -EKG normal sinus rhythm without acute ST segment elevation, [id number] Leukocytosis to 15.89, suspect reactive Troponin negative - Ortho consulted, pending operative intevention. 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 nightly Continue bupropion 3 mg p.o. daily Patient on medical marijuana at home Hold home tramadol while increased analgesia for hip fracture as above (5) GERD (gastroesophageal reflux disease): Plan: GERD Lansoprazole converted to Protonix while inpatient (6) History of DVT (deep vein thrombosis): Plan: - Past DVT without PE, on anticoagulation in the distant past which was stopped - SCDs pending surgery, recommend post-op pharmacologic DVT PPx - No signs of DVT at time of assessment Plan: DVT prophylaxis: SCDs, chemical prophylaxis deferred pending orthopedic eval/potential surgical intervention Diet: N.p.o. at midnight CODE STATUS: DNR/DNI History of Present Illness Chief Complaint: Hip fxr Primary Care Provider: Reji Weinstein And is a 65-year-old female with a past medical history of chronic abdominal pain, hypertension, ureteral calculi, tobacco use, GERD, IBS, peptic ulcer disease, thyroidectomy, cholecystectomy, Mary fundoplication, PEG placement, and C. difficile colitis who presented to the emergency department for right- sided hip pain. Patient was in her normal state of health when she fell to her right side. Patient injured her right elbow, and had severe pain when standing. Case was discussed with Dr. Orlando by ER provider who recommended admission and follow-up evaluation by orthopedics. Was doing laundry and was on the dryer when she sustained a mechanical fall. Did not hit her head. Had instant pain in her hip, crawled backwards on the floor to the phone to call for help. no syncope, presyncope, fever, chills, sweats, nausea, vomiting, diarrhea, constipation, chest pain, chest pressure, shortness of breath, palpitations. has a history of chronic back pain which is OK at time of admission. Lives alone. Medical History: Reviewed Medications: Reviewed Surgical History: Reviewed Allergies: Reviewed Social History: Denies ETOH, recreational drug use. Endorses hx MM use, Code Status: DNR/DNI Allergies Allergy/AdvReac Type Severity Reaction Status Date / Time Benzodiazepines Allergy Unknown Unknown Verified 08/07/21 18:07 chlordiazepoxide Allergy Unknown Unknown Verified 08/07/21 18:07 clidinium Allergy Unknown Unknown Verified 08/07/21 18:07 metoclopramide Allergy Unknown "Lock Verified 08/07/21 18:07 jaw"/muscle spasms prochlorperazine Allergy Unknown Unknown Verified 08/07/21 18:07 NSAIDS (Non-Steroidal Allergy Water Verified 08/07/21 18:07 Anti-Inflamma blister along hair line Home Medications Medication Instructions Recorded Confirmed Type amitriptyline 50 mg tablet 50 mg PO HS 12/15/18 08/07/21 History lansoprazole 30 mg capsule,delayed 30 mg PO QAM 12/15/18 08/07/21 History release (Prevacid) tramadol 50 mg tablet 100 mg PO Q6H PRN 07/06/19 08/07/21 History Medical Marijuana Products 1 dose NOT APPLICABLE UD PRN 02/18/20 08/07/21 History cholecalciferol (vitamin D3) 25 25 mcg PO QAM 02/18/20 08/07/21 History mcg (1,000 unit) tablet (Vitamin D3) lorazepam 0.5 mg tablet 0.5 mg PO BID PRN 02/18/20 08/07/21 History bupropion HCl 300 mg 24 hr tablet, 300 mg PO DAILY 02/28/21 08/07/21 History extended release ondansetron 4 mg disintegrating 4 mg PO Q8H PRN #10 tab 03/02/21 08/07/21 Rx tablet Past Med/Surg History Medical History Anxiety Barretts esophagus Common bile duct (CBD) stricture Dehydration Depression Dyslipidemia Gastroparesis GERD (gastroesophageal reflux disease) IBS (irritable bowel syndrome) Impaired fasting glucose Kidney stones Malnutrition Medical marijuana use Osteoporosis Pernicious anemia PUD (peptic ulcer disease) Sinus tachycardia Chronic issue s/p unremarkable cardiac workup including holter monitor/echo/stress test SMAS (superior mesenteric artery syndrome) Surgical History H/O colonoscopy H/O pyloroplasty H/O vagotomy History of carpal tunnel surgery History of esophagogastroduodenoscopy (EGD) History of Mary fundoplication S/P cholecystectomy S/P ERCP + stent insertion ([facility] [place]; 1999); with CBD stones at ([facility] [place]; 2009); with CBD sludge ([facility]; 2010) S/P thyroidectomy Right side Status post insertion of percutaneous endoscopic gastrostomy (PEG) tube Family History Father Hypertension Grandmother (Maternal) Family history of diabetes mellitus Aunt Family history of diabetes mellitus Other No significant family history Social History Smoking Status: Current every day smoker Tobacco Type: Cigarettes Cigarettes Per Day: 10 cigs/day; Second Hand Exposure: No; Hx Alcohol Use: No Hx Substance Use: Yes Prescribed Medications: Marijuana Substance Use Type Other:: Medical marijuana card (inhalation several times/day) Preferred Language: Finnish Communication Ability: Effective 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 NAD. Cooperative. Endorses R hip pain. HEENT: Atraumatic, normocephalic. Visual acuity and hearing grossly intact. Pulm: Diminished but grossly without -wheezes, -rales, -rhonchi. Symmetrical chest rise. No increase work of breathing. No respiratory distress. Cardiac: Regular, tachycardic, -mrg. Radial pulses intact and symmetrical. Abdominal: Nontender, nondistended, soft. BS present. Ext: TTP at proximal hip and femer RIGHT. Right PT/DP pulse intact. Sensation to soft touch intact in hands and feet bilaterally. 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 and symmetrical Results & Data Results & Data ([facility]) Vital Signs (Past 12 Hours) Vital Signs Temp Pulse Pulse Resp BP BP Pulse Ox 08/07/21 18:40 37.3 C 103 H 18 137/95 98 08/07/21 18:39 37.3 C 103 H 18 137/95 98 08/07/21 18:36 103 H 18 98 PG Care Time/CCT Total # of Minutes Spent Total Time Spent with Patient: Total time spent is greater than 50% in coordination of care (as documented) at patient's floor/unit and/or counseling patient: Coding Level of Care Code 64523 Initial Inpt Care Lvl 2 Diagnoses Subcapital fracture of right hip S72.011A Encounter type: initial encounter Fracture type: closed Hypertension I10 Hypokalemia E87.6 Anxiety F41.9 GERD (gastroesophageal reflux disease) K21.9 History of DVT (deep vein thrombosis) Z86.718 (1) Subcapital fracture of right hip Encounter type: initial encounter Fracture type: closed Qualified Code(s): S72.011A - Unspecified intracapsular fracture of right femur, initial encounter for closed fracture
[2021-08-08] MEDS ORDERED: POLYETHYLENE (MIRALAX) 17 GM PACK PO PRN (00:47)
[2021-08-08] MEDS ORDERED: ACETAMINOPHEN 325 MG TAB PO PRN (00:47)
[2021-08-08] MEDS ORDERED: ONDANSETRON INJ 2 MG/ML 2 ML VIAL IV PRN ×2 (00:47→14:50)
[2021-08-08] MEDS ORDERED: HYDROmorphone INJ 0.5 MG/0.5 ML SYR IV PRN (00:47)
[2021-08-08] MEDS: MoRPHine SULFATE 4 MG/ML 1 ML CARP\\VIAL IV PRN ×5 (01:39→12:44)
[2021-08-08] MEDS: AMITRIPTYLINE HCL 50 MG TAB PO SCH ×2 (01:56→21:37)
[2021-08-08] MEDS: NSS + 20MEQ KCL 20 MEQ/1,000 ML BAG IV SCH ×2 (01:57→12:47)
[2021-08-08] MEDS: POTASSIUM CHLORIDE CRTAB 20 MEQ TABCR PO SCH ×2 (01:59→08:32)
[2021-08-08 04:36] LABS: Basophils # (auto) 0.03 K/uL (0-0.2); Basophils % (auto) 0.3 %; Eosinophils # (auto) 0.35 K/uL (0-0.5); Eosinophils % (auto) 3.6 %; Hematocrit (blood only) 44.8 % (37-47); Hemoglobin 15.3 g/dL (12.0-16.0); Immature Granulocytes # (auto) 0.03 K/uL (0.00-0.02); Immature Granulocytes % (auto) 0.3 %; Lymphocytes # (auto) 2.04 K/uL (1.2-3.4); Lymphocytes % (auto) 20.9 %; Mean Corpuscular Hemoglobin 33.8 pg (25-34); Mean Corpuscular Hgb Conc 34.2 g/dL (32-36); Mean Corpuscular Volume 99.1 fL (80-100); Mean Platelet Volume 8.5 fL (7.4-10.4); Monocytes # (auto) 0.85 K/uL (0.11-0.59); Monocytes % (auto) 8.7 %; Neutrophils # (auto) 6.45 K/uL (1.4-6.5); Neutrophils % (auto) 66.2 %; Platelet Count 180 K/uL (130-400); RDW Standard Deviation 47.2 fL (36.4-46.3); Red Blood Count 4.52 M/uL (4.2-5.4); White Blood Count 9.75 K/uL (4.8-10.8)
[2021-08-08 04:52] LABS: BUN Creatinine Ratio 16.1 (10-20); Calcium 9.7 mg/dl (8.5-10.1); Creatinine Clr Calc Pharmacy 44.6 ml/min; Est GFR (African American) 74.2 ml/min; Potassium 3.7 mmol/L (3.5-5.1)
--- NOTE | 2021-08-08 06:56 | Orthopedic Consultation ---
Date of Service August 08, 2021 Assessment & Plan (1) Subcapital fracture of right hip: We discussed the diagnosis and treatment options at bedside. She lives alone and she is still fairly active. I recommended a right total hip arthroplasty. She understands the risk, benefits, and alternatives to procedures like to proceed. Questions were answered at bedside today. Time was spent describing the procedure and postop expectations. She is currently n.p.o. We will plan to do the hip replacement later this afternoon. History of Present Illness Reason for Consultation: Right displaced femoral neck fracture. Requesting Physician: . Attending Physician: Leonel Apodaca MD And is a pleasant six 5-year-old female who lives in a house in [place] by herself. She has a cat. She ambulates without assistance. Yesterday something fell behind her dryer so she got on top of her dryer to retrieve it. When she retrieved that she turned around and fell for dryer. She sustained a right displaced femoral neck fracture. She came to the emergency room and radiographs confirmed a fracture. She has been admitted to the medical service. Orthopedics was consulted to evaluate and treat. Allergies Allergy/AdvReac Type Severity Reaction Status Date / Time Benzodiazepines Allergy Unknown Unknown Verified 08/07/21 18:07 chlordiazepoxide Allergy Unknown Unknown Verified 08/07/21 18:07 clidinium Allergy Unknown Unknown Verified 08/07/21 18:07 metoclopramide Allergy Unknown "Lock Verified 08/07/21 18:07 jaw"/muscle spasms prochlorperazine Allergy Unknown Unknown Verified 08/07/21 18:07 NSAIDS (Non-Steroidal Allergy Water Verified 08/07/21 18:07 Anti-Inflamma blister along hair line Home Medications Medication Instructions Recorded Confirmed Type amitriptyline 50 mg tablet 50 mg PO HS 12/15/18 08/07/21 History lansoprazole 30 mg capsule,delayed 30 mg PO QAM 12/15/18 08/07/21 History release (Prevacid) tramadol 50 mg tablet 100 mg PO Q6H PRN 07/06/19 08/07/21 History Medical Marijuana Products 1 dose NOT APPLICABLE UD PRN 02/18/20 08/07/21 History cholecalciferol (vitamin D3) 25 25 mcg PO QAM 02/18/20 08/07/21 History mcg (1,000 unit) tablet (Vitamin D3) lorazepam 0.5 mg tablet 0.5 mg PO BID PRN 02/18/20 08/07/21 History bupropion HCl 300 mg 24 hr tablet, 300 mg PO DAILY 02/28/21 08/07/21 History extended release ondansetron 4 mg disintegrating 4 mg PO Q8H PRN #10 tab 03/02/21 08/07/21 Rx tablet Past Med/Surg History Medical History Anxiety Barretts esophagus Common bile duct (CBD) stricture Dehydration Depression Dyslipidemia Gastroparesis GERD (gastroesophageal reflux disease) IBS (irritable bowel syndrome) Impaired fasting glucose Kidney stones Malnutrition Medical marijuana use Osteoporosis Pernicious anemia PUD (peptic ulcer disease) Sinus tachycardia Chronic issue s/p unremarkable cardiac workup including holter monitor/echo/stress test SMAS (superior mesenteric artery syndrome) Surgical History H/O colonoscopy H/O pyloroplasty H/O vagotomy History of carpal tunnel surgery History of esophagogastroduodenoscopy (EGD) History of Mary fundoplication S/P cholecystectomy S/P ERCP + stent insertion ([facility]; 1999); with CBD stones at ([facility] [place]; 2009); with CBD sludge ([facility]; 2010) S/P thyroidectomy Right side Status post insertion of percutaneous endoscopic gastrostomy (PEG) tube Family History Father Hypertension Grandmother (Maternal) Family history of diabetes mellitus Aunt Family history of diabetes mellitus Other No significant family history Social History Smoking Status: Current every day smoker Tobacco Type: Cigarettes Cigarettes Per Day: 10 cigs/day; Second Hand Exposure: No; Hx Alcohol Use: No Hx Substance Use: Yes Prescribed Medications: Marijuana Substance Use Type Other:: Medical marijuana card (inhalation several times/day) Preferred Language: Setswana Communication Ability: Effective 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 Physical Exam On physical examination of the right hip, she is a very thin leg. There are no abrasions, lesions, or lacerations of the skin. Her right leg is slightly shortened and externally rotated.. Constitutional WD/WN, vitals as above Eyes PERRL, conjunctivae normal, anicteric sclerae ENMT external ear and nose normal, oropharynx normal Neck trachea midline, no thyromegaly Respiratory normal respiratory effort Cardiovascular RRR, no murmur, no edema Gastrointestinal (Abdomen) normal bowel sounds, soft, nontender, no hepatosplenomegaly Psychiatric A+Ox3, euthymic affect Results & Data Results & Data Laboratory Results . Diagnostic Findings X-rays of the right hip and pelvis show a displaced right femoral neck fracture. PG Care Time/CCT Total # of Minutes Spent Total Time Spent with Patient: Total time spent is greater than 50% in coordination of care (as documented) at patient's floor/unit and/or counseling patient: Coding Level of Care Code 65885 Inpt Consult Level 4 (57 - DECISION FOR SURGERY) Diagnoses Subcapital fracture of right hip S72.011A Encounter type: initial encounter Fracture type: closed (1) Subcapital fracture of right hip Encounter type: initial encounter Fracture type: closed Qualified Code(s): S72.011A - Unspecified intracapsular fracture of right femur, initial encounter for closed fracture
--- NOTE | 2021-08-08 08:05 | Hospitalist Progress Note ---
Date of Service August 08, 2021 Assessment & Plan (1) Subcapital fracture of right hip: Plan: Right hip fracture 2/2 mechanical fall -CXR: Alveolar opacity suspicious for hiatal versus diaphragmatic hernia, no pleural effusion or vascular congestion. Will check 2 view for completeness -XRright hip: Laterally impacted subcapital fracture of right femoral neck -XRright elbow: No acute fracture dislocation -EKG normal sinus rhythm without acute ST segment elevation, [id number] troponin negative Will also check UA given chronic back pain/falls/and history of recurrent ureteral calculi (just had cysto in summer with Dr. Blair but had already passed per report) Lorenzo placed given to OR for repair WBC elevated on admission, but normalized on repeat, likely reactive from fall/fracture Ortho consulted -- plans for R LENNIE today with Dr. Case Pain control, antiemetics prn -- has been using morphine quite frequently, would encourage heavy bowel regimen post-operatively --> Currently passing gas with +BS, but encourage regimen post-op. Just got dose of dilaudid for increased discomfort this morning and stated improvement NPO for OR planned Monitor labs in AM PT/OT post-op per ortho DVT Prophylaxis after intervention at discretion of surgery once hemostasis achieved (2) Hypertension: Plan: - Normotensive, no RIFFLER TENDER meds (3) Hypokalemia: Plan: Replaced and wnl on repeat Mag wnl Cr 0.93 Monitor BMP in AM (4) Anxiety: Plan: Anxiety/Depression with Chronic abdominal pain Continue amitriptyline 50 mg p.o. nightly Continue bupropion 300 mg p.o. daily Patient on medical marijuana at home -- uses vaporizer several times/daiy for abd pain and has been helpful. Unfortunately did discuss not able to utilzie while inpatient but in future if topical/tincture can provide lock-box and continued use Hold home tramadol while increased analgesia for hip fracture as above No increased anxiety at this time reported outside of for surgery. No additional needs at this time (5) GERD (gastroesophageal reflux disease): Plan: GERD Lansoprazole converted to Protonix while inpatient famotidine IVP x 1 now, protonix when able to take PO (6) History of DVT (deep vein thrombosis): Plan: - Past DVT without PE, on anticoagulation in the distant past which was stopped - SCDs pending surgery, recommend post-op pharmacologic DVT PPx - No signs of DVT at time of assessment Plan: DVT prophylaxis: SCDs, chemical prophylaxis deferred pending orthopedic eval/potential surgical intervention Diet: N.p.o. for OR planned CODE STATUS: DNR/DNI Admission and Anticipated Discharge Date Admission Date: August 07, 2021 Subjective patient evaluated this morning. just got dose of dilaudid and resting comfortably but easily arousable. does have MMJ at home but uses the vape cartridges for abdominal pain but discussed if in future tincture/topical can bring in and will provide lock box. Hx scarlet fundoplication, , then 1990, no PEG tube and has been eating normal food. Pain currently controlled and is passing gas. No chest pain, shortness of breath, fever, chills, abdominal pain nausea or vomiting. Awaiting surgery but will plan to resume diet following and have PT/OT eval tomorrow. Questions/concerns addressed at this time. Review of Systems Review of Systems: All systems reviewed & are unremarkable except as noted in HPI & below Physical Exam Physical Exam: General: frail, elderly female, laying in hospital bed, sleeping upon arrival but easily arousable. No acute distress and recently medicated for pain. Alert and oriented x 3 Eyes anicteric, pupils equal and reative Resp: CTAB, diminished in the bases, on room air, no wheezes/rhales CV: RRR, no m/r/g, calves non-tender, pulses palpable GI: +BS, soft, non-tendr, no guarding MSK: TTP --RIGHT proximal hip/femur, distal pulses intact as well as sensation. able to moves toes/dorsi/plantar flex. slightly shortened and externally rotated. Did not take through ROM given current fracture Skin: warm, dry Results & Data Results & Data ([facility]) Vital Signs (Past 12 Hours) Vital Signs Pulse Pulse Resp BP BP BP Pulse Ox 08/08/21 07:47 83 21 119/81 95 08/08/21 04:22 89 18 137/89 96 08/07/21 22:30 93 H 17 127/78 97 08/07/21 22:20 91 H 19 97 08/07/21 22:10 92 H 23 97 08/07/21 22:00 92 H 13 132/81 95 08/07/21 21:50 94 H 16 95 08/07/21 21:40 98 H 21 96 08/07/21 21:30 95 H 12 120/87 97 08/07/21 21:20 92 H 19 96 08/07/21 21:10 95 H 21 95 08/07/21 21:00 97 H 23 112/69 08/07/21 20:50 104 H 21 08/07/21 20:40 99 H 14 08/07/21 20:34 101 H 18 135/99 08/07/21 20:30 99 H 17 135/99 08/07/21 20:20 100 H 14 08/07/21 20:10 100 H 20 Laboratory Results 08/08/21 08/08/21 08/08/21 Range/Units 09:23 09:00 04:16 WBC (4.8-10.8) K/uL RBC (4.2-5.4) M/uL Hgb (12.0-16.0) g/dL Hct (37-47) % MCV (80-100) fL MCH (25-34) pg MCHC (32-36) g/dL RDW Std Deviation (36.4-46.3) fL RDW Coeff of Marcell (11.5-14.5) % Plt Count (130-400) K/uL MPV (7.4-10.4) fL Immature Gran % (Auto) % Neut % (Auto) % Lymph % (Auto) % [place] % (Auto) % Eos % (Auto) % Baso % (Auto) % Neut # (Auto) (1.4-6.5) K/uL Lymph # (Auto) (1.2-3.4) K/uL [place] # (Auto) (0.11-0.59) K/uL Eos # (Auto) (0-0.5) K/uL Baso # (Auto) (0-0.2) K/uL Immature Gran # (Auto) (0.00-0.02) K/uL PT (9.0-12.0) Seconds INR (0.9-1.1) APTT (21.0-31.0) Seconds PTT Ratio Sodium (136-145) mmol/L Potassium (3.5-5.1) mmol/L Chloride (98-107) mmol/L Carbon Dioxide (21-32) mmol/L Anion Gap (3-11) BUN (7-18) mg/dl Creatinine (0.6-1.2) mg/dl Est Cr Clr Drug Dosing ml/min Est GFR ( Amer) ml/min Est GFR (Non-Af Amer) ml/min BUN/Creatinine Ratio (10-20) Glucose (70-99) mg/dl Calcium (8.5-10.1) mg/dl Magnesium 2.4 (1.8-2.4) mg/dl Total Bilirubin (0.2-1) mg/dl AST (15-37) U/L ALT (12-78) Alkaline Phosphatase (45-117) U/L Troponin I (0-0.045) ng/ml Total Protein (6.4-8.2) gm/dl Albumin (3.4-5.0) gm/dl Globulin (2.5-4.0) gm/dl Albumin/Globulin Ratio (0.9-2) Lipase (73-393) U/L 25-OH Vitamin D Total 13.4 L (30-100) ng/ml Urine Color [place] Urine Appearance Clear (Clear) Urine pH 5.0 (4.5-7.5) Ur Specific [place] 1.028 (1.000-1.030) Urine Protein Negative (Negative) Urine Glucose (UA) Negative (Negative) Urine Ketones Trace H (Negative) Urine Blood Negative (Negative) Urine Nitrite Positive A (Negative) Urine Bilirubin 1+ H (Negative) Urine Urobilinogen Negative (Negative) Ur Leukocyte Esterase Negative (Negative) Urine WBC (Auto) 1-5 (0-5) /hpf Urine RBC (Auto) 0-4 (0-4) /hpf U Hyaline Cast (Auto) 1-5 (0-5) /lpf U Epithel Cells (Auto) 0-5 (0-5) /lpf Urine Bacteria (Auto) Negative (Negative) Urine Crystals Not Reportable Urine Mucus Present A (None Prsent) SARS-CoV-2, RNA, NAAT (NEGATIVE) 08/08/21 08/08/21 08/07/21 Range/Units 04:16 04:16 Unknown WBC 9.75 (4.8-10.8) K/uL RBC 4.52 (4.2-5.4) M/uL Hgb 15.3 (12.0-16.0) g/dL Hct 44.8 (37-47) % MCV 99.1 (80-100) fL MCH 33.8 (25-34) pg MCHC 34.2 (32-36) g/dL RDW Std Deviation 47.2 H (36.4-46.3) fL RDW Coeff of Marcell 13.0 (11.5-14.5) % Plt Count 180 (130-400) K/uL MPV 8.5 (7.4-10.4) fL Immature Gran % (Auto) 0.3 % Neut % (Auto) 66.2 % Lymph % (Auto) 20.9 % Florence % (Auto) 8.7 % Eos % (Auto) 3.6 % Baso % (Auto) 0.3 % Neut # (Auto) 6.45 (1.4-6.5) K/uL Lymph # (Auto) 2.04 (1.2-3.4) K/uL [place] # (Auto) 0.85 H (0.11-0.59) K/uL Eos # (Auto) 0.35 (0-0.5) K/uL Baso # (Auto) 0.03 (0-0.2) K/uL Immature Gran # (Auto) 0.03 H (0.00-0.02) K/uL PT (9.0-12.0) Seconds INR (0.9-1.1) APTT (21.0-31.0) Seconds PTT Ratio Sodium 136 (136-145) mmol/L Potassium 3.7 (3.5-5.1) mmol/L Chloride 103 (98-107) mmol/L Carbon Dioxide 31 (21-32) mmol/L Anion Gap 2.0 L (3-11) BUN 15 (7-18) mg/dl Creatinine 0.93 (0.6-1.2) mg/dl Est Cr Clr Drug Dosing 44.6 ml/min Est GFR ( Amer) 74.2 ml/min Est GFR (Non-Af Amer) 64.0 ml/min BUN/Creatinine Ratio 16.1 (10-20) Glucose 105 H (70-99) mg/dl Calcium 9.7 (8.5-10.1) mg/dl Magnesium (1.8-2.4) mg/dl Total Bilirubin (0.2-1) mg/dl AST (15-37) U/L ALT (12-78) Alkaline Phosphatase (45-117) U/L Troponin I (0-0.045) ng/ml Total Protein (6.4-8.2) gm/dl Albumin (3.4-5.0) gm/dl Globulin (2.5-4.0) gm/dl Albumin/Globulin Ratio (0.9-2) Lipase (73-393) U/L 25-OH Vitamin D Total (30-100) ng/ml Urine Color Urine Appearance (Clear) Urine pH (4.5-7.5) Ur Specific [place] (1.000-1.030) Urine Protein (Negative) Urine Glucose (UA) (Negative) Urine Ketones (Negative) Urine Blood (Negative) Urine Nitrite (Negative) Urine Bilirubin (Negative) Urine Urobilinogen (Negative) Ur Leukocyte Esterase (Negative) Urine WBC (Auto) (0-5) /hpf Urine RBC (Auto) (0-4) /hpf U Hyaline Cast (Auto) (0-5) /lpf U Epithel Cells (Auto) (0-5) /lpf Urine Bacteria (Auto) (Negative) Urine Crystals Urine Mucus (None Prsent) SARS-CoV-2, RNA, NAAT NEGATIVE (NEGATIVE) 08/07/21 08/07/21 08/07/21 Range/Units 18:57 18:57 18:57 WBC 15.89 H (4.8-10.8) K/uL RBC 4.81 (4.2-5.4) M/uL Hgb 16.1 H (12.0-16.0) g/dL Hct 46.9 (37-47) % MCV 97.5 (80-100) fL MCH 33.5 (25-34) pg MCHC 34.3 (32-36) g/dL RDW Std Deviation 46.3 (36.4-46.3) fL RDW Coeff of Marcell 12.9 (11.5-14.5) % Plt Count 219 (130-400) K/uL MPV 8.8 (7.4-10.4) fL Immature Gran % (Auto) 0.4 % Neut % (Auto) 80.0 % Lymph % (Auto) 10.1 % [place] % (Auto) 8.6 % Eos % (Auto) 0.8 % Baso % (Auto) 0.1 % Neut # (Auto) 12.73 H (1.4-6.5) K/uL Lymph # (Auto) 1.60 (1.2-3.4) K/uL [place] # (Auto) 1.36 H (0.11-0.59) K/uL Eos # (Auto) 0.12 (0-0.5) K/uL Baso # (Auto) 0.02 (0-0.2) K/uL Immature Gran # (Auto) 0.06 H (0.00-0.02) K/uL PT 10.5 (9.0-12.0) Seconds INR 1.0 (0.9-1.1) APTT 25.0 (21.0-31.0) Seconds PTT Ratio 1.0 Sodium 135 L (136-145) mmol/L Potassium 3.3 L (3.5-5.1) mmol/L Chloride 101 (98-107) mmol/L Carbon Dioxide 29 (21-32) mmol/L Anion Gap 5.0 (3-11) BUN 19 H (7-18) mg/dl Creatinine 1.07 (0.6-1.2) mg/dl Est Cr Clr Drug Dosing 38.8 ml/min Est GFR ( Amer) 62.7 ml/min Est GFR (Non-Af Amer) 54.1 ml/min BUN/Creatinine Ratio 17.7 (10-20) Glucose 104 H (70-99) mg/dl Calcium 10.7 H (8.5-10.1) mg/dl Magnesium (1.8-2.4) mg/dl Total Bilirubin 0.9 (0.2-1) mg/dl AST 15 (15-37) U/L ALT 26 (12-78) Alkaline Phosphatase 117 (45-117) U/L Troponin I < 0.015 (0-0.045) ng/ml Total Protein 7.2 (6.4-8.2) gm/dl Albumin 4.0 (3.4-5.0) gm/dl Globulin 3.2 (2.5-4.0) gm/dl Albumin/Globulin Ratio 1.3 (0.9-2) Lipase 89 (73-393) U/L 25-OH Vitamin D Total (30-100) ng/ml Urine Color Urine Appearance (Clear) Urine pH (4.5-7.5) Ur Specific [place] (1.000-1.030) Urine Protein (Negative) Urine Glucose (UA) (Negative) Urine Ketones (Negative) Urine Blood (Negative) Urine Nitrite (Negative) Urine Bilirubin (Negative) Urine Urobilinogen (Negative) Ur Leukocyte Esterase (Negative) Urine WBC (Auto) (0-5) /hpf Urine RBC (Auto) (0-4) /hpf U Hyaline Cast (Auto) (0-5) /lpf U Epithel Cells (Auto) (0-5) /lpf Urine Bacteria (Auto) (Negative) Urine Crystals Urine Mucus (None Prsent) SARS-CoV-2, RNA, NAAT (NEGATIVE) Diagnostic Findings Elbow X-Ray 08/07/21 18:04 XR elbow RT min 3V routine CLINICAL HISTORY: Status post fall with right elbow pain. COMPARISON STUDY: No previous studies for comparison. TECHNIQUE: 3 right elbow views FINDINGS: Bones: There is no evidence for an acute fracture or dislocation. There is no lytic or blastic lesion. Joints: The joint spaces are maintained. There is no evidence for an intra- articular effusion or elevation of the fat pads. The bones are in anatomic alignment. Soft tissues: There is no focal soft tissue abnormality. There is no radiopaque foreign body. IMPRESSION: No acute osseous pathology. ACT 112: Negative or not required by law. Electronically signed by: Vitaliy Beverly M.D. 08/07/2021 6:50 PM Hip/Pelvis X-Ray 08/07/21 18:04 XR hip RT 2V w pelvis CLINICAL HISTORY: Status post fall with right hip pain. COMPARISON STUDY: No previous studies for comparison. TECHNIQUE: AP pelvis and 2 right hip views FINDINGS: Bones: There is a laterally impacted, subcapital fracture of the right femoral neck. The medial margin of the right femoral neck is intact. No other evidence for fracture is seen. The remaining visualized bones of the pelvis are intact. There is no lytic or blastic lesion. Joints: The joint spaces are otherwise maintained bilaterally. SI joints are intact. The bones are in anatomic alignment. Soft tissues: There is no focal soft tissue abnormality. There is no radiopaque foreign body. IMPRESSION: Laterally impacted, subcapital fracture of the right femoral neck. ACT 112: Negative or not required by law. Electronically signed by: Vitaliy Beverly M.D. 08/07/2021 6:49 PM Chest X-Ray 08/07/21 18:16 XR chest 1V portable CLINICAL HISTORY: Chest Pain. COMPARISON STUDY: 03/03/2021 TECHNIQUE: 1 view of the chest FINDINGS: Single frontal view of the chest demonstrates the cardiomediastinal silhouette to be within normal limits. However, there is now an alveolar opacity present behind the heart which is homogeneous in density sharp contour and margins. This suggests an interval hiatal hernia or diaphragmatic hernia rather than a pneumonic infiltrate. The remainder of the lungs are clear of alveolar opacities. There is no evidence for pleural effusion. There is no evidence for vascular congestion. There is no acute osseous pathology. IMPRESSION: Interval development of alveolar opacity behind the heart with homogeneous density and smooth margins suggesting either a hiatal hernia or diaphragmatic hernia. A lateral radiograph would be helpful for further evaluation. The remainder of the lungs are clear. ACT 112: Negative or not required by law. Electronically signed by: Vitaliy Beverly M.D. 08/07/2021 6:52 PM PG Care Time/CCT Total # of Minutes Spent Total Time Spent with Patient: Total time spent is greater than 50% in coordination of care (as documented) at patient's floor/unit and/or counseling patient: Coding Level of Care Code 98105 Subseq Hosp Care Lvl 2 Diagnoses Subcapital fracture of right hip S72.011A Encounter type: initial encounter Fracture type: closed Hypertension I10 Hypokalemia E87.6 Anxiety F41.9 GERD (gastroesophageal reflux disease) K21.9 History of DVT (deep vein thrombosis) Z86.718 (1) Subcapital fracture of right hip Encounter type: initial encounter Fracture type: closed Qualified Code(s): S72.011A - Unspecified intracapsular fracture of right femur, initial encounter for closed fracture
[2021-08-08] MEDS ORDERED: FAMOTIDINE 20MG IV PUSH 20 MG/5 ML SYR IV STA (08:08)
[2021-08-08] MEDS: buPROPion XL 300 MG TABCR PO SCH (08:32)
--- NOTE | 2021-08-08 08:49 | Anesthesiology Consultation ---
Date of Service August 08, 2021 Assessment & Plan (1) Encounter for pre-operative examination: Chart Review Chart Review: Patient NOT seen in Pre Admission Testing Consults Requested none History Surgery Operation Date: 08/08/21 09:20 Proposed Procedures p Right Anterior Total Hip Arthroplasty - Perico Case DO Height/Weight Height: 5 ft 6 in Weight: 47.5 kg Allergies Allergy/AdvReac Type Severity Reaction Status Date / Time Benzodiazepines Allergy Unknown Unknown Verified 08/07/21 18:07 chlordiazepoxide Allergy Unknown Unknown Verified 08/07/21 18:07 clidinium Allergy Unknown Unknown Verified 08/07/21 18:07 metoclopramide Allergy Unknown "Lock Verified 08/07/21 18:07 jaw"/muscle spasms prochlorperazine Allergy Unknown Unknown Verified 08/07/21 18:07 NSAIDS (Non-Steroidal Allergy Water Verified 08/07/21 18:07 Anti-Inflamma blister along hair line Medications Home Medications Medication Instructions Recorded Confirmed Last Taken amitriptyline 50 mg tablet 50 mg PO HS 12/15/18 08/07/21 02/20/21 21:30 lansoprazole 30 mg capsule,delayed 30 mg PO QAM 12/15/18 08/07/21 02/20/21 08:00 release (Prevacid) tramadol 50 mg tablet 100 mg PO Q6H PRN 07/06/19 08/07/21 02/20/21 21:00 Medical Marijuana Products 1 dose NOT APPLICABLE UD PRN 02/18/20 08/07/21 02/20/21 21:00 cholecalciferol (vitamin D3) 25 25 mcg PO QAM 02/18/20 08/07/21 02/20/21 08:00 mcg (1,000 unit) tablet (Vitamin D3) lorazepam 0.5 mg tablet 0.5 mg PO BID PRN 02/18/20 08/07/21 Unknown bupropion HCl 300 mg 24 hr tablet, 300 mg PO DAILY 02/28/21 08/07/21 Unknown extended release ondansetron 4 mg disintegrating 4 mg PO Q8H PRN #10 tab 03/02/21 08/07/21 Unknown tablet Active Medications Generic Name Dose Route Start Last Admin Trade Name Freq PRN Reason Stop Dose Admin Amitriptyline HCl 50 mg 08/08/21 00:47 08/08/21 01:56 Amitriptyline Hcl 50 Mg Tab PO 09/07/21 00:46 50 mg HS BRANNON Administration Bupropion HCl 300 mg 08/08/21 09:00 08/08/21 08:32 Bupropion Xl 300 Mg Tabcr PO 09/07/21 08:59 Not Given DAILY BRANNON Potassium Chloride/Sodium Chloride 20 meq in 1,000 mls @ 50 mls/hr 08/08/21 01:00 08/08/21 01:57 Normal Saline W/20 Meq Kcl IV 08/09/21 12:28 80 mls/hr .Q20H BRANNON Administration Protocol Morphine Sulfate 4 mg 08/07/21 18:16 08/08/21 08:46 Morphine Sulfate 4 Mg/Ml 1 Ml Carp\\Vial IV 08/21/21 18:15 4 mg Q30M PRN Administration Pain Ondansetron HCl 4 mg 08/08/21 00:47 08/08/21 08:45 Ondansetron Inj 2 Mg/Ml 2 Ml Vial IV 09/07/21 00:46 4 mg Q6H PRN Administration Nausea Pantoprazole Sodium 40 mg 08/08/21 09:00 08/08/21 08:33 Pantoprazole 40 Mg Tab PO 09/07/21 08:59 Not Given DAILY BRANNON Past Medical History Medical History Anxiety Barretts esophagus Common bile duct (CBD) stricture Dehydration Depression Dyslipidemia Gastroparesis GERD (gastroesophageal reflux disease) IBS (irritable bowel syndrome) Impaired fasting glucose Kidney stones Malnutrition Medical marijuana use Osteoporosis Pernicious anemia PUD (peptic ulcer disease) Sinus tachycardia Chronic issue s/p unremarkable cardiac workup including holter monitor/echo/stress test SMAS (superior mesenteric artery syndrome) Past Family History Family History Father Hypertension Grandmother (Maternal) Family history of diabetes mellitus Aunt Family history of diabetes mellitus Other No significant family history Past Surgical History Surgical History H/O colonoscopy H/O pyloroplasty H/O vagotomy History of carpal tunnel surgery History of esophagogastroduodenoscopy (EGD) History of Mary fundoplication S/P cholecystectomy [place] [place] with CBD stones at ([facility] [place]; 2009); with CBD sludge ([facility] [place]; 2010) S/P thyroidectomy Right side Status post insertion of percutaneous endoscopic gastrostomy (PEG) tube Social History Smoking Status: Current every day smoker tobacco type: cigarettes Smoking cigarettes per day: 10 cigs/day Hx Alcohol Use: No Hx Substance Use: Yes substance use type: marijuana Substance Use Type Other:: Medical marijuana card (inhalation several times/day) Physical Exam Vital Signs Last Vital Signs Temp 37.3 C 08/07/21 18:40 Pulse 83 08/08/21 07:47 Resp 21 08/08/21 07:47 BP 119/81 08/08/21 07:47 Pulse Ox 95 08/08/21 07:47 Testing Laboratory Results 08/08/21 04:16 08/08/21 04:16 PT 10.5 Seconds (9.0-12.0) 08/07/21 18:57 INR 1.0 (0.9-1.1) 08/07/21 18:57 APTT 25.0 Seconds (21.0-31.0) 08/07/21 18:57 trop <0.015 Electrocardiogram Date: 08/07/21 Findings: + NSR @ (98) Left posterior fascicular block, T wave abnormality, consider anterolateral isc hemia, Abnormal ECG, When compared with ECG of 02-MAR-2021 07:48, ST no longer depressed in Anterior leads, Nonspecific T wave abnormality, worse in Inferior leads, T wave inversion now evident in Lateral leads Chest X-Ray Date: 08/07/21 IMPRESSION: Interval development of alveolar opacity behind the heart with homogeneous density and smooth margins suggesting either a hiatal hernia or diaphragmatic hernia. A lateral radiograph would be helpful for further evaluation. The remainder of the lungs are clear. Echocardiogram Date: 12/15/19 EF: 55-59% LV Function: normal RWMA: + none Other Findings: + diastolic dysfunction (grade 1) Valvular Disease: + MR (mild) no evidence of pulmonary HTN, atrial septal aneurysm, no evidence of ASD but unable to rule out patent foramen ovale
[2021-08-08] MEDS ORDERED: PANTOprazole 40 MG TAB PO SCH (09:00)
[2021-08-08 09:41] LABS: Appearance Urine Clear (Clear); Bacteria Urine Automated Negative (Negative); Blood Urine Negative (Negative); Color Urine Orange; Epithelial Cell Urine Auto 0-5 /lpf (0-5); Glucose Urine UA Negative (Negative); Ketones Urine Trace (Negative); Leukocyte Esterase Urine Negative (Negative); Nitrite Urine Positive (Negative); Protein Urine Negative (Negative); RBC Urine Automated 0-4 /hpf (0-4); Specific Gravity Urine 1.028 (1.000-1.030); Urobilinogen Urine Negative (Negative)
[2021-08-08 09:45] LABS: Bilirubin Urine 1+ (Negative)
[2021-08-08 09:52] LABS: Mucus Urine Present (None Prsent)
[2021-08-08] MEDS ORDERED: MIDAZOLAM HCL 1 MG/ML 2ML VIAL ONE (14:01)
[2021-08-08] MEDS ORDERED: KETAMINE 50 MG/5 ML SYRINGE ONE (14:01)
[2021-08-08] MEDS ORDERED: fentaNYL citrate 100 MCG/2 ML VIAL ONE (14:01)
[2021-08-08] MEDS ORDERED: ORTHO JOINT ANESTHETIC ONE (14:13)
--- NOTE | 2021-08-08 14:23 | History & Physical Bridge Note ---
Date of Service August 08, 2021 History & Physical Bridge Note I have examined the patient, reviewed the History & Physical and in the interval since the performance of the History & Physical I have noted the following changes of clinical significance: no changes noted
[2021-08-08] MEDS ORDERED: TRANEXAMIC ACID 100 MG/ML 10 ML VIAL IV ONE (14:40)
[2021-08-08] MEDS ORDERED: TRANEXAMIC ACID 100 MG/ML 10 ML VIAL IV SCH (14:41)
[2021-08-08] MEDS ORDERED: TRANEXAMIC ACID / 0.7% NACL 1000MG/100ML BAG IV ONE (14:45)
[2021-08-08] MEDS ORDERED: ceFAZolin 2000MG 2,000 MG/15 ML SYR IV ONE (14:45)
[2021-08-08] MEDS ORDERED: TRANEXAMIC ACID / 0.7% NACL 1000MG/100ML BAG IV SCH (14:45)
[2021-08-08] MEDS ORDERED: HYDROmorphone INJ 1 MG/ML SYRINGE IV PRN (14:50)
[2021-08-08] MEDS ORDERED: NALOXONE HCL 0.4 MG/1 ML VIAL/CARP IV PRN (14:50)
[2021-08-08] MEDS ORDERED: fentaNYL citrate 100 MCG/2 ML VIAL IV PRN (14:50)
[2021-08-08] MEDS ORDERED: LABETALOL HCL IV 5 MG/ML 20ML IV PRN (14:50)
[2021-08-08] MEDS ORDERED: TRANEXAMIC ACID 1,000 MG **IV Pre-op IV SCH ×2 (15:00→15:05)
[2021-08-08] MEDS ORDERED: ROPIVACAINE 0.5% HCL/PF 150 MG, BUPIVACAINE 0.75% MPF 20 ML, EPINEPHrine 30MG/30ML (OR ... INSTIL SCH (15:00)
[2021-08-08] MEDS ORDERED: TRANEXAMIC ACID 1,000 MG **IV Intra-op IV SCH (15:00)
[2021-08-08] MEDS ORDERED: PROPOFOL IV EMULSION 10 MG/ML 20 ML VIAL IV ONE (15:34)
[2021-08-08] MEDS ORDERED: ONDANSETRON INJ 2 MG/ML 2 ML VIAL ONE (15:34)
[2021-08-08] MEDS ORDERED: LIDOCAINE 2% 2 ML VIAL/AMP(20MG/ML) INFIL ONE (15:34)
[2021-08-08] MEDS ORDERED: HYDROmorphone INJ 2 MG/ML SYR/VIAL ONE (15:57)
[2021-08-08] MEDS ORDERED: LABETALOL HCL IV 5 MG/ML 20ML IV ONE (16:03)
--- NOTE | 2021-08-08 16:56 | Operative Report ---
PG Post Operative Report Pre & Post Diagnosis Operation Date: 08/08/21 09:20 Pre-Op Diagnosis: Right hip displaced femoral neck fracture Post-Op Diagnosis: Right hip displaced femoral neck fracture I identified the patient and participated in the time-out.: Yes Procedure Operation Date: 08/08/21 09:20 Actual Procedures p Right Anterior Total Hip Arthroplasty(Right) - Perico Case DO Surgeon Perico Case DO Perch Machine Inspector Perico Groves PAC Estimated Blood Loss 350 Findings Consistent with Post-Op Diagnosis Specimens Right femoral head Complications none Disposition Disposition: Recovery Room Indications Shawnee is a pleasant 65-year-old female who fell off her dryer yesterday. She sustained a right femoral neck fracture. She came to the emergency room and was admitted to the medical service. Orthopedics was consulted. After discussions at bedside, she elected proceed with a right anterior total hip arthroplasty. Description of Procedure Implants used I used a [employer]immer[employer]omet total hip arthroplasty system with a size 5 standard offset Avenir Complete stem, a 50mm G7 cup with a 25mm screw, an E1 polyethylene liner, a 36mm ceramic head with a 0 neck. Shawnee arrived at the hospital for the above procedure. She was seen in the preoperative holding area and the operative extremity was identified and signed. She was given a preoperative antibiotic, and TXA. She was then taken back to the operating room and laid on the table in the supine position. She was placed under general anesthesia. The operative leg was secured to a Puristst leg positioner. The hip was then prepped and draped in sterile fashion. A timeout was done and the patient and the operative extremity was properly identified. An anterior approach was used. Dissection was taken down through the fascia and the tensor muscle belly was retracted laterally and the rectus was retracted medially. The circumflex vessels were identified and ligated. The capsule was then incised and tagged for later repair. The femoral neck was then cut and the femoral head was removed. The acetabulum was exposed. Time was spent doing a complete circumferential labral release. Sequential reaming of the acetabulum up to a size 49 reamer was done. Final reamings were done under fluoroscopy to ensure appropriate version. A Biomet 50mm G7 cup was then impacted into place. A single 25 mm screw was placed. The E1 polyethylene liner was then snapped into place. Surrounding soft tissues were then injected with 100 cc of an orthopedic pain control cocktail. The proximal femur was then exposed. Sequential broaching up to a size 5 broach was done. Off that broach a size 36 head with a 0 neck was trialed. The hip was reduced and fluoroscopic images showed anatomic alignment of the implants in acceptable length. The broach was removed. The final size 5 standard offset Avenir Complete stem was then impacted into place. A ceramic 36 mm head with a 0 neck was then impacted onto the stem and the hip was reduced. Final fluoroscopic images showed anatomic alignment of the hip. The capsule was then closed with #1 Vicryl suture. A dilute betadyne lavage was then done for 3 minutes. The joint was then irrigated with normal saline solution. The fascia was closed with #1 PDS suture. Skin was closed with 2-0 Vicryl, jaimie, and a Silverlon dressing. She was then transferred to a hospital bed and taken to the post anesthesia care unit in stable condition. She tolerated the procedure well. Perico Groves PA-C, was present for the entire procedure. He was critical for patient positioning, prepping, draping, retraction exposure, wound closure and application of sterile dressing. I attest to the content of the Intraoperative Record and any orders documented therein. Any exceptions are noted below.
[2021-08-08] MEDS ORDERED: PROMETHAZINE HCL 6.25 MG in SODIUM CHLORIDE 0.9% 50 ML IV PRN (17:37)
[2021-08-08] MEDS ORDERED: SODIUM CHLORIDE 0.9% 50 ML BAG ONE (17:40)
[2021-08-08] MEDS ORDERED: PROMETHAZINE HCL INJ 25 MG/ML 1 ML VIAL ONE (17:40)
--- NOTE | 2021-08-08 17:41 | Fluoroscopy Report ---
FL hip RT 1V CLINICAL HISTORY: Right anterior total hip arthroplasty. COMPARISON STUDY: None. FLUOROSCOPY TIME: 21 seconds. FINDINGS: A single fluoroscopic spot image of the right hip demonstrates a right total hip arthroplas ty. The hardware appears intact. No fracture or dislocation. IMPRESSION: Fluoroscopic assistance provided for right total hip arthroplasty. ACT 112: Negative or not required by law. Electronically signed by: David Putnam M.D. 08/08/2021 5:39 PM
--- NOTE | 2021-08-08 17:49 | XRay Report ---
XR hip RT min 2V CLINICAL HISTORY: Post-Operative implant position. Right hip prosthesis. COMPARISON STUDY: Right hip 08/07/2021. FINDINGS: Interval placement of a right total arthroplasty. The hardware appears intact. No acute fra cture or dislocation. Skin jaimie are in place. IMPRESSION: Status post right total hip arthroplasty. The hardware appears intact. ACT 112: Negative or not required by law. Electronically signed by: David Putnam M.D. 08/08/2021 5:48 PM
--- NOTE | 2021-08-08 18:15 | Electrocardiogram Report ---
Test Reason : Blood Pressure : / mmHG Vent. Rate : 098 BPM Atrial Rate : 098 BPM P-R Int : 124 ms QRS Dur : 102 ms QT Int : 366 ms P-R-T Axes : 000 147 -46 degrees QTc Int : 467 ms Poor data quality, interpretation may be adversely affected Normal sinus rhythm Left posterior fascicular block T wave abnormality, consider anterolateral ischemia Abnormal ECG When compared with ECG of 02-MAR-2021 07:48, ST no longer depressed in Anterior leads Nonspecific T wave abnormality, worse in Inferior leads T wave inversion now evident in Lateral leads Confirmed by Lasha Rick ([id number]) on 08/08/2021 6:15:03 PM Referred By: REFERRED SELF Confirmed By:Ortiz Rick
[2021-08-08] MEDS ORDERED: LORazepam 0.5 MG TAB PO PRN (19:36)
[2021-08-08] MEDS ORDERED: SOD PHOSPHATE/SOD BIPHOSPHATE ENEMA 132 ML BTL PR PRN (19:36)
[2021-08-08] MEDS ORDERED: ONDANSETRON 4 MG OD TAB PO PRN (21:15)
[2021-08-08] MEDS ORDERED: MEDICAL MARIJUANA INH PRN (21:15)
[2021-08-08] MEDS: ASPIRIN 81 MG ECTAB PO SCH (21:37)
[2021-08-09] MEDS: HYDROmorphone INJ 0.5 MG/0.5 ML SYR IV PRN ×3 (03:10→15:01)
[2021-08-09] MEDS: oxyCODONE HCL IR 5 MG TAB (IMMEDIATE RELEASE) PO PRN ×3 (06:39→15:51)
--- NOTE | 2021-08-09 07:29 | Orthopedic Progress Note ---
Date of Service August 09, 2021 Assessment & Plan (1) Status post right hip replacement: Overall she is doing fairly well. She will be seen by physical therapy today for ambulation and range of motion exercises. She is currently on aspirin 81 mg twice a day for DVT prophylaxis. We will see how she does with physical therapy. If she continues to do well with therapy we will keep her on the aspirin regimen. She is orthopedically stable for discharge when medically ready. Full orthopedic discharge instructions were placed in the discharge summary. She will follow-up with orthopedics in 2 weeks. Alpa Mlalory was seen and examined at bedside this morning. Overall she is doing fairly well. She was able to ambulate around her bed yesterday. She is having some soreness in the hip this morning. She has no other complaints.. Review of Systems All systems reviewed & are unremarkable except as noted in HPI & below. Physical Exam On physical examination of the right hip, the dressing is clean and dry. Her leg lengths are equal. She has active dorsiflexion plantarflexion of her right ankle.. Results & Data Results & Data Laboratory Results . Diagnostic Findings Postoperative x-rays of the right hip show the prosthesis to be in anatomic alignment without any evidence of fracture, desiccation, or loosening. PG Care Time/CCT Total # of Minutes Spent Total Time Spent with Patient: Total time spent is greater than 50% in coordination of care (as documented) at patient's floor/unit and/or counseling patient: Coding Level of Care Code 09174 Post Operative Follow-Up Diagnoses Status post right hip replacement Z96.641
[2021-08-09 07:38] LABS: Basophils # (auto) 0.02 K/uL (0-0.2); Basophils % (auto) 0.1 %; Eosinophils # (auto) 0.15 K/uL (0-0.5); Hematocrit (blood only) 39.1 % (37-47); Hemoglobin 12.9 g/dL (12.0-16.0); Immature Granulocytes # (auto) 0.03 K/uL (0.00-0.02); Immature Granulocytes % (auto) 0.2 %; Lymphocytes # (auto) 1.58 K/uL (1.2-3.4); Lymphocytes % (auto) 10.1 %; Monocytes # (auto) 1.01 K/uL (0.11-0.59); Monocytes % (auto) 6.4 %; Neutrophils # (auto) 12.92 K/uL (1.4-6.5); Neutrophils % (auto) 82.2 %; Platelet Count 175 K/uL (130-400); RDW Coefficient of Variation 13.3 % (11.5-14.5); RDW Standard Deviation 48.7 fL (36.4-46.3); Red Blood Count 3.91 M/uL (4.2-5.4); White Blood Count 15.71 K/uL (4.8-10.8)
[2021-08-09 08:07] LABS: Albumin Level 3.1 gm/dl (3.4-5.0); BUN Creatinine Ratio 19.4 (10-20); Calcium 9.6 mg/dl (8.5-10.1); Creatinine Clr Calc Pharmacy 57.2 ml/min; Est GFR (African American) 90.4 ml/min; Potassium 4.2 mmol/L (3.5-5.1)
[2021-08-09 08:15] LABS: Bilirubin,Total 0.8 mg/dl (0.2-1); Total Protein 6.1 gm/dl (6.4-8.2)
[2021-08-09] MEDS ORDERED: PANTOprazole 40 MG TAB PO SCH (09:00)
[2021-08-09] MEDS ORDERED: CHOLECALCIFEROL 1,000 UNITS 25 MCG TAB PO SCH (09:00)
[2021-08-09] MEDS ORDERED: ASPIRIN 81 MG ECTAB PO SCH (09:00)
[2021-08-09] MEDS: ACETAMINOPHEN 500 MG TAB PO PRN ×2 (10:39→15:50)
[2021-08-09] MEDS: ASPIRIN 81 MG ECTAB PO SCH (11:41)
[2021-08-09] MEDS: buPROPion XL 300 MG TABCR PO SCH (11:42)
--- NOTE | 2021-08-09 16:56 | Discharge Summary ---
Date of Service August 09, 2021 Admission HPI Per Admitting Provider And is a 65-year-old female with a past medical history of chronic abdominal pain, hypertension, ureteral calculi, tobacco use, GERD, IBS, peptic ulcer disease, thyroidectomy, cholecystectomy, Mary fundoplication, PEG placement, and C. difficile colitis who presented to the emergency department for right- sided hip pain. Patient was in her normal state of health when she fell to her right side. Patient injured her right elbow, and had severe pain when standing. Case was discussed with Dr. Orlando by ER provider who recommended admission and follow-up evaluation by orthopedics. Was doing laundry and was on the dryer when she sustained a mechanical fall. Did not hit her head. Had instant pain in her hip, crawled backwards on the floor to the phone to call for help. no syncope, presyncope, fever, chills, sweats, nausea, vomiting, diarrhea, constipation, chest pain, chest pressure, shortness of breath, palpitations. has a history of chronic back pain which is OK at time of admission. Lives alone. Medical History: Reviewed Medications: Reviewed Surgical History: Reviewed Allergies: Reviewed Social History: Denies ETOH, recreational drug use. Endorses hx MM use, Code Status: DNR/DNI Principal Diagnosis Right hip displaced femoral neck fracture Discharge Exam Constitutional WD/WN, vitals as above Eyes EOM intact bilaterally; no conjunctival abnormality ENMT external ear and nose normal, oropharynx normal Neck trachea midline, no thyromegaly normal visual inspection Respiratory normal respiratory effort, lungs clear to auscultation no respiratory distress Cardiovascular RRR, no murmur, no edema Gastrointestinal (Abdomen) Inspection/Auscultation: abdomen normal to inspection; abdomen not distended Musculoskeletal no cyanosis or clubbing, extremities motor strength 5/5 Skin no rashes, warm and dry Neurologic moves all extremities and awake Psychiatric Orientation: alert, oriented to person and cooperative Discharge Data Allergies Allergy/AdvReac Type Severity Reaction Status Date / Time Benzodiazepines Allergy Unknown Unknown Verified 08/07/21 18:07 chlordiazepoxide Allergy Unknown Unknown Verified 08/07/21 18:07 clidinium Allergy Unknown Unknown Verified 08/07/21 18:07 metoclopramide Allergy Unknown "Lock Verified 08/07/21 18:07 jaw"/muscle spasms prochlorperazine Allergy Unknown Unknown Verified 08/07/21 18:07 NSAIDS (Non-Steroidal Allergy Water Verified 08/07/21 18:07 Anti-Inflamma blister along hair line Procedures Performed Operation Date: 08/08/21 09:20 Actual Procedures p Right Anterior Total Hip Arthroplasty(Right) - Perico Case, Ordered Studies 08/08/21 14:30 FL hip RT 1V Routine Hospital Course (1) Subcapital fracture of right hip: Right hip fracture 2/2 mechanical fall -CXR: Alveolar opacity suspicious for hiatal versus diaphragmatic hernia, no pleural effusion or vascular congestion. Will check 2 view for completeness -XRright hip: Laterally impacted subcapital fracture of right femoral neck -XRright elbow: No acute fracture dislocation -EKG normal sinus rhythm without acute ST segment elevation, [id number] troponin negative Will also check UA given chronic back pain/falls/and history of recurrent ureteral calculi (just had cysto in summer with Dr. Blair but had already passed per report) Lorenzo placed given to OR for repair WBC elevated on admission, but normalized on repeat, likely reactive from fall/fracture Ortho consulted -- plans for R LENNIE today with Dr. Case Pain control, antiemetics prn -- has been using morphine quite frequently, would encourage heavy bowel regimen post-operatively --> Currently passing gas with +BS, but encourage regimen post-op. Just got dose of dilaudid for increased discomfort this morning and stated improvement - S/p Right Anterior Total Hip Arthroplasty with Dr. Case on 08/08. Cleared for discharge by orthopedics. -> DVT ppx with ASA 81 mg PO BID - F/u with Dr. Case in 2 weeks. PT/OT recommend SNF, but the patient did not want to go. She could explain risks:benefits of her choice. She was realistic about her risks and had formed plans in the event that she fell or had other injury. Home health was unavailable until Thursday, Aug 12, but patient reported having many neighbors lined up to provide assistance through the weekend. Patient was clearly capable of making this decision and decided to be discharged. 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 nightly Continue bupropion 300 mg p.o. daily Patient on medical marijuana at home -- uses vaporizer several times/daiy for abd pain and has been helpful. Unfortunately did discuss not able to utilzie while inpatient but in future if topical/tincture can provide lock-box and continued use Hold home tramadol while increased analgesia for hip fracture as above (5) GERD (gastroesophageal reflux disease): GERD Lansoprazole converted to Protonix while inpatient famotidine IVP x 1 now, protonix when able to take PO (6) History of DVT (deep vein thrombosis): - Past DVT without PE, on anticoagulation in the distant past which was stopped - SCDs pending surgery, recommend post-op pharmacologic DVT PPx - No signs of DVT at time of assessment DVT prophylaxis: SCDs, chemical prophylaxis deferred pending orthopedic eval/potential surgical intervention Diet: N.p.o. for OR planned CODE STATUS: DNR/DNI I certify that this patient is under my care and that I, or a physicians business development assistant working with me, had a face to-face encounter that meets the home health [id number] encounter requirements with this patient. The encounter with the patient was in whole, or in part, for the following medical condition, which is the primary reason for home health care (list medical condition): Right hip fracture I certify that, based on my findings, the following services are medically necessary home health services: My clinical findings support the need for the above services because: OT Assess ADL Status and Restore Function w ADLs PT Assessment for Endurance / Balance / Strength PT Eval for Safety and Mobility PT Gait and Balance Training, Strengthening and Safety Further, I certify that my clinical findings support that this patient is homebound (i.e. absences from home require considerable and taxing effort and are for medical reasons or [employer] services or infrequently or of short duration when for other reasons) because: Supportive Aid - Walker Transportation Assistance/Unable to Leave Home Unassisted Certification for Home Health Services: Based on the above findings, I certify that this patient is confined to the home and needs intermittent shelter care, physical therapy and/or speech therapy or continues to need occupational therapy. The patient is under my care, and I have initiated the establishment of the plan of care. This patient will be followed by a physician who will periodically review the plan of care. Total Time Total Time Spent Total Time Spent (In Minutes): 35 Discharge Plan Discharge Items Patient Disposition: Home - Home Health Services Reason For Visit: RT HIP FRACTURE Discharge Diagnosis: Right hip fracture Activity: Resume your previous activity Non-emergency contact: Primary Care Provider and Surgeon Call non-emergency contact if: your symptoms worsen Follow-up/Referrals: Reji Weinstein [Primary Care Provider] - Perico Case DO [Physician] - (Please see Dr. Case in 2 weeks.) Diet: Regular Addtl Attending Provider Instructions: Please see Dr. Case in 2 weeks. Addtl Smoke Room Operator Provider Instructions: Activity and Therapy Recommendations: * If you are using [facility] then therapy will be provided at your home until they feel you have accomplished all of your goals. * If you are using [facility] then Physical Therapy will be provided until they feel you are ready to start Outpatient Physical Therapy. * If you are not using home therapy then Outpatient Physical Therapy should start about 3-5 days from your day of surgery. Therapy will last about 6-10 weeks * You were shown a series of exercises in the hospital. Do these exercises three times each day including the exercises you were shown in physical therapy. * Get up and walk several times each day.~ For the first four weeks, try not to stand or walk for more than one hour at a time. If you do stand or walk for more than one hour, you will not hurt anything, but your leg will likely swell.~~ * As you feel comfortable, you may change from the walker or crutches to a cane and~then to independent walking. Medications: * Narcotic You will likely be sent home from the hospital with a prescription for the narcotic pain medication that worked best throughout your stay. * Aspirin Most patients will be required to take Aspirin 81mg twice a day for 6 weeks after surgery. This is obtained [id number]-paitcie and a prescription is not necessary. * Other medications may be prescribed for specific circumstances. If you have any questions, please call the office at . * Resume previous home medications unless otherwise instructed TEDs/Elastic Stockings: The white elastic stockings help limit swelling and prevent blood clots from forming in your legs. The more you wear them, the more they work. Wear them for six weeks. Dressing Care: Leave the Silverlon dressing in place for 7 days. After 7 days you may remove the dressing. If the incision is not draining then you may leave the jaimie open to air. If there is a little bit of drainage or if the jaimie are getting stuck on your clothing then cover the incision with a dry dressing. The jaimie will be removed at your 2 week follow-up appointment. Showering: You may shower with the Silverlon dressing in place. Do not let the shower spray hit the dressing directly. Pat the Silverlon dressing dry. If the dressing becomes wet underneath, then simply remove the dressing. Keep the incision dry until you are 7 days out from the day of surgery. After 7 days you may remove the Silverlon dressing and shower with the jaimie exposed. Let soapy water run over the jaimie and pat them dry. Do not scrub or soak the incision. Things To Watch For: * Drainage from the incision site that occurs more than one week after your surgery. * Increased redness at the incision site. * Fever above 102 degrees Fahrenheit. * Unusual chest pain or shortness of breath. * Call [facility] at with any of the above problems Follow-Up Visit: Follow-up with Dr. Case's PA (Perico Groves) 2-3 weeks after your day of surgery. He will remove your jaimie and answer any questions. If you have any additional questions or concerns, Dr Case is usually in the office at the same time and will be available Please call the office to set up an appointment for a time that works for you If you have any questions call Pending Studies at Discharge: No Stand-Alone Forms: My [facility], Smoking Cessation Medications and DC Order Prescriptions: New aspirin 81 mg Tablet,Delayed Release (Dr/Ec) 81 mg PO BID Qty: 0 RF: 0 oxycodone 5 mg Tablet 5 mg PO Q4H PRN (Reason: severe pain (scale score 7-10)) Qty: 15 RF: 0 Continued amitriptyline 50 mg tablet 50 mg PO HS RF: 0 lansoprazole [Prevacid] 30 mg Capsule,Delayed Release(Dr/Ec) 30 mg PO QAM RF: 0 tramadol 50 mg tablet 100 mg PO Q6H PRN (Reason: Pain) RF: 0 lorazepam 0.5 mg tablet 0.5 mg PO BID PRN (Reason: Anxiety) RF: 0 cholecalciferol (vitamin D3) [Vitamin D3] 25 mcg (1,000 unit) Tablet 25 mcg PO QAM RF: 0 Medical Marijuana Products 1 dose Not Applicable UD PRN (Reason: Pain) RF: 0 bupropion HCl 300 mg tablet extended release 24 hr 300 mg PO DAILY RF: 0 ondansetron 4 mg tablet,disintegrating 4 mg PO Q8H PRN (Reason: nausea and vomiting) Qty: 10 RF: 0 Discharge Orders: Discharge Order (Routine); Ordered 08/09/21 Ordered By: Wilson Velásquez/Other Patient Handouts: Preventing Falls in the Home Admission Data Admit Date/Time: 08/07/21 20:56 Attending Provider: Wilson Jacobsen Admit Provider: Leonel Apodaca Primary Care Provider: Reji Weinstein Other Providers: Wilson Jacobsen ; [facility] Other Interventions: Discharge Summary Assessment (RN) Last Done: 08/09/21 14:48 Coding Level of Care Code D/C DAY MANAGEMENT >30 MINS Diagnoses Subcapital fracture of right hip S72.011A Encounter type: initial encounter Fracture type: closed Hypertension I10 Hypokalemia E87.6 Anxiety F41.9 GERD (gastroesophageal reflux disease) K21.9 History of DVT (deep vein thrombosis) Z86.718
[2021-08-10] MEDS ORDERED: POLYETHYLENE (MIRALAX) 17 GM PACK PO SCH (18:00)
== END 2021-08-09 16:27 | disposition home health service (06) | DRG 522 ==
LOC: ED 18:00 → EDINP 20:56 → SUATTDRO 20:56 → 3N 08-08 01:08